=== PATIENT | female | born 1960 | race Two or more races ===

== ENCOUNTER 2020-09-01 13:11 | Outpatient (REF) | payer OTHER, SELFPAY ==
--- NOTE | 2020-09-01 | MM_ITS ---
EXAMINATION: BONE DENSITOMETRY CLINICAL INDICATION: Menopausal and female climacteric states. Other specified disorders of bone density and structure, unspecified site. COMPARISON: Previous BD dated 04/13/2018 and baseline BD dated 08/27/2009. TECHNIQUE: Using a Perk DXA System (software version: 13.1) manufactured by [employer], dual-energy x-ray absorptiometry was performed of the lumbar spine and left hip. The images are of good technical quality. Summary results are attached. FINDINGS: AP SPINE L1-L4: Current: BMD 1.128 g/cm2, Z-score 0.1, T-score -0.4, normal, 5.7% decrease from previous, 1.1% decrease from baseline (<5% change is not significant). Prior: BMD 1.196 g/cm2. Baseline: BMD 1.140 g/cm2. LEFT FEMUR, NECK: Current: BMD 0.824 g/cm2, Z-score -0.8, T-score -1.5, osteopenia. Prior: BMD 0.879 g/cm2. Baseline: BMD 0.901 g/cm2. LEFT FEMUR, TOTAL: Current: BMD 0.990 g/cm2, Z-score 0.3, T-score -0.1, normal, 6.4% decrease from previous, 5.4% decrease from baseline (<5% change is not significant). Prior: BMD 1.058 g/cm2. Baseline: BMD 1.047 g/cm2. IDENTIFIED RISK FACTORS: Current smoker. Bilateral oophorectomy. Hysterectomy. Secondary osteoporosis (early menopause). HISTORY OF FRACTURE: None listed. MEDICATIONS: Calcium supplement and/or multivitamin. Vitamin D. MM/XR DEXA axial skeleton IMPRESSION: 1. DIAGNOSIS: Osteopenia based on the lowest T-score value of -1.5 in the femoral neck applying World Health Organization criteria. 2. 10-YEAR FRACTURE RISK PREDICTION, FRAX: Major osteoporotic fracture (clinical spine, forearm, hip or shoulder) 4.3%. Hip fracture 0.6%. 3. Treatment Recommendations: NOF guidelines recommend consideration for treatment in postmenopausal women and men age 50 and older presenting with the following: -A hip or vertebral (clinical or morphometric) fracture. -T-score less than or equal to -2.5 at the femoral neck or spine after appropriate evaluation to exclude secondary causes. -Low bone mass at the hip or spine and a 10-year fracture probability by FRAX of greater than or equal to 3% for hip fracture or greater than or equal to 20% for major osteoporotic fracture based on the [place] adapted WHO algorithm. 4. Other Recommendations: All treatment decisions require clinical judgment and consideration of individual patient factors, including patient preferences, comorbidities, previous drug use, risk factors not captured in the FRAX model (e.g. frailty, falls, vitamin D deficiency, increased bone turnover, interval significant decline in bone density) and possible under or overestimation of fracture risk by FRAX. Additional medical evaluation for secondary cause of low bone mineral density may be appropriate. FUTURE SCAN RECOMMENDATION: People with diagnosed cases of osteoporosis or at high risk for fracture should have regular bone mineral density tests. For patients eligible for Medicare, routine testing is allowed once every 2 years. The testing frequency can be increased to one year for patients who have rapidly progressing disease, those who are receiving or discontinuing medical therapy to restore bone mass, or have additional risk factors.
--- NOTE | 2020-09-01 | MM_ITS ---
EXAMINATION: MM SCREENING DIGITAL BREAST TOMOSYNTHESIS, BILATERAL CLINICAL INFORMATION: Screening. Asymptomatic. The lifetime risk of breast cancer based on the Tyrer-Cuzick Model is 10.6%. COMPARISON: Mammography: April 13, 2018 and studies dating back to September 14, 2011 TECHNIQUE: Digital breast tomosynthesis is performed in both the craniocaudal and mediolateral oblique views along with computer-aided detection (CAD). Synthesized 2D images are generated from the tomosynthesis. FINDINGS: There are scattered areas of fibroglandular density (ACR BI-RADS breast composition Category b). There are no significant masses, abnormal calcifications, or other abnormalities. There is multiplicity and bilaterality of stable circumscribed densities. MM/MM tomosynthesis screening BI IMPRESSION: There are no significant changes from prior study. ASSESSMENT: BI-RADS 1: Negative RECOMMENDATION: Routine annual mammography screening. This patient's information was entered into a reminder system with a target due date for their next mammogram.
== END 2020-09-01 13:12 | disposition home or self-care (01) ==
LOC: HO.MAMMO 13:11
PROVIDERS: Visit Provider Internal Medicine
DX: Z13.820 Encounter for screening for osteoporosis (principal); M85.80 Other specified disorders of bone density and structure, unspecified site; N95.1 Menopausal and female climacteric states; F17.200 Nicotine dependence, unspecified, uncomplicated; Z79.899 Other long term (current) drug therapy; Z90.722 Acquired absence of ovaries, bilateral; Z90.710 Acquired absence of both cervix and uterus; Z12.31 Encounter for screening mammogram for malignant neoplasm of breast
CPT/HCPCS: 77063; 77067; 77080

== ENCOUNTER 2021-02-08 11:34 | Emergency (ER) | payer OTHER, SELFPAY ==
--- NOTE | ~2021-02-08 | XR_ITS ---
EXAMINATION: XR CHEST CLINICAL INFORMATION: Dyspnea. COMPARISON: None TECHNIQUE: Frontal view of the chest was obtained. FINDINGS: The lungs are well-expanded and clear of acute process. The heart size and pulmonary vascularity is normal. No gross bony abnormality seen. XR/XR chest 1V IMPRESSION: Unremarkable chest exam.
--- NOTE | ~2021-02-08 | CT_ITS ---
EXAMINATION: CTA CHEST PE STUDY CLINICAL INFORMATION: pt c cough c chest discomfort ? pe vs pna vs covid COMPARISON: No pertinent prior studies are available for comparison. TECHNIQUE: Prior to contrast administration, noncontrast localization images were obtained. After the administration of 70 mL of Omnipaque 350 IV contrast, contiguous thin slice helical images were obtained through the thorax. Reformatted MIP images in the coronal and sagittal planes were obtained at the acquisition workstation. This CT examination was performed using dose optimization techniques as appropriate, variously including the following: *Automated exposure control *Adjustment of mA and/or kV according to patient size (this includes techniques or standardized protocols for targeted exams where dose is matched to indication/reason for exam; i.e. extremities or head) *Use of iterative reconstruction technique DLP: 392 mGy-cm. FINDINGS: The bolus timing on this study was acceptable for visualization of the pulmonary arterial tree. There are no intraluminal pulmonary arterial filling defects present to suggest pulmonary embolism. Minimal atelectatic changes bilaterally. No dense consolidation or obvious infiltrate. Mild peribronchial cuffing and thickening is seen suggesting reactive or small airways disease. No abnormal pulmonary nodules or masses are appreciated. No significant hilar or mediastinal adenopathy. There is no evidence of pleural effusion or pneumothorax. The heart is normal in size. No evidence of ventricular septal bowing or right heart strain. Great vessels are normal. Otherwise the mediastinum is unremarkable. There is no pericardial effusion or pericardial thickening. Limited evaluation of the upper abdominal viscera demonstrates the gallbladder to be surgically absent.. CT/CT angio chest PE protocol IMPRESSION: No evidence for pulmonary emboli. Mild peribronchial thickening suggesting underlying reactive or small airways disease but no dense consolidation. VTE: Negative
[2021-02-08 12:16] VITALS: BP 190/81; PULSE 81; RESP 18; TEMP 36.6; O2SAT 96; BMI 41.1
--- NOTE | 2021-02-08 15:30 | ECG_ITS ---
Test Reason : SOB Blood Pressure : / mmHG Vent. Rate : 073 BPM Atrial Rate : 073 BPM P-R Int : 148 ms QRS Dur : 086 ms QT Int : 430 ms P-R-T Axes : 054 060 056 degrees QTc Int : 473 ms Normal sinus rhythm Normal ECG When compared with ECG of 25-DEC-2017 06:41, No significant change was found Referred By: Yanna Kevin Electronically Signed By:NORRIS MERRITT
--- NOTE | 2021-02-08 15:52 | ED.SOB ---
HPI - SOB/Dyspnea General Chief Complaint: Dyspnea Stated Complaint: SOB Time Seen by Provider: 02/08/21 15:29 Source: patient Mode of arrival: ambulatory Limitations: no limitations History of Present Illness HPI Narrative: 60-year-old female with a past medical history of type 2 diabetes, hypertension, hypercholesterolemia, asthma, obstructive sleep apnea, tobacco abuse, obesity, GERD, fatty liver, interstitial cystitis, nephrolithiasis, anxiety and depression full recently received the Shahriar and Shahriar 1 dose COVID vaccine on February 03 presenting to the ED with complaints of a productive cough with associated shortness of breath, dyspnea on exertion, orthopnea and chest discomfort over the past week worse since yesterday where she developed the shortness of breath/dyspnea on exertion/orthopnea/chest discomfort. Patient reports she has been using her albuterol inhaler and no symptomatic relief. Reports she also believes she might have oral thrush. Denies recent travel or sick contacts. Denies any fevers, dizziness, headaches, changes in vision, sore throat, nausea/vomiting, neck pain/stiffness, back pain, palpitations, lower extremity edema, abdominal pain, dysuria, hematuria, black or bloody stools or any other symptoms complaints or concerns at this time. MD elicited complaint: shortness of breath, cough, pain with inspiration and asthma attack Pertinent past history: asthma and diabetes Onset (ago): week(s) (One week worse since yesterday) Timing: constant and progressively worsening Severity: severe Exacerbating factors: lying flat, exertion, movement, coughing, inspiration, talking and deep breaths Relieving factors: rest and upright position Known history of: asthma and diabetes Associated symptoms: chest pain, pain with inspiration, cough, wheezing and orthopnea Treatment prior to arrival: bronchodilator Related Data Home oxygen amount: none Home Medications Medication Instructions Recorded Confirmed albuterol sulfate 2.5 mg INHALATION Q4-6H PRN 09/03/20 01/05/21 amitriptyline 25 mg tablet 25 mg PO BEDTIME 09/03/20 01/05/21 aspirin 81 mg tablet,delayed 81 mg PO DAILY 09/03/20 01/05/21 release budesonide-formoterol HFA 160 2 puff INHALATION Q12H 09/03/20 01/05/21 mcg-4.5 mcg/actuation aerosol inhaler fexofenadine 180 mg tablet 180 mg PO DAILY 09/03/20 01/05/21 fluoxetine 40 mg capsule 40 mg PO DAILY 09/03/20 01/05/21 fluticasone propionate 50 2 spray INTRANASAL DAILY 09/03/20 01/05/21 mcg/actuation nasal spray,suspension hydrocortisone acetate 1 % rectal applic TOPICAL PRN 09/03/20 01/05/21 cream lactulose 10 gram/15 mL (15 mL) 10 g PO DAILY PRN 09/03/20 01/05/21 oral solution losartan 100 mg tablet 100 mg PO DAILY 09/03/20 01/05/21 metoprolol succinate 25 mg 25 mg PO DAILY 09/03/20 01/05/21 tablet,extended release 24 hr sennosides 8.6 mg capsule 8.6 mg PO DAILY 09/03/20 01/05/21 Previous Rx's Medication Instructions Recorded simvastatin 5 mg tablet 5 mg PO BEDTIME #90 tab 08/20/20 lidocaine 5 % topical ointment 1 applic TOPICAL TID #60 g 09/03/20 nystatin 100,000 unit/mL oral 5 ml PO TID 7 Days #105 ml 09/14/20 suspension pantoprazole 40 mg tablet,delayed 40 mg PO DAILY #90 tab 11/03/20 release ropinirole 3 mg tablet 3 mg PO BEDTIME #90 tab 11/20/20 isosorbide mononitrate 30 mg 30 mg PO DAILY #90 tab 01/12/21 tablet,extended release 24 hr oxycodone-acetaminophen 5 mg-325 1 tab PO TID PRN #84 tab 01/29/21 mg tablet fenofibrate 160 mg tablet 160 mg PO DAILY #90 tab 02/05/21 albuterol sulfate 90 mcg/actuation 2 puff INHALATION Q6H PRN #8.5 g 02/07/21 aerosol inhaler Allergies Allergy/AdvReac Type Severity Reaction Status Date / Time lisinopril [From Zestril] AdvReac Mild COUGH Verified 09/02/20 11:00 Review of Systems Review of Systems: Constitutional : + malaise/fatigue, No Weight loss, No Fever, No Chills, No Night Sweats ENT/Mouth : No Hearing loss, No Ear Pain, No Nasal Congestion, No Sinus Pain, No Hoarseness, No sore throat, No Rhinorrhea, No Swallowing Difficulty Eyes: No Eye Pain, No Swelling, No Redness, No Foreign Body, No Discharge, No Vision Changes Cardiovascular : + Chest discomfort, + SOB, + Dyspnea on Exertion, + Orthopnea, No Edema, No extremity swelling, No Palpitations Respiratory : + Cough, + Sputum, + Wheezing, + Dyspnea Gastrointestinal : No Nausea, No Vomiting, No Diarrhea, No abdominal Pain, No Hematochezia, No Melena Genitourinary : No irregular bleeding, No Dysuria, No Urinary Frequency, No Hematuria, No Urinary Incontinence, No Urgency, No Flank Pain, No Urinary Flow Changes, No Hesitancy Musculoskeletal : No joint pain, No Myalgias, No Joint Swelling Skin : No Skin Lesions, No rash Neuro : No Weakness, No Numbness, No Paresthesias, No Loss of Consciousness, No Dizziness, No Headache Psych : No Anxiety/Panic, No Depression, No SI/HI/AH/VH Heme/Lymph: No Bruising, No Bleeding,No Lymphadenopathy Endocrine : No Polyuria, No Polydipsia, No Temperature Intolerance Yes all other systems are reviewed and are negative [facility] Past Medical History Attestation statement: The following information was validated with the patient. Medical History Anxiety and depression Asthma Carpal tunnel syndrome Fatty liver GERD (gastroesophageal reflux disease) Hypercholesterolemia Hypertension Insomnia Interstitial cystitis Irritable bowel syndrome Lumbar degenerative disc disease Obesity Obstructive sleep apnea Osteoarthritis of hip Restless leg syndrome Right renal stone Tobacco abuse Type 2 diabetes mellitus with hyperglycemia Surgical History History of bladder surgery History of carpal tunnel release History of section History of cholecystectomy History of lithotripsy History of removal of cyst History of tonsillectomy and adenoidectomy History of total abdominal hysterectomy and bilateral salpingo-oophorectomy Trigger finger of left hand Family History Family History Father CAD (coronary artery disease) CVD (cerebrovascular disease) Lung cancer Hypertension Mother Hypertension Diabetes Cancer Daughter Breast cancer Paternal Uncle Myocardial infarction Paternal Aunt Myocardial infarction Maternal Uncle Myocardial infarction Bone cancer Social History Social History Alcohol intake: current Alcohol intake frequency: holidays/special occasions only Smoking Status: Current every day smoker Tobacco Type: Cigarette Cigarettes Per Day: 10 Advance Directives: No Advance Directives Information Provided: Yes Physical Exam Vital Signs: Vital Signs: Last Vital Signs Temp 97.9 F 02/08/21 12:16 Pulse 81 02/08/21 12:16 Resp 18 02/08/21 12:16 BP 190/81 H 02/08/21 12:16 Pulse Ox 96 02/08/21 12:16 Body Mass Index 41.1 vital signs have been reviewed as normal and appeared to be correct. Blood pressure hypertensive at 190/81. Heart rate normal. Respiration rate normal. Temperature normal. Oxygen saturation normal. Appearance: Alert. Oriented X3. In acute respiratory distress. Head: Normal external exam. Normocephalic. Atraumatic. Eyes: PERRLA. EOMI. Conjunctiva and sclera normal. Eyelids normal. ENT: EAC normal. TM's Normal. Posterior pharynx with white plaques consistent with oral thrush. Pharynx normal. Uvula midline. Moist mucous membranes. No trismus noted. No drooling noted. No muffled voice noted. Neck: Normal inspection. Neck supple. FROM. No adenopathy. Thyroid Normal. No meningeal signs. No neck mass noted. CVS: Normal heart rate and rhythm. Heart sound normal. No murmurs noted. Pulses normal throughout. Respiratory: Patient in acute moderate respiratory distress with accessory muscle usage noted and decreased breath sounds with wheezing anterior and posterior throughout. Otherwise no rales/rhonchi noted. Patient also reports pain with inspiration. Abdomen: Soft and nontender. Bowel sounds normal in all 4 quadrants. No distention noted. No organomegaly noted. No visible injury noted. Back: No CVA tenderness. Full range of motion noted. Skin: Skin warm and dry. Normal skin color. Normal skin turgor. No rashes/lesions/lacerations noted. Extremities: No lower extremity edema. No calf tenderness noted bilaterally. Extremities exhibit normal range of motion. Extremities nontender. Neuro: Oriented X 3. No motor deficit. No sensory deficit. Reflexes normal. Course Course Course Narrative: 15;30pm - 60-year-old female presenting to the ED with complaints of productive cough with associated shortness of breath, dyspnea on exertion, orthopnea, chest discomfort for the past week worse since yesterday despite using her albuterol inhaler. Also reports thrush in her oropharynx. Denies being on any blood thinners recent travel or sick contacts - on exam patient is in acute respiratory distress with accessory muscle usage noted and inspiratory and expiratory wheezing with decreased breath sounds throughout. No rhonchi/rales noted. Patient oxygen saturation is 96% on room air respirations are 18 mildly hypertensive at 190/81 otherwise all other vitals are within normal limits. No focal neuro deficits are noted. Patient is neuro intact. CV RRR. Abdomen is soft and nontender. No lower extremity edema or calf tenderness noted bilaterally. - Concern for asthma exacerbation vs PNA vs COVID vs PE vs CHF. Less concern for ACS - Plan: Labs, blood culture, lactic acid, chest x-ray, EKG, CTA of chest for PE and obtain COVID/RSV/flu swab. Provide IV fluids, 125 mg of IV Solu-Medrol and 2 g of Rocephin, give an hour long breathing treatment then re-evaluate. MDM - SOB/Dyspnea Medical Records Attestation: I reviewed the patient's medical records. Lab Data Attestation: I reviewed the patient's lab results. Imaging Data Chest x-ray: Attestation: I personally reviewed and interpreted this imaging study as follows: ECG Data Attestation: I personally reviewed and interpreted this ECG as follows: ECG interpretation date: 02/08/21 ECG interpretation time: 15:47 Interpretation: Normal sinus rhythm and a ventricular rate of 73 with a normal [place] interval normal QRS duration normal QT/QTC interval. No acute ischemic changes noted. Similar when compared to prior EKG 12/25/2017. Critical Care Time Critical Care Time Critical Care Time: Yes Total Critical Care Time: 60 Attestation: I personally attest to this time spent taking care of the patient Discharge Plan Discharge Prescriptions: No Action simvastatin 5 mg tablet 5 mg PO BEDTIME Qty: 90 RF: 2 lidocaine 5 % ointment 1 applic topical TID Qty: 60 RF: 0 nystatin 100,000 unit/mL suspension 5 ml PO TID 7 Days Qty: 105 RF: 0 pantoprazole 40 mg tablet,delayed release (DR/EC) 40 mg PO DAILY Qty: 90 RF: 1 ropinirole 3 mg tablet 3 mg PO BEDTIME Qty: 90 RF: 1 isosorbide mononitrate 30 mg tablet extended release 24 hr 30 mg PO DAILY Qty: 90 RF: 3 oxycodone-acetaminophen 5-325 mg tablet 1 tab PO TID PRN (Reason: pain) Qty: 84 RF: 0 fenofibrate 160 mg tablet 160 mg PO DAILY Qty: 90 RF: 3 albuterol sulfate 90 mcg/actuation HFA aerosol inhaler 2 puff inhalation Q6H PRN (Reason: for wheezing) Qty: 8.5 RF: 0 losartan [Cozaar] 100 mg tablet 100 mg PO DAILY RF: 0 metoprolol succinate 25 mg tablet extended release 24 hr 25 mg PO DAILY RF: 0 albuterol sulfate 2.5 mg /3 mL (0.083 %) solution for nebulization 2.5 mg inhalation Q4-6H PRNRF: 0 budesonide-formoterol [Symbicort] 160-4.5 mcg/actuation HFA aerosol inhaler 2 puff inhalation Q12H RF: 0 fexofenadine [Amara Allergy] 180 mg tablet 180 mg PO DAILY RF: 0 senna 8.6 mg capsule 8.6 mg PO DAILY RF: 0 lactulose 10 gram/15 mL (15 mL) solution 10 g PO DAILY PRNRF: 0 hydrocortisone acetate 1 % cream topical PRNRF: 0 fluticasone propionate [Allergy Relief (fluticasone)] 50 mcg/actuation spray,suspension 2 spray intranasal DAILY RF: 0 amitriptyline 25 mg tablet 25 mg PO BEDTIME RF: 0 fluoxetine [Prozac] 40 mg capsule 40 mg PO DAILY RF: 0 aspirin [Adult Aspirin Regimen] 81 mg tablet,delayed release (DR/EC) 81 mg PO DAILY RF: 0
[2021-02-08 16:17] LABS: MANUAL DIFF FLAG NO
[2021-02-08] MEDS: methylPREDNISolone Sod Succ 125 MG/2 ML VIAL IVPUSH (16:19)
[2021-02-08] MEDS: 0.9 % Sodium Chloride 1,000 ML 999 ML IVCONT (16:19)
[2021-02-08 16:20] LABS: Basophils Percent Auto 0.4 % (0-2); Eosinophils Absolute Auto 0.3 X10*3/uL (0.0-0.4); Eosinophils Percent Auto 2.6 % (0-4); Hematocrit 41.9 % (37-47); Hemoglobin 13.4 g/dl (12.0-16.0); Imm Gran Abs Auto 0.04 X10*3/uL (0.00-0.03); Imm Gran Pct Auto 0.4 % (0.0-0.4); Lymphocytes Absolute Auto 3.3 X10*3/uL (1.2-4.9); Lymphocytes Percent Auto 34.4 % (20-40); Mean Corpuscular Volume 93.9 fL (80-98); Mean Platelet Volume 11.2 fL (9.4-12.3); Monocytes Absolute Auto 0.6 X10*3/uL (0.1-1.2); Monocytes Percent Auto 6.5 % (2-11); Neutrophils Absolute Auto 5.3 X10*3/uL (2.0-8.3); Neutrophils Percent Auto 55.7 % (45-73); Platelet Count 254 X10*3/uL (160-400); Red Blood Count 4.46 X10*6/uL (4.20-5.50); White Blood Count 9.5 X10*3/uL (4.8-10.8)
[2021-02-08 16:34] LABS: Partial Thromboplastin Time 29.8 SEC (24.1-38.0)
[2021-02-08 16:38] VITALS: BP 136/74; PULSE 66; RESP 18; TEMP 36.9; O2SAT 97
[2021-02-08 16:41] LABS: Alanine Aminotransferase 54 U/L (0-31); Albumin Level 4.2 g/dL (3.5-5.0); Alkaline Phosphatase 65 U/L (39-117); Aspartate Amino Transferase 63 U/L (5-31); Bilirubin Direct 0.3 mg/dL (0.0-0.5); Bilirubin Total 0.5 mg/dL (0.0-1.0); Total Protein 7.2 g/dL (6.5-8.0)
[2021-02-08] MEDS: cefTRIAXone sodium 2 GM in 0.9 % Sodium Chloride 50 ML IV (16:44)
[2021-02-08 16:45] LABS: B Type Natriuretic Peptide 97 pg/mL (<100); Troponin-I High Sensitivity < 3.5 ng/L (<3.5-17.0)
[2021-02-08 16:46] LABS: C Reactive Protein 0.61 mg/dL (< or = 0.50)
[2021-02-08 16:58] LABS: Lactate Dehydrogenase 244 U/L (122-220)
[2021-02-08 17:01] LABS: Ferritin 37 ng/mL (10-250)
[2021-02-08 17:05] LABS: Influenza A PCR NEGATIVE (Negative); Influenza B PCR NEGATIVE (Negative); Resp Syncy Virus RNA Qual PCR NEGATIVE (Negative); SARS COV2 PCR INHOUSE NEGATIVE (Negative)
[2021-02-08 17:08] LABS: Anion Gap 14 (12-20); Blood Urea Nitrogen 21 mg/dL (9-16); Calcium 9.4 mg/dL (8.4-10.2); Carbon Dioxide 25 mmol/L (22-29); Chloride 104 mmol/L (96-108); Creatinine Clr Calc Pharmacy 64.3; Estimated Glomerular Filt Rate > 60; Glucose Random 92 mg/dL (60-115); Potassium 4.4 mmol/L (3.3-5.1); Sodium 139 mmol/L (135-145)
[2021-02-08 17:21] LABS: D Dimer 223 NG/ML; Prothrombin Time 12.4 SEC (10.8-13.0)
[2021-02-08] MEDS: Albuterol Sulfate (0.083%) 2.5 MG/3 ML VIAL.NEB 10 MG INHALE (17:33)
[2021-02-08 17:36] VITALS: PULSE 74; O2SAT 97
[2021-02-08 18:29] LABS: Glucose Urine UA NEG (NEG); Leukocyte Esterase Urine NEG (NEG); Nitrite Urine NEG (NEG); Specific Gravity - Urine 1.015 (1.005-1.025); Urine Blood NEG (NEG); Urine Ketones NEG (NEG); Urine Protein NEG (NEG-TRACE)
[2021-02-08 18:30] LABS: Appearance Urine CLEAR; Color Urine YELLOW
[2021-02-08] MEDS: iohexoL 350 MG/ML 100 ML INFUS..BTL IV (18:36)
[2021-02-08 19:14] VITALS: BP 162/81; PULSE 72; RESP 16; TEMP 37.1; O2SAT 99
--- NOTE | 2021-02-08 19:16 | PC.NURSE ---
provider Ina ash handler at bedside. pt states she feels ready for discharge. pt talking in full sentences aox3. plan is for discharge.
== END 2021-02-08 19:51 | disposition home or self-care (01) ==
PROVIDERS: Physician Assistant Medical; Emergency Provider Emergency Medicine; PCP Internal Medicine
DX: J45.901 Unspecified asthma with (acute) exacerbation (principal); B37.0 Candidal stomatitis; I10 Essential (primary) hypertension; E11.9 Type 2 diabetes mellitus without complications; E78.00 Pure hypercholesterolemia, unspecified; K21.9 Gastro-esophageal reflux disease without esophagitis; K76.0 Fatty (change of) liver, not elsewhere classified; F17.210 Nicotine dependence, cigarettes, uncomplicated; Z79.899 Other long term (current) drug therapy; Z79.82 Long term (current) use of aspirin
CPT/HCPCS: 0241U; 36415; 71045; 71275; 80048; 80076; 81003; 82728; 83605; 83615; 83735; 83880; 84145; 84484; 85025; 85379; 85610; 85730; 86140; 87040; 93005; 94640; 94644; 96361; 96365; 96375; 99284; 99291; J0696; J2930; Q9967

== ENCOUNTER → 2021-02-17 10:38 | Outpatient (BNVA) | payer OTHER, SELFPAY | PROVIDERS: PCP Internal Medicine; Visit Provider Internal Medicine | DX: G47.33 Obstructive sleep apnea (adult) (pediatric) (principal); G25.81 Restless legs syndrome; J45.909 Unspecified asthma, uncomplicated; Z72.0 Tobacco use | CPT/HCPCS: 99202 ==

== ENCOUNTER → 2021-03-17 12:49 | Outpatient (REF) | payer OTHER, SELFPAY | LOC: HO.SL 12:49 | PROVIDERS: PCP Internal Medicine; Visit Provider Internal Medicine | DX: G47.33 Obstructive sleep apnea (adult) (pediatric) (principal); G47.00 Insomnia, unspecified; E66.01 Morbid (severe) obesity due to excess calories | CPT/HCPCS: 95806; 99212 ==

== ENCOUNTER 2021-03-30 09:26 | Outpatient (REF) | payer OTHER, SELFPAY ==
--- NOTE | ~2021-03-30 | XR_ITS ---
EXAMINATION: XR HIP, RIGHT CLINICAL INFORMATION: Osteoarthritis of hip. COMPARISON: None TECHNIQUE: Two views of the right hip. FINDINGS: There is no visible acute fracture, dislocation or bony erosive changes. The right hip joint alignment is normal. There are no loose bodies. The soft tissues are normal. XR/XR hip RT min 2V IMPRESSION: Unremarkable right hip exam.
== END 2021-03-30 09:27 | disposition home or self-care (01) ==
LOC: HO.XRAY 09:26
PROVIDERS: PCP Internal Medicine; Visit Provider Student in an Organized Health Care Education/Training Program
DX: M16.9 Osteoarthritis of hip, unspecified (principal)
CPT/HCPCS: 73502; 99202

== ENCOUNTER → 2021-05-10 10:52 | Outpatient (BNVA) | payer OTHER, SELFPAY | PROVIDERS: PCP Internal Medicine; Visit Provider Internal Medicine | DX: G47.33 Obstructive sleep apnea (adult) (pediatric) (principal); J45.909 Unspecified asthma, uncomplicated | CPT/HCPCS: 99212 ==

== ENCOUNTER → 2021-06-30 11:14 | Outpatient (BNVA) | payer OTHER, SELFPAY | PROVIDERS: PCP Internal Medicine; Visit Provider Internal Medicine | DX: G47.33 Obstructive sleep apnea (adult) (pediatric) (principal); J45.909 Unspecified asthma, uncomplicated; F17.200 Nicotine dependence, unspecified, uncomplicated; Z71.6 Tobacco abuse counseling | CPT/HCPCS: 99212 ==

== ENCOUNTER → 2021-09-01 10:12 | Outpatient (BNVA) | payer OTHER, SELFPAY | PROVIDERS: PCP Internal Medicine; Visit Provider Internal Medicine | DX: J30.9 Allergic rhinitis, unspecified (principal); J45.909 Unspecified asthma, uncomplicated; G47.33 Obstructive sleep apnea (adult) (pediatric) | CPT/HCPCS: 99212 ==

== ENCOUNTER → 2021-12-31 10:53 | Outpatient (BNVA) | payer OTHER, SELFPAY | PROVIDERS: PCP Internal Medicine; Referring Provider Internal Medicine; Visit Provider Surgery | DX: N61.1 Abscess of the breast and nipple (principal); Z79.2 Long term (current) use of antibiotics | CPT/HCPCS: 99202 ==

== ENCOUNTER 2021-12-31 15:09 | Outpatient (REF) | payer OTHER, SELFPAY | END 2021-12-31 15:10 | disposition home or self-care (01) | LOC: HO.LNP 15:09 | PROVIDERS: Visit Provider Surgery | DX: N61.1 Abscess of the breast and nipple (principal) | CPT/HCPCS: 87071; 87205 ==

== ENCOUNTER 2022-01-04 14:15 | Outpatient (REF) | payer OTHER, SELFPAY ==
--- NOTE | ~2022-01-04 | MM_ITS ---
EXAMINATION: MM DIAGNOSTIC DIGITAL BREAST TOMOSYNTHESIS, BILATERAL US DIAGNOSTIC ULTRASOUND BREAST, RIGHT CLINICAL INFORMATION: Due for yearly. 61-year-old with recent fullness anterior right breast with tenderness and mild erythema. Patient completed 10 day course of antibiotics with second course of different antibiotic, today day 8. Right nipple discharge during antibiotic course. Family history breast cancer, daughter. The lifetime risk of breast cancer based on the Tyrer-Cuzick Model is 8%. COMPARISON: Mammography: 09/01/2020, 04/13/2018, 12/05/2016 TECHNIQUE: Digital breast tomosynthesis is performed in both the craniocaudal and mediolateral oblique views along with computer-aided detection (CAD). Synthesized 2D images are generated from the tomosynthesis. Additional right cleavage view is provided. Ultrasound right breast is targeted to the periareolar and retroareolar region. Grayscale imaging and color Doppler are performed without and with harmonics. FINDINGS: There are scattered areas of fibroglandular density (ACR BI-RADS breast composition Category b). Parenchymal pattern is similar to prior studies. There is chronic mild bilateral subareolar duct ectasia similar to prior studies. There is no developing density or interval mass or architectural abnormality. Scattered isolated and grouped round calcifications are again seen. There are 2 biopsy clip markers again noted posterior outer left breast. The axilla and skin contours are unremarkable. No skin thickening or coarsening of the Waldo's ligaments. Ultrasound right breast demonstrates mild retroareolar duct ectasia similar to the mammography. There is no intralumenal mass or echogenicity. No intraductal color flow. There is no solid mass or architectural abnormality. No skin thickening or edema tracking in soft tissue planes. Results are discussed with the patient at time of visit. Patient advised to complete course of antibiotics and maintain her follow-up appointment with surgeon as planned. MM/MM tomosynthesis diagnostic BI IMPRESSION: -Mammography similar to prior studies. -Retroareolar ductal ectasia similar to prior exams. -Ultrasound shows no abscess or intraluminal color flow. ASSESSMENT: BI-RADS 2: Benign RECOMMENDATION: 1. Finish current course of antibiotics and maintain follow up appointment with surgeon as planned. 2. Annual bilateral mammography. This patient's information was entered into a reminder system with a target due date for their next mammogram.
== END 2022-01-04 14:16 | disposition home or self-care (01) ==
LOC: HO.MAMMO 14:15
PROVIDERS: PCP Internal Medicine; Visit Provider Internal Medicine
DX: R92.2 Inconclusive mammogram (principal)
CPT/HCPCS: 76642; 77062; 77066

== ENCOUNTER → 2022-01-11 10:32 | Outpatient (BNVA) | payer OTHER, SELFPAY | PROVIDERS: PCP Internal Medicine; Visit Provider Surgery | DX: N61.1 Abscess of the breast and nipple (principal) | CPT/HCPCS: 99212 ==

== ENCOUNTER → 2022-02-10 10:41 | Outpatient (BNVA) | payer OTHER, SELFPAY | PROVIDERS: PCP Internal Medicine; Referring Provider Internal Medicine; Visit Provider Surgery | DX: N61.1 Abscess of the breast and nipple (principal); N63.41 Unspecified lump in right breast, subareolar | CPT/HCPCS: 99212 ==

== ENCOUNTER 2022-02-23 10:23 | Emergency (ER) | payer OTHER, SELFPAY ==
--- NOTE | 2022-02-23 | ECG_ITS ---
Test Reason : chest tightness Blood Pressure : / mmHG Vent. Rate : 075 BPM Atrial Rate : 075 BPM P-R Int : 136 ms QRS Dur : 086 ms QT Int : 408 ms P-R-T Axes : 046 055 049 degrees QTc Int : 455 ms Normal sinus rhythm Normal ECG When compared with ECG of 08-FEB-2021 15:47, No significant change was found Referred By: Generic ED Physician Electronically Signed By:NORRIS MERRITT
--- NOTE | ~2022-02-23 | XR_ITS ---
EXAMINATION: XR CHEST CLINICAL INFORMATION: Cough COMPARISON: Chest radiographs 02/08/2021, 07/15/2020 TECHNIQUE: Portable upright AP view of the chest is performed. Wet read provided earlier during IT down time. FINDINGS: There is fine linear disc atelectasis right infrahilar region. Lungs otherwise clear. There is no lobar or segmental airspace consolidation, vascular congestion, or effusion. The cardiac and hilar and mediastinal contours are unremarkable. XR/XR chest 1V IMPRESSION: Disc atelectasis right infrahilar region. Lungs otherwise clear.
[2022-02-23 11:21] VITALS: BP 148/89; PULSE 82; RESP 18; TEMP 36.1; O2SAT 99; BMI 41.0
[2022-02-23 11:39] LABS: MANUAL DIFF FLAG NO
[2022-02-23 12:02] LABS: Basophils Percent Auto 0.3 % (0-2); Eosinophils Absolute Auto 0.1 X10*3/uL (0.0-0.4); Eosinophils Percent Auto 2.1 % (0-4); Hematocrit 42.2 % (37.0-47.0); Hemoglobin 13.9 g/dl (12.0-16.0); Imm Gran Abs Auto 0.02 X10*3/uL (0.00-0.03); Imm Gran Pct Auto 0.3 % (0.0-0.4); Lymphocytes Absolute Auto 2.2 X10*3/uL (1.2-4.9); Lymphocytes Percent Auto 32.7 % (20-40); Mean Corpuscular HGB Conc 32.9 g/dl (31.0-35.0); Mean Corpuscular Hemoglobin 30.3 pg (27.0-33.0); Mean Corpuscular Volume 92.1 fL (80.0-98.0); Mean Platelet Volume 10.7 fL (9.4-12.3); Monocytes Absolute Auto 0.3 X10*3/uL (0.1-1.2); Monocytes Percent Auto 4.7 % (2-11); Neutrophils Absolute Auto 4.1 x10*3/uL (2.0-8.3); Neutrophils Percent Auto 59.9 % (45-73); Platelet Count 237 X10*3/uL (160-400); Red Blood Count 4.58 X10*6/uL (4.20-5.50); White Blood Count 6.8 X10*3/uL (4.8-10.8)
[2022-02-23 12:10] LABS: Anion Gap 10 (12-20); Blood Urea Nitrogen 16 mg/dL (9-16); Carbon Dioxide 28 mmol/L (22-29); Chloride 102 mmol/L (96-108); Creatinine Clr Calc Pharmacy 62.6; Estimated Glomerular Filt Rate > 60; Glucose Random 206 mg/dL (60-115); Potassium 4.8 mmol/L (3.3-5.1); Sodium 135 mmol/L (135-145)
--- NOTE | 2022-02-23 13:37 | ED_ITS ---
HPI - Chest Pain General Chief Complaint: Dyspnea Stated Complaint: SOB/Dizzy/headache Time Seen by Provider: 02/23/22 13:37 Source: patient Mode of arrival: ambulatory Limitations: no limitations History of Present Illness HPI narrative: 61 yo female with hx of FREDDY, arthritis, asthma, IBS, fatty liver, HLD, GERD, DM, comes in with c/o cough, wheezing, dizziness, not feeling well, body aches, tried a neb treatment prior to arrival without relief. She has not been on prednisone. She took a COVID test at home yesterdy that was negative. MD complaint: chest pain (cough, wheezing, body aches, headaches, dizziness) Onset (ago): week(s) (10 days) Timing of current episode: episodic Prior episodes: Yes Onset: during rest Pain location: left chest Pain radiation: none Severity: moderate Quality: tightness Relieving factors: nothing Exacerbating factors: other (coughing) Context: recent illness (URI and viral like illness) Associated symptoms: cough and other (body aches, dizziness, not feeling well, dry cough) Treatment prior to arrival: other (tried neb without relief) Related Data Home Medications Medication Instructions Recorded Confirmed amitriptyline 25 mg tablet 25 mg PO BEDTIME 09/03/20 02/22/22 aspirin 81 mg tablet,delayed 81 mg PO DAILY 09/03/20 02/22/22 release (Adult Aspirin Regimen) hydrocortisone acetate 1 % rectal applic TOPICAL PRN 09/03/20 01/11/22 cream lactulose 10 gram/15 mL (15 mL) 10 g PO DAILY 09/03/20 02/22/22 oral solution bupropion HCl 150 mg 24 hr tablet, 150 mg PO BEDTIME 02/17/21 02/22/22 extended release fexofenadine 180 mg tablet 180 mg PO DAILY PRN 02/17/21 02/22/22 (Amara Allergy) sennosides 8.6 mg capsule (senna) 8.6 mg PO DAILY PRN 02/17/21 02/22/22 fluoxetine 20 mg capsule 40 mg PO QAM 06/30/21 02/22/22 hydroxyzine HCl 10 mg tablet 10 mg PO BID 02/10/22 02/22/22 Previous Rx's Medication Instructions Recorded lidocaine 5 % topical ointment 1 applic TOPICAL TID #60 g 09/03/20 albuterol sulfate 0.63 mg/3 mL 0.63 mg (3 mL) INHALATION QID PRN 02/08/21 solution for nebulization #75 ml nebulizers (AeroEclipse II #1 ea 02/08/21 Nebulizer) fluticasone propionate 50 2 spray INTRANASAL DAILY #3 ea 06/02/21 mcg/actuation nasal spray,suspension (Allergy Relief (fluticasone)) hydrocortisone 2.5 % topical cream 1 appl OK BID-QID PRN #30 g 06/11/21 with perineal applicator (Proctosol HC) albuterol sulfate 90 mcg/actuation 2 inh PO Q4-6H PRN #8.5 ea 08/03/21 aerosol inhaler nicotine 21 mg/24 hr daily 1 patch TRANSDERMAL DAILY 14 Days 10/28/21 transdermal patch #14 ea budesonide-formoterol HFA 160 2 puff INHALATION Q12H #3 ea 11/10/21 mcg-4.5 mcg/actuation aerosol inhaler (Symbicort) fenofibrate 160 mg tablet 160 mg PO DAILY #90 tab 11/12/21 isosorbide mononitrate 30 mg 30 mg PO DAILY #90 tab 11/12/21 tablet,extended release 24 hr metoprolol succinate 25 mg 25 mg PO DAILY #90 tab 11/18/21 tablet,extended release 24 hr simvastatin 5 mg tablet 5 mg PO BEDTIME #90 tab 11/29/21 ropinirole 3 mg tablet 3 mg PO BEDTIME #90 tab 12/16/21 omeprazole 40 mg capsule,delayed 40 mg PO DAILY #90 cap 01/16/22 release sulfamethoxazole 800 1 tab PO BID #20 tab 01/18/22 mg-trimethoprim 160 mg tablet (Bactrim DS) valacyclovir 1 gram tablet 1,000 mg PO TID 7 Days #21 tab 01/25/22 (Valtrex) oxycodone-acetaminophen 5 mg-325 1 tab PO TID PRN 28 Days #84 tab 01/27/22 mg tablet losartan 100 mg tablet (Cozaar) 100 mg PO DAILY 90 Days #90 tab 02/11/22 Allergies Allergy/AdvReac Type Severity Reaction Status Date / Time lisinopril [From Zestril] AdvReac Mild COUGH Verified 02/10/22 10:50 Review of Systems Review of Systems: Constitutional : No Weight loss, No Fever, No Chills ENT/Mouth : No sore throat, No Rhinorrhea Eyes: No Eye Pain, No Swelling Cardiovascular : pos Chest Pain, pos SOB, no Dyspnea on Exertion, No Orthopnea, No Edema, No Palpitations, pos wheezing Respiratory : pos Cough, No Sputum Gastrointestinal : no Nausea, No Vomiting, No Diarrhea, No abdominal Pain, No Hematochezia, No Melena Genitourinary : No Dysuria, No Urinary Frequency Musculoskeletal : No joint pain, pos Myalgias, No Joint Swelling Skin : No Skin Lesions, No rash Neuro : No Weakness, No Numbness, pos Dizziness, pos Headache Psych : No Anxiety/Panic, No Depression Heme/Lymph: No Bruising, No Lymphadenopathy Endocrine : No Polyuria, No Polydipsia All other systems reviewed and are negative [facility] Past Medical History Attestation statement: The following information was validated with the patient. Medical History Allergic rhinitis Anxiety and depression Asthma Carpal tunnel syndrome Fatty liver GERD (gastroesophageal reflux disease) Hypercholesterolemia Hypertension Insomnia Interstitial cystitis Irritable bowel syndrome Lumbar degenerative disc disease Obesity Obstructive sleep apnea Osteoarthritis of hip Restless leg syndrome Right renal stone Tobacco abuse Type 2 diabetes mellitus with hyperglycemia Surgical History H/O colonoscopy History of bladder surgery History of bladder surgery History of carpal tunnel release History of section History of cholecystectomy History of esophagogastroduodenoscopy (EGD) History of lithotripsy History of removal of cyst History of tonsillectomy and adenoidectomy History of total abdominal hysterectomy and bilateral salpingo-oophorectomy Hx of excision of mass Hx of foot surgery Hx of nasal septoplasty Trigger finger of left hand Family History Family History Father CAD (coronary artery disease) CVD (cerebrovascular disease) Lung cancer Hypertension Mother Hypertension Diabetes Cancer Daughter Breast cancer Paternal Uncle Myocardial infarction Paternal Aunt Myocardial infarction Maternal Uncle Myocardial infarction Bone cancer Social History Social History Housing: Apartment Alcohol intake: current Alcohol intake frequency: holidays/special occasions only Patient Tobacco Use Status: Current everyday Tobacco user Tobacco use type: Cigarette Cigarettes Per Day: 10 Years Smoked: 40 e-Cigarette/Vaping Use: Never Used Second Hand Smoke Exposure: No Advance Directives: No Advance Directives Information Provided: No service: No Current occupational status: disabled Cognitive needs: No Hearing needs: No Vision needs: Yes Physical Exam Vital Signs: Vital Signs: Last Vital Signs Temp 97 F 02/23/22 11:21 Pulse 75 02/23/22 15:57 Resp 20 02/23/22 15:57 BP 148/89 H 02/23/22 11:21 Pulse Ox 99 02/23/22 11:21 BMI result Body Mass Index 41.0 Appearance: Alert. Oriented X3. No acute distress. Eyes: Pupils equal, round and reactive to light. ENT: Pharynx normal. Neck: Normal inspection. Neck supple. CVS: Normal heart rate and rhythm. Pulses normal. Respiratory: No respiratory distress. Breath sounds decreased throughout with wheezes noted Abdomen: Soft and non-tender. Skin: Skin warm and dry. Normal skin color. Normal skin turgor. Extremities: No lower extremity edema. No calf ttp Neuro: Oriented X 3. No motor deficit. No sensory deficit. Course Course Course Narrative: repeat neb ordered at this time CXR and COVID swab pending signed out to [employer] pending xray results and serology no hypoxia, repeat neb done, anti tussive ordered suspect she will be stable to go home with steroids, anti tussive, prednisone and can follow up with PCP MDM - Chest Pain MDM Narrative Medical decision making narrative: 61 yo female with hx of FREDDY, arthritis, asthma, IBS, fatty liver, HLD, GERD, DM, comes in with c/o cough, wheezing, dizziness, not feeling well, body aches at this time possible viral vs bronchitis illness will obtain basic labs, EKG, troponin, CXR - doubt PE given duration of symptoms > 1 week not hypoxic or tachycardic no signs of DVT - she has multiple complaints as well like worried about BS > 200 for 1 month but has no seen PCP and takes no medications for it. Lab Data Result diagrams: 02/23/22 11:34 02/23/22 11:34 Labs: Lab Results 02/23/22 02/23/22 02/23/22 Range/Units 11:34 11:34 11:37 WBC 6.8 (4.8-10.8) X10*3/uL RBC 4.58 (4.20-5.50) X10*6/uL Hgb 13.9 (12.0-16.0) g/dl Hct 42.2 (37.0-47.0) % MCV 92.1 (80.0-98.0) fL MCH 30.3 (27.0-33.0) pg MCHC 32.9 (31.0-35.0) g/dl RDW 14.0 (11.0-16.0) % Plt Count 237 (160-400) X10*3/uL MPV 10.7 (9.4-12.3) fL Immature Gran % (Auto) 0.3 (0.0-0.4) % Neut % (Auto) 59.9 (45-73) % Lymph % (Auto) 32.7 (20-40) % [place] % (Auto) 4.7 (2-11) % Eos % (Auto) 2.1 (0-4) % Baso % (Auto) 0.3 (0-2) % Lymph # (Auto) 2.2 (1.2-4.9) X10*3/uL [place] # (Auto) 0.3 (0.1-1.2) X10*3/uL Eos # (Auto) 0.1 (0.0-0.4) X10*3/uL Baso # (Auto) 0.0 (0.0-0.2) X10*3/uL Abs Immat Gran (auto) 0.02 (0.00-0.03) X10*3/uL Absolute Neuts (auto) 4.1 (2.0-8.3) x10*3/uL Absolute Nucleated RBC 0.000 (0.0-0.012) X10*3/uL Nucleated RBC % (auto) 0.0 (0.0-0.2) /100WBC Sodium 135 (135-145) mmol/L Potassium 4.8 (3.3-5.1) mmol/L Chloride 102 (96-108) mmol/L Carbon Dioxide 28 (22-29) mmol/L Anion Gap 10 L (12-20) BUN 16 (9-16) mg/dL Creatinine 0.91 (0.5-1.4) mg/dL Estim Creat Clear Calc 62.6 Estimated GFR > 60 Random Glucose 206 H (60-115) mg/dL Calcium 10.0 D (8.4-10.2) mg/dL Troponin I High Sens < 3.5 (<3.5-17.0) ng/L ECG Data ECG #1: Attestation: I personally reviewed and interpreted this ECG as follows: ECG interpretation date: 02/23/22 ECG interpretation time: 13:38 Interpretation: Rate: 75 Rhythm: NSR [place]: normal Normal P waves. Normal EUGENIE. Normal QRS complex. ST T wave : normal no CONSTANCE qTC: normal prior studies: no acute ischemia The study has been interpreted contemporaneously by me. . Discharge Plan Discharge Clinical Impression: Bronchitis Patient Disposition: Still a Patient Prescriptions: No Action lidocaine 5 % ointment 1 applic topical TID Qty: 60 0RF fluticasone propionate [Allergy Relief (fluticasone)] 50 mcg/actuation spray,suspension 2 spray intranasal DAILY Qty: 3 3RF Rx Instructions: administer into each nostril albuterol sulfate 90 mcg/actuation HFA aerosol inhaler 2 inh PO Q4-6H PRN (Reason: shortness of breath or wheezing) Qty: 8.5 2RF nicotine 21 mg/24 hr patch 24 hour 1 patch transdermal DAILY 14 Days Qty: 14 0RF budesonide-formoterol [Symbicort] 160-4.5 mcg/actuation HFA aerosol inhaler 2 puff inhalation Q12H Qty: 3 3RF isosorbide mononitrate 30 mg tablet extended release 24 hr 30 mg PO DAILY Qty: 90 3RF fenofibrate 160 mg tablet 160 mg PO DAILY Qty: 90 3RF metoprolol succinate 25 mg tablet extended release 24 hr 25 mg PO DAILY Qty: 90 3RF simvastatin 5 mg tablet 5 mg PO BEDTIME Qty: 90 2RF ropinirole 3 mg tablet 3 mg PO BEDTIME Qty: 90 3RF omeprazole 40 mg capsule,delayed release(DR/EC) 40 mg PO DAILY Qty: 90 0RF sulfamethoxazole-trimethoprim [Bactrim DS] 800-160 mg tablet 1 tab PO BID Qty: 20 0RF oxycodone-acetaminophen 5-325 mg tablet 1 tab PO TID PRN (Reason: pain) 28 Days Qty: 84 0RF losartan [Cozaar] 100 mg tablet 100 mg PO DAILY 90 Days Qty: 90 2RF (DME) AeroEclipse II Nebulizer [facility] See Rx Instructions .ROUTE .MEDSUPPLY Qty: 1 0RF Rx Instructions: As directed albuterol sulfate 0.63 mg/3 mL solution for nebulization 0.63 mg inhalation QID PRN (Reason: shortness of breath or wheezing) Qty: 75 0RF lactulose 10 gram/15 mL (15 mL) solution 10 g PO DAILY 0RF hydrocortisone acetate 1 % cream topical PRN0RF amitriptyline 25 mg tablet 25 mg PO BEDTIME 0RF aspirin [Adult Aspirin Regimen] 81 mg tablet,delayed release (DR/EC) 81 mg PO DAILY 0RF fexofenadine [Amara Allergy] 180 mg tablet 180 mg PO DAILY PRN (Reason: Allergy Symptoms) 0RF senna 8.6 mg capsule 8.6 mg PO DAILY PRN (Reason: Constipation) 0RF hydrocortisone [Proctosol HC] 2.5 % cream with perineal applicator 1 appl OK BID-QID PRN (Reason: hemorrhoids) Qty: 30 2RF valacyclovir [Valtrex] 1 gram tablet 1,000 mg PO TID 7 Days Qty: 21 0RF fluoxetine 20 mg capsule 40 mg PO QAM 0RF bupropion HCl 150 mg tablet extended release 24 hr 150 mg PO BEDTIME 0RF hydroxyzine HCl 10 mg tablet 10 mg PO BID 0RF
[2022-02-23] MEDS: Albuterol Sulfate (0.083%) 2.5 MG/3 ML VIAL.NEB INHALE ×2 (13:47→15:56)
[2022-02-23] MEDS: Albuterol/Iprat 2.5/0.5MG 3 ML AMPUL.NEB INHALE (13:47)
[2022-02-23 13:48] VITALS: PULSE 70; RESP 22; O2SAT 98
[2022-02-23] MEDS: methylPREDNISolone Sod Succ 125 MG/2 ML VIAL IVPUSH (13:51)
[2022-02-23 14:31] LABS: Troponin-I High Sensitivity < 3.5 ng/L (<3.5-17.0)
[2022-02-23 15:57] VITALS: PULSE 75; RESP 20; O2SAT 99
[2022-02-23 16:31] LABS: COVID-19 Test Negative (Negative)
[2022-02-23 16:35] LABS: Influenza A Negative (Negative); Influenza B2 Negative (Negative)
[2022-02-23] MEDS: HYDROcodone/Homat 5/1.5/5 ML 5 ML SYRUP PO (16:42)
[2022-02-23 17:20] VITALS: BP 140/63; PULSE 78; RESP 18; TEMP 36.8; O2SAT 93
== END 2022-02-23 18:16 | disposition home or self-care (01) ==
PROVIDERS: Emergency Provider Emergency Medicine; PCP Internal Medicine
DX: J40 Bronchitis, not specified as acute or chronic (principal); J45.909 Unspecified asthma, uncomplicated; I10 Essential (primary) hypertension; E11.9 Type 2 diabetes mellitus without complications; F17.210 Nicotine dependence, cigarettes, uncomplicated; Z20.822 Contact with and (suspected) exposure to COVID-19
CPT/HCPCS: 36415; 71045; 80048; 84484; 85025; 87502; 87635; 93005; 94640; 96374; 99285; J2930

== ENCOUNTER 2022-02-28 08:49 | Day surgery (SDC) | payer OTHER, SELFPAY ==
[2022-02-22 14:00] VITALS: BMI 41.0
--- NOTE | 2022-02-25 08:24 | P.CONAN_ITS ---
Documented by User: Breana Andino NP 02/25/22 13:12 HPI - Anesthesia Eval Consult details Narrative: 61yo F for Right Excision of nipple Mass 02/23/22 [facility] [place] visit for bronchitis. Covid and flu swabs negative. Abx and prednisone rx'd by pcp 02/24/22 Pt reports marked improvement in breathing/cough as of 02/25/22 1315 telephone call [facility] Active Problems Active Problems: All Active Problems (Updated 02/24/22 @ 00:01 by Terry Chavarria) Asthma exacerbation (Acute) Hemorrhoids (Acute) Constipation (Acute) Generalized anxiety disorder (Acute) Breast mass, right (Acute) Breast abscess (Acute) Shingles rash (Acute) Allergic rhinitis (Acute) Right renal stone (Acute) Restless leg syndrome (Acute) Osteoarthritis of hip (Acute) Obstructive sleep apnea (Acute) Irritable bowel syndrome (Acute) Interstitial cystitis (Acute) Insomnia (Acute) Hypercholesterolemia (Acute) Fatty liver (Acute) Asthma (Acute) Obesity (Acute) Tobacco abuse (Acute) GERD (gastroesophageal reflux disease) (Acute) Anxiety and depression (Acute) Hypertension (Acute) Lumbar degenerative disc disease (Acute) Type 2 diabetes mellitus with hyperglycemia (Acute) Past Medical History Medical History Allergic rhinitis Anxiety and depression Asthma Carpal tunnel syndrome Fatty liver GERD (gastroesophageal reflux disease) Hypercholesterolemia Hypertension Insomnia Interstitial cystitis Irritable bowel syndrome Lumbar degenerative disc disease Obesity Obstructive sleep apnea Osteoarthritis of hip Restless leg syndrome Right renal stone Tobacco abuse Type 2 diabetes mellitus with hyperglycemia Family History Family History Father CAD (coronary artery disease) CVD (cerebrovascular disease) Lung cancer Hypertension Mother Hypertension Diabetes Cancer Daughter Breast cancer Paternal Uncle Myocardial infarction Paternal Aunt Myocardial infarction Maternal Uncle Myocardial infarction Bone cancer Surgical History Surgical History H/O colonoscopy History of bladder surgery History of bladder surgery History of carpal tunnel release History of section History of cholecystectomy History of esophagogastroduodenoscopy (EGD) History of lithotripsy History of removal of cyst History of tonsillectomy and adenoidectomy History of total abdominal hysterectomy and bilateral salpingo-oophorectomy Hx of excision of mass Hx of foot surgery Hx of nasal septoplasty Trigger finger of left hand Social History Social History Housing: Apartment Alcohol intake: current Alcohol intake frequency: holidays/special occasions only Patient Tobacco Use Status: Current everyday Tobacco user Tobacco use type: Cigarette Cigarettes Per Day: 5 Years Smoked: 40 e-Cigarette/Vaping Use: Never Used Second Hand Smoke Exposure: No Use of substances other than those prescribed or required for medical reasons: Yes Substance Use Frequency: Occasionally Are you DNR?: No Advance Directives: No Advance Directives Information Provided: Yes service: No Current occupational status: disabled Cognitive needs: No Hearing needs: No Vision needs: Yes Meds Allergies Allergy/AdvReac Type Severity Reaction Status Date / Time lisinopril [From Zestril] AdvReac Mild COUGH Verified 02/24/22 14:51 Home Medications Medication Instructions Recorded Confirmed Last Taken Type amitriptyline 25 mg tablet 25 mg PO BEDTIME 09/03/20 02/24/22 Unknown History aspirin 81 mg tablet,delayed 81 mg PO DAILY 09/03/20 02/24/22 Unknown History release (Adult Aspirin Regimen) hydrocortisone acetate 1 % rectal applic TOPICAL PRN 09/03/20 02/24/22 Unknown History cream lactulose 10 gram/15 mL (15 mL) 10 g PO DAILY 09/03/20 02/24/22 Unknown History oral solution bupropion HCl 150 mg 24 hr tablet, 150 mg PO BEDTIME 02/17/21 02/24/22 Unknown History extended release fexofenadine 180 mg tablet 180 mg PO DAILY PRN 02/17/21 02/24/22 Unknown History (Amara Allergy) sennosides 8.6 mg capsule (senna) 8.6 mg PO DAILY PRN 02/17/21 02/24/22 Unknown History fluoxetine 20 mg capsule 40 mg PO QAM 06/30/21 02/24/22 Unknown History hydroxyzine HCl 10 mg tablet 10 mg PO BID 02/10/22 02/24/22 Unknown History Exam Exam Date and Time: February 25, 2022 0824 Height,Weight and Vital Signs: Height 4 ft 11 in Weight 92.079 kg Pertinent Lab Results Pertinent Lab Results: Laboratory Tests 02/23/22 02/23/22 11:34 11:34 WBC 6.8 Hgb 13.9 Hct 42.2 Plt Count 237 Sodium 135 Potassium 4.8 Chloride 102 Carbon Dioxide 28 BUN 16 Creatinine 0.91 Narrative Narrative: EKG 01/2022 Vent. Rate : 075 BPM ? ? Atrial Rate : 075 BPM ?? P-R Int : 136 ms? QRS Dur : 086 ms ? ? QT Int : 408 ms ? ? ? P-R-T Axes : 046 055 049 degrees ?? QTc Int : 455 ms ? Normal sinus rhythm Normal ECG When compared with ECG of 08-FEB-2021 15:47, No significant change was found Assessment and Plan Assessment Anesthesia Assessment: Chart Reviewed Documented by User: Peña Candelario MD 02/28/22 14:36 HPI - Anesthesia Eval Consult details Narrative: 61yo F for Right Excision of nipple Mass 02/23/22 [facility] [place] [place] visit for bronchitis. Covid and flu swabs negative. Abx and prednisone rx'd by pcp 02/24/22 Pt reports marked improvement in breathing/cough as of 02/25/22 1315 telephone call optimized as per PCP . Patient feels at baseline [facility] Past Medical History Medical History Allergic rhinitis Anxiety and depression Asthma Carpal tunnel syndrome Fatty liver GERD (gastroesophageal reflux disease) Hypercholesterolemia Hypertension Insomnia Interstitial cystitis Irritable bowel syndrome Lumbar degenerative disc disease Obesity Obstructive sleep apnea Osteoarthritis of hip Restless leg syndrome Right renal stone Tobacco abuse Type 2 diabetes mellitus with hyperglycemia Family History Family History Father CAD (coronary artery disease) CVD (cerebrovascular disease) Lung cancer Hypertension Mother Hypertension Diabetes Cancer Daughter Breast cancer Paternal Uncle Myocardial infarction Paternal Aunt Myocardial infarction Maternal Uncle Myocardial infarction Bone cancer Family history of problems with anesthesia: No Surgical History Surgical History H/O colonoscopy History of bladder surgery History of bladder surgery History of carpal tunnel release History of section History of cholecystectomy History of esophagogastroduodenoscopy (EGD) History of lithotripsy History of removal of cyst History of tonsillectomy and adenoidectomy History of total abdominal hysterectomy and bilateral salpingo-oophorectomy Hx of excision of mass Hx of foot surgery Hx of nasal septoplasty Trigger finger of left hand History of Problems with Anesthesia: No Social History Social History Housing: Apartment Alcohol intake: current Alcohol intake frequency: holidays/special occasions only Patient Tobacco Use Status: Current everyday Tobacco user Tobacco use type: Cigarette Cigarettes Per Day: 5 Years Smoked: 40 e-Cigarette/Vaping Use: Never Used Second Hand Smoke Exposure: No Use of substances other than those prescribed or required for medical reasons: Yes Substance Use Frequency: Occasionally Are you DNR?: No Advance Directives: No Advance Directives Information Provided: Yes service: No Current occupational status: disabled Cognitive needs: No Hearing needs: No Vision needs: Yes Meds Allergies Allergy/AdvReac Type Severity Reaction Status Date / Time lisinopril [From Zestril] AdvReac Mild COUGH Verified 02/24/22 14:51 Home Medications Medication Instructions Recorded Confirmed Last Taken Type amitriptyline 25 mg tablet 25 mg PO BEDTIME 09/03/20 02/24/22 Unknown History aspirin 81 mg tablet,delayed 81 mg PO DAILY 09/03/20 02/24/22 Unknown History release (Adult Aspirin Regimen) hydrocortisone acetate 1 % rectal applic TOPICAL PRN 09/03/20 02/24/22 Unknown History cream lactulose 10 gram/15 mL (15 mL) 10 g PO DAILY 09/03/20 02/24/22 Unknown History oral solution bupropion HCl 150 mg 24 hr tablet, 150 mg PO BEDTIME 02/17/21 02/24/22 Unknown H istory extended release fexofenadine 180 mg tablet 180 mg PO DAILY PRN 02/17/21 02/24/22 Unknown History (Amara Allergy) sennosides 8.6 mg capsule (senna) 8.6 mg PO DAILY PRN 02/17/21 02/24/22 Unknown History fluoxetine 20 mg capsule 40 mg PO QAM 06/30/21 02/24/22 Unknown History hydroxyzine HCl 10 mg tablet 10 mg PO BID 02/10/22 02/24/22 Unknown History Exam Airway Mallampati Class: III TM Dist: >3cm Neck ROM: Full Loose/Missing/Broken Teeth: Yes (Poor dentition , chipped multiple. ) Heart: S1, S2 Lungs: b/l breath sounds Assessment and Plan Assessment Anesthesia Assessment: Anesthesia Plan Discussed Final Anesthetic Review Family History of Problems with Anesthesia: No History of Problems with Anesthesia: No NPO: Yes ASA Class: III Final Preanesthetic Review: Meds/Allgs Chart Reviewed, Consent Obtained/Reviewed and Anes Risks/Benef Reviewed Patient Risk: Intermediate Procedure Risk: Intermediate Anesthetic Plan Anesthetic Plan: GA Disposition: Standard PACU
[2022-02-28] VITALS (11 sets, daily range): BP systolic 126–169; BP diastolic 65–83; PULSE 71–92; RESP 14–20; TEMP 36.3–36.6; O2SAT 90–100
[2022-02-28 10:03] LABS: Glucose, Whole Blood 232 mg/dL (60-115)
[2022-02-28] MEDS: Lactated Ringers 1,000 ML 100 ML IVCONT (10:07)
--- NOTE | 2022-02-28 11:40 | W.PM.OPN ---
Operative Note Operative Note Date of Service: 02/28/22 Narrative: Preoperative diagnosis:Right nipple mass Postoperative diagnosis: Same Procedure: Excision of right nipple mass Surgeon: Leonard Moe MD Religious Education Coordinator: Lucretia Mauricio PA-C Anesthesia: General LMA Indications for procedure: 60-year-old female patient presenting with persistent discharge from the right nipple with a palpable mass located below the nipple presenting today for excision of the right nipple mass Operative findings: Palpable mass located just below the nipple measuring approximately 1 cm in diameter consistent with a dilated breast duct Specimen: Right nipple mass Estimated blood loss: 1 mL Complications: None Procedure details: Patient was brought to the OR and placed in a supine position. After administering general anesthesia the patient's right breast was prepped with ChloraPrep and draped in a sterile fashion. A surgical time-out was called the consent confirmed. Patient received preoperative antibiotics and Venodyne boots were in place. Local anesthesia consisting 0.25% Sensorcaine plain was infiltrated around the nipple-areolar complex in the 6 to the 9 o'clock position. A 2-0 probe was inserted into the leaking elective 1st duct and directed into the area of ductal ectasia. Curvilinear incision was then made between the 9 and 6 o'clock position. This was then carried out through subcutaneous tissue. Dissection was continued used electrocautery below the nipple-areolar complex up to the palpable lacrimal probe. Gentle dissection with a hemostat was then used to dissect the nipple duct just below the skin. This was then clamped and ligated using a 3-0 Polysorb suture. The remainder of the mass was then excised using electrocautery. This was sent to pathology marked right nipple mass. After assuring adequate hemostasis the nipple tissue was reapproximated using interrupted 3-0 Polysorb sutures. Dermis was reapproximated using interrupted 3-0 Polysorb suture grade skin was closed using a running subcuticular 4-0 Polysorb suture. Steri-Strips, 2 x 2 gauze and Tegaderm were then applied. Patient tolerated the procedure well. Sponge, instrument, and needle counts reported as correct. The patient was transferred to PACU in stable condition.
[2022-02-28] MEDS: ondansetron HCL 4 MG/2 ML VIAL IVPUSH (11:54)
[2022-02-28 12:25] LABS: Glucose, Whole Blood 230 mg/dL (60-115)
[2022-02-28] MEDS: Albuterol Sulfate (0.083%) 2.5 MG/3 ML VIAL.NEB INHALE (13:16)
== END 2022-02-28 14:39 | disposition home or self-care (01) ==
PROVIDERS: PCP Internal Medicine; Visit Provider Surgery
PROC: (CPT 19120; principal; 2022-02-28 10:40)
DX: D24.1 Benign neoplasm of right breast (principal); N60.41 Mammary duct ectasia of right breast; N64.52 Nipple discharge; E11.65 Type 2 diabetes mellitus with hyperglycemia; G47.33 Obstructive sleep apnea (adult) (pediatric); I10 Essential (primary) hypertension; N30.10 Interstitial cystitis (chronic) without hematuria; E66.9 Obesity, unspecified; Z68.41 Body mass index [BMI] 40.0-44.9, adult; Z87.442 Personal history of urinary calculi; Z79.82 Long term (current) use of aspirin; Z79.51 Long term (current) use of inhaled steroids; Z79.899 Other long term (current) drug therapy; Z88.8 Allergy status to other drugs, medicaments and biological substances; F17.210 Nicotine dependence, cigarettes, uncomplicated; Z90.49 Acquired absence of other specified parts of digestive tract; Z90.710 Acquired absence of both cervix and uterus; Z98.890 Other specified postprocedural states
CPT/HCPCS: 19120; 82947; 88305; 94640; J0690; J1100; J2250; J2405; J2550; J3010

== ENCOUNTER 2022-03-01 10:16 | Emergency (ER) | payer OTHER, SELFPAY | END 2022-03-01 11:07 | disposition left against medical advice (07) | PROVIDERS: Emergency Provider Emergency Medicine; PCP Internal Medicine | DX: R73.9 Hyperglycemia, unspecified (principal) ==

== ENCOUNTER → 2022-03-08 09:18 | Outpatient (BNVA) | payer OTHER, SELFPAY | PROVIDERS: PCP Internal Medicine; Referring Provider Internal Medicine; Visit Provider Surgery | DX: N63.10 Unspecified lump in the right breast, unspecified quadrant (principal) | CPT/HCPCS: 99212 ==

== ENCOUNTER → 2022-03-11 09:18 | Outpatient (BNVA) | payer OTHER, SELFPAY | PROVIDERS: PCP Internal Medicine; Referring Provider Internal Medicine; Visit Provider Surgery | DX: Z48.00 Encounter for change or removal of nonsurgical wound dressing (principal) | CPT/HCPCS: 99211 ==

== ENCOUNTER → 2022-03-31 14:20 | Outpatient (BNVA) | payer OTHER, SELFPAY | PROVIDERS: PCP Internal Medicine; Visit Provider Surgery | DX: Z48.817 Encounter for surgical aftercare following surgery on the skin and subcutaneous tissue (principal); Z87.2 Personal history of diseases of the skin and subcutaneous tissue | CPT/HCPCS: 99212 ==

== ENCOUNTER 2022-06-09 09:39 | Outpatient (REF) | payer OTHER, SELFPAY | END 2022-06-09 09:40 | disposition home or self-care (01) | LOC: HO.LAB 09:39 | PROVIDERS: Visit Provider Surgery | DX: N61.1 Abscess of the breast and nipple (principal) | CPT/HCPCS: 10060; 87071; 87205; 99212 ==

== ENCOUNTER → 2022-06-16 10:14 | Outpatient (BNVA) | payer OTHER, SELFPAY | PROVIDERS: PCP Internal Medicine; Visit Provider Surgery | DX: N61.1 Abscess of the breast and nipple (principal) | CPT/HCPCS: 99212 ==

== ENCOUNTER 2022-07-14 09:37 | Outpatient (REF) | payer OTHER, SELFPAY ==
[2022-07-14 09:55] LABS: MANUAL DIFF FLAG NO
[2022-07-14 10:20] LABS: Basophils Absolute Auto 0.1 X10*3/uL (0.0-0.2); Basophils Percent Auto 0.7 % (0-2); Eosinophils Absolute Auto 0.2 X10*3/uL (0.0-0.4); Eosinophils Percent Auto 3.1 % (0-4); Hemoglobin 14.7 g/dl (12.0-16.0); Imm Gran Abs Auto 0.02 X10*3/uL (0.00-0.03); Imm Gran Pct Auto 0.3 % (0.0-0.4); Lymphocytes Absolute Auto 2.4 X10*3/uL (1.2-4.9); Lymphocytes Percent Auto 35.4 % (20-40); Mean Corpuscular HGB Conc 32.7 g/dl (31.0-35.0); Mean Corpuscular Hemoglobin 29.8 pg (27.0-33.0); Mean Corpuscular Volume 91.1 fL (80.0-98.0); Monocytes Absolute Auto 0.4 X10*3/uL (0.1-1.2); Neutrophils Absolute Auto 3.6 x10*3/uL (2.0-8.3); Neutrophils Percent Auto 54.5 % (45-73); Platelet Count 236 X10*3/uL (160-400); Red Blood Count 4.94 X10*6/uL (4.20-5.50); Red Cell Distribution Width 13.3 % (11.0-16.0); White Blood Count 6.7 X10*3/uL (4.8-10.8)
[2022-07-14 10:45] LABS: Alanine Aminotransferase 48 U/L (0-31); Albumin Level 4.4 g/dL (3.5-5.0); Alkaline Phosphatase 85 U/L (39-117); Anion Gap 15 (12-20); Aspartate Amino Transferase 63 U/L (5-31); Bilirubin Total 0.5 mg/dL (0.0-1.0); Blood Urea Nitrogen 17 mg/dL (9-16); Calcium 10.1 mg/dL (8.4-10.2); Carbon Dioxide 27 mmol/L (22-29); Chloride 102 mmol/L (96-108); Cholesterol 188 mg/dL; Estimated Glomerular Filt Rate > 60; Glucose Random 158 mg/dL (60-115); HDL Cholesterol 56 mg/dL; LDL Cholesterol Calculated 106 mg/dl; Potassium 4.9 mmol/L (3.3-5.1); Sodium 139 mmol/L (135-145); Total Protein 7.7 g/dL (6.5-8.0); Triglycerides 131 mg/dL
[2022-07-14 11:10] LABS: Free T4 (Free Thyroxine) 1.15 ng/dL (0.71-1.85); Thyroid Stimulating Hormone 0.73 uIU/mL (0.32-4.0); Vitamin D 25-OH Total 22.3 ng/mL (>30)
[2022-07-14 11:19] LABS: Folate 15.7 ng/mL (> or = 4.0); Vitamin B12 429 pg/mL (200-900)
[2022-07-14 12:03] LABS: Creatinine Urine 205.46 mg/dL; Microalbum/Creatinine Ratio Ur 24.8 ug/mg cr
== END 2022-07-14 09:38 | disposition home or self-care (01) ==
LOC: HO.LAB 09:37
PROVIDERS: PCP Internal Medicine; Visit Provider Internal Medicine
DX: K21.9 Gastro-esophageal reflux disease without esophagitis (principal); E11.65 Type 2 diabetes mellitus with hyperglycemia; E78.00 Pure hypercholesterolemia, unspecified; I10 Essential (primary) hypertension
CPT/HCPCS: 36415; 80053; 80061; 82043; 82306; 82607; 82746; 84439; 84443; 85025

== ENCOUNTER 2022-08-23 10:38 | Outpatient (REF) | payer OTHER, SELFPAY ==
--- NOTE | ~2022-08-23 | XR_ITS ---
EXAMINATION: XR HAND, RIGHT CLINICAL INFORMATION: Pain in second finger COMPARISON: 07/18/2012 TECHNIQUE: PA, lateral, and oblique views of the right hand. FINDINGS: The area of pain in second finger on the right, revealed deformity of the distal interphalangeal joint without erosion, with marginal spurring, due to osteoarthritis. The rest of joints are unremarkable. Soft tissues are normal. 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
== END 2022-08-23 10:39 | disposition home or self-care (01) ==
LOC: HO.XRAY 10:38
PROVIDERS: PCP Internal Medicine; Visit Provider Internal Medicine
DX: M79.644 Pain in right finger(s) (principal)
CPT/HCPCS: 73120

== ENCOUNTER 2022-08-25 15:41 | Outpatient (REF) | payer OTHER, SELFPAY | END 2022-08-25 15:42 | disposition home or self-care (01) | LOC: HO.LNP 15:41 | PROVIDERS: Visit Provider Surgery | DX: L02.91 Cutaneous abscess, unspecified (principal) | CPT/HCPCS: 10060; 87070; 87147; 87205; 99212 ==

== ENCOUNTER → 2022-10-18 10:50 | Outpatient (BNVA) | payer OTHER, SELFPAY | PROVIDERS: PCP Internal Medicine; Visit Provider Orthopaedic Surgery | DX: M65.321 Trigger finger, right index finger (principal); M65.351 Trigger finger, right little finger | CPT/HCPCS: 99202 ==

== ENCOUNTER 2022-11-28 09:14 | Day surgery (SDC) | payer OTHER, SELFPAY ==
[2022-11-28 09:24] VITALS: BP 105/74; PULSE 87; RESP 18; TEMP 36.1; O2SAT 98; BMI 39.6
--- NOTE | 2022-11-28 10:10 | P.OP_ITS ---
Operative Note Operative Note Date of Service: 11/28/22 Narrative: Operative Note Preop diagnosis: 1. Right index finger Trigger finger 2. Right small finger trigger finger Postop diagnosis: Same Procedure: 1. Right index finger A1 clarke release 2. Right index finger flexor digitorum superficialis tenosynovectomy 3. Right small finger A1 clarke release Surgeon: Cookie Jimenez MD Anesthesia: local block using 1% lidocaine with epinephrine Findings: No locking or catching after A1 clarke releases EBL: Less than 5 mL Tourniquet time: None Specimens: None Complications: None Disposition: Brought to recovery room in stable condition Plan: Follow-up for 10-14 days for wound check and suture removal Indications: The patient is 62 years old, with right index and little finger trigger fingers that has been unresponsive to nonoperative management. The risks and benefits of operative treatment including but not limited to risk of damage to blood vessels, nerves, tendons, infection, persistent pain, persistent symptoms, recurrence or possible need for additional surgery were discussed with the patient and the patient wishes to proceed with surgery. Procedure: Once consent was obtained a local block was performed in the preop area using a combination of 1% lidocaine with epinephrine. The patient was then brought back to the operating suite and placed on the operative table in supine position. The right upper extremity was prepped and draped in a standard surgical fashion. Once assured that we had a good block, a 1.5 cm oblique incision was made centered over the A1 clarke of the right index finger . The incision was made t hrough the skin to the subcutaneous tissues using a #15 blade. Careful dissection was made down to the level of the A1 clarke using tenotomy scissors, with care being taken to protect the nearby neurovascular structures. A longitudinal incision was made in the A1 clarke 1st using a #15 blade, then using tenotomy scissors under direct visualization. The A1 clarke was noted to be thickened. She also had hypertrophic tenosynovium about the flexor digitorum superficialis. I performed a tenosynovectomy excising this hypertrophic tenosynovium using tenotomy scissors. Following our A1 clarke release and tenosynovectomy, we no longer saw any locking or catching of the digit with flexion and extension. Once assured that we had a good block, a 1.5 cm oblique incision was made centered over the A1 clarke of the right small finger . The incision was made through the skin to the subcutaneous tissues using a #15 blade. Careful dissection was made down to the level of the A1 clarke using tenotomy scissors, with care being taken to protect the nearby neurovascular structures. A longitudinal incision was made in the A1 clarke 1st using a #15 blade, then using tenotomy scissors under direct visualization. The A1 clarke was noted to be thickened. Following our A1 clarke release, we no longer saw any locking or catching of the digit with flexion and extension. Once satisfied with our A1 clarke release the wound was copiously irrigated with normal saline and hemostasis was obtained with a brief period of local pressure. The skin edges were reapproximated with some 5.0 nylon suture material and a sterile dressing was applied. The patient appears to have tolerated the procedure well and with no complications. All digits were well vascularized at the conclusion of the case.
--- NOTE | 2022-11-28 10:10 | MHC.SHP ---
Pre-Procedural Eval Section A Date of Service: 11/28/22 The patient is an INPATIENT: No Changes since office visit: No Cold of Flu in the past 2 weeks, No New Medical Problems, No Changes in Medication and No Patient answered all questions The History & Physical has been completed within 30 days and I have reviewed it.: Yes Section B Chief Complaint: Trigger finger, right index finger and little Allergies: Allergies Allergy/AdvReac Type Severity Reaction Status Date / Time metformin AdvReac Intermediate Vomiting Verified 10/25/22 11:16 lisinopril [From Zestril] AdvReac Mild COUGH Verified 10/25/22 11:16 Plan I have reviewed the history and physical and performed a pertinent physical examination on my patient. No changes have occurred unless specified. Time Spent With Patient Time: Total time managing care of this patient today ____ minutes.
[2022-11-28 11:20] VITALS: BP 136/64; PULSE 80; RESP 18; O2SAT 94
== END 2022-11-28 11:43 ==
LOC: HO.SSS 09:15
PROVIDERS: PCP Internal Medicine; Visit Provider Orthopaedic Surgery
PROC: (CPT 26055; principal; 2022-11-28 10:30)
DX: M65.321 Trigger finger, right index finger (principal); M65.351 Trigger finger, right little finger; E11.9 Type 2 diabetes mellitus without complications
CPT/HCPCS: 26055 ×2; 26145; J0171

== ENCOUNTER → 2022-12-13 10:35 | Outpatient (BNVA) | payer OTHER, SELFPAY | PROVIDERS: Visit Provider Orthopaedic Surgery | DX: Z13.89 Encounter for screening for other disorder (principal) ==

== ENCOUNTER 2023-03-12 12:29 | Emergency (ER) | payer OTHER, SELFPAY ==
--- NOTE | ~2023-03-12 | CT_ITS ---
EXAMINATION: CT ABDOMEN AND PELVIS WITH CONTRAST CLINICAL INFORMATION: Right lower quadrant pain COMPARISON: Previous CT of the abdomen and pelvis July 2018 and renal ultrasound September 2018 TECHNIQUE: Multidetector volumetric images were obtained from the superior aspect of the liver through the pubic symphysis following administration 85 mL of Omnipaque 350 intravenous contrast. Sagittal and coronal reformatted images were obtained on the technologist's workstation. Oral contrast: Yes This CT examination was performed using dose optimization techniques as appropriate, variously including the following: *Automated exposure control *Adjustment of mA and/or kV according to patient size (this includes techniques or standardized protocols for targeted exams where dose is matched to indication/reason for exam; i.e. extremities or head) *Use of iterative reconstruction technique DLP: 693 mGy-cm FINDINGS: LUNG BASES: The visualized lung bases are unremarkable. LIVER, GALLBLADDER, AND BILIARY TREE: Mild cirrhotic changes of the liver. No focal liver lesion. The gallbladder is been removed. No biliary duct dilatation.. PANCREAS: Unremarkable. SPLEEN: Unremarkable. ADRENAL GLANDS: Stable low-attenuation right adrenal nodule measuring 1 x 1.5 cm. The left adrenal gland is normal. KIDNEYS AND URETERS: The kidneys are normal in size, shape, and attenuation. No hydronephrosis, hydroureter, or calculi seen. No perinephric stranding. BLADDER: Unremarkable. GASTROINTESTINAL TRACT: The small and large bowel are unremarkable. The appendix is unremarkable. ABDOMINAL WALL: Postsurgical changes. No hernia. LYMPH NODES: Normal. VASCULAR: Atherosclerotic disease. No aneurysm. PELVIC VISCERA: The uterus appears to have been removed. No pelvic mass. OSSEOUS STRUCTURES: Mild degenerative changes of the spine and hip joints. CT/CT abdomen pelvis w IV con IMPRESSION: No acute findings. Normal appendix. Mild cirrhotic changes of the liver. Fleischner guidelines were followed.
--- NOTE | 2023-03-12 12:31 | ED.GENADULT ---
HPI - General Adult General Chief complaint: Abdominal Pain Stated complaint: abd pain Time Seen by Provider: 03/12/23 12:43 Source: patient Mode of arrival: ambulatory Limitations: no limitations History of Present Illness HPI narrative: 62-year-old female with a hx of FREDDY, arthritis, asthma, IBS, fatty liver, HLD, GERD, DM here with complaints of right-sided abdominal pain with radiation to the flank since last night with vomiting and urinary frequency and dysuria. Patient denies fevers, chills, diarrhea, constipation. Patient has history of total hysterectomy and cholecystectomy. Related Data Home Medications Medication Instructions Recorded Confirmed amitriptyline 25 mg tablet 25 mg PO BEDTIME 09/03/20 01/27/23 hydrocortisone acetate 1 % rectal applic topical PRN Pain 09/03/20 01/27/23 cream lactulose 10 gram/15 mL (15 mL) 10 g PO DAILY 09/03/20 01/27/23 oral solution bupropion HCl 150 mg 24 hr tablet, 150 mg PO BEDTIME 02/17/21 01/27/23 extended release fexofenadine 180 mg tablet 180 mg PO DAILY PRN Allergy 02/17/21 01/27/23 (Amara Allergy) Symptoms sennosides 8.6 mg capsule (senna) 8.6 mg PO DAILY PRN Constipation 02/17/21 01/27/23 fluoxetine 20 mg capsule 40 mg PO QAM 06/30/21 01/27/23 hydroxyzine HCl 50 mg tablet 50 mg PO BID 09/12/22 01/27/23 latanoprost 0.005 % eye drops 1 drp ophthalmic (eye) BEDTIME 10/25/22 01/27/23 Previous Rx's Medication Instructions Recorded lidocaine 5 % topical ointment 1 applic topical TID #60 grams 09/03/20 albuterol sulfate 0.63 mg/3 mL 0.63 mg (3 mL) inhalation QID PRN 02/08/21 solution for nebulization shortness of breath or wheezing #75 mL nebulizers (AeroEclipse II #1 ea 02/08/21 Nebulizer) hydrocortisone 2.5 % topical cream 1 appl DC BID-QID PRN hemorrhoids 06/11/21 with perineal applicator #30 grams (Proctosol HC) blood-glucose meter (FreeStyle #1 ea 03/09/22 Lite Meter kit) lancets 28 gauge (FreeStyle #300 boxes 03/09/22 Lancets) ondansetron HCl 4 mg tablet 4 mg PO Q8H PRN nausea and 03/31/22 vomiting 7 days #20 tabs umeclidinium 62.5 mcg/actuation 1 inh inhalation BEDTIME #30 ea 04/27/22 blister powder for inhalation (Incruse Ellipta) metoprolol succinate 25 mg 25 mg PO DAILY #90 tabs 08/19/22 tablet,extended release 24 hr insulin glargine 100 unit/mL (3 15 unit (0.15 mL) subcut QPM 30 09/12/22 mL) subcutaneous pen (Lan days #4.5 mL Solostar U-100 Insulin) pen needle, diabetic 32 gauge x #100 ea 12/07/22 (BD Purnima 2nd Gen Pen Needle) ropinirole 3 mg tablet 3 mg PO BID 30 days #180 tabs 12/09/22 simvastatin 10 mg tablet 10 mg PO BEDTIME 30 days #90 tabs 12/09/22 fenofibrate 160 mg tablet 160 mg PO DAILY #90 tabs 12/19/22 isosorbide mononitrate 30 mg 30 mg PO DAILY #90 tabs 12/19/22 tablet,extended release 24 hr losartan 100 mg tablet (Cozaar) 100 mg PO DAILY 90 days #90 tabs 12/19/22 empagliflozin 25 mg tablet 25 mg PO DAILY 30 days #30 tabs 01/27/23 blood sugar diagnostic (FreeStyle #300 ea 02/15/23 Lite Strips) fluticasone propionate 50 2 spray intranasal DAILY #3 ea 02/15/23 mcg/actuation nasal spray,suspension (Allergy Relief (fluticasone)) omeprazole 40 mg capsule,delayed 40 mg PO DAILY #90 caps 02/15/23 release oxycodone-acetaminophen 5 mg-325 1 tab PO TID PRN pain 28 days #84 02/16/23 mg tablet tabs albuterol sulfate 90 mcg/actuation 2 inh PO Q6H PRN shortness of 02/18/23 aerosol inhaler breath or wheezing #8.5 ea ondansetron 4 mg disintegrating 4 mg PO Q6H PRN nausea and 03/12/23 tablet vomiting #14 tabs Allergies Allergy/AdvReac Type Severity Reaction Status Date / Time metformin AdvReac Intermediate Vomiting Verified 01/27/23 11:28 lisinopril [From Zestril] AdvReac Mild COUGH Verified 01/27/23 11:28 Review of Systems Review of Systems: Yes all other systems are reviewed and are negative Constitutional: Constitutional: Reports no additional constitutional complaints, Denies body ache(s), Denies chills, Denies fever(s), Denies headache(s) and Denies weakness Eyes: Eyes: Reports no additional eye complaints and Denies change in vision ENT: Reports system reviewed and no additional complaints, except as documented, Denies dizziness, Denies headache(s), Denies nasal congestion, Denies nasal discharge and Denies neck pain Cardiovascular: Cardiovascular: Reports no additional cardiovascular complaints, Denies chest pain, Denies leg edema and Denies dyspnea Respiratory: Respiratory: Reports no additional respiratory complaints, Denies cough and Denies dyspnea Gastrointestinal: Gastrointestinal: Reports no additional gastrointestinal complaints, Reports abdominal pain, Denies diarrhea, Reports nausea and Reports vomiting Genitourinary: Genitourinary: Reports no additional female genitourinary complaints, Reports dysuria and Denies urinary incontinence Musculoskeletal: Musculoskeletal: Reports no additional musculoskeletal complaints, Denies back pain, Denies arthralgias, Denies joint swelling, Denies neck pain, Denies numbness and Denies tingling Integumentary/Breasts: Skin/Breast: Reports system reviewed and no additional complaints, except as docu and Denies rash Neurologic: Reports system reviewed and no additional complaints, except as documented, Denies dizziness, Denies headache(s), Denies numbness, Denies tingling and Denies weakness [facility] Past Medical History Attestation statement: The following information was validated with the patient. Source: old records reviewed and nursing notes reviewed Medical History Allergic rhinitis Anxiety and depression Asthma Carpal tunnel syndrome Fatty liver GERD (gastroesophageal reflux disease) Hypercholesterolemia Hypertension Insomnia Interstitial cystitis Irritable bowel syndrome Lumbar degenerative disc disease Obesity Obstructive sleep apnea Osteoarthritis of hip Restless leg syndrome Right renal stone Tobacco abuse Type 2 diabetes mellitus with hyperglycemia Surgical History H/O colonoscopy History of bladder surgery History of bladder surgery History of carpal tunnel release History of section History of cholecystectomy History of esophagogastroduodenoscopy (EGD) History of excision of mass (02/28/22) History of lithotripsy History of removal of cyst History of tonsillectomy and adenoidectomy History of total abdominal hysterectomy and bilateral salpingo-oophorectomy Hx of excision of mass Hx of foot surgery Hx of nasal septoplasty Trigger finger of left hand Family History Family History Father CAD (coronary artery disease) CVD (cerebrovascular disease) Lung cancer Hypertension Mother Hypertension Diabetes Cancer Daughter Breast cancer Paternal Uncle Myocardial infarction Paternal Aunt Myocardial infarction Maternal Uncle Myocardial infarction Bone cancer Other FH: mental illness Substance abuse Social History Social History Housing: Apartment Alcohol intake: current Alcohol intake frequency: does not drink Patient Tobacco Use Status: Current everyday Tobacco user Tobacco use type: Cigarette Cigarettes Per Day: 8 Years Smoked: 40 Smoked in Last 30 Days: Yes e-Cigarette/Vaping Use: Never Used Second Hand Smoke Exposure: No Use of substances other than those prescribed or required for medical reasons: No Advance Directives: No Advance Directives Information Provided: Yes Patient : No service: No Current occupational status: disabled Cognitive needs: No Hearing needs: No Vision needs: Yes Physical Exam ED Vital Signs: Vital Signs - 24 hr 03/12/23 12:33 03/12/23 14:14 03/12/23 14:53 Temperature 98.9 F 99.6 F Pulse Rate 115 H 103 H 101 H Respiratory Rate 16 18 16 Blood Pressure 134/77 120/59 L Pulse Oximetry 98 98 Oxygen Delivery Method Room Air Room Air 03/12/23 16:00 Temperature 99.6 F Pulse Rate 87 Respiratory Rate 16 Blood Pressure 95/45 L Pulse Oximetry 95 Oxygen Delivery Method Room Air BMI result Body Mass Index 40.4 Const General: cooperative, healthy appearing, comfortable and no acute distress Orientation/consciousness: patient oriented x3 Limitations: no limitations HENMT Head: Yes normal to inspection Ears: hearing grossly normal bilaterally Eyes General: appearance normal, both eyes and all related structures Pupils: Equal, round and reactive pupils present Neck Neck: Yes normal visual inspection Chest Chest palpation & inspection: normal inspection of the chest Resp Effort & Inspection: normal respiratory effort Cardio Peripheral pulses: Peripheral pulses 2+ throughout GI Inspection: Yes normal to inspection Palpation (GI): Soft to palpation, Tenderness to palpation present (GI) in the RLQ and in the RUQ; with no rebound tenderness and Guarding due to palpation present (GI) Auscultation: normal bowel sounds General: Yes no CVA tenderness Back/Spine/Pelvis Back: no CVA tenderness Skin General skin exam: no rashes or lesions noted Neuro General: patient oriented x3 and moves all extremities Cranial nerves: Yes Equal, round and reactive pupils present Cognition (Neuro): normal cognition Gait exam (Neuro): Normal gait present Course Course Course Narrative: RME performed by Mariel Bejarano PA-C. Patient is a 62 year old assigned female at presenting to the emergency department with abdominal pain. Patient states that she has right lower quadrant abdominal pain with nausea. Patient states that she has a history of diverticulosis. Labs and imaging ordered. Patient placed back in the waiting room pending room availability and results. Reevaluation(s) Reevaluation #1: 1615-Sign out to Cheryl VILLARREAL pending CT Reevaluation #2: CT of the abdomen and pelvis with no acute findings. Normal appendix. Mild cirrhotic changes of liver. Patient feeling slightly better. Will discharge home with Zofran. And GI referral if needed. Educated patient on diagnosis and treatment plan, answered all question, patient verbalizes understanding. At this time patient will be discharged home, advised to return with new or worsening symptoms. Educated on worrisome signs and symptoms and when to return. At this time I feel comfortable discharge home. Time: 17:28 Medications Administered Discontinued Medications Generic Name Dose Route Start Last Admin Trade Name Richard PRN Reason Stop Dose Admin Albuterol/Ipratropium 3 ml 03/12/23 13:58 03/12/23 14:13 Albuterol/Iprat 2.5/0.5mg 3 Ml Ampul.Neb INHALE 03/12/23 13:59 3 ml ONCE ONE Administration Iohexol 100 ml 03/12/23 15:27 03/12/23 15:27 Iohexol 350 Mg/Ml 100 Ml Infus..Btl IV 03/12/23 15:28 85 ml ONCE ONE Administration Ketorolac Tromethamine 30 mg 03/12/23 15:25 03/12/23 15:40 Ketorolac Tromethamine 30 Mg/Ml Vial IVPUSH 03/12/23 15:26 30 mg ONCE ONE Administration Morphine Sulfate 4 mg 03/12/23 13:00 03/12/23 13:53 Morphine Sulfate 4 Mg/Ml Cartridge IVPUSH 03/12/23 13:01 4 mg ONCE ONE Administration Protocol Ondansetron HCl 4 mg 03/12/23 13:00 03/12/23 13:53 Ondansetron Hcl 4 Mg/2 Ml Vial IVPUSH 03/12/23 13:01 4 mg ONCE ONE Administration Medical Decision Making Medical Decision Making [facility] Narrative: 62-year-old female here with right-sided abdominal pain with radiation to the right flank since last night with vomiting, urinary frequency and dysuria. Will obtain labs, UA, CT Will provide analgesia with morphine and Zofran Differential Diagnosis Differential Diagnoses: The differential diagnosis associated with the presentation includes Renal colic, pyelonephritis Low concern for acute appendicitis, cholecystitis Lab Data [facility] Lab Attestation statement: I reviewed the patient's lab results. 03/12/23 13:42 03/12/23 14:19 Labs: Lab Results 03/12/23 03/12/23 03/12/23 Range/Units 13:42 13:42 14:19 WBC 11.9 H (4.8-10.8) X10*3/uL RBC 5.40 (4.20-5.50) X10*6/uL Hgb 15.7 (12.0-16.0) g/dl Hct 47.1 H (37.0-47.0) % MCV 87.2 (80.0-98.0) fL MCH 29.1 (27.0-33.0) pg MCHC 33.3 (31.0-35.0) g/dl RDW 14.2 (11.0-16.0) % Plt Count 248 (160-400) X10*3/uL MPV 11.5 (9.4-12.3) fL Immature Gran % (Auto) 0.3 (0.0-0.4) % Neut % (Auto) 76.0 H (45-73) % Lymph % (Auto) 16.3 L (20-40) % [place] % (Auto) 6.2 (2-11) % Eos % (Auto) 0.8 (0-4) % Baso % (Auto) 0.4 (0-2) % Lymph # (Auto) 1.9 (1.2-4.9) X10*3/uL [place] # (Auto) 0.7 (0.1-1.2) X10*3/uL Eos # (Auto) 0.1 (0.0-0.4) X10*3/uL Baso # (Auto) 0.1 (0.0-0.2) X10*3/uL Abs Immat Gran (auto) 0.04 H (0.00-0.03) X10*3/uL Absolute Neuts (auto) 9.0 H (2.0-8.3) x10*3/uL Absolute Nucleated RBC 0.000 (0.0-0.012) X10*3/uL Nucleated RBC % (auto) 0.0 (0.0-0.2) /100WBC Sodium 138 (135-145) mmol/L Potassium 4.5 (3.3-5.1) mmol/L Chloride 103 (96-108) mmol/L Carbon Dioxide 23 (22-29) mmol/L Anion Gap 17 (12-20) BUN 16 (9-16) mg/dL Creatinine 0.94 (0.5-1.4) mg/dL Estim Creat Clear Calc 59.3 Estimated GFR 60 Random Glucose 155 H (60-115) mg/dL Calcium 9.8 (8.4-10.2) mg/dL Magnesium 1.9 (1.6-2.6) mg/dL Total Bilirubin 0.9 (0.0-1.0) mg/dL AST 59 H (5-31) U/L ALT 49 H (0-31) U/L Alkaline Phosphatase 90 (39-117) U/L Total Protein 7.2 (6.5-8.0) g/dL Albumin 4.0 (3.5-5.0) g/dL Lipase 14 (8-78) U/L Urine Color Yellow Urine Appearance Clear Urine pH 6.0 (5.0-9.0) Ur Specific [place] >= 1.030 H (1.005-1.025) Urine Protein Negative (Neg-Trace) mg/dL Urine Glucose (UA) >=1000 H (Negative) mg/dL Urine Ketones Negative (Negative) mg/dL Urine Blood Negative (Negative) Urine Nitrite Negative (Negative) Ur Leukocyte Esterase Negative (Negative) Urine RBC 0-2 (0-2) /HPF Urine WBC 0-5 (0-5) /HPF Ur Squamous Epith Cells 0-2 (0-2) /HPF Urine Bacteria None Seen (None Seen) Hyaline Casts 0-2 (0-2) /LPF Independent Interpretation I performed an independent interpretation of an: CT Scan Radiology Impression Discussion of test interpretation with radiology: I have reviewed the radiologist's reading. Discharge Plan Discharge Clinical Impression: Abdominal pain, Cirrhosis of liver, Nausea & vomiting Patient Disposition: Home, Self-Care Instructions: Abdominal Pain (ED) Additional Instructions: Take your medications as prescribed. If you were prescribed antibiotics today, it is important that you take your medication to their entirety, do not skip any doses, do not finish them early. Follow-up with your primary care provider this week. Return to the emergency department with new or worsening symptoms. Such as fevers, chills, chest pain, shortness of breath, nausea, vomiting, dizziness, headache, vision changes, lethargy In case of emergency call 911 CT/CT abdomen pelvis w IV con IMPRESSION: No acute findings. Normal appendix. Mild cirrhotic changes of the liver. Fleischner guidelines were followed. Prescriptions: New ondansetron 4 mg tablet,disintegrating 4 mg PO Q6H PRN (Reason: nausea and vomiting) Qty: 14 0RF No Action lidocaine 5 % ointment 1 applic topical TID Qty: 60 0RF (DME) blood-glucose meter [FreeStyle Lite Meter] Kit See Rx Instructions .Route Qty: 1 0RF Rx Instructions: As directed (DME) lancets [FreeStyle Lancets] 28 gauge misc See Rx Instructions .ROUTE .MEDSUPPLY Qty: 300 3RF Rx Instructions: As directed check BS TID Incruse Ellipta 62.5 mcg/actuation blister with device 1 inh inhalation BEDTIME Qty: 30 11RF metoprolol succinate 25 mg tablet extended release 24 hr 25 mg PO DAILY Qty: 90 3RF (DME) pen needle, diabetic [BD Purnima 2nd Gen Pen Needle] 32 gauge x 5/32 needle See Rx Instructions .Route Qty: 100 2RF Rx Instructions: As directed simvastatin 10 mg tablet 10 mg PO BEDTIME 30 Days Qty: 90 3RF ropinirole 3 mg tablet 3 mg PO BID 30 Days Qty: 180 3RF losartan [Cozaar] 100 mg tablet 100 mg PO DAILY 90 Days Qty: 90 2RF fenofibrate 160 mg tablet 160 mg PO DAILY Qty: 90 3RF isosorbide mononitrate 30 mg tablet extended release 24 hr 30 mg PO DAILY Qty: 90 3RF omeprazole 40 mg capsule,delayed release(DR/EC) 40 mg PO DAILY Qty: 90 3RF fluticasone propionate [Allergy Relief (fluticasone)] 50 mcg/actuation spray,suspension 2 spray intranasal DAILY Qty: 3 3RF Rx Instructions: administer into each nostril (DME) FreeStyle Lite Strips Strip See Rx Instructions .ROUTE .MEDSUPPLY Qty: 300 3RF Rx Instructions: As directed check the BS TID oxycodone-acetaminophen 5-325 mg tablet 1 tab PO TID PRN (Reason: pain) 28 Days Qty: 84 0RF albuterol sulfate 90 mcg/actuation HFA aerosol inhaler 2 inh PO Q6H PRN (Reason: shortness of breath or wheezing) Qty: 8.5 0RF (DME) nebulizers [AeroEclipse II Nebulizer] [facility] See Rx Instructions .ROUTE .MEDSUPPLY Qty: 1 0RF Rx Instructions: As directed albuterol sulfate 0.63 mg/3 mL solution for nebulization 0.63 mg inhalation QID PRN (Reason: shortness of breath or wheezing) Qty: 75 0RF lactulose 10 gram/15 mL (15 mL) solution 10 g PO DAILY hydrocortisone acetate 1 % cream topical PRN (Reason: Pain) amitriptyline 25 mg tablet 25 mg PO BEDTIME fexofenadine [Amara Allergy] 180 mg tablet 180 mg PO DAILY PRN (Reason: Allergy Symptoms) senna 8.6 mg capsule 8.6 mg PO DAILY PRN (Reason: Constipation) hydrocortisone [Proctosol HC] 2.5 % cream with perineal applicator 1 appl DC BID-QID PRN (Reason: hemorrhoids) Qty: 30 2RF hydroxyzine HCl 50 mg tablet 50 mg PO BID insulin glargine [Lantus Solostar U-100 Insulin] 100 unit/mL (3 mL) insulin pen 15 unit subcut QPM 30 Days Qty: 4.5 11RF Rx Instructions: or as directed. discussed about escalating doses for the according to BS Jardiance 25 mg tablet 25 mg PO DAILY 30 Days Qty: 30 3RF latanoprost 0.005 % drops 1 drp ophthalmic (eye) BEDTIME fluoxetine 20 mg capsule 40 mg PO QAM bupropion HCl 150 mg tablet extended release 24 hr 150 mg PO BEDTIME ondansetron HCl 4 mg tablet 4 mg PO Q8H PRN (Reason: nausea and vomiting) 7 Days Qty: 20 0RF Referrals: [facility] [place]Provider Group] - 2 days Po,Hitesh Weber MD [Primary Care Provider] - 2 days Stand Alone Forms: Work/School Release
[2023-03-12 12:33] VITALS: BP 134/77; PULSE 115; RESP 16; TEMP 37.2; O2SAT 98; BMI 40.4
[2023-03-12] MEDS: ondansetron HCL 4 MG/2 ML VIAL IVPUSH (13:53)
[2023-03-12] MEDS: Morphine Sulfate 4 MG/ML CARTRIDGE IVPUSH (13:53)
[2023-03-12 13:57] LABS: MANUAL DIFF FLAG NO
--- NOTE | 2023-03-12 13:59 | PC.NURSE ---
pt's r side of lungs - exp wheezing, bebe left side of lungs - slight exp wheezing noted.
[2023-03-12] MEDS: Albuterol/Iprat 2.5/0.5MG 3 ML AMPUL.NEB INHALE (14:13)
[2023-03-12 14:14] VITALS: PULSE 103; RESP 18; O2SAT 95
[2023-03-12 14:19] LABS: Basophils Absolute Auto 0.1 X10*3/uL (0.0-0.2); Basophils Percent Auto 0.4 % (0-2); Eosinophils Absolute Auto 0.1 X10*3/uL (0.0-0.4); Eosinophils Percent Auto 0.8 % (0-4); Hematocrit 47.1 % (37.0-47.0); Hemoglobin 15.7 g/dl (12.0-16.0); Imm Gran Abs Auto 0.04 X10*3/uL (0.00-0.03); Imm Gran Pct Auto 0.3 % (0.0-0.4); Lymphocytes Absolute Auto 1.9 X10*3/uL (1.2-4.9); Lymphocytes Percent Auto 16.3 % (20-40); Mean Corpuscular HGB Conc 33.3 g/dl (31.0-35.0); Mean Corpuscular Hemoglobin 29.1 pg (27.0-33.0); Mean Corpuscular Volume 87.2 fL (80.0-98.0); Mean Platelet Volume 11.5 fL (9.4-12.3); Monocytes Absolute Auto 0.7 X10*3/uL (0.1-1.2); Monocytes Percent Auto 6.2 % (2-11); Platelet Count 248 X10*3/uL (160-400); Red Cell Distribution Width 14.2 % (11.0-16.0); White Blood Count 11.9 X10*3/uL (4.8-10.8)
[2023-03-12 14:32] LABS: Appearance Urine Clear; Color Urine Yellow; Glucose Urine UA >=1000 mg/dL (Negative); Leukocyte Esterase Urine Negative (Negative); Nitrite Urine Negative (Negative); Specific Gravity - Urine >= 1.030 (1.005-1.025); UMIC TRIGGER UACC YES; Urine Blood Negative (Negative); Urine Ketones Negative (Negative); Urine Protein Negative (Neg-Trace)
[2023-03-12 14:37] LABS: Bacteria Urine None Seen (None Seen); Hyaline Casts Urine 0-2 /LPF (0-2); RBC Urine 0-2 /HPF (0-2); Squamous Epithelial Cell Urine 0-2 /HPF (0-2); WBC Urine 0-5 /HPF (0-5)
[2023-03-12 14:43] LABS: Alanine Aminotransferase 49 U/L (0-31); Alkaline Phosphatase 90 U/L (39-117); Anion Gap 17 (12-20); Aspartate Amino Transferase 59 U/L (5-31); Bilirubin Total 0.9 mg/dL (0.0-1.0); Blood Urea Nitrogen 16 mg/dL (9-16); Calcium 9.8 mg/dL (8.4-10.2); Carbon Dioxide 23 mmol/L (22-29); Chloride 103 mmol/L (96-108); Creatinine Clr Calc Pharmacy 59.3; Estimated Glomerular Filt Rate 60; Glucose Random 155 mg/dL (60-115); Lipase 14 U/L (8-78); Magnesium 1.9 mg/dL (1.6-2.6); Potassium 4.5 mmol/L (3.3-5.1); Sodium 138 mmol/L (135-145); Total Protein 7.2 g/dL (6.5-8.0)
[2023-03-12 14:53] VITALS: BP 120/59; PULSE 101; RESP 16; TEMP 37.6; O2SAT 98
[2023-03-12] MEDS: iohexoL 350 MG/ML 100 ML INFUS..BTL IV (15:27)
[2023-03-12] MEDS: Ketorolac Tromethamine 30 MG/ML VIAL IVPUSH (15:40)
[2023-03-12 16:00] VITALS: BP 95/45; PULSE 87; RESP 16; TEMP 37.6; O2SAT 95
== END 2023-03-12 18:45 | disposition home or self-care (01) ==
PROVIDERS: Physician Assistant Medical; Emergency Provider Emergency Medicine; PCP Internal Medicine
DX: R10.30 Lower abdominal pain, unspecified (principal); K74.60 Unspecified cirrhosis of liver; R35.0 Frequency of micturition; R30.0 Dysuria; F17.210 Nicotine dependence, cigarettes, uncomplicated; Z79.899 Other long term (current) drug therapy; Z71.6 Tobacco abuse counseling
CPT/HCPCS: 36415; 74177; 80053; 81001; 81003; 83690; 83735; 85025; 94640; 96374; 96375; 99284; 99285; J1885; J2270; J2405; Q9967

== ENCOUNTER 2023-03-24 14:41 | Outpatient (REF) | payer OTHER, SELFPAY ==
--- NOTE | ~2023-03-24 | CT_ITS ---
EXAMINATION: LUNG CANCER SCREENING CT CHEST WITHOUT CONTRAST CLINICAL INFORMATION: Current smoker with 50 pack year history COMPARISON: CT chest dated 02/08/2021 TECHNIQUE: Multidetector volumetric CT imaging of the chest was obtained noncontrast using low dose screening CT technique. Axial thin section 0.625 mm reformations in soft tissue and lung windows were obtained. Sagittal and coronal reformations were obtained. Axial MIP images were also created and reviewed. This CT examination was performed using dose optimization techniques as appropriate, variously including the following: *Automated exposure control *Adjustment of mA and/or kV according to patient size (this includes techniques or standardized protocols for targeted exams where dose is matched to indication/reason for exam; i.e. extremities or head) *Use of iterative reconstruction technique TOTAL EXAM DLP: 63.44 mGy-cm FINDINGS: PULMONARY NODULES (see jaramillo images): No suspicious pulmonary nodules. LUNGS / PLEURA: Minimal emphysema. Diffuse mild bronchial wall thickening without bronchiectasis. There are a few scattered secretions within the mainstem bronchi. No pleural effusion or pneumothorax. MEDIASTINUM / LENO: Heart normal in size without pericardial effusion. Great vessels normal caliber. No lymphadenopathy. Coronary calcifications present. Imaged thyroid gland unremarkable. CHEST WALL / AXILLA: Unremarkable. UPPER ABDOMEN: Included portions grossly unremarkable allowing for limitations in technique. OSSEOUS STRUCTURES: No acute or suspicious osseous abnormalities. CT/CT lung screening IMPRESSION: * No evidence of pulmonary malignancy. * Minimal emphysema and chronic airways disease. ASSESSMENT: Lung RADS category: 1. Negative. No nodules or definitely benign nodules. Continue annual screening with low-dose CT in 12 months. Probability of malignancy less than 1%. RECOMMENDATION: Follow up low dose CT chest in 1 year.
== END 2023-03-24 14:42 | disposition home or self-care (01) ==
LOC: HO.CT 14:41
PROVIDERS: PCP Internal Medicine; Visit Provider Physician Assistant Medical
DX: Z12.2 Encounter for screening for malignant neoplasm of respiratory organs (principal); F17.210 Nicotine dependence, cigarettes, uncomplicated
CPT/HCPCS: 71271; G0296

== ENCOUNTER 2023-06-19 11:15 | Outpatient (REF) | payer OTHER, SELFPAY ==
--- NOTE | ~2023-06-19 | MM_ITS ---
EXAMINATION: MM SCREENING DIGITAL BREAST TOMOSYNTHESIS, BILATERAL CLINICAL INFORMATION: Screening. Asymptomatic. COMPARISON: Mammography: This study is compared with prior exams dating back to 2018. TECHNIQUE: Digital breast tomosynthesis is performed in both the craniocaudal and mediolateral oblique views along with computer-aided detection (CAD). Synthesized 2D images are generated from the tomosynthesis. FINDINGS: There are scattered areas of fibroglandular density (ACR BI-RADS breast composition Category b). There are no significant masses, abnormal calcifications, or other abnormalities. There are 2 tissue markers in the left breast from prior benign percutaneous biopsies. There are bilateral benign calcifications. MM/MM tomosynthesis screening BI IMPRESSION: No mammographic evidence of malignancy. ASSESSMENT: BI-RADS BI-RADS 2 - Benign Findings RECOMMENDATION: Routine annual mammography screening. 1 year F/U This examination should not preclude the clinical evaluation of a suspicious palpable abnormality. This patient's information was entered into a reminder system with a target due date for their next mammogram.
== END 2023-06-19 11:16 | disposition home or self-care (01) ==
LOC: HO.MAMMO 11:15
PROVIDERS: PCP Internal Medicine; Visit Provider Internal Medicine
DX: Z12.31 Encounter for screening mammogram for malignant neoplasm of breast (principal)
CPT/HCPCS: 77063; 77067

== ENCOUNTER → 2023-06-19 11:15 | Outpatient (BNV) | payer OTHER, SELFPAY | PROVIDERS: PCP Internal Medicine; Visit Provider Radiology Diagnostic Radiology | DX: Z12.31 Encounter for screening mammogram for malignant neoplasm of breast (principal) | CPT/HCPCS: 77063; 77067 ==

== ENCOUNTER 2023-08-15 10:29 | Outpatient (AMB) | payer OTHER, SELFPAY ==
[2023-08-15 10:36] VITALS: BP 144/86; PULSE 85; O2SAT 98; BMI 35.7
--- NOTE | 2023-08-15 10:36 | A.OFFPC_ITS ---
Vital Signs 08/15/23 10:36 Height 4 ft 11 in Weight 177 lb BMI 35.7 BP 144/86 H Blood Pressure Location Lt brachial Position Sitting Pulse 85 Pulse Source Pulse Oximeter Pulse Oximetry (%) 98 Oxygen Delivery Method Room Air Intake Visit Reasons: DM Allergies metformin Adverse Reaction (Intermediate, Verified 08/15/23 10:36) Vomiting lisinopril [From Zestril] Adverse Reaction (Mild, Verified 08/15/23 10:36) COUGH Tobacco use date assessed: 05/01/23 Fall risk assessment: No Falls in past year Last assessed Fall Risk: 08/15/23 Dental Screening Dental Screen Date: 08/15/23 Did you have a dental visit in the last 12 months?: Yes Did you have a dental problem in the last 6 months where you did not have access to dental care?: No Was dental information given to patient?: Patient has dentist HPI DM HPI Details 63-year-old obese female smoker with ellis betes mellitus hypertension hypercholesterol E asthma obstructive sleep apnea GERD Denita anxiety disorder last seen April 2023. Patient is up-to-date with colonoscopy mammogram.- patient will be gettting laser eye procedure 08/2023 [facility] Medical History (Updated 08/15/23 @ 11:18 by Hitesh Fairchild MD) Tobacco abuse Osteopenia (~2018) Nicotine dependence, cigarettes, uncomplicated Allergic rhinitis Irritable bowel syndrome Obstructive sleep apnea Obesity Restless leg syndrome Asthma Insomnia Interstitial cystitis Osteoarthritis of hip Right renal stone GERD (gastroesophageal reflux disease) Anxiety and depression Hypercholesterolemia Fatty liver Hypertension Lumbar degenerative disc disease Type 2 diabetes mellitus with hyperglycemia Surgical History History of breast lump/mass excision History of hand surgery History of foot surgery History of surgical removal of ganglion cyst History of colonoscopy History of nasal surgery History of esophagogastroduodenoscopy (EGD) History of removal of cyst History of lithotripsy History of bladder surgery History of carpal tunnel release History of tonsillectomy and adenoidectomy History of cholecystectomy History of total abdominal hysterectomy and bilateral salpingo-oophorectomy History of section Family History Father CAD (coronary artery disease) CVD (cerebrovascular disease) Lung cancer Hypertension Mother Hypertension Diabetes Cancer Daughter Breast cancer Paternal Uncle Myocardial infarction Paternal Aunt Myocardial infarction Maternal Uncle Myocardial infarction Bone cancer Other FH: mental illness Substance abuse Social History Housing: Apartment Alcohol intake: current Alcohol intake frequency: does not drink Patient Tobacco Use Status: Current everyday Tobacco user Tobacco use type: Cigarette Cigarettes Per Day: 10 Years Smoked: (current smoker, onset 13yo, 1ppd x 49yrs, now 1/2ppd - 40pyh) e-Cigarette/Vaping Use: Never Used Second Hand Smoke Exposure: No service: No Current occupational status: disabled Cognitive needs: No Hearing needs: No Vision needs: Yes Questionnaire PHQ-9 Over the last 2 weeks, how often have you been bothered by any of the following problems? 1. Little interest or pleasure in doing things: more than half the days 2. Feeling down, depressed, or hopeless: more than half the days 3. Trouble falling or staying asleep, or sleeping too much: more than half the days 4. Feeling tired or having little energy: more than half the days 5. Poor appetite or overeating: several days 6. Feeling bad about yourself - or that you are a failure or have let yourself or your family down: not at all 7. Trouble concentrating on things, such as reading the newspaper or watching television: not at all 8. Moving or speaking so slowly that other people could have noticed. Or the opposite - being so fidgety or restless that you have been moving around a lot more than usual: not at all 9. Thoughts that you would be better off or of hurting yourself in some way: not at all Total score: 9 Depression Screening Interpretation: Positive Depression Screening Done: Yes Source: Developed by Drs. Mauro George, Mariana Medrano, James Truong and colleagues, with an educational romeo from [employer]. Thrive Questionnaire Date Thrive assessed: 01/27/23 AUDIT C Alcohol Use Questionnaire (AUDIT-C) 1. How often do you have a drink containing alcohol?: Monthly or less 2. How many drinks containing alcohol do you have on a typical day when you are drinking?: 1 or 2 3. How often do you have six or more drinks on one occasion?: Never Total Score: 1 NICOLA-7 AMB Questionnaire NICOLA-7 Date NICOLA - 7 assessed: 01/27/23 Source: Developed by DrsJosue George, Mariana Medrano, James Truong and colleagues, with an educational romeo from [employer]. Physical exam (Primary Care) Vital Signs: Last Vital Signs Pulse 85 08/15/23 10:36 BP 144/86 H 08/15/23 10:36 Pulse Ox 98 08/15/23 10:36 Oxygen Delivery Method Room Air 08/15/23 10:36 BMI result Body Mass Index 35.7 Tobacco/Smoking Status: Tobacco use Status Tobacco use date assessed 05/01/23 08/15/23 10:37 Patient Tobacco Use Status Current everyday Tobacco 08/15/23 10:37 Tobacco use type Cigarette 08/15/23 10:37 e-Cigarette/Vaping Use Never Used 08/15/23 10:37 PHQ-9: PHQ-9 Score PHQ-9: Total score 9 08/15/23 11:00 Depression Screening Interpretation: Positive Thrive Assessment: Date of Thrive Assessment Date Thrive assessed 01/27/23 08/15/23 10:37 Const General: alert; No acute distress Eyes Conjunctivae: conjunctivae normal Resp Auscultation: clear to auscultation bilaterally Cardio Rate: regular rate Rhythm: regular rhythm GI Inspection: Yes normal to inspection Extrem General: Yes normal to inspection and No edema Office Procedures Flu Questionnaire Does the patient have a severe egg allergy?: No Does the patient have severe life threatening allergies?: No Does the patient have a fever or illness today?: No Has the patient ever had Guillain-[place] Syndrome?: No Has the patient ever had any past reaction to a flu shot?: No Results AMB Hemoglobin A1c AMB Hemoglobin A1c 6.9 % Last Edit by SANDRO Chacon on 08/15/23 11:00 Immunizations flu vacc [id number] 6mos up(PF) 60 mcg(15 mcgx4)/0.5 mL IM syringe Performing Provider: Hitesh Fairchild MD [facility] Administered by: SANDRO Chacon on 08/15/23 11:00 Dose Route Admin Location Dispensed Lot Number Expiration Date [employer] Pass[employer] Agent 0.5 mL IM Left Deltoid 0.5 mL [id number] 04/28/24 77620-023-09 1calendar VIS Given Date VIS Provided VIS Publication Date 08/15/23 Single Vaccine 21 Eligibility Eligibility Date Funding Source Not VF Eligible 08/15/23 Private Results Reviewed Results Reviewed: Laboratory Last Values Hgb A1c (Clinic) 6.9 % (4.0-6.0) H 08/15/23 10:38 Assessment and Plan Assessment & Plan (1) Type 2 diabetes mellitus with hyperglycemia: Comment: Dr. Rayray joyce [facility] Code(s): E11.65 - Type 2 diabetes mellitus with hyperglycemia Qualifiers: Diabetes mellitus skilled nursing insulin use: without terminal operations manager use Qualified Code(s): E11.65 - Type 2 diabetes mellitus with hyperglycemia Plan: Decrease the amount of carbohydrate intake, pasta, bread, rice and potatoes are all sugar and that is aside from all the sweet stuff, remember that fruits are good but they are Sweet also. Hemoglobin A1c goal of less than 6.5 patient has been prescribed insulin and semaglutide and Jardiance (2) Hypertension: Code(s): I10 - Essential (primary) hypertension Qualifiers: Hypertension type: essential hypertension Qualified Code(s): I10 - Essential (primary) hypertension Plan: Continue with blood pressure medication. Decrease salt intake and exercise patient is taking metoprolol 25 mg once a day losartan 100 mg once a day. BP high today - will continue to monitor (3) Hypercholesterolemia: Code(s): E78.00 - Pure hypercholesterolemia, unspecified Plan: Avoid fried foods, chicken skin, eggs, butter margarine, pastries and meat. Be it pork or beef they have a lot of cholesterol LDL goal of less than 100 and triglyceride of less than 150 patient is on simvastatin 10 mg once a day (4) Asthma: Comment: (PFTs consistent with Bronchial Asthma) CONTINUE SYMBICORT 160-4.52 PUFFS B.I.D. AND USE PROAIR 2 PUFFS Q 4-6 HOURS ONLY P.R.N.. DOES NOT HAVE TO USE THE NEBULIZER AT THIS TIME Code(s): J45.909 - Unspecified asthma, uncomplicated Plan: Continue with the inhaler but advised to stop smoking (5) Obstructive sleep apnea: Comment: FREDDY - CPAP - auto PAP mode pressure 6-16) Code(s): G47.33 - Obstructive sleep apnea (adult) (pediatric) Plan: Continue with CPAP more than 4 hours a night benefit from this (6) Obesity: Code(s): E66.9 - Obesity, unspecified Qualifiers: Obesity type: due to excess calories Obesity classification: adult class 3 (BMI >= 40) Serious obesity comorbidity presence: with serious comorbidity Body mass index: BMI 40.0-44.9 Qualified Code(s): E66.01 - Morbid (severe) obesity due to excess calories; Z68.41 - Body mass index [BMI]40.0- 44.9, adult Plan: Noted weight loss. Placed on semaglutide (7) Osteopenia: Onset Date: ~2017 Comment: (Bone Dexa Femoral T-Score: -1.1 on 04/13/18) Code(s): M85.80 - Other specified disorders of bone density and structure, unspecified site Plan: Bone density requested (8) GERD (gastroesophageal reflux disease): Comment: EGD Dr. Baez November 2018 Code(s): K21.9 - Gastro-esophageal reflux disease without esophagitis Qualifiers: Esophagitis presence: without esophagitis Qualified Code(s): K21.9 - Gastro-esophageal reflux disease without esophagitis Plan: Avoid the foods that causes that usually spicy foods, tomato products, juices, coffee, soda and foods that your sensitive to. After eating do not lie down, allow 3-4 hours before in lie down. And keep the head of bed above 30 degrees to avoid the acid from going up. (9) Tobacco abuse: Comment: THIS SEEMS TO BE HER MAIN PROBLEM. DISCUSSED AT LENGTH AND SHE DOES SHOW SOMEWHAT OF A VELAZQUEZ. SHE TOLD ME THAT SHE WANTS TO DISCUSS WITH HER PRIMARY CARE PHYSICIAN ABOUT USING NICOTINE PRODUCTS ARE CHANTIX AT [facility]. Code(s): Z72.0 - Tobacco use Plan: Patient advised to stop smoking Orders: Orders AMB Hemoglobin A1c Today E11.65 - Type 2 diabetes mellitus with hyperglycemia Influenza [id number] Immunization Today Z23 - Encounter for immunization XR DEXA axial skeleton Today M81.0 - Age-related osteoporosis without current pathological fracture, M85.80 - Other specified disorders of bone density and structure, unspecified site Medications: Changed From semaglutide (Ozempic) for 4 weeks then 0.5 mg Q week 0.25 mg (0.368 mL) subcut QWEEK 6 mL 0RF E11.65 - Type 2 diabetes mellitus with hyperglycemia To semaglutide (Ozempic) for 4 weeks then 0.5 mg Q week 0.5 mg (0.736 mL) subcut QWEEK 30 days 3 mL 1RF E11.65 - Type 2 diabetes mellitus with hyperglycemia From lactulose 10 grams (15 mL) PO DAILY 1,440 mL 5RF To lactulose 20 grams (30 mL) PO DAILY 30 days 900 mL 5RF Refilled oxycodone-acetaminophen 5-325 mg 1 tab PO TID 28 days PRN 84 tabs 0RF pain M51.36 - Other intervertebral disc degeneration, lumbar region Coding Level of Care Code Est Pt Level 4 (51791) Diagnoses Type 2 diabetes mellitus with hyperglycemia, without long-term current use of insulin E11.65 Diabetes mellitus skilled nursing insulin use: without skilled nursing use Essential hypertension I10 Hypertension type: essential hypertension Hypercholesterolemia E78.00 Asthma J45.909 Obstructive sleep apnea G47.33 Class 3 severe obesity due to excess calories with serious comorbidity and body mass index (BMI) of 40.0 to 44.9 in adult E66.01; Z68.41 Obesity type: due to excess calories Obesity classification: adult class 3 (BMI >= 40) Serious obesity comorbidity presence: with serious comorbidity Body mass index: BMI 40.0-44.9 Osteopenia M85.80 Gastroesophageal reflux disease without esophagitis K21.9 Esophagitis presence: without esophagitis Tobacco abuse Z72.0
== END 2023-08-15 11:36 | disposition home or self-care (01) ==
PROVIDERS: PCP Internal Medicine; Visit Provider Internal Medicine
DX: E11.65 Type 2 diabetes mellitus with hyperglycemia (principal); I10 Essential (primary) hypertension; E66.01 Morbid (severe) obesity due to excess calories; Z68.41 Body mass index [BMI] 40.0-44.9, adult; Z23 Encounter for immunization; E78.00 Pure hypercholesterolemia, unspecified; J45.909 Unspecified asthma, uncomplicated; G47.33 Obstructive sleep apnea (adult) (pediatric); M85.80 Other specified disorders of bone density and structure, unspecified site; K21.9 Gastro-esophageal reflux disease without esophagitis; Z72.0 Tobacco use
CPT/HCPCS: 83036; 90471; 90686; 99214

== ENCOUNTER 2023-09-05 13:22 | Outpatient (REF) | payer OTHER, SELFPAY ==
--- NOTE | ~2023-09-05 | MM_ITS ---
EXAMINATION: BONE DENSITOMETRY CLINICAL INDICATION: Age-related osteoporosis without current pathological fracture. COMPARISON: Previous BD dated 09/01/2020 and baseline BD dated 08/27/2009. TECHNIQUE: Using a [employer] DXA System (software version: 13.1) manufactured by [employer], dual-energy x-ray absorptiometry was performed of the lumbar spine and left hip. The images are of good technical quality. Summary results are attached. FINDINGS: LEFT FEMUR, NECK: Current: BMD 0.863 g/cm2, Z-score -0.3, T-score -1.3, osteopenia. Prior: BMD 0.824 g/cm2. Baseline: BMD 0.901 g/cm2. LEFT FEMUR, TOTAL: Current: BMD 1.011 g/cm2, Z-score 0.6, T-score 0.0, normal, 2.1% increase from previous, 3.4% decrease from baseline (<5% change is not significant). Prior: BMD 0.990 g/cm2. Baseline: BMD 1.047 g/cm2. AP SPINE L1-L4: Current: BMD 1.240 g/cm2, Z-score 1.2, T-score 0.5, normal, 9.9% increase from previous, 8.8% increase from baseline (<5% change is not significant). Prior: BMD 1.128 g/cm2. Baseline: BMD 1.140 g/cm2. IDENTIFIED RISK FACTORS: Early menopause, secondary osteoporosis, hysterectomy, bilateral oophorectomy, glucocorticoids, current smoker. HISTORY OF FRACTURE: None listed. MEDICATIONS: Vitamin D. MM/XR DEXA axial skeleton IMPRESSION: 1. DIAGNOSIS: Osteopenia based on the lowest T-score value of -1.3 in the femoral neck applying World Health Organization criteria. 2. 10-YEAR FRACTURE RISK PREDICTION, FRAX: Major osteoporotic fracture (clinical spine, forearm, hip or shoulder) 6.7%. Hip fracture 1.1%. 3. Treatment Recommendations: NOF guidelines recommend consideration for treatment in postmenopausal women and men age 50 and older presenting with the following: -A hip or vertebral (clinical or morphometric) fracture. -T-score less than or equal to -2.5 at the femoral neck or spine after appropriate evaluation to exclude secondary causes. -Low bone mass at the hip or spine and a 10-year fracture probability by FRAX of greater than or equal to 3% for hip fracture or greater than or equal to 20% for major osteoporotic fracture based on the [place] adapted WHO algorithm. 4. Other Recommendations: All treatment decisions require clinical judgment and consideration of individual patient factors, including patient preferences, comorbidities, previous drug use, risk factors not captured in the FRAX model (e.g. frailty, falls, vitamin D deficiency, increased bone turnover, interval significant decline in bone density) and possible under or overestimation of fracture risk by FRAX. Additional medical evaluation for secondary cause of low bone mineral density may be appropriate. FUTURE SCAN RECOMMENDATION: People with diagnosed cases of osteoporosis or at high risk for fracture should have regular bone mineral density tests. For patients eligible for Medicare, routine testing is allowed once every 2 years. The testing frequency can be increased to one year for patients who have rapidly progressing disease, those who are receiving or discontinuing medical therapy to restore bone mass, or have additional risk factors.
== END 2023-09-05 13:23 | disposition home or self-care (01) ==
LOC: HO.MAMMO 13:22
PROVIDERS: PCP Internal Medicine; Visit Provider Internal Medicine
DX: Z13.820 Encounter for screening for osteoporosis (principal); M81.0 Age-related osteoporosis without current pathological fracture; M85.80 Other specified disorders of bone density and structure, unspecified site; Z78.0 Asymptomatic menopausal state
CPT/HCPCS: 77080

== ENCOUNTER 2023-10-30 10:07 | Emergency (ER) | payer OTHER, SELFPAY ==
--- NOTE | ~2023-10-30 | XR_ITS ---
EXAMINATION: XR CHEST CLINICAL INFORMATION: Cough. COMPARISON: Most recent CT lung screening dated 03/24/2023. TECHNIQUE: 2 views of the chest were obtained. FINDINGS: The lungs are clear. The cardiomediastinal silhouette is normal in size. There is no pleural effusion or pneumothorax. No acute osseous abnormality. Right upper quadrant surgical clips. XR/XR chest 2V IMPRESSION: No acute cardiopulmonary findings.
[2023-10-30 10:35] VITALS: BP 156/76; PULSE 77; RESP 20; TEMP 36.6; O2SAT 98; BMI 34.1
[2023-10-30 11:32] LABS: IDNOW Serial# 08D9AD1C; Influenza A Negative (Negative); Influenza B2 Negative (Negative)
[2023-10-30 11:37] LABS: COVID-19 Test Negative (Negative); IDNOW Serial# 58CA691E
--- NOTE | 2023-10-30 12:30 | ED.URI ---
HPI - URI/Sore Throat General Chief Complaint: Upper Respiratory Symptoms Stated Complaint: Diff breathing/Vomiting/Back pain Time Seen by Provider: 10/30/23 12:38 Source: patient Mode of arrival: ambulatory Limitations: no limitations History of Present Illness HPI Narrative: 62-year-old female with a hx of FREDDY, arthritis, asthma, IBS, fatty liver, HLD, GERD, DM, COPD here with complaints of 3 days of chest tightness, cough, back and chest discomfort with coughing only, vomiting, diarrhea. No recent travel, sick contact, recent surgeries, or hormone use therapy. No leg swelling or leg pain. Smokes cigarettes daily Using albuterol inhaler, nebulizer at home with continued symptoms. Last vomiting episode last evening. No abdominal pain, urinary symptoms, fevers, chills, shortness of breath, skin rash, neck pain or neck stiffness. Related Data Home Medications Medication Instructions Recorded Confirmed amitriptyline 25 mg tablet 25 mg PO BEDTIME 09/03/20 05/01/23 hydrocortisone acetate 1 % rectal applic topical PRN Pain 09/03/20 05/01/23 cream bupropion HCl 150 mg 24 hr tablet, 150 mg PO BEDTIME 02/17/21 05/01/23 extended release fexofenadine 180 mg tablet 180 mg PO DAILY PRN Allergy 02/17/21 05/01/23 (Amara Allergy) Symptoms fluoxetine 20 mg capsule 40 mg PO QAM 06/30/21 05/01/23 hydroxyzine HCl 50 mg tablet 50 mg PO BID 09/12/22 05/01/23 latanoprost 0.005 % eye drops 1 drp ophthalmic (eye) BEDTIME 10/25/22 05/01/23 Previous Rx's Medication Instructions Recorded lidocaine 5 % topical ointment 1 applic topical TID #60 grams 09/03/20 albuterol sulfate 0.63 mg/3 mL 0.63 mg (3 mL) inhalation QID PRN 02/08/21 solution for nebulization shortness of breath or wheezing #75 mL nebulizers (AeroEclipse II #1 ea 02/08/21 Nebulizer) hydrocortisone 2.5 % topical cream 1 appl TN BID-QID PRN hemorrhoids 06/11/21 with perineal applicator #30 grams (Proctosol HC) blood-glucose meter (FreeStyle #1 ea 03/09/22 Lite Meter kit) lancets 28 gauge (FreeStyle #300 boxes 03/09/22 Lancets) pen needle, diabetic 32 gauge x #100 ea 12/07/22 (BD Purnima 2nd Gen Pen Needle) ropinirole 3 mg tablet 3 mg PO BID 30 days #180 tabs 12/09/22 simvastatin 10 mg tablet 10 mg PO BEDTIME 30 days #90 tabs 12/09/22 fenofibrate 160 mg tablet 160 mg PO DAILY #90 tabs 12/19/22 isosorbide mononitrate 30 mg 30 mg PO DAILY #90 tabs 12/19/22 tablet,extended release 24 hr blood sugar diagnostic (FreeStyle #300 ea 02/15/23 Lite Strips) fluticasone propionate 50 2 spray intranasal DAILY #3 ea 02/15/23 mcg/actuation nasal spray,suspension (Allergy Relief (fluticasone)) omeprazole 40 mg capsule,delayed 40 mg PO DAILY #90 caps 02/15/23 release fluconazole 150 mg tablet 150 mg PO Q3D 1 day #1 tab 03/17/23 (Diflucan) losartan 100 mg tablet (Cozaar) 100 mg PO DAILY 90 days #90 tabs 07/31/23 lactulose 10 gram/15 mL (15 mL) 20 g (30 mL) PO DAILY 30 days #900 08/15/23 oral solution mL empagliflozin 25 mg tablet 25 mg PO DAILY 30 days #30 tabs 09/11/23 albuterol sulfate 90 mcg/actuation 2 puff PO Q6H PRN shortness of 09/15/23 aerosol inhaler breath or wheezing #8.5 ea fluticasone fur. 200 mcg-umeclid 1 inh inhalation DAILY #60 ea 09/29/23 62.5 mcg-vilant 25 mcg inhalat.powder (Trelegy Ellipta) insulin glargine 100 unit/mL (3 15 unit (0.15 mL) subcut QPM 30 09/29/23 mL) subcutaneous pen (Lantus days #4.5 mL Solostar U-100 Insulin) semaglutide 0.25 mg or 0.5 mg (2 0.5 mg (0.736 mL) subcut QWEEK 30 09/29/23 mg/3 mL) subcutaneous pen injector days #3 mL (Ozempic) metoprolol succinate 25 mg 25 mg PO DAILY #90 tabs 10/02/23 tablet,extended release 24 hr oxycodone-acetaminophen 5 mg-325 1 tab PO TID PRN pain 28 days #84 10/13/23 mg tablet tabs albuterol sulfate 2.5 mg/3 mL 2.5 mg (3 mL) inhalation Q4H PRN 10/30/23 (0.083 %) solution for nebulization shortness of breath or wheezing #90 mL benzonatate 200 mg capsule 200 mg PO TID PRN cough #20 caps 10/30/23 ondansetron 4 mg disintegrating 4 mg PO Q6H PRN nausea and 10/30/23 tablet vomiting #15 tabs prednisone 20 mg tablet 60 mg (3 x 20 mg) PO DAILY #15 tabs 10/30/23 Allergies Allergy/AdvReac Type Severity Reaction Status Date / Time metformin AdvReac Intermediate Vomiting Verified 10/30/23 10:38 lisinopril [From Zestril] AdvReac Mild COUGH Verified 10/30/23 10:38 Review of Systems Review of Systems: Yes all other systems are reviewed and are negative Constitutional: Constitutional: Reports no additional constitutional complaints, Denies body ache(s), Denies chills, Denies fever(s), Denies headache(s) and Denies weakness Eyes: Eyes: Reports no additional eye complaints and Denies change in vision ENT: Reports system reviewed and no additional complaints, except as documented, Denies dizziness, Denies headache(s), Reports nasal congestion, Denies nasal discharge and Denies neck pain Cardiovascular: Cardiovascular: Reports no additional cardiovascular complaints, Reports chest pain, Denies leg edema and Denies dyspnea Respiratory: Respiratory: Reports no additional respiratory complaints, Reports cough and Denies dyspnea Gastrointestinal: Gastrointestinal: Reports no additional gastrointestinal complaints, Denies abdominal pain, Reports diarrhea, Reports nausea and Reports vomiting Genitourinary: Genitourinary: Reports no additional female genitourinary complaints and Denies urinary incontinence Musculoskeletal: Musculoskeletal: Reports no additional musculoskeletal complaints, Denies back pain, Denies arthralgias, Denies joint swelling, Denies neck pain, Denies numbness and Denies tingling Integumentary/Breasts: Skin/Breast: Reports system reviewed and no additional complaints, except as docu and Denies rash Neurologic: Reports system reviewed and no additional complaints, except as documented, Denies Abnormal speech present, Denies dizziness, Denies headache(s), Denies numbness, Denies tingling and Denies weakness PMFSH Past Medical History Attestation statement: The following information was validated with the patient. Source: old records reviewed and nursing notes reviewed Medical History Tobacco abuse Osteopenia (~2018) Nicotine dependence, cigarettes, uncomplicated Allergic rhinitis Irritable bowel syndrome Obstructive sleep apnea Obesity Restless leg syndrome Asthma Insomnia Interstitial cystitis Osteoarthritis of hip Right renal stone GERD (gastroesophageal reflux disease) Anxiety and depression Hypercholesterolemia Fatty liver Hypertension Lumbar degenerative disc disease Type 2 diabetes mellitus with hyperglycemia Surgical History History of breast lump/mass excision History of hand surgery History of foot surgery History of surgical removal of ganglion cyst History of colonoscopy History of nasal surgery History of esophagogastroduodenoscopy (EGD) History of removal of cyst History of lithotripsy History of bladder surgery History of carpal tunnel release History of tonsillectomy and adenoidectomy History of cholecystectomy History of total abdominal hysterectomy and bilateral salpingo-oophorectomy History of section Family History Family History Father CAD (coronary artery disease) CVD (cerebrovascular disease) Lung cancer Hypertension Mother Hypertension Diabetes Cancer Daughter Breast cancer Paternal Uncle Myocardial infarction Paternal Aunt Myocardial infarction Maternal Uncle Myocardial infarction Bone cancer Other FH: mental illness Substance abuse Social History Social History Housing: Apartment Alcohol intake: current Alcohol intake frequency: does not drink Patient Tobacco Use Status: Current everyday Tobacco user Tobacco use type: Cigarette Cigarettes Per Day: 10 Years Smoked: (current smoker, onset 13yo, 1ppd x 49yrs, now 1/2ppd - 40pyh) e-Cigarette/Vaping Use: Never Used Second Hand Smoke Exposure: No Advance Directives: No Advance Directives Information Provided: No service: No Current occupational status: disabled Cognitive needs: No Hearing needs: No Vision needs: Yes Physical Exam Vital Signs: Vital Signs: Last Vital Signs Temp 97.9 F 10/30/23 10:35 Pulse 77 10/30/23 10:35 Resp 20 10/30/23 10:35 BP 156/76 H 10/30/23 10:35 Pulse Ox 98 10/30/23 10:35 O2 Del Method Room Air 10/30/23 10:35 BMI result Body Mass Index 34.1 Const: General: cooperative, healthy appearing, comfortable and no acute distress Orientation/consciousness: patient oriented x3 Limitations: no limitations HEENT: Head: Yes normal to inspection Ears: hearing grossly normal bilaterally and TM's normal bilaterally General nose exam: Normal external nose present Face and sinus: Yes normal facial exam Mouth: Normal oral and palatal mucosa present Throat: Yes posterior oropharynx normal, Yes tonsils normal and Yes uvula midline Eyes: General: appearance normal, both eyes and all related structures Pupils: Equal, round and reactive pupils present Neck: Neck: Yes normal visual inspection, Yes full ROM, Yes no lymphadenopathy and Yes no meningeal signs Chest: Chest palpation & inspection: normal inspection of the chest Resp: Other: mild expiratory wheezing Effort & Inspection: normal respiratory effort Cardio: Rate: regular rate Rhythm: regular rhythm Peripheral pulses: Peripheral pulses 2+ throughout GI: Inspection: Yes normal to inspection Palpation (GI): Soft to palpation and nontender Auscultation: normal bowel sounds Back/Spine/Pelvis: Thoracic/Lumbar Spine: thoracic and lumbar spine normal to inspection Skin: General skin exam: no rashes or lesions noted Neuro: General: patient oriented x3, no meningeal signs, no focal motor deficits and normal sensation to monofilament Cranial nerves: Yes Equal, round and reactive pupils present Cognition (Neuro): normal cognition Speech: No Abnormal speech present Gait exam (Neuro): Normal gait present Motor exam (neuro): 5/5 motor strength present throughout Extrem: General: Yes normal to inspection, Yes no pedal edema and Yes no calf tenderness Medical Decision Making Medical Decision Making MDM Narrative: 62-year-old female with a hx of FREDDY, arthritis, asthma, IBS, fatty liver, HLD, GERD, DM, COPD here with complaints of 3 days of chest tightness, cough, back and chest discomfort with coughing only, vomiting, diarrhea. No recent travel, sick contact, recent surgeries, or hormone use therapy. No leg swelling or leg pain. Smokes cigarettes daily Using albuterol inhaler, nebulizer at home with continued symptoms. Last vomiting episode last evening. No abdominal pain, urinary symptoms, fevers, chills, shortness of breath, skin rash, neck pain or neck stiffness. vitals are stable. Abdomen soft nontender. Mild expiratory wheezing on exam here legs with no calf swelling or pain. Reviewed chest x-ray and viral testing ordered from triage which are negative. Likely viral syndrome which is triggering her underlying COPD. Will initiate oral prednisone, cough suppressant p.r.n., anti emetic will recommend continuing home albuterol MDI and nebulizer as needed. Differential Diagnosis Differential Diagnoses: The differential diagnosis associated with the presentation includes Viral syndrome, bronchitis low concern for pneumonia PE less likely with no hypoxia, no tachypnea, no tachycardia, no clinical findings concerning for DVT, no risk factors such as travel, oral hormone therapy, recent surgeries or additional risk factors. Low concern for ACS Admission/Observation Consideration of admission/observation: Escalation of care including admission/observation considered viral syndrome with no hypoxia or tachypnea requiring supplemental oxygen and or advanced imaging and/or admission. Lab Data MDM Lab Attestation statement: I reviewed the patient's lab results. Labs: Lab Results 10/30/23 Range/Units 11:05 COVID-19 ([facility]) Negative (Negative) COVID-19 Clin Com See Note Influenza Type A ([facility]) Negative (Negative) Influenza Type B ([facility]) Negative (Negative) Influenza A & B Note See Note Independent Interpretation I performed an independent interpretation of an: Plain X-Ray Interpretation: I independently reviewed the x-ray and agree with Radiology report Radiology Impression Discussion of test interpretation with radiology: I have reviewed the radiologist's reading. Radiologist Impression: [place] [id number] XRay Report Signed Patient: Rafia Treviño MR#: [id number] : 1960 Acct:[id number] Age/Sex: 63 / F ADM Date: 10/30/23 Loc: HO.ED Attending Dr: Ordering Physician: Generic ED Physician Date of Service: 10/30/23 Procedure(s): XR chest 2V Accession Number(s): [id number] cc: Generic ED Physician; Hitesh Fairchild MD~ EXAMINATION: XR CHEST CLINICAL INFORMATION: Cough. COMPARISON: Most recent CT lung screening dated 03/24/2023. TECHNIQUE: 2 views of the chest were obtained. FINDINGS: The lungs are clear. The cardiomediastinal silhouette is normal in size. There is no pleural effusion or pneumothorax. No acute osseous abnormality. Right upper quadrant surgical clips. XR/XR chest 2V IMPRESSION: No acute cardiopulmonary findings. Tests considered The following testing was considered but not selected: no hypoxia, concern for PE requiring labs and/or advanced imaging Prescription Management I considered prescription management with: Antiviral and Antibiotic Chronic Conditions Patient?s care impacted by: Diabetes Discharge Plan Discharge Clinical Impression: Bronchitis, Acute viral syndrome Patient Disposition: Home, Self-Care Instructions: Acute Bronchitis (ED), Viral Syndrome (ED) Additional Instructions: testing for flu and COVID are negative Chest x-ray shows no signs of pneumonia Continue your home asthma treatments Follow-up with your primary care doctor for any continued symptoms Prescriptions: New albuterol sulfate 2.5 mg /3 mL (0.083 %) solution for nebulization 2.5 mg inhalation Q4H PRN (Reason: shortness of breath or wheezing) Qty: 90 0RF benzonatate 200 mg capsule 200 mg PO TID PRN (Reason: cough) Qty: 20 0RF prednisone 20 mg tablet 60 mg PO DAILY Qty: 15 0RF ondansetron 4 mg tablet,disintegrating 4 mg PO Q6H PRN (Reason: nausea and vomiting) Qty: 15 0RF No Action lidocaine 5 % ointment 1 applic topical TID Qty: 60 0RF (DME) blood-glucose meter [FreeStyle Lite Meter] Kit See Rx Instructions .Route Qty: 1 0RF Rx Instructions: As directed (DME) lancets [FreeStyle Lancets] 28 gauge misc See Rx Instructions .ROUTE .MEDSUPPLY Qty: 300 3RF Rx Instructions: As directed check BS TID (DME) pen needle, diabetic [BD Uprnima 2nd Gen Pen Needle] 32 gauge x 5/32 needle See Rx Instructions .Route Qty: 100 2RF Rx Instructions: As directed simvastatin 10 mg tablet 10 mg PO BEDTIME 30 Days Qty: 90 3RF ropinirole 3 mg tablet 3 mg PO BID 30 Days Qty: 180 3RF fenofibrate 160 mg tablet 160 mg PO DAILY Qty: 90 3RF isosorbide mononitrate 30 mg tablet extended release 24 hr 30 mg PO DAILY Qty: 90 3RF omeprazole 40 mg capsule,delayed release(DR/EC) 40 mg PO DAILY Qty: 90 3RF fluticasone propionate [Allergy Relief (fluticasone)] 50 mcg/actuation spray,suspension 2 spray intranasal DAILY Qty: 3 3RF Rx Instructions: administer into each nostril (DME) FreeStyle Lite Strips Strip See Rx Instructions .ROUTE .MEDSUPPLY Qty: 300 3RF Rx Instructions: As directed check the BS TID losartan [Cozaar] 100 mg tablet 100 mg PO DAILY 90 Days Qty: 90 2RF empagliflozin 25 mg tablet 25 mg PO DAILY 30 Days Qty: 30 3RF albuterol sulfate 90 mcg/actuation HFA aerosol inhaler 2 puff PO Q6H PRN (Reason: shortness of breath or wheezing) Qty: 8.5 3RF Ozempic 0.25 mg or 0.5 mg (2 mg/3 mL) pen injector 0.5 mg subcut QWEEK 30 Days Qty: 3 1RF Rx Instructions: for 4 weeks then 0.5 mg Q week insulin glargine [Lantus Solostar U-100 Insulin] 100 unit/mL (3 mL) insulin pen 15 unit subcut QPM 30 Days Qty: 4.5 11RF Rx Instructions: or as directed. discussed about escalating doses for the according to BS Trelegy Ellipta 200-62.5-25 mcg blister with device 1 inh inhalation DAILY Qty: 60 2RF metoprolol succinate 25 mg tablet extended release 24 hr 25 mg PO DAILY Qty: 90 3RF oxycodone-acetaminophen 5-325 mg tablet 1 tab PO TID PRN (Reason: pain) 28 Days Qty: 84 0RF (DME) nebulizers [AeroEclipse II Nebulizer] [facility] [place] See Rx Instructions .ROUTE .MEDSUPPLY Qty: 1 0RF Rx Instructions: As directed albuterol sulfate 0.63 mg/3 mL solution for nebulization 0.63 mg inhalation QID PRN (Reason: shortness of breath or wheezing) Qty: 75 0RF hydrocortisone acetate 1 % cream topical PRN (Reason: Pain) amitriptyline 25 mg tablet 25 mg PO BEDTIME fexofenadine [Amara Allergy] 180 mg tablet 180 mg PO DAILY PRN (Reason: Allergy Symptoms) hydrocortisone [Proctosol HC] 2.5 % cream with perineal applicator 1 appl TN BID-QID PRN (Reason: hemorrhoids) Qty: 30 2RF hydroxyzine HCl 50 mg tablet 50 mg PO BID latanoprost 0.005 % drops 1 drp ophthalmic (eye) BEDTIME fluconazole [Diflucan] 150 mg tablet 150 mg PO Q3D 1 Days Qty: 1 0RF lactulose 10 gram/15 mL (15 mL) solution 20 g PO DAILY 30 Days Qty: 900 5RF fluoxetine 20 mg capsule 40 mg PO QAM bupropion HCl 150 mg tablet extended release 24 hr 150 mg PO BEDTIME
== END 2023-10-30 12:42 | disposition home or self-care (01) ==
PROVIDERS: Emergency Provider Emergency Medicine; PCP Internal Medicine
DX: B34.9 Viral infection, unspecified (principal); J20.8 Acute bronchitis due to other specified organisms; E11.9 Type 2 diabetes mellitus without complications; I10 Essential (primary) hypertension; E78.00 Pure hypercholesterolemia, unspecified; J44.9 Chronic obstructive pulmonary disease, unspecified; F17.210 Nicotine dependence, cigarettes, uncomplicated; Z11.52 Encounter for screening for COVID-19; Z79.02 Long term (current) use of antithrombotics/antiplatelets; Z79.4 Long term (current) use of insulin; Z79.899 Other long term (current) drug therapy
CPT/HCPCS: 71046; 87502; 87635; 99282; 99283

== ENCOUNTER 2023-11-17 09:08 | Outpatient (REF) | payer OTHER, SELFPAY ==
[2023-11-17 09:21] LABS: MANUAL DIFF FLAG NO
[2023-11-17 09:33] LABS: Basophils Absolute Auto 0.1 X10*3/uL (0.0-0.2); Basophils Percent Auto 0.6 % (0-2); Eosinophils Absolute Auto 0.1 X10*3/uL (0.0-0.4); Eosinophils Percent Auto 1.4 % (0-4); Hematocrit 48.2 % (37.0-47.0); Hemoglobin 16.1 g/dl (12.0-16.0); Imm Gran Abs Auto 0.02 X10*3/uL (0.00-0.03); Imm Gran Pct Auto 0.2 % (0.0-0.4); Lymphocytes Absolute Auto 2.6 X10*3/uL (1.2-4.9); Lymphocytes Percent Auto 29.7 % (20-40); Mean Corpuscular HGB Conc 33.4 g/dl (31.0-35.0); Mean Corpuscular Hemoglobin 30.9 pg (27.0-33.0); Mean Corpuscular Volume 92.5 fL (80.0-98.0); Mean Platelet Volume 10.5 fL (9.4-12.3); Monocytes Absolute Auto 0.5 X10*3/uL (0.1-1.2); Monocytes Percent Auto 5.2 % (2-11); Neutrophils Absolute Auto 5.6 x10*3/uL (2.0-8.3); Neutrophils Percent Auto 62.9 % (45-73); Platelet Count 250 X10*3/uL (160-400); Red Blood Count 5.21 X10*6/uL (4.20-5.50); Red Cell Distribution Width 14.6 % (11.0-16.0); White Blood Count 8.9 X10*3/uL (4.8-10.8)
[2023-11-17 09:40] LABS: Estimated Average Glucose 114 mg/dL; Hemoglobin A1c % 5.6 % (<6.0)
[2023-11-17 10:03] LABS: Alanine Aminotransferase 36 U/L (0-31); Albumin Level 4.2 g/dL (3.5-5.0); Alkaline Phosphatase 63 U/L (39-117); Anion Gap 14 (12-20); Aspartate Amino Transferase 42 U/L (5-31); Bilirubin Total 0.7 mg/dL (0.0-1.0); Blood Urea Nitrogen 12 mg/dL (9-16); Calcium 10.6 mg/dL (8.4-10.2); Carbon Dioxide 27 mmol/L (22-29); Chloride 103 mmol/L (96-108); Cholesterol 162 mg/dL (<200); Estimated Glomerular Filt Rate 54; Glucose Random 105 mg/dL (60-115); HDL Cholesterol 62 mg/dL (>40); LDL Cholesterol Calculated 77 mg/dL (<100); Potassium 4.6 mmol/L (3.3-5.1); Sodium 139 mmol/L (135-145); Total Protein 7.7 g/dL (6.5-8.0); Triglycerides 117 mg/dL (<150)
[2023-11-17 10:23] LABS: Free T4 (Free Thyroxine) 0.96 ng/dL (0.71-1.85); Thyroid Stimulating Hormone 0.43 uIU/mL (0.32-4.0); Vitamin D 25-OH Total 33.3 ng/mL (>30)
[2023-11-17 10:28] LABS: Folate 9.3 ng/mL (> or = 4.0); Vitamin B12 580 pg/mL (200-900)
[2023-11-17 11:15] LABS: Creatinine Urine 162.54 mg/dL; Microalbum/Creatinine Ratio Ur 9.2 ug/mg cr (<30)
== END 2023-11-17 09:09 | disposition home or self-care (01) ==
LOC: HO.LAB 09:08
PROVIDERS: PCP Internal Medicine; Visit Provider Internal Medicine
DX: E11.65 Type 2 diabetes mellitus with hyperglycemia (principal); E78.00 Pure hypercholesterolemia, unspecified
CPT/HCPCS: 36415; 80053; 80061; 82043; 82306; 82570; 82607; 82746; 83036; 84439; 84443; 85025

== ENCOUNTER 2023-11-24 12:20 | Outpatient (AMB) | payer OTHER, SELFPAY ==
--- NOTE | 2023-11-24 12:30 | A.OFFPC_ITS ---
Vital Signs 11/24/23 12:31 Height 4 ft 11 in Weight 163 lb 0.2 oz BMI 32.9 BP 120/72 Blood Pressure Location Lt brachial Position Sitting Pulse 70 Pulse Source Pulse Oximeter Pulse Oximetry (%) 98 Oxygen Delivery Method Room Air Intake Visit Reasons: DM Radiology Services Manager Required: No Allergies metformin Adverse Reaction (Intermediate, Verified 11/24/23 12:34) Vomiting lisinopril [From Zestril] Adverse Reaction (Mild, Verified 11/24/23 12:34) COUGH Tobacco use date assessed: 11/24/23 Fall risk assessment: No Falls in past year Last assessed Fall Risk: 11/24/23 Dental Screening Dental Screen Date: 11/24/23 Did you have a dental visit in the last 12 months?: No Did you have a dental problem in the last 6 months where you did not have access to dental care?: No HPI DM HPI Details 63-year-old obese female smoker with ellis betes mellitus hypertension hypercholesterolemia obstructive sleep apnea GERD coming in for follow-up. Last seen in July 2023. Patient's colonoscopy is up-to-date mammogram is up-to-date bone density is up-to-date. Noted ER note 10/30/2023 having upper respiratory symptoms diagnosis of bronchitis prescribed prednisone with cough medication inhaler. Complains of nausea and vomiting recently after the increase of Ozempic did note with her that her numbers are better weight is down but on the other hand with nausea and vomiting need to decrease the Ozempic. Patient is on 0.5 right now will go back 2.2 5. [facility] Medical History (Updated 11/24/23 @ 12:41 by Hitesh Fairchild MD) Tobacco abuse Osteopenia (~2018) Nicotine dependence, cigarettes, uncomplicated Allergic rhinitis Irritable bowel syndrome Obstructive sleep apnea Obesity Restless leg syndrome Asthma Insomnia Interstitial cystitis Osteoarthritis of hip Right renal stone GERD (gastroesophageal reflux disease) Anxiety and depression Hypercholesterolemia Fatty liver Hypertension Lumbar degenerative disc disease Type 2 diabetes mellitus with hyperglycemia Surgical History History of breast lump/mass excision History of hand surgery History of foot surgery History of surgical removal of ganglion cyst History of colonoscopy History of nasal surgery History of esophagogastroduodenoscopy (EGD) History of removal of cyst History of lithotripsy History of bladder surgery History of carpal tunnel release History of tonsillectomy and adenoidectomy History of cholecystectomy History of total abdominal hysterectomy and bilateral salpingo-oophorectomy History of section Family History Father CAD (coronary artery disease) CVD (cerebrovascular disease) Lung cancer Hypertension Mother Hypertension Diabetes Cancer Daughter Breast cancer Paternal Uncle Myocardial infarction Paternal Aunt Myocardial infarction Maternal Uncle Myocardial infarction Bone cancer Other FH: mental illness Substance abuse Social History Housing: Apartment Alcohol intake: current Alcohol intake frequency: does not drink Patient Tobacco Use Status: Current everyday Tobacco user Tobacco use type: Cigarette Cigarettes Per Day: 10 Years Smoked: (current smoker, onset 13yo, 1ppd x 49yrs, now 1/2ppd - 40pyh) e-Cigarette/Vaping Use: Never Used Second Hand Smoke Exposure: No service: No Current occupational status: disabled Cognitive needs: No Hearing needs: No Vision needs: Yes Questionnaire Thrive Questionnaire Date Thrive assessed: 01/27/23 AUDIT C Alcohol Use Questionnaire (AUDIT-C) 1. How often do you have a drink containing alcohol?: Monthly or less 2. How many drinks containing alcohol do you have on a typical day when you are drinking?: 1 or 2 3. How often do you have six or more drinks on one occasion?: Never Total Score: 1 NICOLA-7 AMB Questionnaire NICOLA-7 Date NICOLA - 7 assessed: 01/27/23 Source: Developed by Drs. Mauro George, Mariana Medrano, James Truong and colleagues, with an educational romeo from [employer]. Physical exam (Primary Care) Vital Signs: Last Vital Signs Pulse 70 11/24/23 12:31 BP 120/72 11/24/23 12:31 Pulse Ox 98 11/24/23 12:31 Oxygen Delivery Method Room Air 11/24/23 12:31 BMI result Body Mass Index 32.9 Tobacco/Smoking Status: Tobacco use Status Tobacco use date assessed 11/24/23 11/24/23 12:35 Patient Tobacco Use Status Current everyday Tobacco 11/24/23 12:30 Tobacco use type Cigarette 11/24/23 12:30 e-Cigarette/Vaping Use Never Used 11/24/23 12:30 Thrive Assessment: Date of Thrive Assessment Date Thrive assessed 01/27/23 11/24/23 12:30 Const General: alert; No acute distress Eyes Conjunctivae: conjunctivae normal Resp Auscultation: clear to auscultation bilaterally Cardio Rate: regular rate Rhythm: regular rhythm GI Inspection: Yes normal to inspection Extrem General: Yes normal to inspection and No edema Assessment and Plan Assessment & Plan (1) Type 2 diabetes mellitus with hyperglycemia: Comment: Dr. Rayray joyce [facility] Code(s): E11.65 - Type 2 diabetes mellitus with hyperglycemia Qualifiers: Diabetes mellitus senior living insulin use: without senior living use Qualified Code(s): E11.65 - Type 2 diabetes mellitus with hyperglycemia Plan: Decrease the amount of carbohydrate intake, pasta, bread, rice and potatoes are all sugar and that is aside from all the sweet stuff, remember that fruits are good but they are Sweet also. Hemoglobin A1c goal of less than 6.5. Patient on Jardiance 25 mg once a day Lantus Ozempic. With the nausea and vomiting with recent increase in Ozempic will have to decrease the dose. Did discuss about improvement in sugar improvement in weight. And improvement in cholesterol (2) Hypertension: Code(s): I10 - Essential (primary) hypertension Qualifiers: Hypertension type: essential hypertension Qualified Code(s): I10 - Essential (primary) hypertension Plan: Continue with blood pressure medication. Decrease salt intake and exercise takes metoprolol 25 mg once a day losartan 100 mg once a day (3) Hypercholesterolemia: Code(s): E78.00 - Pure hypercholesterolemia, unspecified Plan: Avoid fried foods, chicken skin, eggs, butter margarine, pastries and meat. Be it pork or beef they have a lot of cholesterol LDL goal of less than 100 and triglyceride of less than 150. Patient on fenofibrate and simvastatin 10 mg at bedtime October 2022 up to go (4) Asthma: Comment: (PFTs consistent with Bronchial Asthma) CONTINUE SYMBICORT 160-4.52 PUFFS B.I.D. AND USE PROAIR 2 PUFFS Q 4-6 HOURS ONLY P.R.N.. DOES NOT HAVE TO USE THE NEBULIZER AT THIS TIME Code(s): J45.909 - Unspecified asthma, uncomplicated Plan: Stop smoking! Continue with inhaler (5) Obstructive sleep apnea: Comment: FREDDY - CPAP - auto PAP mode pressure 6-16) Code(s): G47.33 - Obstructive sleep apnea (adult) (pediatric) Plan: Continue with the CPAP more than 4 hours a night and benefits from the (6) Obesity: Code(s): E66.9 - Obesity, unspecified Qualifiers: Body mass index: BMI 40.0-44.9 Obesity classification: adult class 3 (BMI >= 40) Obesity type: due to excess calories Serious obesity comorbidity presence: with serious comorbidity Qualified Code(s): E66.01 - Morbid (severe) obesity due to excess calories; Z68.41 - Body mass index [BMI]40.0-44.9, adult Plan: Diet and exercise (7) Osteopenia: Onset Date: ~2017 Comment: (Bone Dexa Femoral T-Score: -1.1 on 04/13/18), August 2023 Code(s): M85.80 - Other specified disorders of bone density and structure, unspecified site Plan: Bone density done August 2023 improvement! (8) Lumbar degenerative disc disease: Code(s): M51.36 - Other intervertebral disc degeneration, lumbar region Plan: Narcotic pain meds: Is being prescribed with the understanding that these medications are potentially addictive and should be used only when absolutely necessary and must always be secured. Any remaining pills should be safely disposed off appropriately. Patient is advised that narcotics can impaired judgment and one should not drive or operate heavy machinery while taking these medications. Never share these medications with anybody and do not leave them unattended. They will not be replaced under any circumstances. Orders: Orders Pneumococcal 20 Immunization Today Z23 - Encounter for immunization Medications: New pneumoc 20-collin conj-dip cr(PF) 0.5 mL IM ONCE 0.5 mL 0RF Z23 - Encounter for immunization Changed From semaglutide (Ozempic) for 4 weeks then 0.5 mg Q week 0.5 mg (0.736 mL) subcut QWEEK 30 days 3 mL 1RF E11.65 - Type 2 diabetes mellitus with hyperglycemia To semaglutide (Ozempic) for 4 weeks then 0.5 mg Q week 0.25 mg (0.368 mL) subcut QWEEK 1.84 mL 1RF 30 days E11.65 - Type 2 diabetes mellitus with hyperglycemia Coding Level of Care Code Est Pt Level 4 (02976) Diagnoses Type 2 diabetes mellitus with hyperglycemia, without long-term current use of insulin E11.65 Diabetes mellitus senior living insulin use: without senior living use Essential hypertension I10 Hypertension type: essential hypertension Hypercholesterolemia E78.00 Asthma J45.909 Obstructive sleep apnea G47.33 Class 3 severe obesity due to excess calories with serious comorbidity and body mass index (BMI) of 40.0 to 44.9 in adult E66.01; Z68.41 Body mass index: BMI 40.0-44.9 Obesity classification: adult class 3 (BMI >= 40) Obesity type: due to excess calories Serious obesity comorbidity presence: with serious comorbidity Osteopenia M85.80 Lumbar degenerative disc disease M51.36
[2023-11-24 12:31] VITALS: BP 120/72; PULSE 70; O2SAT 98; BMI 32.9
== END 2023-11-24 12:59 | disposition home or self-care (01) ==
PROVIDERS: PCP Internal Medicine; Visit Provider Internal Medicine
DX: E11.65 Type 2 diabetes mellitus with hyperglycemia (principal); E66.01 Morbid (severe) obesity due to excess calories; Z68.41 Body mass index [BMI] 40.0-44.9, adult; Z23 Encounter for immunization; M85.80 Other specified disorders of bone density and structure, unspecified site; I10 Essential (primary) hypertension; E78.00 Pure hypercholesterolemia, unspecified; J45.909 Unspecified asthma, uncomplicated; G47.33 Obstructive sleep apnea (adult) (pediatric); M51.36 Other intervertebral disc degeneration, lumbar region
CPT/HCPCS: 90471; 90677; 99214

== ENCOUNTER 2024-02-26 12:50 | Outpatient (AMB) | payer OTHER, SELFPAY ==
--- NOTE | 2024-02-26 12:53 | MHC.PC.OV ---
Vital Signs 02/26/24 12:54 Height 4 ft 11 in Weight 157 lb BMI 31.7 BP 118/72 Blood Pressure Location Lt brachial Position Sitting Pulse 70 Pulse Source Pulse Oximeter Pulse Oximetry (%) 97 Oxygen Delivery Method Room Air Intake Visit Reasons: 3 Month F/U Vp & General Counsel Required: No Allergies metformin Adverse Reaction (Intermediate, Verified 02/26/24 12:54) Vomiting lisinopril [From Zestril] Adverse Reaction (Mild, Verified 02/26/24 12:54) COUGH Tobacco use date assessed: 02/26/24 Fall risk assessment: No Falls in past year Last assessed Fall Risk: 02/26/24 Dental Screening Dental Screen Date: 11/24/23 HPI 3 Month F/U HPI Details 63-year-old obese female with controlled diabetes mellitus hypertension hypercholesterolemia asthma obstructive sleep apnea and lumbar degenerative disc disease on narcotic pain medication last seen in October 2023. Patient's colonoscopy is up-to-date 2016 mammogram is up-to-date and bone density is up-to-date. Hemoglobin A1c done January 2024 5.3. complains of having hair loss. patient also complains of sacral pain denies any fall or trauma also on the thoracolumbar spine patient continues to smoke and advised to stop. Also patient has a history of interstitial cystitis and was asking for the referral that was done before. [facility] Medical History (Updated 02/26/24 @ 13:21 by Hitesh Fairchild MD) Tobacco abuse Osteopenia (~2018) Nicotine dependence, cigarettes, uncomplicated Allergic rhinitis Irritable bowel syndrome Obstructive sleep apnea Obesity Restless leg syndrome Asthma Insomnia Interstitial cystitis Osteoarthritis of hip Right renal stone GERD (gastroesophageal reflux disease) Anxiety and depression Hypercholesterolemia Fatty liver Hypertension Lumbar degenerative disc disease Type 2 diabetes mellitus with hyperglycemia Surgical History History of breast lump/mass excision History of hand surgery History of foot surgery History of surgical removal of ganglion cyst History of colonoscopy History of nasal surgery History of esophagogastroduodenoscopy (EGD) History of removal of cyst History of lithotripsy History of bladder surgery History of carpal tunnel release History of tonsillectomy and adenoidectomy History of cholecystectomy History of total abdominal hysterectomy and bilateral salpingo-oophorectomy History of section Family History Father CAD (coronary artery disease) CVD (cerebrovascular disease) Lung cancer Hypertension Mother Hypertension Diabetes Cancer Daughter Breast cancer Paternal Uncle Myocardial infarction Paternal Aunt Myocardial infarction Maternal Uncle Myocardial infarction Bone cancer Other FH: mental illness Substance abuse Social History Housing: Apartment Alcohol intake: current Alcohol intake frequency: does not drink Patient Tobacco Use Status: Current everyday Tobacco user Tobacco use type: Cigarette Cigarettes Per Day: 10 Years Smoked: (current smoker, onset 13yo, 1ppd x 49yrs, now 1/2ppd - 40pyh) e-Cigarette/Vaping Use: Never Used Second Hand Smoke Exposure: No service: No Current occupational status: disabled Cognitive needs: No Hearing needs: No Vision needs: Yes Questionnaire Thrive Questionnaire Date Thrive assessed: 01/27/23 AUDIT C Alcohol Use Questionnaire (AUDIT-C) 1. How often do you have a drink containing alcohol?: Monthly or less 2. How many drinks containing alcohol do you have on a typical day when you are drinking?: 1 or 2 3. How often do you have six or more drinks on one occasion?: Never Total Score: 1 NICOLA-7 AMB Questionnaire NICOLA-7 Date NICOLA - 7 assessed: 01/27/23 Source: Developed by Drs. Mauro George, Mariana Medrano, James Truong and colleagues, with an educational romeo from [employer]. Physical exam (Primary Care) Vital Signs: Last Vital Signs Pulse 70 02/26/24 12:54 BP 118/72 02/26/24 12:54 Pulse Ox 97 02/26/24 12:54 Oxygen Delivery Method Room Air 02/26/24 12:54 BMI result Body Mass Index 31.7 Tobacco/Smoking Status: Tobacco use Status Tobacco use date assessed 02/26/24 02/26/24 12:55 Patient Tobacco Use Status Current everyday Tobacco 02/26/24 12:55 Tobacco use type Cigarette 02/26/24 12:55 e-Cigarette/Vaping Use Never Used 02/26/24 12:55 Thrive Assessment: Date of Thrive Assessment Date Thrive assessed 01/27/23 02/26/24 12:55 Const General: alert; No acute distress Eyes Conjunctivae: conjunctivae normal Resp Auscultation: clear to auscultation bilaterally Cardio Rate: regular rate Rhythm: regular rhythm GI Inspection: Yes normal to inspection Extrem General: Yes normal to inspection and No edema Results AMB Hemoglobin A1c AMB Hemoglobin A1c 5.1 % Last Edit by SANDRO Duggan on 02/26/24 13:06 Results Reviewed Results Reviewed: Laboratory Last Values Hgb A1c (Clinic) 5.1 % (4.0-6.0) 02/26/24 12:46 Assessment and Plan Assessment & Plan (1) Type 2 diabetes mellitus with hyperglycemia: Comment: Dr. 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 Hemoglobin A1c goal of less than 6.5. Patient on Jardiance 25 mg once a day Lantus at 15 units once a day and placed on semaglutide 0.5 mg once a week. aic low - advsied to decrease insulin from 20 u to 15 u (2) Hypertension: Code(s): I10 - Essential (primary) hypertension Qualifiers: Hypertension type: essential hypertension Qualified Code(s): I10 - Essential (primary) hypertension Plan: Continue with blood pressure medication. Decrease salt intake and exercise takes metoprolol 25 mg once a day losartan 100 mg once a day. Blood pressure check 120/70 (3) Hypercholesterolemia: Code(s): E78.00 - Pure hypercholesterolemia, unspecified Plan: Avoid fried foods, chicken skin, eggs, butter margarine, pastries and meat. Be it pork or beef they have a lot of cholesterol LDL goal of less than 100 and triglyceride of less than 150. Last blood work was October 2023 on simvastatin 10 mg once a day (4) Asthma: Comment: (PFTs consistent with Bronchial Asthma) CONTINUE SYMBICORT 160-4.52 PUFFS B.I.D. AND USE PROAIR 2 PUFFS Q 4-6 HOURS ONLY P.R.N.. DOES NOT HAVE TO USE THE NEBULIZER AT THIS TIME Code(s): J45.909 - Unspecified asthma, uncomplicated Plan: Continue with the inhalers. Patient was advised to stop smoking! (5) Obstructive sleep apnea: Comment: FREDDY - CPAP - auto PAP mode pressure 6-16) Code(s): G47.33 - Obstructive sleep apnea (adult) (pediatric) Plan: Continue to use the CPAP more than 4 hours a night and benefits from this (6) Nicotine dependence, cigarettes, uncomplicated: Comment: (current smoker, onset 13yo, 1ppd x 49yrs, now 1/2ppd - 40pyh) Code(s): F17.210 - Nicotine dependence, cigarettes, uncomplicated Plan: Patient is advised strongly to stop smoking! (7) GERD (gastroesophageal reflux disease): Comment: EGD Dr. Baez November 2018 Code(s): K21.9 - Gastro-esophageal reflux disease without esophagitis Qualifiers: Esophagitis presence: without esophagitis Qualified Code(s): K21.9 - Gastro-esophageal reflux disease without esophagitis Plan: Avoid the foods that causes that usually spicy foods, tomato products, juices, coffee, soda and foods that your sensitive to. After eating do not lie down, allow 3-4 hours before in lie down. And keep the head of bed above 30 degrees to avoid the acid from going up. (8) Obesity: Code(s): E66.9 - Obesity, unspecified Qualifiers: Obesity type: due to excess calories Obesity classification: adult class 3 (BMI >= 40) Serious obesity comorbidity presence: with serious comorbidity Body mass index: BMI 40.0-44.9 Qualified Code(s): E66.01 - Morbid (severe) obesity due to excess calories; Z68.41 - Body mass index [BMI]40.0-44.9, adult Plan: Diet and exercise noted weight loss. (9) Alopecia: Code(s): L65.9 - Nonscarring hair loss, unspecified Plan: Advised patient that we will work this up and if negative will get dermatology. (10) Sacral pain: Code(s): M53.3 - Sacrococcygeal disorders, not elsewhere classified Plan: X-ray requested (11) Interstitial cystitis: Code(s): N30.10 - Interstitial cystitis (chronic) without hematuria Plan: Referral to Urology Orders: Orders AMB Hemoglobin A1c Today E11.65 - Type 2 diabetes mellitus with hyperglycemia Free T4 (Free Thyroxine) Today L65.9 - Nonscarring hair loss, unspecified Complete Blood Count Auto Diff Today L65.9 - Nonscarring hair loss, unspecified XR lumbar spine 2-3V Today M51.36 - Other intervertebral disc degeneration, lumbar region Thyroid Stimulating Hormone Today L65.9 - Nonscarring hair loss, unspecified Comprehensive Met. Panel Today L65.9 - Nonscarring hair loss, unspecified Vitamin B12 and Folate Today L65.9 - Nonscarring hair loss, unspecified UA CC w/rflx Micro + Cult Today L65.9 - Nonscarring hair loss, unspecified, R30.0 - Dysuria XR sacrum coccyx min 2V Today M53.3 - Sacrococcygeal disorders, not elsewhere classified XR thoracic spine 2V Today M51.36 - Other intervertebral disc degeneration, lumbar region Referrals Urology Referral N30.10 - Interstitial cystitis (chronic) without hematuria Medications: New biotin 1 mg PO DAILY 30 caps 3RF L65.9 - Nonscarring hair loss, unspecified Coding Level of Care Code Est Pt Level 4 (00062) Diagnoses Type 2 diabetes mellitus with hyperglycemia, without long-term current use of insulin E11.65 Diabetes mellitus 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 insulin 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: without 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 use Essential hypertension I10 Hypertension type: essential hypertension Hypercholesterolemia E78.00 Asthma J45.909 Obstructive sleep apnea G47.33 Nicotine dependence, cigarettes, uncomplicated F17.210 Gastroesophageal reflux disease without esophagitis K21.9 Esophagitis presence: without esophagitis Class 3 severe obesity due to excess calories with serious comorbidity and body mass index (BMI) of 40.0 to 44.9 in adult E66.01; Z68.41 Obesity type: due to excess calories Obesity classification: adult class 3 (BMI >= 40) Serious obesity comorbidity presence: with serious comorbidity Body mass index: BMI 40.0-44.9 Alopecia L65.9 Sacral pain M53.3 Interstitial cystitis N30.10
[2024-02-26 12:54] VITALS: BP 118/72; PULSE 70; O2SAT 97; BMI 31.7
== END 2024-02-26 13:32 | disposition home or self-care (01) ==
PROVIDERS: PCP Internal Medicine; Visit Provider Internal Medicine
DX: E11.65 Type 2 diabetes mellitus with hyperglycemia (principal); I10 Essential (primary) hypertension; E78.00 Pure hypercholesterolemia, unspecified; J45.909 Unspecified asthma, uncomplicated; G47.33 Obstructive sleep apnea (adult) (pediatric); F17.210 Nicotine dependence, cigarettes, uncomplicated; K21.9 Gastro-esophageal reflux disease without esophagitis; E66.01 Morbid (severe) obesity due to excess calories; Z68.41 Body mass index [BMI] 40.0-44.9, adult; L65.9 Nonscarring hair loss, unspecified; M53.3 Sacrococcygeal disorders, not elsewhere classified; N30.10 Interstitial cystitis (chronic) without hematuria
CPT/HCPCS: 83036; 99214

== ENCOUNTER 2024-03-04 11:22 | Outpatient (REF) | payer OTHER, SELFPAY ==
--- NOTE | ~2024-03-04 | XR_ITS ---
EXAMINATION: XR THORACIC SPINE XR LUMBAR SPINE XR SACRUM/COCCYX INDICATION: Back pain with extreme pain in sacrum/coccyx. TECHNIQUE: 8 views of the lumbar spine. 3 views of the sacrum/coccyx. 2 views of the thoracic spine. COMPARISON: Chest radiograph October 30, 2023. Lumbar and thoracic spine 07/30/2014. FINDINGS: THORACIC SPINE: Dextroscoliosis of the thoracolumbar spine. Surgical clips right upper quadrant. Multilevel degenerative changes in the thoracic spine most notable at the lower lumbar spine, particularly T10-T11 and T11-T12. LUMBAR SPINE: Mild dextroscoliosis of the lumbar spine. Surgical clips right lower quadrant. Atherosclerotic aortic calcifications. As previously noted, there appears to be transitional anatomy. Mild multilevel lumbar spondylosis with multilevel loss of disc space height. Facet arthritis in the [id number] lumbar spine. XR/XR thoracic spine 2V IMPRESSION: 1. Multilevel degenerative changes in the thoracic spine most notable at the lower lumbar spine, particularly T10-T11 and T11-T12. 2. Mild multilevel lumbar spondylosis with multilevel loss of disc space height. 3. Facet arthritis in the [id number]-bj-xvqpy lumbar spine. 4. MRI could be considered for further characterization.
--- NOTE | ~2024-03-04 | XR_ITS ---
EXAMINATION: XR THORACIC SPINE XR LUMBAR SPINE XR SACRUM/COCCYX INDICATION: Back pain with extreme pain in sacrum/coccyx. TECHNIQUE: 8 views of the lumbar spine. 3 views of the sacrum/coccyx. 2 views of the thoracic spine. COMPARISON: Chest radiograph October 30, 2023. Lumbar and thoracic spine 07/30/2014. FINDINGS: THORACIC SPINE: Dextroscoliosis of the thoracolumbar spine. Surgical clips right upper quadrant. Multilevel degenerative changes in the thoracic spine most notable at the lower lumbar spine, particularly T10-T11 and T11-T12. LUMBAR SPINE: Mild dextroscoliosis of the lumbar spine. Surgical clips right lower quadrant. Atherosclerotic aortic calcifications. As previously noted, there appears to be transitional anatomy. Mild multilevel lumbar spondylosis with multilevel loss of disc space height. Facet arthritis in the nii-tv-wlwyv lumbar spine. XR/XR sacrum coccyx min 2V IMPRESSION: 1. Multilevel degenerative changes in the thoracic spine most notable at the lower lumbar spine, particularly T10-T11 and T11-T12. 2. Mild multilevel lumbar spondylosis with multilevel loss of disc space height. 3. Facet arthritis in the ojz-ue-pyncw lumbar spine. 4. MRI could be considered for further characterization.
--- NOTE | ~2024-03-04 | XR_ITS ---
EXAMINATION: XR THORACIC SPINE XR LUMBAR SPINE XR SACRUM/COCCYX INDICATION: Back pain with extreme pain in sacrum/coccyx. TECHNIQUE: 8 views of the lumbar spine. 3 views of the sacrum/coccyx. 2 views of the thoracic spine. COMPARISON: Chest radiograph October 30, 2023. Lumbar and thoracic spine 07/30/2014. FINDINGS: THORACIC SPINE: Dextroscoliosis of the thoracolumbar spine. Surgical clips right upper quadrant. Multilevel degenerative changes in the thoracic spine most notable at the lower lumbar spine, particularly T10-T11 and T11-T12. LUMBAR SPINE: Mild dextroscoliosis of the lumbar spine. Surgical clips right lower quadrant. Atherosclerotic aortic calcifications. As previously noted, there appears to be transitional anatomy. Mild multilevel lumbar spondylosis with multilevel loss of disc space height. Facet arthritis in the zpu-ik-wmedj lumbar spine. XR/XR lumbar spine 2-3V IMPRESSION: 1. Multilevel degenerative changes in the thoracic spine most notable at the lower lumbar spine, particularly T10-T11 and T11-T12. 2. Mild multilevel lumbar spondylosis with multilevel loss of disc space height. 3. Facet arthritis in the bhq-mo-vfcaa lumbar spine. 4. MRI could be considered for further characterization.
[2024-03-04 11:55] LABS: MANUAL DIFF FLAG NO
[2024-03-04 12:31] LABS: Basophils Percent Auto 0.5 % (0-2); Eosinophils Absolute Auto 0.2 X10*3/uL (0.0-0.4); Eosinophils Percent Auto 1.7 % (0-4); Hematocrit 46.7 % (37.0-47.0); Hemoglobin 15.5 g/dl (12.0-16.0); Imm Gran Abs Auto 0.03 X10*3/uL (0.00-0.03); Imm Gran Pct Auto 0.3 % (0.0-0.4); Lymphocytes Absolute Auto 3.4 X10*3/uL (1.2-4.9); Lymphocytes Percent Auto 39.3 % (20-40); Mean Corpuscular HGB Conc 33.2 g/dl (31.0-35.0); Mean Corpuscular Hemoglobin 30.7 pg (27.0-33.0); Mean Corpuscular Volume 92.5 fL (80.0-98.0); Mean Platelet Volume 10.7 fL (9.4-12.3); Monocytes Absolute Auto 0.5 X10*3/uL (0.1-1.2); Monocytes Percent Auto 5.5 % (2-11); Neutrophils Absolute Auto 4.6 x10*3/uL (2.0-8.3); Neutrophils Percent Auto 52.7 % (45-73); Platelet Count 247 X10*3/uL (160-400); Red Blood Count 5.05 X10*6/uL (4.20-5.50); Red Cell Distribution Width 14.1 % (11.0-16.0); White Blood Count 8.7 X10*3/uL (4.8-10.8)
[2024-03-04 13:06] LABS: Alanine Aminotransferase 29 U/L (0-31); Albumin Level 4.1 g/dL (3.5-5.0); Alkaline Phosphatase 67 U/L (39-117); Anion Gap 13 (12-20); Aspartate Amino Transferase 38 U/L (5-31); Bilirubin Total 0.5 mg/dL (0.0-1.0); Blood Urea Nitrogen 24 mg/dL (9-16); Calcium 10.6 mg/dL (8.4-10.2); Carbon Dioxide 27 mmol/L (22-29); Chloride 106 mmol/L (96-108); Estimated Glomerular Filt Rate 54; Glucose Random 104 mg/dL (60-115); Potassium 4.3 mmol/L (3.3-5.1); Sodium 142 mmol/L (135-145); Total Protein 7.4 g/dL (6.5-8.0)
[2024-03-04 13:25] LABS: Free T4 (Free Thyroxine) 0.92 ng/dL (0.71-1.85); Thyroid Stimulating Hormone 0.95 uIU/mL (0.32-4.0)
[2024-03-04 13:28] LABS: Folate 10.2 ng/mL (> or = 4.0); Vitamin B12 391 pg/mL (200-900)
[2024-03-04 14:24] LABS: Appearance Urine Clear; Color Urine Yellow; Glucose Urine UA >=1000 mg/dL (Negative); Leukocyte Esterase Urine Negative (Negative); Nitrite Urine Negative (Negative); PH 6.5 (5.0-9.0); Specific Gravity - Urine >= 1.030 (1.005-1.025); UMIC TRIGGER UACC YES; Urine Blood Negative (Negative); Urine Ketones Negative (Negative); Urine Protein Negative (Neg-Trace)
[2024-03-04 14:27] LABS: Bacteria Urine None Seen (None Seen); Hyaline Casts Urine 0-2 /LPF (0-2); RBC Urine 0-2 /HPF (0-2); Squamous Epithelial Cell Urine 0-2 /HPF (0-2); WBC Urine 0-5 /HPF (0-5)
[2024-03-04 14:51] LABS: Creatinine Urine 96.99 mg/dL
== END 2024-03-04 11:23 | disposition home or self-care (01) ==
LOC: HO.XRAY 11:22
PROVIDERS: PCP Internal Medicine; Visit Provider Internal Medicine
DX: L65.9 Nonscarring hair loss, unspecified (principal); E11.65 Type 2 diabetes mellitus with hyperglycemia; M51.36 Other intervertebral disc degeneration, lumbar region; M53.3 Sacrococcygeal disorders, not elsewhere classified
CPT/HCPCS: 36415; 72070; 72100; 72220; 80053; 81001; 82570; 82607; 82746; 84439; 84443; 85025

== ENCOUNTER 2024-03-26 10:40 | Outpatient (REF) | payer OTHER, SELFPAY ==
--- NOTE | ~2024-03-26 | CT_ITS ---
EXAMINATION: CT LOW-DOSE SCREENING CHEST WITHOUT CONTRAST CLINICAL INFORMATION: Nicotine dependence, cigarettes, uncomplicated. The patient is a current smoker with a 50 pack-year history of smoking. COMPARISON: X-ray chest 10/30/2023. CT chest 03/24/2023. TECHNIQUE: Multidetector volumetric CT imaging of the chest is performed on a Siemens SOMATOM Perspective scanner without contrast using low dose technique. Additional 2D coronal and sagittal reformatted images and axial 3D maximum intensity projection (MIP) images are generated on the CT workstation. This CT examination was performed using dose optimization techniques as appropriate, variously including the following: *Automated exposure control *Adjustment of mA and/or kV according to patient size (this includes techniques or standardized protocols for targeted exams where dose is matched to indication/reason for exam; i.e. extremities or head) *Use of iterative reconstruction technique TOTAL EXAM DLP: 89 mGy-cm. CTDIvol: 2.38 mGy. FINDINGS: PULMONARY NODULES: No suspicious pulmonary nodules. LUNGS: Lungs bilaterally symmetrically expanded. There is minimal emphysema and bronchial thickening. No effusion or pneumothorax. Central airways patent. MEDIASTINUM: No mediastinal, hilar or axillary adenopathy or free fluid collection. CORONARY ARTERY CALCIFICATION: None visualized on this study. THYROID GLAND: Unremarkable to the extent seen. CARDIOVASCULAR STRUCTURES: Aortic and heart size normal. No pericardial effusion. CHEST WALL/AXILLA: Unremarkable. UPPER ABDOMEN: Included portions of the solid organs in the upper abdomen unremarkable on noncontrast imaging. Status post cholecystectomy. OSSEOUS STRUCTURES: No suspicious focal findings. CT/CT lung screening IMPRESSION: 1. No evidence of pulmonary malignancy. 2. Minimal emphysema and bronchial thickening. Lung-RADS Category lung Rads Category: 1. No nodules or definitely benign nodules. Probability of malignancy less than 1%. 2. Incidental findings (S category): No incidental findings. RECOMMENDATION: Continued routine annual low-dose CT lung screening in 1 year is recommended. An order for CT CHEST LOW DOSE CANCER SCREENING ([id number]) can be placed.
== END 2024-03-26 10:41 | disposition home or self-care (01) ==
LOC: HO.CT 10:40
PROVIDERS: PCP Internal Medicine; Visit Provider Physician Assistant Medical
DX: Z12.2 Encounter for screening for malignant neoplasm of respiratory organs (principal); F17.210 Nicotine dependence, cigarettes, uncomplicated
CPT/HCPCS: 71271

== ENCOUNTER 2024-04-15 10:23 | Outpatient (AMB) | payer OTHER, SELFPAY ==
--- NOTE | 2024-04-15 10:53 | A.OFFVIS_ITS ---
Intake Visit Reasons: interstitial cystitis Intake Note: NEW Patient presents today to established treatment for Interstitial Cystitis: Meds- None Allergies to Antibiotic- No Known Allergies Blood Thinner- None Post Void Residual: 0 mL Supervisor Treating And Pumping Required: No Accompanied by: Self / Same As Patient Allergies metformin Adverse Reaction (Intermediate, Verified 04/15/24 10:58) Vomiting lisinopril [From Zestril] Adverse Reaction (Mild, Verified 04/15/24 10:58) COUGH Medication List - Last Reconciled 04/15/24 by Michael Dejesus MD albuterol sulfate 0.63 mg (3 mL) inhalation QID PRN albuterol sulfate 2.5 mg (3 mL) inhalation Q4H PRN albuterol sulfate 90 mcg/actuation 2 puffs PO Q6H PRN amitriptyline 25 mg PO BEDTIME biotin 1 mg PO DAILY blood sugar diagnostic (FreeStyle Lite Strips) As directed check the BS TID blood-glucose meter (FreeStyle Lite Meter kit) As directed bupropion HCl XL 150 mg PO BEDTIME empagliflozin 25 mg PO DAILY 30 days fenofibrate 160 mg PO DAILY fexofenadine (Amara Allergy) 180 mg PO DAILY PRN fluconazole (Diflucan) 150 mg PO Q3D 1 day fluoxetine 40 mg PO QAM fluticasone propionate 50 mcg/actuation (Allergy Relief (fluticasone)) 2 sprays intranasal DAILY aadwtisfbdi-owlnddwpr-vmwowtoa 200-62.5-25 mcg (Trelegy Ellipta) 1 inh inhalation DAILY hydrocortisone 2.5% (Proctosol HC) 1 appl TN BID-QID PRN hydrocortisone acetate 1% appl topical PRN hydroxyzine HCl 50 mg PO BID insulin glargine (Lantus Solostar U-100 Insulin) 15 units (0.15 mL) subcut QPM 30 days isosorbide mononitrate ER 30 mg PO DAILY lactulose 20 grams (30 mL) PO DAILY 30 days lancets (FreeStyle Lancets) As directed check BS TID latanoprost 0.005% 1 drp ophthalmic (eye) BEDTIME lidocaine 5% 1 appl topical TID losartan (Cozaar) 100 mg PO DAILY 90 days metoprolol succinate ER 25 mg PO DAILY nebulizers (AeroEclipse II Nebulizer) As directed omeprazole 40 mg PO DAILY oxycodone-acetaminophen 5-325 mg 1 tab PO TID PRN 28 days pen needle, diabetic (BD Purnima 2nd Gen Pen Needle) As directed ropinirole 3 mg PO BID 30 days semaglutide (Ozempic) 0.5 mg (0.736 mL) subcut QWEEK 30 days simvastatin 10 mg PO BEDTIME 30 days HPI Comments Details: 04/15/24--Rafia is a 63-year-old female who has here as a new the patient has a history of interstitial cystitis kidney stone, stress urinary incontinence. States that she was [place] [facility] in the past for interstitial cystitis, she was initially treated the [place] which she did not tolerate and then self bladder installations which initially helped but then she developed bladder spasms and was not able to continue the treatment regimen. She has had prior lithotripsy for kidney stones. She had a sling placed in 2006. She was seen by another urologist and had the sling removed approximately due to difficulty voiding in worsening pain with voiding. She has some urinary leakage but states since losing weight this has improved. She complains of bladder pain and nocturia 2-3 times at night. She uses rhql-gdq-cegtzno azo prn which helps. She has a long history of nicotine use 1 and half pack per day and is now down to 7-8 cigarettes daily. Comorbidity diabetes, she states since being on Ozempic she is lost about 60 lb in the last 6 months. I have discussed evaluation with cystoscopy hydrodistention. I have discussed that nicotine is a risk factor for urinary tract cancers. Will send urine for surveillance culture and urine cytology, and check a renal ultrasound. [facility] Medical History Tobacco abuse Osteopenia (~2018) Nicotine dependence, cigarettes, uncomplicated Allergic rhinitis Irritable bowel syndrome Obstructive sleep apnea Obesity Restless leg syndrome Asthma Insomnia Interstitial cystitis Osteoarthritis of hip Right renal stone GERD (gastroesophageal reflux disease) Anxiety and depression Hypercholesterolemia Fatty liver Hypertension Lumbar degenerative disc disease Type 2 diabetes mellitus with hyperglycemia Surgical History History of breast lump/mass excision History of hand surgery History of foot surgery History of surgical removal of ganglion cyst History of colonoscopy History of nasal surgery History of esophagogastroduodenoscopy (EGD) History of removal of cyst History of lithotripsy History of bladder surgery History of carpal tunnel release History of tonsillectomy and adenoidectomy History of cholecystectomy History of total abdominal hysterectomy and bilateral salpingo-oophorectomy History of section Family History Father CAD (coronary artery disease) CVD (cerebrovascular disease) Lung cancer Hypertension Mother Hypertension Diabetes Cancer Daughter Breast cancer Paternal Uncle Myocardial infarction Paternal Aunt Myocardial infarction Maternal Uncle Myocardial infarction Bone cancer Other FH: mental illness Substance abuse Social History Housing: Apartment Alcohol intake: current Alcohol intake frequency: does not drink Patient Tobacco Use Status: Current everyday Tobacco user Tobacco use type: Cigarette Cigarettes Per Day: 10 Years Smoked: (current smoker, onset 13yo, 1ppd x 49yrs, now 1/2ppd - 40pyh) e-Cigarette/Vaping Use: Never Used Second Hand Smoke Exposure: No service: No Current occupational status: disabled Cognitive needs: No Hearing needs: No Vision needs: Yes Review of Systems Const All systems reviewed & are unremarkable except as noted in HPI and below Reports no additional complaints Eyes Reports no additional complaints ENT Reports no additional complaints Card Reports no additional complaints Resp Reports no additional complaints GI Reports no additional complaints Reports as per HPI Musc Reports no additional complaints Skin/Breast Reports system reviewed and no additional complaints, except as documented Neuro Reports no additional complaints Psych Reports no additional complaints Endo Reports no additional complaints Juve/Lymph Reports no additional complaints Aller/Immun Reports no additional complaints Physical Exam Const General: cooperative, healthy appearing and no acute distress Orientation/consciousness: patient oriented x3 HEENT Head: Yes normal to inspection, Yes normocephalic and Yes atraumatic Eyes Conjunctivae: conjunctivae normal Neck Neck: Yes normal visual inspection and Yes trachea midline Chest Chest palpation & inspection: normal inspection of the chest Resp Effort & Inspection: normal respiratory effort Cardio Jugular venous distension: no JVD GI Inspection: Yes normal to inspection Palpation (GI): Soft to palpation Skin General skin exam: no rashes or lesions noted Neuro General: patient oriented x3 Psych Appearance: grossly normal Office Procedures Post Void Residual Post Residual Void Post Void Residual (PVR): 0 [id number] Void Residual by ultrasound Results AMB Urinalysis, Automated UA Leukoctes 0 Juanita/uL Last Edit by SANDRO Caraballo on 04/15/24 11:18 UA Nitrite Negative Last Edit by SANDRO Caraballo on 04/15/24 11:18 UA Urobilinogen 0.2 mg/dL Last Edit by SANDRO Caraballo on 04/15/24 11:1 8 UA Protein 0 mg/dL Last Edit by Yaakov Cuello Nickie on 04/15/24 11:18 UA pH 6.0 Last Edit by Yaakov Cuello Nickie on 04/15/24 11:18 UA Blood 0 Walter/uL Last Edit by Yaakov Cuello [facility] on 04/15/24 11:18 UA Specific [place] 1.015 Last Edit by SANDRO Caraballo on 04/15/24 11: 18 UA Ketone Negative Last Edit by SANDRO Caraballo on 04/15/24 11:18 UA Bilirubin 0 mg/dL Last Edit by Yaakov Cuello Nickie on 04/15/24 11:18 UA Glucose 1000 mg/dL Last Edit by Yaakov Cuello Nickie on 04/15/24 11:18 3+ Yaakov Cuello 04/15/24 11:18 Results Reviewed Results Reviewed: Laboratory Last Values Urine pH (Auto) 6.0 04/15/24 11:00 Specific [place] (Auto) 1.015 04/15/24 11:00 Urine Protein (Auto) 0 mg/dL 04/15/24 11:00 Glucose (UA)(Auto) 1000 mg/dL 04/15/24 11:00 Urine Ketones (Auto) Negative 04/15/24 11:00 Urine Blood (Auto) 0 Walter/uL 04/15/24 11:00 Urine Nitrite (Auto) Negative 04/15/24 11:00 Urine Bilirubin (Auto) 0 mg/dL 04/15/24 11:00 Urine Urobilinogen (Auto) 0.2 mg/dL 04/15/24 11:00 Leukocyte Esterase (Auto) 0 Juanita/uL 04/15/24 11:00 Assessment & Plan Assessment & Plan (1) Chronic interstitial cystitis: Code(s): N30.10 - Interstitial cystitis (chronic) without hematuria Category: Medical (2) Kidney stone: Code(s): N20.0 - Calculus of kidney Category: Medical (3) Urinary incontinence: Code(s): R32 - Unspecified urinary incontinence Category: Medical (4) Nicotine dependence: Code(s): F17.200 - Nicotine dependence, unspecified, uncomplicated Category: Medical Plan Will send urine for surveillance culture and urine cytology, and check a renal ultrasound. Orders: Orders AMB Post Void Residual by ultrasound Today N39.8 - Other specified disorders of urinary system AMB Urinalysis Automated Today Z13.9 - Encounter for screening, unspecified US renal BI Today N20.0 - Calculus of kidney Patient Instructions: The patient had an opportunity to ask questions regarding treatment plan. The patient expressed understanding and agreement with the above treatment plan. The patient is aware they should contact our office by phone for worsening of their current condition or the appearance of new symptoms. Compliance is encouraged with any medications and followup testing that is ordered. It is a privilege to be allowed the opportunity to participate in the urologic care of your patient. If you have any questions or concerns regarding treatment for the above conditions please do not hesitate to contact me. The office telephone contact is [phone]. This note is constructed in part using voice recognition software. While every effort has been made to ensure accuracy catering administrative assistant errors may have been included. Yours sincerely, Michael Dejesus MD Coding Level of Care Code New Pt Level 4 (30905) Diagnoses Chronic interstitial cystitis N30.10 Kidney stone N20.0 Urinary incontinence R32 Nicotine dependence F17.200 CPT Codes Post Residual Void - PVR CPT Code: 08686-[id number] Void Residual by ultrasound ([id number])
== END 2024-04-15 11:52 | disposition home or self-care (01) ==
PROVIDERS: PCP Internal Medicine; Visit Provider Urology
DX: N30.10 Interstitial cystitis (chronic) without hematuria (principal); N20.0 Calculus of kidney; R32 Unspecified urinary incontinence; F17.200 Nicotine dependence, unspecified, uncomplicated; Z13.9 Encounter for screening, unspecified
CPT/HCPCS: 99204

== ENCOUNTER 2024-04-15 10:23 | Outpatient (REF) | payer OTHER, SELFPAY ==
[2024-04-15 16:17] LABS: Urine Cytology See Pathology rpt
== END 2024-04-15 10:24 | disposition home or self-care (01) ==
LOC: HO.LAB 10:23
PROVIDERS: PCP Internal Medicine; Visit Provider Urology
DX: N30.10 Interstitial cystitis (chronic) without hematuria (principal); F17.210 Nicotine dependence, cigarettes, uncomplicated; N39.0 Urinary tract infection, site not specified
CPT/HCPCS: 51798; 81003; 87086; 88112; 99202

== ENCOUNTER 2024-04-18 10:43 | Outpatient (REF) | payer OTHER, SELFPAY ==
--- NOTE | ~2024-04-18 | US_ITS ---
EXAMINATION: US RETROPERITONEAL LIMITED (RENAL ONLY) CLINICAL INFORMATION: Calculus of kidney. COMPARISON: CT abdomen and pelvis 03/12/2023. Renal ultrasound 10/22/2018. X-ray abdomen KUB 01/28/2015. TECHNIQUE: Real-time imaging of the kidneys. Limited visualization due to bowel gas. FINDINGS: RIGHT KIDNEY: 11.6 x 4.2 x 4.0 cm (SAG x AP x TRV). No hydronephrosis. No renal calculi. Renal cortical thickness is normal. Limited visualization. LEFT KIDNEY: 10.7 x 4.8 x 4.4 cm (SAG x AP x TRV). No hydronephrosis. No renal calculi. Renal cortical thickness is normal. Limited visualization. US/US renal BI IMPRESSION: No hydronephrosis. No renal calculi.
== END 2024-04-18 10:44 | disposition home or self-care (01) ==
LOC: HO.US 10:43
PROVIDERS: PCP Internal Medicine; Visit Provider Urology
DX: N20.0 Calculus of kidney (principal)
CPT/HCPCS: 76775

== ENCOUNTER 2024-05-07 06:05 | Day surgery (SDC) | payer OTHER, SELFPAY ==
[2024-05-03 10:04] VITALS: BMI 31.7
--- NOTE | 2024-05-06 11:02 | HO.ANESPROP2 ---
Documented by User: Breana Andino NP 05/06/24 11:04 HPI - Anesthesia Eval Consult details Narrative: 64yo F for Cystoscopy Hydrodistention of Bladder Anesthesia Pre-Procedure Meds Is the patient on any of the following meds?: GLP1/DPP4 and SGLT2 Inhib PMFSH Active Problems Active Problems: All Active Problems Nicotine dependence (Acute) Urinary incontinence (Acute) Kidney stone (Acute) Chronic interstitial cystitis (Acute) Hypercalcemia (Acute) Sacral pain (Acute) Alopecia (Acute) Breast cancer screening by mammogram (Acute) Type 2 diabetes mellitus with hyperglycemia (Acute) Hypertension (Acute) Hypercholesterolemia (Acute) Asthma (Acute) Obstructive sleep apnea (Acute) Nicotine dependence, cigarettes, uncomplicated (Acute) Allergic rhinitis (Acute) GERD (gastroesophageal reflux disease) (Acute) Irritable bowel syndrome (Acute) Fatty liver (Acute) Restless leg syndrome (Acute) Anxiety and depression (Acute) Insomnia (Acute) Obesity (Acute) Osteopenia (Acute ~2018) Lumbar degenerative disc disease (Acute) Osteoarthritis of hip (Acute) RUQ abdominal pain (Acute) Right renal stone (Acute) Interstitial cystitis (Acute) Shingles rash (Acute) Past Medical History Medical History Tobacco abuse Osteopenia (~2018) Nicotine dependence, cigarettes, uncomplicated Allergic rhinitis Irritable bowel syndrome Obstructive sleep apnea Obesity Restless leg syndrome Asthma Insomnia Interstitial cystitis Osteoarthritis of hip Right renal stone GERD (gastroesophageal reflux disease) Anxiety and depression Hypercholesterolemia Fatty liver Hypertension Lumbar degenerative disc disease Type 2 diabetes mellitus with hyperglycemia Family History Family History Father CAD (coronary artery disease) CVD (cerebrovascular disease) Lung cancer Hypertension Mother Hypertension Diabetes Cancer Daughter Breast cancer Paternal Uncle Myocardial infarction Paternal Aunt Myocardial infarction Maternal Uncle Myocardial infarction Bone cancer Other FH: mental illness Substance abuse Family history of problems with anesthesia: No Surgical History Surgical History History of breast lump/mass excision History of hand surgery History of foot surgery History of surgical removal of ganglion cyst History of colonoscopy History of nasal surgery History of esophagogastroduodenoscopy (EGD) History of removal of cyst History of lithotripsy History of bladder surgery History of carpal tunnel release History of tonsillectomy and adenoidectomy History of cholecystectomy History of total abdominal hysterectomy and bilateral salpingo-oophorectomy History of section History of Problems with Anesthesia: No Social History Social History Housing: Apartment Alcohol intake: current Alcohol intake frequency: does not drink Patient Tobacco Use Status: Current everyday Tobacco user Tobacco use type: Cigarette Cigarettes Per Day: 8 Years Smoked: (current smoker, onset 13yo, 1ppd x 49yrs, now 1/2ppd - 40pyh) Smoked in Last 30 Days: Yes e-Cigarette/Vaping Use: Never Used Second Hand Smoke Exposure: No Use of substances other than those prescribed or required for medical reasons: Yes Substance Use Frequency: Daily Are you DNR?: No Advance Directives: No Advance Directives Information Provided: Yes service: No Current occupational status: disabled Cognitive needs: No Hearing needs: No Vision needs: Yes Meds Allergies Allergy/AdvReac Type Severity Reaction Status Date / Time metformin AdvReac Intermediate Vomiting Verified 04/15/24 10:58 lisinopril [From Zestril] AdvReac Mild COUGH Verified 04/15/24 10:58 Home Medications ?Medication ?Instructions ?Recorded ?Confirmed ?Last Taken ?Type amitriptyline 25 mg tablet 25 mg PO BEDTIME 09/03/20 04/15/24 11/28/22 History hydrocortisone acetate 1 % rectal applic topical PRN Pain 09/03/20 04/15/24 11/28/22 History cream bupropion HCl 150 mg 24 hr tablet, 150 mg PO BEDTIME 02/17/21 05/07/24 05/07/24 04:30 History extended release fexofenadine 180 mg tablet 180 mg PO DAILY PRN Allergy 02/17/21 04/15/24 11/28/22 History (Amara Allergy) Symptoms fluoxetine 20 mg capsule 40 mg PO QAM 06/30/21 04/15/24 11/28/22 History hydroxyzine HCl 50 mg tablet 50 mg PO BID 09/12/22 04/15/24 11/28/22 History latanoprost 0.005 % eye drops 1 drp ophthalmic (eye) BEDTIME 10/25/22 04/15/24 11/28/22 History Exam Height,Weight and Vital Signs: Height 4 ft 11 in Weight 71.214 kg Pertinent Lab Results Pertinent Lab Results: Laboratory Tests 03/04/24 11:54 WBC 8.7 Hgb 15.5 Hct 46.7 Plt Count 247 Sodium 142 Potassium 4.3 Chloride 106 Carbon Dioxide 27 BUN 24 H Creatinine 1.02 Assessment and Plan Assessment Anesthesia Assessment: Chart Reviewed Final Anesthetic Review Family History of Problems with Anesthesia: No History of Problems with Anesthesia: No Documented by User: Theo Medina MD 05/07/24 07:07 ON LICENSE OF [facility] Past Medical History Medical History Tobacco abuse Osteopenia (~2018) Nicotine dependence, cigarettes, uncomplicated Allergic rhinitis Irritable bowel syndrome Obstructive sleep apnea Obesity Restless leg syndrome Asthma Insomnia Interstitial cystitis Osteoarthritis of hip Right renal stone GERD (gastroesophageal reflux disease) Anxiety and depression Hypercholesterolemia Fatty liver Hypertension Lumbar degenerative disc disease Type 2 diabetes mellitus with hyperglycemia Family History Family History Father CAD (coronary artery disease) CVD (cerebrovascular disease) Lung cancer Hypertension Mother Hypertension Diabetes Cancer Daughter Breast cancer Paternal Uncle Myocardial infarction Paternal Aunt Myocardial infarction Maternal Uncle Myocardial infarction Bone cancer Other FH: mental illness Substance abuse Surgical History Surgical History History of breast lump/mass excision History of hand surgery History of foot surgery History of surgical removal of ganglion cyst History of colonoscopy History of nasal surgery History of esophagogastroduodenoscopy (EGD) History of removal of cyst History of lithotripsy History of bladder surgery History of carpal tunnel release History of tonsillectomy and adenoidectomy History of cholecystectomy History of total abdominal hysterectomy and bilateral salpingo-oophorectomy History of section Social History Social History Housing: Apartment Alcohol intake: current Alcohol intake frequency: does not drink Patient Tobacco Use Status: Current everyday Tobacco user Tobacco use type: Cigarette Cigarettes Per Day: 8 Years Smoked: (current smoker, onset 13yo, 1ppd x 49yrs, now 1/2ppd - 40pyh) Smoked in Last 30 Days: Yes e-Cigarette/Vaping Use: Never Used Second Hand Smoke Exposure: No Use of substances other than those prescribed or required for medical reasons: Yes Substance Use Frequency: Daily Are you DNR?: No Advance Directives: No Advance Directives Information Provided: Yes service: No Current occupational status: disabled Cognitive needs: No Hearing needs: No Vision needs: Yes Meds Allergies Allergy/AdvReac Type Severity Reaction Status Date / Time metformin AdvReac Intermediate Vomiting Verified 04/15/24 10:58 lisinopril [From Zestril] AdvReac Mild COUGH Verified 04/15/24 10:58 Home Medications ?Medication ?Instructions ?Recorded ?Confirmed ?Last Taken ?Type amitriptyline 25 mg tablet 25 mg PO BEDTIME 09/03/20 04/15/24 11/28/22 History hydrocortisone acetate 1 % rectal applic topical PRN Pain 09/03/20 04/15/24 11/28/22 History cream bupropion HCl 150 mg 24 hr tablet, 150 mg PO BEDTIME 02/17/21 05/07/24 05/07/24 04:30 History extended release fexofenadine 180 mg tablet 180 mg PO DAILY PRN Allergy 02/17/21 04/15/24 11/28/22 History (Amara Allergy) Symptoms fluoxetine 20 mg capsule 40 mg PO QAM 06/30/21 04/15/24 11/28/22 History hydroxyzine HCl 50 mg tablet 50 mg PO BID 09/12/22 04/15/24 11/28/22 History latanoprost 0.005 % eye drops 1 drp ophthalmic (eye) BEDTIME 10/25/22 04/15/24 11/28/22 History Exam Airway Mallampati Class: III TM Dist: >3cm Neck ROM: Full Denture: Upper Partial: Lower Assessment and Plan Assessment Anesthesia Assessment: Anesthesia Plan Discussed Final Anesthetic Review NPO: Yes ASA Class: III Final Preanesthetic Review: No Changes in Pt Med Stat, Meds/Allgs Chart Reviewed, Consent Obtained/Reviewed and Anes Risks/Benef Reviewed Patient Risk: Intermediate Procedure Risk: Low Anesthetic Plan Anesthetic Plan: GA Disposition: Standard PACU
[2024-05-07 06:35] VITALS: BP 145/69; PULSE 66; RESP 16; TEMP 36.6; O2SAT 98; BMI 31.3
[2024-05-07] MEDS: Lactated Ringers 1,000 ML 100 ML IVCONT (06:44)
[2024-05-07 06:46] LABS: Glucose, Whole Blood 123 mg/dL (60-115)
--- NOTE | 2024-05-07 07:13 | MHC.SHP ---
Pre-Procedural Eval Section A - 24 Hr Update-Section A only Date of Service: 05/07/24 The patient is an INPATIENT: No The patient has been examined within 24 hours of the surgical procedure. The History & Physical has been completed within 30 days and I have reviewed it.: Yes Section B - Complete if H&P > 30 days Chief Complaint: Interstitial cystitis (chronic) without hematuria Allergies: Allergies Allergy/AdvReac Type Severity Reaction Status Date / Time metformin AdvReac Intermediate Vomiting Verified 04/15/24 10:58 lisinopril [From Zestril] AdvReac Mild COUGH Verified 04/15/24 10:58 Plan Diagnosis/Plan: Unchanged I have reviewed the history and physical and performed a pertinent physical examination on my patient. No changes have occurred unless specified. Cystoscopy. Hydrodistension. Discussed risks to include but not limited to, blood in the urine, burning with urination, urgency. Time Spent With Patient Time: Total time managing care of this patient today ____ minutes.
[2024-05-07 08:03] VITALS: BP 118/58; PULSE 62; RESP 14; TEMP 36.4; O2SAT 96
--- NOTE | 2024-05-07 08:03 | W.PM.OPN ---
Operative Note Operative Note Date of Service: 05/07/24 Narrative: PREOP DIAGNOSIS: Interstitial cystitis, pelvic pain, POSTOP DIAGNOSIS: Interstitial cystitis, pelvic pain, urethral stenosis PROCEDURE: CYSTOSCOPY HYDRODISTENTION, URETHRAL DILATION Anethesia: General Surgeon: Dr. Michael Dejesus Indications: Persistent bladder pain, flare in IC symptoms not responsive to other therapeutic therapy. Details of procedure: The patient was brought into the operating room placed on the OR table in supine position. 2 g of Ancef IV. General anesthesia was administered. The patient was repositioned into lithotomy position, prepped and draped in the usual sterile fashion. Time-out was done per protocol. On attempts to place the 22 fr cystoscope transurethrally there was resistance at the uretheral meatus. The Gregorio urethral sounds were used to dilate the urethral meatus starting with the 16 fr and sequentially dilated up to a 26 fr. The 22 fr cystoscope was than passed transurethrally into the bladder. Urine was drained from the bladder measuring 65 mL and sent for urine culture. The right and left ureteral orifices were visualized. The entire bladder was visualized. There were no suspicious bladder lesions seen. There were mild trabeculations noted. The bladder was filled with sterile water at 80 cm of water pressure under gravity. The bladder was distended for 3 minutes. Bladder capacity measured 800 L. Revisualization of the bladder, no glomerulations or hunner ulcerations noted. The bladder was refilled with sterile water again at 80 cm of water pressure under gravity. The bladder was distended for 4 minutes. The fluid was drained from the bladder and measured 850 mL. The cystoscope was removed. 2% lidocaine urojet was passed transurethrally, Solution of (1% lidocaine plain, 15 mL, 0.5 % Marcaine 15 mL mixed with 30, 000 units of heparin concentration 5000 units per mL total of 6 mL hepaine) instilled transurethrally into the bladder. The patient was brought out of anesthesia and taken to recovery in stable condition. Complications: None
[2024-05-07 08:08] VITALS: BP 108/62; PULSE 61; RESP 16; O2SAT 95
[2024-05-07 08:13] VITALS: BP 104/56; PULSE 61; RESP 16; O2SAT 95
[2024-05-07 08:18] VITALS: BP 103/53; PULSE 62; RESP 16; O2SAT 96
[2024-05-07] MEDS: Phenazopyridine HCL 100 MG TABLET 200 MG PO (08:29)
[2024-05-07 08:33] VITALS: BP 130/71; PULSE 67; RESP 18; TEMP 36.3; O2SAT 96
== END 2024-05-07 09:13 | disposition home or self-care (01) ==
PROVIDERS: PCP Internal Medicine; Visit Provider Urology
PROC: 0T7B7ZZ Dilation of Bladder, Via Natural or Artificial Opening (ICD-10-PCS; CPT 52260; principal; 2024-05-07 07:30)
DX: N30.10 Interstitial cystitis (chronic) without hematuria (principal); R10.2 Pelvic and perineal pain; N35.92 Unspecified urethral stricture, female; R32 Unspecified urinary incontinence; Z87.442 Personal history of urinary calculi; G47.33 Obstructive sleep apnea (adult) (pediatric); I10 Essential (primary) hypertension; E78.00 Pure hypercholesterolemia, unspecified; J45.909 Unspecified asthma, uncomplicated; E11.65 Type 2 diabetes mellitus with hyperglycemia; K76.0 Fatty (change of) liver, not elsewhere classified; K58.9 Irritable bowel syndrome, unspecified; K21.9 Gastro-esophageal reflux disease without esophagitis; F41.8 Other specified anxiety disorders; Z79.51 Long term (current) use of inhaled steroids; Z79.4 Long term (current) use of insulin; Z79.85 Long-term (current) use of injectable non-insulin antidiabetic drugs; Z79.899 Other long term (current) drug therapy; Z88.8 Allergy status to other drugs, medicaments and biological substances; Z98.890 Other specified postprocedural states; F17.210 Nicotine dependence, cigarettes, uncomplicated
CPT/HCPCS: 52260; 82947; 87086; J0131; J0690; J1100; J1644; J2250; J2405; J2704; J2795; J3010

== ENCOUNTER → 2024-05-07 06:05 | Outpatient (BNV) | payer OTHER, SELFPAY | PROVIDERS: PCP Internal Medicine; Visit Provider Urology | DX: N30.10 Interstitial cystitis (chronic) without hematuria (principal) | CPT/HCPCS: 52260 ==

== ENCOUNTER 2024-05-21 10:01 | Outpatient (AMB) | payer OTHER, SELFPAY ==
--- NOTE | 2024-05-21 10:06 | AM.OFFVISNUR ---
Intake Visit Reasons: PVR (hydrodistention) Allergies metformin Adverse Reaction (Intermediate, Verified 04/15/24 10:58) Vomiting lisinopril [From Zestril] Adverse Reaction (Mild, Verified 04/15/24 10:58) COUGH Office Procedures Post Void Residual Post Residual Void Details: Patient presents to office for PVR s/p hydrodistention. Patient reports improvement in symptoms. Patient did report burning with urination monday- UA done no indication of infection. PVR for 49mls. Patient to keep follow up with Dr. Shaikh as scheduled, will call office with any questions or concerns until seen for follow up. Post Void Residual (PVR): 49 [id number] Void Residual by ultrasound Results AMB Urinalysis, Automated UA Leukoctes 0 Juanita/uL Last Edit by Wolfgang Perez LPN on 05/21/24 10:51 UA Nitrite Negative Last Edit by Wolfgang Perez LPN on 05/21/24 10:51 UA Urobilinogen 0.2 mg/dL Last Edit by Wolfgang Perez LPN on 05/21/24 10:51 UA Protein 15 mg/dL Last Edit by Wolfgang Perez LPN on 05/21/24 10:51 UA pH 7.0 Last Edit by Wolfgang Perez LPN on 05/21/24 10:51 UA Blood 0 Walter/uL Last Edit by Wolfgang Perez LPN on 05/21/24 10:51 UA Specific [place] 1.010 Last Edit by Wolfgang Perez LPN on 05/21/24 10:51 UA Ketone Negative Last Edit by Wolfgang Perez LPN on 05/21/24 10:51 UA Bilirubin 0 mg/dL Last Edit by Wolfgang Perez LPN on 05/21/24 10:51 UA Glucose 1000 mg/dL Last Edit by Wolfgang Perez LPN on 05/21/24 10:51 Assessment & Plan Assessment & Plan Orders: Orders AMB Post Void Residual by ultrasound Today N30.10 - Interstitial cystitis (chronic) without hematuria, R32 - Unspecified urinary incontinence AMB Urinalysis Automated Today N30.10 - Interstitial cystitis (chronic) without hematuria, R32 - Unspecified urinary incontinence
== END 2024-05-21 11:05 | disposition home or self-care (01) ==
PROVIDERS: PCP Internal Medicine; Visit Provider Urology
DX: R32 Unspecified urinary incontinence (principal); N30.10 Interstitial cystitis (chronic) without hematuria

== ENCOUNTER → 2024-05-21 10:01 | Outpatient (BNVA) | payer OTHER, SELFPAY | PROVIDERS: PCP Internal Medicine; Visit Provider Urology | DX: N30.10 Interstitial cystitis (chronic) without hematuria (principal) | CPT/HCPCS: 51798; 81003 ==

== ENCOUNTER 2024-06-07 10:02 | Outpatient (AMB) | payer OTHER, SELFPAY ==
--- NOTE | 2024-06-07 10:13 | A.OFFVIS_ITS ---
Intake Visit Reasons: Hydrodistention- follow up/PVR(US 04/18) Intake Note: Pt presents to the office today for hydrodistention follow up/PVR/US. Meds- None Allergies to Antibiotic- No Known Allergies Blood Thinner- None Post Void Residual: 58 mL Oven Operator Required: No Accompanied by: Self / Same As Patient Allergies metformin Adverse Reaction (Intermediate, Verified 06/07/24 10:13) Vomiting lisinopril [From Zestril] Adverse Reaction (Mild, Verified 06/07/24 10:13) COUGH Medication List - Last Reconciled 06/07/24 by Michael Dejesus MD albuterol sulfate 0.63 mg (3 mL) inhalation QID PRN albuterol sulfate 2.5 mg (3 mL) inhalation Q4H PRN albuterol sulfate 90 mcg/actuation 2 puffs PO Q6H PRN amitriptyline 25 mg PO BEDTIME biotin 1 mg PO DAILY blood sugar diagnostic (FreeStyle Lite Strips) As directed check the TID blood-glucose meter (FreeStyle Lite Meter kit) As directed bupropion HCl XL 150 mg PO BEDTIME empagliflozin 25 mg PO DAILY 30 days fenofibrate 160 mg PO DAILY fexofenadine (Amara Allergy) 180 mg PO DAILY PRN fluoxetine 40 mg PO QAM fluticasone propionate 50 mcg/actuation (Allergy Relief (fluticasone)) 2 sprays intranasal DAILY lwaozoecvmx-qcoyezlbe-bddqnzyr 200-62.5-25 mcg (Trelegy Ellipta) 1 inh inhalation DAILY hydrocortisone 2.5% (Proctosol HC) 1 appl WA BID-QID PRN hydrocortisone acetate 1% appl topical PRN hydroxyzine HCl 50 mg PO BID insulin glargine (Lantus Solostar U-100 Insulin) 15 units (0.15 mL) subcut QPM 30 days isosorbide mononitrate ER 30 mg PO DAILY lactulose 20 grams (30 mL) PO DAILY 30 days lancets (FreeStyle Lancets) As directed check BS TID latanoprost 0.005% 1 drp ophthalmic (eye) BEDTIME lidocaine 5% 1 appl topical TID losartan (Cozaar) 100 mg PO DAILY 90 days metoprolol succinate ER 25 mg PO DAILY nebulizers (AeroEclipse II Nebulizer) As directed omeprazole 40 mg PO DAILY oxycodone-acetaminophen 5-325 mg 1 tab PO TID PRN 28 days pen needle, diabetic (BD Purnima 2nd Gen Pen Needle) As directed phenazopyridine (Pyridium) 200 mg PO Q8H PRN ropinirole 3 mg PO BID 30 days semaglutide (Ozempic) 0.5 mg (0.736 mL) subcut QWEEK 30 days simvastatin 10 mg PO BEDTIME 30 days tamsulosin (Flomax) 0.4 mg PO BEDTIME HPI Comments Details: 06/07/24--followed for IC. s/p cystoscopy hydrodistension and urethral dilation on 05/07/24- findings, bladder capacity 850 mL, glomerulations were not visualized. Rafia states for the first 3 weeks she was doing well, now the urine seems to come out slower and she the bladder pressure/pain is returning. Whem she urinates it feels that she is not emptying completely. Bladder scan PVR 58 mL. Will start flomax. Also pyridium prn. fU in 3 months. Review of chart: 04/15/24--Rafia is a 63-year-old female who has here as a new the patient has a history of interstitial cystitis kidney stone, stress urinary incontinence. States that she was [place] [facility] in the past for interstitial cystitis, she was initially treated the [place] which she did not tolerate and then self bladder installations which initially helped but then she developed bladder spa sms and was not able to continue the treatment regimen. She has had prior lithotripsy for kidney stones. She had a sling placed in 2006. She was seen by another urologist and had the sling removed approximately due to difficulty voiding in worsening pain with voiding. She has some urinary leakage but states since losing weight this has improved. She complains of bladder pain and nocturia 2-3 times at night. She uses pnqf-otx-xyywrjq azo prn which helps. She has a long history of nicotine use 1 and half pack per day and is now down to 7-8 cigarettes daily. Comorbidity diabetes, she states since being on Ozempic she is lost about 60 lb in the last 6 months. I have discussed evaluation with cystoscopy hydrodistention. I have discussed that nicotine is a risk factor for urinary tract cancers. Will send urine for surveillance culture and urine cytology, and check a renal ultrasound. [facility] Medical History Tobacco abuse Osteopenia (~2018) Nicotine dependence, cigarettes, uncomplicated Allergic rhinitis Irritable bowel syndrome Obstructive sleep apnea Obesity Restless leg syndrome Asthma Insomnia Interstitial cystitis Osteoarthritis of hip Right renal stone GERD (gastroesophageal reflux disease) Anxiety and depression Hypercholesterolemia Fatty liver Hypertension Lumbar degenerative disc disease Type 2 diabetes mellitus with hyperglycemia Surgical History History of breast lump/mass excision History of hand surgery History of foot surgery History of surgical removal of ganglion cyst History of colonoscopy History of nasal surgery History of esophagogastroduodenoscopy (EGD) History of removal of cyst History of lithotripsy History of bladder surgery History of carpal tunnel release History of tonsillectomy and adenoidectomy History of cholecystectomy History of total abdominal hysterectomy and bilateral salpingo-oophorectomy History of section Family History Father CAD (coronary artery disease) CVD (cerebrovascular disease) Lung cancer Hypertension Mother Hypertension Diabetes Cancer Daughter Breast cancer Paternal Uncle Myocardial infarction Paternal Aunt Myocardial infarction Maternal Uncle Myocardial infarction Bone cancer Other FH: mental illness Substance abuse Social History Housing: Apartment Alcohol intake: current Alcohol intake frequency: does not drink Patient Tobacco Use Status: Current everyday Tobacco user Tobacco use type: Cigarette Cigarettes Per Day: 8 Years Smoked: (current smoker, onset 13yo, 1ppd x 49yrs, now 1/2ppd - 40pyh) e-Cigarette/Vaping Use: Never Used Second Hand Smoke Exposure: No service: No Current occupational status: disabled Cognitive needs: No Hearing needs: No Vision needs: Yes Review of Systems Const All systems reviewed & are unremarkable except as noted in HPI and below Reports no additional complaints Eyes Reports no additional complaints ENT Reports no additional complaints Card Reports no additional complaints Resp Reports no additional complaints GI Reports no additional complaints Reports as per HPI Musc Reports no additional complaints Skin/Breast Reports system reviewed and no additional complaints, except as documented Neuro Reports no additional complaints Psych Reports no additional complaints Endo Reports no additional complaints Juve/Lymph Reports no additional complaints Aller/Immun Reports no additional complaints Office Procedures Post Void Residual Post Residual Void Post Void Residual (PVR): 58 [id number] Void Residual by ultrasound Results AMB Urinalysis, Automated UA Leukoctes 0 Juanita/uL Last Edit by Carmen Palacios CMA on 06/07/24 10:23 UA Nitrite Negative Last Edit by Carmen Palacios CMA on 06/07/24 10:23 UA Urobilinogen 0.2 mg/dL Last Edit by Carmen Palacios CMA on 06/07/24 10:23 UA Protein 15 mg/dL Last Edit by Carmen Palacios CMA on 06/07/24 10:23 UA pH 6.0 Last Edit by Carmen Palacios CMA on 06/07/24 10:23 UA Blood 0 Walter/uL Last Edit by Carmen Palacios CMA on 06/07/24 10:23 UA Specific [place] 1.015 Last Edit by Carmen Palacios CMA on 06/07/24 10:23 UA Ketone Negative Last Edit by Carmen Palacios CMA on 06/07/24 10:23 UA Bilirubin 0 mg/dL Last Edit by Carmen Palacios CMA on 06/07/24 10:23 UA Glucose 1000 mg/dL Last Edit by Carmen Palacios CMA on 06/07/24 10:23 Results Reviewed Results Reviewed: Laboratory Last Values Urine pH (Auto) 6.0 06/07/24 10:16 Specific [place] (Auto) 1.015 06/07/24 10:16 Urine Protein (Auto) 15 mg/dL 06/07/24 10:16 Glucose (UA)(Auto) 1000 mg/dL 06/07/24 10:16 Urine Ketones (Auto) Negative 06/07/24 10:16 Urine Blood (Auto) 0 Walter/uL 06/07/24 10:16 Urine Nitrite (Auto) Negative 06/07/24 10:16 Urine Bilirubin (Auto) 0 mg/dL 06/07/24 10:16 Urine Urobilinogen (Auto) 0.2 mg/dL 06/07/24 10:16 Leukocyte Esterase (Auto) 0 Juanita/uL 06/07/24 10:16 Assessment & Plan Assessment & Plan (1) Chronic interstitial cystitis: Code(s): N30.10 - Interstitial cystitis (chronic) without hematuria Category: Medical (2) Kidney stone: Code(s): N20.0 - Calculus of kidney Category: Medical (3) Nicotine dependence: Code(s): F17.200 - Nicotine dependence, unspecified, uncomplicated Category: Medical (4) 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 Will start flomax. Also pyridium prn. fU in 3 months. Orders: Orders AMB Urinalysis Automated Today R32 - Unspecified urinary incontinence AMB Post Void Residual by ultrasound Today R32 - Unspecified urinary incontinence Medications: New tamsulosin (Flomax) 0.4 mg PO BEDTIME 90 caps 2RF phenazopyridine (Pyridium) take with a meal 200 mg PO Q8H PRN 30 tabs 1RF burning with urination Patient Instructions: The patient had an opportunity to ask questions regarding treatment plan. The patient expressed understanding and agreement with the above treatment plan. The patient is aware they should contact our office by phone for worsening of their current condition or the appearance of new symptoms. Compliance is encouraged with any medications and followup testing that is ordered. It is a privilege to be allowed the opportunity to participate in the urologic care of your patient. If you have any questions or concerns regarding treatment for the above conditions please do not hesitate to contact me. The office telephone contact is [phone]. This note is constructed in part using voice recognition software. While every effort has been made to ensure accuracy counter intelligence errors may have been included. 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
== END 2024-06-07 11:08 | disposition home or self-care (01) ==
PROVIDERS: PCP Internal Medicine; Visit Provider Urology
DX: N30.10 Interstitial cystitis (chronic) without hematuria (principal); N20.0 Calculus of kidney; F17.200 Nicotine dependence, unspecified, uncomplicated; Q64.31 Congenital bladder neck obstruction; R39.12 Poor urinary stream; R32 Unspecified urinary incontinence
CPT/HCPCS: 99214

== ENCOUNTER → 2024-06-07 10:02 | Outpatient (BNVA) | payer OTHER, SELFPAY | PROVIDERS: PCP Internal Medicine; Visit Provider Urology | DX: N30.10 Interstitial cystitis (chronic) without hematuria (principal); N39.3 Stress incontinence (female) (male); R35.1 Nocturia; R39.89 Other symptoms and signs involving the genitourinary system; Q64.31 Congenital bladder neck obstruction; R39.12 Poor urinary stream; F17.210 Nicotine dependence, cigarettes, uncomplicated | CPT/HCPCS: 51798; 81003; 99212 ==

== ENCOUNTER 2024-06-24 11:21 | Outpatient (REF) | payer OTHER, SELFPAY ==
--- NOTE | ~2024-06-24 | MM_ITS ---
EXAMINATION: MM SCREENING DIGITAL BREAST TOMOSYNTHESIS, BILATERAL CLINICAL INFORMATION: Screening. Asymptomatic. COMPARISON: Mammography: Available priors back to 2017. TECHNIQUE: Digital breast tomosynthesis is performed in both the craniocaudal and mediolateral oblique views along with computer-aided detection (CAD). Synthesized 2D images are generated from the tomosynthesis. FINDINGS: There are scattered areas of fibroglandular density (ACR BI-RADS breast composition Category b). Left: Developing grouped calcifications in the lower outer breast anterior to middle depth. Developing grouped Calcifications in the upper outer breast posterior depth. Two left breast marker clips from previous needle core biopsies. No suspicious masses or other abnormal findings. Right: There are no significant masses, abnormal calcifications, or other abnormalities. MM/MM tomosynthesis screening BI IMPRESSION: Right: No mammographic evidence of malignancy. Left: Grouped calcifications. Additional imaging is recommended at this time. ASSESSMENT: BI-RADS BI-RADS 0 - Incomplete: Needs additional Imaging. RECOMMENDATION: 1. Additional views of the left breast 2. Targeted ultrasound if warranted after review of the additional views. 3. Radiology department staff will contact the patient for additional imaging. Additional Imaging required This examination should not preclude the clinical evaluation of a suspicious palpable abnormality. This patient's information was entered into a reminder system with a target due date for their next mammogram. Electronically signed by: Chika العلي DO 07/19/2024 10:19 AM YAMINI
== END 2024-06-24 11:22 | disposition home or self-care (01) ==
LOC: HO.MAMMO 11:21
PROVIDERS: PCP Internal Medicine; Visit Provider Internal Medicine
DX: Z12.31 Encounter for screening mammogram for malignant neoplasm of breast (principal)
CPT/HCPCS: 77063; 77067

== ENCOUNTER → 2024-06-24 11:30 | Outpatient (BNV) | payer OTHER, SELFPAY | PROVIDERS: PCP Internal Medicine; Visit Provider Internal Medicine | DX: Z12.31 Encounter for screening mammogram for malignant neoplasm of breast (principal) | CPT/HCPCS: 77063; 77067 ==

== ENCOUNTER 2024-07-15 11:00 | Outpatient (AMB) | payer OTHER, SELFPAY ==
--- NOTE | 2024-07-15 11:30 | MHC.PC.OV ---
Vital Signs 07/15/24 11:31 Height 4 ft 11 in Weight 156 lb 4 oz BMI 31.6 BP 122/58 L Blood Pressure Location Lt brachial Position Sitting Pulse 70 Pulse Source Pulse Oximeter Pulse Oximetry (%) 98 Oxygen Delivery Method Room Air Intake Visit Reasons: dysuria, low back pain, hair loss Instructional Aide Required: No Accompanied by: Self / Same As Patient Allergies metformin Adverse Reaction (Intermediate, Verified 07/15/24 11:31) Vomiting lisinopril [From Zestril] Adverse Reaction (Mild, Verified 07/15/24 11:31) COUGH Tobacco use date assessed: 02/26/24 Fall risk assessment: No Falls in past year Last assessed Fall Risk: 07/15/24 Dental Screening Dental Screen Date: 11/24/23 HPI dysuria, low back pain, hair loss HPI Details 64-year-old obese female smoker with controlled diabetes mellitus hypertension hypercholesterolemia asthma obstructive sleep apnea with GERD coming in for follow-up. Last seen in 02/17/2024. Patient is up-to-date with colonoscopy. Mammogram is due. Bone density is up-to-date. Patient also has interstitial cystitis and is being followed up by urology having had hydrodistention done. Patient had a CT scan of the chest in 04/18/2024 no nodules noted. Patient had the x-ray of the lower back showing multiple level degenerative changes thoracic spine mild lumbar spondylosis with multilevel loss of disc space height, facet arthritis in the mid to lower lumbar spine. [facility] Medical History Tobacco abuse Osteopenia (~2018) Nicotine dependence, cigarettes, uncomplicated Allergic rhinitis Irritable bowel syndrome Obstructive sleep apnea Obesity Restless leg syndrome Asthma Insomnia Interstitial cystitis Osteoarthritis of hip Right renal stone GERD (gastroesophageal reflux disease) Anxiety and depression Hypercholesterolemia Fatty liver Hypertension Lumbar degenerative disc disease Type 2 diabetes mellitus with hyperglycemia Surgical History History of breast lump/mass excision History of hand surgery History of foot surgery History of surgical removal of ganglion cyst History of colonoscopy History of nasal surgery History of esophagogastroduodenoscopy (EGD) History of removal of cyst History of lithotripsy History of bladder surgery History of carpal tunnel release History of tonsillectomy and adenoidectomy History of cholecystectomy History of total abdominal hysterectomy and bilateral salpingo-oophorectomy History of section Family History Father CAD (coronary artery disease) CVD (cerebrovascular disease) Lung cancer Hypertension Mother Hypertension Diabetes Cancer Daughter Breast cancer Paternal Uncle Myocardial infarction Paternal Aunt Myocardial infarction Maternal Uncle Myocardial infarction Bone cancer Other FH: mental illness Substance abuse Social History Housing: Apartment Alcohol intake: current Alcohol intake frequency: does not drink Patient Tobacco Use Status: Current everyday Tobacco user Tobacco use type: Cigarette Cigarettes Per Day: 8 Years Smoked: (current smoker, onset 13yo, 1ppd x 49yrs, now 1/2ppd - 40pyh) e-Cigarette/Vaping Use: Never Used Second Hand Smoke Exposure: No service: No Current occupational status: disabled Cognitive needs: No Hearing needs: No Vision needs: Yes Questionnaire Thrive Questionnaire Date Thrive assessed: 01/27/23 Are you currently unemployed and looking for a job?: No NICOLA-7 AMB Questionnaire NICOLA-7 Date NICOLA - 7 assessed: 01/27/23 Source: Developed by Drs. Mauro George, Mariana Medrano, James Truong and colleagues, with an educational romeo from [employer]. Physical exam (Primary Care) Vital Signs: Last Vital Signs Pulse 70 07/15/24 11:31 BP 122/58 L 07/15/24 11:31 Pulse Ox 98 07/15/24 11:31 Oxygen Delivery Method Room Air 07/15/24 11:31 BMI result Body Mass Index 31.6 Tobacco/Smoking Status: Tobacco use Status Tobacco use date assessed 02/26/24 07/15/24 11:33 Patient Tobacco Use Status Current everyday Tobacco 07/15/24 11:33 Tobacco use type Cigarette 07/15/24 11:33 e-Cigarette/Vaping Use Never Used 07/15/24 11:33 Thrive Assessment: Date of Thrive Assessment Date Thrive assessed 01/27/23 07/15/24 11:33 Const General: alert; No acute distress Eyes Conjunctivae: conjunctivae normal Resp Auscultation: clear to auscultation bilaterally Cardio Rate: regular rate Rhythm: regular rhythm GI Inspection: Yes normal to inspection Extrem General: Yes normal to inspection and No edema Assessment and Plan Assessment & Plan (1) Type 2 diabetes mellitus with hyperglycemia: Comment: Dr. Rayray joyce [facility] Code(s): E11.65 - Type 2 diabetes mellitus with hyperglycemia Qualifiers: Diabetes mellitus [facility] insulin use: without [facility] use Qualified Code(s): E11.65 - Type 2 diabetes mellitus with hyperglycemia Plan: Decrease the amount of carbohydrate intake, pasta, bread, rice and potatoes are all sugar and that is aside from all the sweet stuff, remember that fruits are good but they are Sweet also. Hemoglobin A1c goal of less than 7.0 on Jardiance 25 mg once a day Lantus at 15 units once a day and prescription for Ozempic sent in. (2) Hypertension: Code(s): I10 - Essential (primary) hypertension Qualifiers: Hypertension type: essential hypertension Qualified Code(s): I10 - Essential (primary) hypertension Plan: Continue with blood pressure medication. Decrease salt intake and exercise taking metoprolol 25 mg once a day losartan 100 mg once a day. (3) Hypercholesterolemia: Code(s): E78.00 - Pure hypercholesterolemia, unspecified Plan: Avoid fried foods, chicken skin, eggs, butter margarine, pastries and meat. Be it pork or beef they have a lot of cholesterol LDL goal of less than 100 and triglyceride of less than 150 (4) Obstructive sleep apnea: Comment: [facility]ED[facility] - CPAP - auto PAP mode pressure 6-16) Code(s): G47.33 - Obstructive sleep apnea (adult) (pediatric) Plan: Continue to use the CPAP more than 4 hours a night and benefits from this. (5) Nicotine dependence, cigarettes, uncomplicated: Comment: (current smoker, onset 13yo, 1ppd x 49yrs, now 1/2ppd - 40pyh) Code(s): F17.210 - Nicotine dependence, cigarettes, uncomplicated Plan: Patient is strongly advised to stop smoking (6) Obesity: Code(s): E66.9 - Obesity, unspecified Qualifiers: Obesity type: due to excess calories Obesity classification: adult class 3 (BMI >= 40) Serious obesity comorbidity presence: with serious comorbidity Body mass index: BMI 40.0-44.9 Qualified Code(s): E66.01 - Morbid (severe) obesity due to excess calories; Z68.41 - Body mass index [BMI]40.0-44.9, adult Plan: Diet and exercise (7) Lumbar degenerative disc disease: Code(s): M51.36 - Other intervertebral disc degeneration, lumbar region Plan: Narcotic pain meds: Is being prescribed with the understanding that these medications are potentially addictive and should be used only when absolutely necessary and must always be secured. Any remaining pills should be safely disposed off appropriately. Patient is advised that narcotics can impaired judgment and one should not drive or operate heavy machinery while taking these medications. Never share these medications with anybody and do not leave them unattended. They will not be replaced under any circumstances. (8) Interstitial cystitis: Code(s): N30.10 - Interstitial cystitis (chronic) without hematuria (9) Facial dermatitis: Code(s): L30.9 - Dermatitis, unspecified (10) Alopecia: Code(s): L65.9 - Nonscarring hair loss, unspecified (11) Peripheral vascular disease: Code(s): I73.9 - Peripheral vascular disease, unspecified Plan: elevated legs, exercises and support stocking Orders: Orders Comprehensive Met. Panel 3 Months E11.65 - Type 2 diabetes mellitus with hyperglycemia Vitamin B12 and Folate 3 Months E11.65 - Type 2 diabetes mellitus with hyperglycemia Free T4 (Free Thyroxine) 3 Months E11.65 - Type 2 diabetes mellitus with hyperglycemia Hemoglobin A1c 3 Months E11.65 - Type 2 diabetes mellitus with hyperglycemia Complete Blood Count Auto Diff 3 Months E11.65 - Type 2 diabetes mellitus with hyperglycemia Creatinine Urine 3 Months E11.65 - Type 2 diabetes mellitus with hyperglycemia Microalbumin, Random (w Creat) 3 Months E11.65 - Type 2 diabetes mellitus with hyperglycemia Thyroid Stimulating Hormone 3 Months E11.65 - Type 2 diabetes mellitus with hyperglycemia Referrals Dermatology Referral L30.9 - Dermatitis, unspecified, L65.9 - Nonscarring hair loss, unspecified Medications: New joey.stocking,knee,reg,smal As directed 20-30 mm HG 12 ea 0RF I73.9 - Peripheral vascular disease, unspecified Refilled albuterol sulfate 90 mcg/actuation 2 puffs PO Q6H PRN 8.5 ea 3RF shortness of breath or wheezing J45.909 - Unspecified asthma, uncomplicated oxycodone-acetaminophen 5-325 mg 1 tab PO TID 28 days PRN 84 tabs 0RF pain M51.36 - Other intervertebral disc degeneration, lumbar region Coding Level of Care Code Est Pt Level 4 (54210) Diagnoses Type 2 diabetes mellitus with hyperglycemia, without long-term current use of insulin E11.65 Diabetes mellitus [facility] insulin use: without [facility] use Essential hypertension I10 Hypertension type: essential hypertension Hypercholesterolemia E78.00 Obstructive sleep apnea G47.33 Nicotine dependence, cigarettes, uncomplicated F17.210 Class 3 severe obesity due to excess calories with serious comorbidity and body mass index (BMI) of 40.0 to 44.9 in adult E66.01; Z68.41 Obesity type: due to excess calories Obesity classification: adult class 3 (BMI >= 40) Serious obesity comorbidity presence: with serious comorbidity Body mass index: BMI 40.0-44.9 Lumbar degenerative disc disease M51.36 Interstitial cystitis N30.10 Facial dermatitis L30.9 Alopecia L65.9 Peripheral vascular disease I73.9
[2024-07-15 11:31] VITALS: BP 122/58; PULSE 70; O2SAT 98; BMI 31.6
== END 2024-07-15 12:04 | disposition home or self-care (01) ==
PROVIDERS: PCP Internal Medicine; Visit Provider Internal Medicine
DX: E11.65 Type 2 diabetes mellitus with hyperglycemia (principal); I10 Essential (primary) hypertension; E78.00 Pure hypercholesterolemia, unspecified; G47.33 Obstructive sleep apnea (adult) (pediatric); F17.210 Nicotine dependence, cigarettes, uncomplicated; E66.01 Morbid (severe) obesity due to excess calories; Z68.41 Body mass index [BMI] 40.0-44.9, adult; M51.36 Other intervertebral disc degeneration, lumbar region; N30.10 Interstitial cystitis (chronic) without hematuria; L30.9 Dermatitis, unspecified; L65.9 Nonscarring hair loss, unspecified; I73.9 Peripheral vascular disease, unspecified

== ENCOUNTER → 2024-07-15 11:00 | Outpatient (BNVA) | payer OTHER, SELFPAY | PROVIDERS: PCP Internal Medicine; Visit Provider Internal Medicine | DX: E11.65 Type 2 diabetes mellitus with hyperglycemia (principal); I10 Essential (primary) hypertension; E78.00 Pure hypercholesterolemia, unspecified; F17.210 Nicotine dependence, cigarettes, uncomplicated; E66.01 Morbid (severe) obesity due to excess calories; Z68.41 Body mass index [BMI] 40.0-44.9, adult; Z71.6 Tobacco abuse counseling | CPT/HCPCS: 99212 ==

== ENCOUNTER 2024-07-30 10:42 | Outpatient (REF) | payer OTHER, SELFPAY ==
--- NOTE | ~2024-07-30 | MM_ITS ---
EXAMINATION: MM DIAGNOSTIC DIGITAL BREAST TOMOSYNTHESIS, LEFT CLINICAL INFORMATION: Diagnostic exam for evaluation of 3 groups of calcifications, to upper outer left breast, and one lower inner left breast, seen on screening exam. Patient has had 2 benign stereotactic biopsies on the left, for calcifications. COMPARISON: Mammography: 06/24/2024, 06/19/2023, 01/04/2022, 09/01/2020, and priors dating 12/19/2016. TECHNIQUE: Digital breast tomosynthesis is performed in the following views: Spot magnification 2-D left CC x2 and ML x2 views. FINDINGS: There are scattered areas of fibroglandular density (ACR BI-RADS breast composition Category b). In the lower inner quadrant of the left breast, there are coarse rodlike calcifications which have been present over several years and are benign. No further follow-up recommended. In the upper outer quadrant of the left breast, there are 2 distinct groups of calcifications, of which both have somewhat coarse, probably benign appearance, most likely developing dystrophic calcifications. There are several regions of similar quite clearly benign dystrophic calcifications in the lateral and medial left breast. There have been 2 benign biopsies, and a biopsy clip is in close proximity to the upper outer groups. These are probably benign and six-month interval follow-up recommended. MM/MM added views LT IMPRESSION: -2 groups of adjacent in the upper outer quadrant of the left breast are probably benign; six-month interval follow-up magnification views recommended to ensure stability. -Calcifications in the lower inner left breast are benign and stable from prior exams. No further follow-up warranted. ASSESSMENT: BI-RADS BI-RADS 3 - Probably benign finding(s) - 6 month follow-up suggested RECOMMENDATION: 6 Month F/U This patient's information was entered into a reminder system with a target due date for their next mammogram. Electronically signed by: Brennen Coffman MD 07/30/2024 12:17 PM EDT
== END 2024-07-30 10:43 | disposition home or self-care (01) ==
LOC: HO.MAMMO 10:42
PROVIDERS: PCP Internal Medicine; Visit Provider Internal Medicine
DX: R92.1 Mammographic calcification found on diagnostic imaging of breast (principal)
CPT/HCPCS: 77065

== ENCOUNTER → 2024-07-30 11:00 | Outpatient (BNV) | payer OTHER, SELFPAY | PROVIDERS: PCP Internal Medicine; Visit Provider Radiology Diagnostic Radiology | DX: R92.1 Mammographic calcification found on diagnostic imaging of breast (principal) | CPT/HCPCS: 77065; G0279 ==

== ENCOUNTER 2024-09-12 10:20 | Outpatient (AMB) | payer OTHER, SELFPAY ==
--- NOTE | 2024-09-12 10:21 | MHC.OFFVIS ---
Intake Visit Reasons: 3m follow up Intake Note: 3m Follow up Blood Thinner: none Allergies metformin Adverse Reaction (Intermediate, Verified 07/15/24 11:31) Vomiting lisinopril [From Zestril] Adverse Reaction (Mild, Verified 07/15/24 11:31) COUGH Medication List - Last Reconciled 09/12/24 by Michael Dejesus MD albuterol sulfate 0.63 mg (3 mL) inhalation QID PRN albuterol sulfate 2.5 mg (3 mL) inhalation Q4H PRN albuterol sulfate 90 mcg/actuation 2 puffs PO Q6H PRN amitriptyline 25 mg PO BEDTIME biotin 1 mg PO DAILY blood sugar diagnostic (FreeStyle Lite Strips) As directed check the BS TID blood-glucose meter (FreeStyle Lite Meter kit) As directed bupropion HCl XL 150 mg PO BEDTIME joey.stocking,knee,reg,smal As directed 20-30 mm HG empagliflozin 25 mg PO DAILY 30 days fenofibrate 160 mg PO DAILY fexofenadine (Amara Allergy) 180 mg PO DAILY PRN fluoxetine 40 mg PO QAM fluticasone propionate 50 mcg/actuation (Allergy Relief (fluticasone)) 2 sprays intranasal DAILY ttktqmlgfha-juwidkhcf-fntqndid 200-62.5-25 mcg (Trelegy Ellipta) 1 inh inhalation DAILY hydrocortisone 2.5% (Proctosol HC) 1 appl [place] BID-QID PRN hydrocortisone acetate 1% appl topical PRN hydroxyzine HCl 50 mg PO BID insulin glargine (Lantus Solostar U-100 Insulin) 15 units (0.15 mL) subcut QPM 30 days isosorbide mononitrate ER 30 mg PO DAILY lactulose 20 grams (30 mL) PO DAILY 30 days lancets (FreeStyle Lancets) As directed check BS TID latanoprost 0.005% 1 drp ophthalmic (eye) BEDTIME lidocaine 5% 1 appl topical TID losartan (Cozaar) 100 mg PO DAILY 90 days metoprolol succinate ER 25 mg PO DAILY naproxen 500 mg PO BID PRN nebulizers (AeroEclipse II Nebulizer) As directed omeprazole 40 mg PO DAILY oxycodone-acetaminophen 5-325 mg 1 tab PO TID PRN 28 days pen needle, diabetic (BD Purnima 2nd Gen Pen Needle) As directed phenazopyridine (Pyridium) 200 mg PO Q8H PRN ropinirole 3 mg PO BID 30 days semaglutide (Ozempic) 0.5 mg (0.736 mL) subcut QWEEK 30 days simvastatin 10 mg PO BEDTIME 30 days tamsulosin (Flomax) 0.4 mg PO BEDTIME HPI Comments Details: 09/12/24--Rafia is being followed for interstitial cystitis. 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 She states she has been voiding better and has less pain. On a scale of 1-10 she states her pain is about a 4. She states ibuprofen does help. I will send a prescription for naproxen 500 mg twice a day p.r.n. Review of chart: 06/07/24--followed for IC. s/p cystoscopy hydrodistension and urethral dilation on 05/07/24- findings, bladder capacity 850 mL, glomerulations were not visualized. Rafia states for the first 3 weeks she was doing well, now the urine seems to come out slower and she the bladder pressure/pain is returning. Whem she urinates it feels that she is not emptying completely. Bladder scan PVR 58 mL. Will start flomax. Also pyridium prn. fU in 3 months. 04/15/24--Rafia is a 63-year-old female who has here as a new the patient has a history of interstitial cystitis kidney stone, stress urinary incontinence. States that she [place] [facility] [place] for interstitial cystitis, she was initially treated the [place] which she did not tolerate and then self bladder installations which initially helped but then she developed bladder spasms and was not able to continue the treatment regimen. She has had prior lithotripsy for kidney stones. She had a sling placed in 2006. She was seen by another urologist and had the sling removed approximately due to difficulty voiding in worsening pain with voiding. She has some urinary leakage but states since losing weight this has improved. She complains of bladder pain and nocturia 2-3 times at night. She uses [id number] azo prn which helps. She has a long history of nicotine use 1 and half pack per day and is now down to 7-8 cigarettes daily. Comorbidity diabetes, she states since being on Ozempic she is lost about 60 lb in the last 6 months. I have discussed evaluation with cystoscopy hydrodistention. I have discussed that nicotine is a risk factor for urinary tract cancers. Will send urine for surveillance culture and urine cytology, and check a renal ultrasound. [facility] Medical History Tobacco abuse Osteopenia (~2018) Nicotine dependence, cigarettes, uncomplicated Allergic rhinitis Irritable bowel syndrome Obstructive sleep apnea Obesity Restless leg syndrome Asthma Insomnia Interstitial cystitis Osteoarthritis of hip Right renal stone GERD (gastroesophageal reflux disease) Anxiety and depression Hypercholesterolemia Fatty liver Hypertension Lumbar degenerative disc disease Type 2 diabetes mellitus with hyperglycemia Surgical History History of breast lump/mass excision History of hand surgery History of foot surgery History of surgical removal of ganglion cyst History of colonoscopy History of nasal surgery History of esophagogastroduodenoscopy (EGD) History of removal of cyst History of lithotripsy History of bladder surgery History of carpal tunnel release History of tonsillectomy and adenoidectomy History of cholecystectomy History of total abdominal hysterectomy and bilateral salpingo-oophorectomy History of section Family History Father CAD (coronary artery disease) CVD (cerebrovascular disease) Lung cancer Hypertension Mother Hypertension Diabetes Cancer Daughter Breast cancer Paternal Uncle Myocardial infarction Paternal Aunt Myocardial infarction Maternal Uncle Myocardial infarction Bone cancer Other FH: mental illness Substance abuse Social History Housing: Apartment Alcohol intake: current Alcohol intake frequency: does not drink Patient Tobacco Use Status: Current everyday Tobacco user Tobacco use type: Cigarette Cigarettes Per Day: 8 Years Smoked: (current smoker, onset 13yo, 1ppd x 49yrs, now 1/2ppd - 40pyh) e-Cigarette/Vaping Use: Never Used Second Hand Smoke Exposure: No service: No Current occupational status: disabled Cognitive needs: No Hearing needs: No Vision needs: Yes Review of Systems Const All systems reviewed & are unremarkable except as noted in HPI and below Reports no additional complaints Eyes Reports no additional complaints ENT Reports no additional complaints Card Reports no additional complaints Resp Reports no additional complaints GI Reports no additional complaints Reports as per HPI Musc Reports no additional complaints Skin/Breast Reports system reviewed and no additional complaints, except as documented Neuro Reports no additional complaints Psych Reports no additional complaints Endo Reports no additional complaints Juve/Lymph Reports no additional complaints Aller/Immun Reports no additional complaints Results AMB Urinalysis, Automated UA Leukoctes 0 Juanita/uL Last Edit by Kera Alberto on 09/12/24 10:37 UA Nitrite Negative Last Edit by Kera Alberto on 09/12/24 10:37 UA Urobilinogen 0.2 mg/dL Last Edit by Kera Alberto on 09/12/24 10:37 UA Protein 0 mg/dL Last Edit by Kera Alberto on 09/12/24 10:37 UA pH 6.0 Last Edit by Kera Alberto on 09/12/24 10:37 UA Blood 0 Walter/uL Last Edit by Kera Alberto on 09/12/24 10:37 UA Specific [place] 1.020 Last Edit by Kera Alberto on 09/12/24 10:37 UA Ketone Negative Last Edit by Kera Alberto on 09/12/24 10:37 UA Bilirubin 0 mg/dL Last Edit by Kera Alberto on 09/12/24 10:37 UA Glucose 1000 mg/dL Last Edit by Kera Alberto on 09/12/24 10:37 Results Reviewed Results Reviewed: Laboratory Last Values Urine pH (Auto) 6.0 09/12/24 10:28 Specific [place] (Auto) 1.020 09/12/24 10:28 Urine Protein (Auto) 0 mg/dL 09/12/24 10:28 Glucose (UA)(Auto) 1000 mg/dL 09/12/24 10:28 Urine Ketones (Auto) Negative 09/12/24 10:28 Urine Blood (Auto) 0 Walter/uL 09/12/24 10:28 Urine Nitrite (Auto) Negative 09/12/24 10:28 Urine Bilirubin (Auto) 0 mg/dL 09/12/24 10:28 Urine Urobilinogen (Auto) 0.2 mg/dL 09/12/24 10:28 Leukocyte Esterase (Auto) 0 Juanita/uL 09/12/24 10:28 Assessment & Plan Assessment & Plan (1) Chronic interstitial cystitis: Code(s): N30.10 - Interstitial cystitis (chronic) without hematuria Category: Medical (2) Kidney stone: Code(s): N20.0 - Calculus of kidney Category: Medical (3) Nicotine dependence: Code(s): F17.200 - Nicotine dependence, unspecified, uncomplicated Category: Medical (4) 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 Cont flomax. Also pyridium prn. She states she has been voiding better and has less pain. On a scale of 1-10 she states her pain is about a 4. She states ibuprofen does help. I will send a prescription for naproxen 500 mg twice a day p.r.n. Orders: Orders AMB Urinalysis Automated Today Z13.9 - Encounter for screening, unspecified Medications: New naproxen 500 mg PO BID PRN 60 tabs 1RF pain Refilled tamsulosin (Flomax) 0.4 mg PO BEDTIME 90 caps 3RF Patient Instructions: The patient had an opportunity to ask questions regarding treatment plan. The patient expressed understanding and agreement with the above treatment plan. The patient is aware they should contact our office by phone for worsening of their current condition or the appearance of new symptoms. Compliance is encouraged with any medications and followup testing that is ordered. It is a privilege to be allowed the opportunity to participate in the urologic care of your patient. If you have any questions or concerns regarding treatment for the above conditions please do not hesitate to contact me. The office telephone contact is [phone]. This note is constructed in part using voice recognition software. While every effort has been made to ensure accuracy program engineer errors may have been included. 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
== END 2024-09-12 10:48 | disposition home or self-care (01) ==
PROVIDERS: PCP Internal Medicine; Visit Provider Urology
DX: N30.10 Interstitial cystitis (chronic) without hematuria (principal); N20.0 Calculus of kidney; F17.200 Nicotine dependence, unspecified, uncomplicated; Q64.31 Congenital bladder neck obstruction; R39.12 Poor urinary stream; Z13.9 Encounter for screening, unspecified
CPT/HCPCS: 99214

== ENCOUNTER → 2024-09-12 10:20 | Outpatient (BNVA) | payer OTHER, SELFPAY | PROVIDERS: PCP Internal Medicine; Visit Provider Urology | DX: N30.10 Interstitial cystitis (chronic) without hematuria (principal); N20.0 Calculus of kidney; R39.12 Poor urinary stream; Q64.31 Congenital bladder neck obstruction; F17.210 Nicotine dependence, cigarettes, uncomplicated | CPT/HCPCS: 81003; 99212 ==

== ENCOUNTER 2024-11-05 13:21 | Outpatient (AMB) | payer OTHER, SELFPAY ==
[2024-11-05 13:24] VITALS: BP 130/72; PULSE 68; O2SAT 96; BMI 30.9
--- NOTE | 2024-11-05 13:24 | A.OFFPC_ITS ---
Vital Signs 11/05/24 13:24 Height 4 ft 11 in Weight 153 lb BMI 30.9 BP 130/72 Blood Pressure Location Lt brachial Position Sitting Pulse 68 Pulse Source Pulse Oximeter Pulse Oximetry (%) 96 Oxygen Delivery Method Room Air Intake Visit Reasons: DM Allergies metformin Adverse Reaction (Intermediate, Verified 11/05/24 13:25) Vomiting lisinopril [From Zestril] Adverse Reaction (Mild, Verified 11/05/24 13:25) COUGH Tobacco use date assessed: 11/05/24 Fall risk assessment: No Falls in past year Last assessed Fall Risk: 11/05/24 Dental Screening Dental Screen Date: 11/05/24 Did you have a dental visit in the last 12 months?: Yes Did you have a dental problem in the last 6 months where you did not have access to dental care?: No Was dental information given to patient?: Patient has dentist HPI DM HPI Details The patient is a 64-year-old female presenting with hypoglycemia. Two weeks ago, she discontinued her insulin regimen, specifically Lantus, due to episodes of low blood glucose levels, recorded twice at values not exceeding 120 mg/dL and as low as 83 and 89 mg/dL. The patient is currently managing her blood glucose with Ozempic and Jardiance, reporting some initial nausea and weight loss with Ozempic. Her last recorded HbA1c is 5.1% after stopping insulin, taken two weeks ago. The patient also reports a recurrence of urological symptoms previously managed with Flomax and Pyridium for relief of burning sensations. No recent exacerbatio n of symptoms was noted since the last urologist visit. Additionally, the patient has a dermatological issue noted as redness and drainage attributed to smoking, as examined by a final assembly and packing supervisor last month. She mentions concern about possible infection, though none is confirmed, and describes the condition as spreading. The patient also reports a longstanding issue with a right breast mass under the nipple, present for several weeks with discomfort. Past interventions included incision by a surgeon without resolving intangibles. She last saw her final assembly and packing supervisor about a month ago. [facility] Medical History Tobacco abuse Osteopenia (~2018) Nicotine dependence, cigarettes, uncomplicated Allergic rhinitis Irritable bowel syndrome Obstructive sleep apnea Obesity Restless leg syndrome Asthma Insomnia Interstitial cystitis Osteoarthritis of hip Right renal stone GERD (gastroesophageal reflux disease) Anxiety and depression Hypercholesterolemia Fatty liver Hypertension Lumbar degenerative disc disease Type 2 diabetes mellitus with hyperglycemia Surgical History History of breast lump/mass excision History of hand surgery History of foot surgery History of surgical removal of ganglion cyst History of colonoscopy History of nasal surgery History of esophagogastroduodenoscopy (EGD) History of removal of cyst History of lithotripsy History of bladder surgery History of carpal tunnel release History of tonsillectomy and adenoidectomy History of cholecystectomy History of total abdominal hysterectomy and bilateral salpingo-oophorectomy History of section Family History Father CAD (coronary artery disease) CVD (cerebrovascular disease) Lung cancer Hypertension Mother Hypertension Diabetes Cancer Daughter Breast cancer Paternal Uncle Myocardial infarction Paternal Aunt Myocardial infarction Maternal Uncle Myocardial infarction Bone cancer Other FH: mental illness Substance abuse Social History Housing: Apartment Alcohol intake: current Alcohol intake frequency: does not drink Patient Tobacco Use Status: Current everyday Tobacco user Tobacco use type: Cigarette Cigarettes Per Day: 8 Years Smoked: (current smoker, onset 13yo, 1ppd x 49yrs, now 1/2ppd - 40pyh) e-Cigarette/Vaping Use: Never Used Second Hand Smoke Exposure: No service: No Current occupational status: disabled Cognitive needs: No Hearing needs: No Vision needs: Yes Questionnaire PHQ-9 Over the last 2 weeks, how often have you been bothered by any of the following problems? 1. Little interest or pleasure in doing things: more than half the days 2. Feeling down, depressed, or hopeless: more than half the days 3. Trouble falling or staying asleep, or sleeping too much: more than half the days 4. Feeling tired or having little energy: more than half the days 5. Poor appetite or overeating: several days 6. Feeling bad about yourself - or that you are a failure or have let yourself or your family down: not at all 7. Trouble concentrating on things, such as reading the newspaper or watching television: not at all 8. Moving or speaking so slowly that other people could have noticed. Or the opposite - being so fidgety or restless that you have been moving around a lot more than usual: not at all 9. Thoughts that you would be better off or of hurting yourself in some way: not at all Total score: 9 Depression Screening Interpretation: Positive Depression Screening Done: Yes Source: Developed by Drs. Mauro George, Mariana Medrano, James Truong and colleagues, with an educational romeo from [employer]. Thrive Questionnaire Date Thrive assessed: 11/05/24 I am a: Patient What is your living situation today?: I have a steady place to live Within the past 12 months, did the food you bought not last and you didn't have the money to get more?: Never true Within the past 12 months, did you worry whether your food would run out before you got money to buy more?: Never true Do you have trouble paying for medicines?: No Do you have trouble getting transportation to medical appointments?: No Do you have trouble paying your heating and electricity bill?: No Do you have trouble taking care of your child, family member or friend?: No Do you have trouble with day-to-day activities such as bathing, preparing meals, shopping, managing finances, etc.?: No Are you currently unemployed and looking for a job?: No Are you interested in more education?: No Currently or been in a relationship where the following occur: No concerns reported THRIVE Score: 0 AUDIT C Alcohol Use Questionnaire (AUDIT-C) 1. How often do you have a drink containing alcohol?: Monthly or less 2. How many drinks containing alcohol do you have on a typical day when you are drinking?: 1 or 2 3. How often do you have six or more drinks on one occasion?: Never Total Score: 1 NICOLA-7 AMB Questionnaire NICOLA-7 Date NICOLA - 7 assessed: 11/05/24 Feeling nervous, anxious, or on edge: 1 = Several days Not being able to stop or control worryin = Not at all Worrying too much about different things: 0 = Not at all Trouble relaxin = Not at all Being so restless that it is hard to sit still: 0 = Not at all Becoming easily annoyed or irritable: 0 = Not at all Feeling afraid as if something awful might happen: 0 = Not at all Total NICOLA-7 score (0-4 normal; 5-9 mild; 10-14 moderate; 15-21 severe): 1 Source: Developed by Drs. Mauro George, Mariana Medrano, James Truong and colleagues, with an educational romeo from [employer]. Physical exam (Primary Care) Vital Signs: Last Vital Signs Pulse 68 11/05/24 13:24 BP 130/72 11/05/24 13:24 Pulse Ox 96 11/05/24 13:24 Oxygen Delivery Method Room Air 11/05/24 13:24 BMI result Body Mass Index 30.9 Tobacco/Smoking Status: Tobacco use Status Tobacco use date assessed 11/05/24 11/05/24 13:27 Patient Tobacco Use Status Current everyday Tobacco 11/05/24 13:27 Tobacco use type Cigarette 11/05/24 13:27 e-Cigarette/Vaping Use Never Used 11/05/24 13:27 PHQ-9: PHQ-9 Score PHQ-9: Total score 9 11/05/24 13:42 Depression Screening Interpretation: Positive Thrive Assessment: Date of Thrive Assessment Date Thrive assessed 11/05/24 11/05/24 13:27 Currently or been in a relationship where the following occur: No concerns reported Const General: alert; No acute distress Eyes Conjunctivae: conjunctivae normal Chest Other: no masses can be felt but on pressing nipple has whitish discharge noted Right breast Resp Auscultation: clear to auscultation bilaterally Cardio Rate: regular rate Rhythm: regular rhythm GI Inspection: Yes normal to inspection Extrem General: Yes normal to inspection and No edema Office Procedures Flu Questionnaire Does the patient have a severe egg allergy?: No Does the patient have severe life threatening allergies?: No Does the patient have a fever or illness today?: No Has the patient ever had Guillain-[place] Syndrome?: No Has the patient ever had any past reaction to a flu shot?: No Results AMB Hemoglobin A1c AMB Hemoglobin A1c 5.1 % Last Edit by Chana Parrish CMA on 11/05/24 13 :46 Immunizations Fluarix Triv 8031-2406 (PF) 45 mcg (15 mcg x 3)/0.5 mL IM syringe Performing Provider: Hitesh Fairchild MD Performing Location: [facility] Administered by: Chana Parrish CMA on 11/05/24 13:42 Dose Route Admin Location Dispensed Lot Number Expiration Date [facility] Ventilating Expert 0.5 mL IM Left Deltoid 0.5 mL [id number] 04/28/25 [id number] 121[employer] VIS Given Date VIS Provided VIS Publication Date 11/05/24 Single Vaccine 21 Eligibility Eligibility Date Funding Source Not [facility] Eligible 11/05/24 Private Coding Level of Care Code Est Pt Level 4 (09398) Complex EM visit Add On G2211 Diagnoses Type 2 diabetes mellitus with hyperglycemia, without long-term current use of insulin E11.65 Diabetes mellitus residential insulin use: without extermination inspector use Essential hypertension I10 Hypertension type: essential hypertension Hypercholesterolemia E78.00 Asthma J45.909 Obstructive sleep apnea G47.33 Class 3 severe obesity due to excess calories with serious comorbidity and body mass index (BMI) of 40.0 to 44.9 in adult E66.01; Z68.41 Body mass index: BMI 40.0-44.9 Obesity classification: adult class 3 (BMI >= 40) Obesity type: due to excess calories Serious obesity comorbidity presence: with serious comorbidity Interstitial cystitis N30.10 Nicotine dependence, cigarettes, uncomplicated F17.210 Nipple discharge N64.52 Assessment & Plan Assessment & Plan (1) Type 2 diabetes mellitus with hyperglycemia: Comment: Dr. Rayray joyce [facility] Code(s): E11.65 - Type 2 diabetes mellitus with hyperglycemia Category: Medical Qualifiers: Diabetes mellitus extermination inspector insulin use: without extermination inspector use Qualified Code(s): E11.65 - Type 2 diabetes mellitus with hyperglycemia Plan: Decrease the amount of carbohydrate intake, pasta, bread, rice and potatoes are all sugar and that is aside from all the sweet stuff, remember that fruits are good but they are Sweet also. Hemoglobin A1c goal of less than 7.0. Patient has been having having hypoglycemic episodes on Jardiance 25 mg once a day on insulin Lantus on Ozempic 0.5 mg once a week. (2) Hypertension: Code(s): I10 - Essential (primary) hypertension Category: Medical Qualifiers: Hypertension type: essential hypertension Qualified Code(s): I10 - Essential (primary) hypertension Plan: Continue with blood pressure medication. Decrease salt intake and exercise patient takes metoprolol 25 mg once a day losartan 100 mg once a day isosorbide mononitrate 30 mg once a day (3) Hypercholesterolemia: Code(s): E78.00 - Pure hypercholesterolemia, unspecified Category: Medical Plan: Avoid fried foods, chicken skin, eggs, butter margarine, pastries and meat. Be it pork or beef they have a lot of cholesterol LDL goal of less than 100 and triglyceride of less than 150 patient is taking simvastatin 10 mg at bedtime. (4) Asthma: Comment: (PFTs consistent with Bronchial Asthma) CONTINUE SYMBICORT 160-4.52 PUFFS B.I.D. AND USE PROAIR 2 PUFFS Q 4-6 HOURS ONLY P.R.N.. DOES NOT HAVE TO USE THE NEBULIZER AT THIS TIME Code(s): J45.909 - Unspecified asthma, uncomplicated Category: Medical Plan: Continue with albuterol inhaler as needed. On Symbicort also (5) Obstructive sleep apnea: Comment: FREDDY - CPAP - auto PAP mode pressure 6-16) Code(s): G47.33 - Obstructive sleep apnea (adult) (pediatric) Category: Medical Plan: has not been using the CPAP but states doing good (6) Obesity: Code(s): E66.9 - Obesity, unspecified Category: Medical Qualifiers: Body mass index: BMI 40.0-44.9 Obesity classification: adult class 3 (BMI >= 40) Obesity type: due to excess calories Serious obesity comorbidity presence: with serious comorbidity Qualified Code(s): E66.01 - Morbid (severe) obesity due to excess calories; Z68.41 - Body mass index [BMI]40.0-44.9, adult Plan: Continue with diet and exercise, weight loss as noted on Ozempic and Jardiance. (7) Interstitial cystitis: Code(s): N30.10 - Interstitial cystitis (chronic) without hematuria Category: Medical Plan: Patient continues to follow-up with urology. (8) Nicotine dependence, cigarettes, uncomplicated: Comment: (current smoker, onset 13yo, 1ppd x 49yrs, now 1/2ppd - 40pyh) Code(s): F17.210 - Nicotine dependence, cigarettes, uncomplicated Category: Medical Plan: Patient is strongly advised to stop smoking (9) Nipple discharge: Comment: right breast Code(s): N64.52 - Nipple discharge Category: Medical Plan: culture done, referral to surgeon and antibiotic sent Plan - Continue monitoring blood glucose levels with current regimen of Jardiance and Ozempic, reassess as necessary. - Follow-up dermatological evaluation advised for potential steroids; patient to contact final assembly and packing supervisor due to spreading symptoms. - Initiate Augmentin for breast mass with possible infection, noted for seven days. Monitor for signs of infection or changes. - Reinforce routine blood work and annual tests to ensure comprehensive ongoing assessment of overall health. - Advise contacting specialists as needed for adjusted ongoing care urology, dermatology), ensuring seamless coordination between specialties. Orders: Orders AMB Hemoglobin A1c Today Z13.9 - Encounter for screening, unspecified Influenza [id number] Immunization Today Z23 - Encounter for immunization Routine Culture w Gram Stain Today N64.52 - Nipple discharge Referrals General Surgery Referral N64.52 - Nipple discharge Medications: New amoxicillin-pot clavulanate 875-125 mg 1 tab PO BID 14 tabs 0RF N64.52 - Nipple discharge Discontinued insulin glargine (Lantus Solostar U-100 Insulin) or as directed. discussed about escalating doses for the according to BS Discontinued Reason: Patient Refused 15 units (0.15 mL) subcut QPM 30 days 4.5 mL 11RF E11.65 - Type 2 diabetes mellitus with hyperglycemia
--- OUTSIDE RECORDS SUMMARY | 2024-11-05 15:51 | XMS_ITS | Continuity of Care Document ---
Author Organization [employer] Address [address] [place] [address] Care Team Providers Care Garbage Collector Driver Name Role Phone HIM CCA OTHER Assessment Encounter Date Assessment Date Assessment LastModified by Organization Details LastModified Time 08/08/2024 08/08/2024 I provided real -time medical direction via phone for this encounter and was available for additional phone-based assistance as needed. I have reviewed and agree with the Assessment and Plan as documented by the Patternmaker Grader. Patient given the opportunity to ask questions. Our service contacted for an assessment of: Rash As per above, patient developed rash as seen in the pictures below approximately a month ago. It was unclear what was the inciting event but she has subsequently been putting bacitracin and hydrocortisone cream on this. She states that eventually it got better and now has become dark in nature. She denies any pruritus. She has a CPAP mask that she does not wear. She otherwise does not have any pressure to the areas noted in the pictures. There has been no trauma as well. She states that this started on both sides of her face around the same time which was approximately a month ago. She denies any new personal hygiene products or creams. No new soaps as well. Per home theater experience expert on the scene, vital signs are stable the patient is afebrile. Please see uploaded pictures. Impression: Possible post inflammatory hyperpigmentation Plan: Advised to stop using any creams or lotions including topical preparations of hydrocortisone cream and bacitracin that she has been applying. Monitor for progression. If unresolving over the next several weeks then would advise to contact PCP for dermatology referral. Allergies: Reviewed and updated to include lisinopril and metformin PCP f/u: We discussed the diagnostic uncertainty of home visits and the risk associated with this. In this case, the patient and I felt this to be an acceptable and reasonable amount of risk given the benefit of avoiding an ED visit. We discussed the need to seek care urgently/emergently in the setting of any new or worsening serious symptoms, particularly fever chills lightheadedness altered mental status [email or web address] Not available 08/08/2024 16:34:23 Plan of Treatment Reminders Order Date Submit Date Provider Last Modified By Organization Details Last Modified Time Details Appointments None record ed. Lab None record ed. Referral None record ed. Procedures None record ed. Surgeries None record ed. Imaging None record ed. Medication Orders None record ed. Patient TargetsNo targets recorded. Patient InstructionsNo instructions recorded. Reason for Referral None Reported. Medical Equipment None Reported. Allergies Allergen ID Allergen Name Allergen Category Reaction Reaction Severity Criticality Documentation Date Start Date Code Code System Note Provider Name and Address Organization Details Recorded Time 6496 lisinopri l medicatio n Not available Not available Not available 08/08/2024 13394 RxNorm Madison Stanley MD [address] [place] [address],[address], [place], [address], [employer] 16:32:00 6497 metformin medicatio n Not available Not available Not available 08/08/2024 6809 RxNorm Madison Stanley MD [address] [place] [address],[address], [place], [phone], [employer] 16:32:07 Medications Name Sig Start Date Stop Date Status Note LastModified by Organization Details LastModified Time amoxicillin 500 mg capsule TOME TREVOR C PSULA VILMA VECES AL D A HASTA QUE SE TERMINE active Not Available Not Available N ot Available latanoprost 0.005 % eye drops PONGA TREVOR GOTA EN LOS DOS OJOS TODOS LOS D AT NIGHT active Not Available Not Available Not Available prednisone 10 mg tablet TAKE 4 TABS DAILY X2 DAYS,3 TABS X2 DAYS, 2 TABS X2 DAYS THEN 1 TAB X 2 DAYS active Not Available Not Available No t Available albuterol sulfate 2.5 mg/3 mL (0.083 %) solution for nebulization active Not Available Not Available Not Available azithromycin 250 mg tablet TOME 2 TABLETAS POR V A ORAL HOY, LUEGO TOME 1 TABLETA POR D A KJ 4 D active Not Available Not Available No t Available fluconazole 150 mg tablet TOME TREVOR TABLETA POR V A ORAL EVERY 3 DAYS FOR 1 DAY active Not Available Not Available No t Available FreeStyle Lancets 28 gauge USE TO TEST 3 TIMES DAILY active Not Available Not Available No t Available prednisone 20 mg tablet active Not Available Not Available Not Available isosorbide mononitrate ER 30 mg tablet,exten ded release 24 hr TOME TREVOR TABLETA TODOS LOS D active Not Available Not Available No t Available ropinirole 3 mg tablet TOME TREVOR TABLETA DOS VECES AL D A active Not Available Not Available No t Available simvastatin 10 mg tablet TOME TREVOR TABLETA TODOS LOS D AL ACOSTARSE active Not Available Not Available No t Available hydroxyzine HCl 50 mg tablet TOME TREVOR O DOS TABLETAS POR V A ORAL AL ACOSTARSE CUANDO SEA NECESARIO PARA LA ANSIEDAD /INSOMNIA active Not Available Not Available No t Available omeprazole 40 mg capsule,zachariah yed release TOME TREVOR C PSULA TODOS LOS D active Not Available Not Available No t Available ketorolac 0.5 % eye drops INSTILL 1 DROP INTO RIGHT EYE FOUR TIMES A DAY FOR 2 DAYS AFTER LASER THEN STOP active Not Available Not Available No t Available oxycodone-ac etaminophen 5 mg-325 mg tablet TAKE ONE TABLET BY MOUTH 3 TIMES A DAY NEEDED FOR PAIN FOR 28 DAYS active Not Available Not Available Not Available amitriptylin e 25 mg tablet TAKE 1 TO 2 TABLETS BY MOUTH AT BEDTIME FOR SLEEP,DEPRE SSION OR PAIN NEEDED active Not Available Not Available No t Available ibuprofen 400 mg tablet TAKE 1 TO 2 TABLETS BY MOUTH EVERY 6 TO 8 HOURS NEEDED FOR PAIN active Not Available Not Available No t Available metoprolol succinate ER 25 mg tablet,exten ded release 24 hr TOME TREVOR TABLETA TODOS LOS D active Not Available Not Available No t Available albuterol sulfate HFA 90 mcg/actuatio n aerosol inhaler INHALE 2 PUFF ORALLY EVERY 6 HOURS NEEDED FOR SHORTNESS OF BREATH OR WHEEZING active Not Available Not Available Not Available ondansetron 4 mg disintegrati ng tablet active Not Available Not Available No t Available losartan 100 mg tablet TOME TREVOR TABLETA TODOS LOS D active Not Available Not Available No t Available fluoxetine 20 mg capsule TOME 2 C PSULAS POR V A ORAL TODOS LOS D EN LA [place] LANE active Not Available Not Available No t Available fluticasone propionate 50 mcg/actuatio n nasal spray,suspen ramirez SPRAY 2 SPRAYS EN CADA VENTANILLA DE LA NARIZ A DIARIO active Not Available Not Available No t Available bupropion HCl XL 150 mg 24 hr tablet, extended release TOME TREVOR TABLETA TODOS LOS D EN LA [place] LANE active Not Available Not Available No t Available lactulose 10 gram/15 mL oral solution TAKE 30MLS BY MOUTH EVERY DAY active Not Available Not Available No t Available fenofibrate 160 mg tablet TOME TREVOR TABLETA TODOS LOS D active Not Available Not Available No t Available FreeStyle Lite Strips DIRECTED CHECK BLOOD SUGAR 3 TIMES A DAY active Not Available Not Available Not Available Lantus Solostar U-100 Insulin 100 unit/mL (3 mL) subcutaneous pen INJECT 12 UNIT (0.12 ML) SUBCUTANEOU SLY EVERY EVENING FOR 30 DAYS OR DIRECTED. active Not Available Not Available No t Available Jardiance 10 mg tablet TOME TREVOR TABLETA TODOS LOS D active Not Available Not Available No t Available Jardiance 25 mg tablet TOME TREVOR TABLETA POR V A ORAL TODOS LOS [place] active Not Available Not Available No t Available Incruse Ellipta 62.5 mcg/actuatio n powder for inhalation TOME TREVOR INHALACI N POR V A ORAL AL ACOSTARSE active Not Available Not Available No t Available Trelegy Ellipta 200 mcg-62.5 mcg-25 mcg powder for inhalation INHALE UN SOPLIDO A DIARIO active Not Available Not Available No t Available Ozempic 0.25 mg or 0.5 mg (2 mg/3 mL) subcutaneous pen injector INJECT 0.5 MG (0.736 ML) SUBCUTANEOU SLY EVERY WEEK FOR 30 DAYS FOR 4 WEEKS THEN 0.5 MG EVERY WEEK active Not Available Not Available N ot Available Vitals Date Recorded Body temperature Body height Oxygen saturation Oxygen saturation in Arterial blood by Pulse oximetry Respiratory rate Heart rate Body weight Systolic blood pressure Diastolic blood pressure Provider Name and Address Organization Details Last Updated DateTime 4 98.4 [degF] 149.86 cm 98 % 98 % 18 /min 65 /min 71149.3 52 g 179 mm[Hg] 91 mm[Hg] Not Available [facility] 4 13:41:18 Social History None recorded. Functional Status None recorded. Mental Status None recorded. Family History Nothing Reported. Medical History No medical history recorded. Gynecological HistoryNo gynecological history recorded. Obstetrics History GPAL:G 0 P 0 0 0 0 Past Encounters Encounter ID Performer Location Encounter Start Date Encounter Closed Date Diagnosis/Indication Diagnosis SNOMED-CT Code Diagnosis ICD10 Code Diagnosis Note [id number] Madison Stanley MD Main [address] [address] 08/08/2024 13:41:09 08/08/2024 19:32:46 Localized eruption of skin 422945934 R21 Health Concerns Section Related Observation LastModified by Organization Detai ls LastModified Time None Recorded Concern Status LastModified by Organization Details LastModified Time None Recorded Payers Encounter Date Sequence Insurance Name Policy Number Policy Herrera Covered Member ID Herrera Member ID Guarantor Name 08/08/2024 1 [facility] - DOS ON OR AFTER 2023 - DUAL ELIGIBLE - LONG-TERM OPTIONS AND ONE CARE (MEDICARE REPLACEMENT/ADV ANTAGE - HMO) Rafia Treviño [id number] Rafia Treviño Notes Date Note Type Note Provider Name and Address Organization Details Recorded Time 08/08/2024 text/html [facility] Nurse Triage Notes (Renuka Jacinto): Chief Complaints: Rash PMH: Hypertension, COPD/Asthma Other Allergies: lisinipril, Metformin Comments: Allergies: Lisinopril, MetforminPatient reports rash to face x4 weeks. When it started it looked like mosquito bites. Developed into blisters on both cheeks that are open and draining. Areas are red and swollen. Left side worse than right side. Derm appt not until mid August. Recently referred to Derm by PCP for these areas . ...................... ...................... ...................... ...................... ...................... ...................... ......... Patternmaker Grader Note From Michele Stone: Dispatched to the above address for the reported rash for over 4 weeks. Upon our arrival the pt stated she has had the rash for the last 4 weeks and now they are draining a little fluid at times. The pt states she has not changed her soaps that she has been using for cleansing and there has been no trauma noted with this. The pt states she has used an antibiotic and pain relief cream on her face and she has also used Hydrocortisone cream as well with no relief. The pt stated she does have a dermatology appointment in August but she was wondering if there was anything that could be done sooner. Dr. Stanley was contacted and she advised that the pt stop using the creams and see if the skin dries out and then wait for her appointment. The pt was educated. ...................... ...................... ...................... ...................... ...................... ...................... ......... Disposition: Fulfilled Madison Stanley MD [address] [facility],[address], [place], [address], [employer] 08/08/2024 16:34:36 OBGyn Episode No OBEpisode recorded.
--- OUTSIDE RECORDS SUMMARY | 2024-11-05 15:51 | XMS_ITS | Data Portability ---
Author Organization [employer] Address [address] [place] [address] Care Team Providers Care Automation Technician Name Role Phone HIM CCA OTHER Assessment Encounter Date Assessment Date Assessment LastModified by Organization Details LastModified Time 10/31/2023 10/31/2023 I provided real -time medical direction via phone for this encounter, and was available for additional phone based assistance as needed. I have reviewed and agree with the Assessment and Plan as documented by the Senior Science Consultant. Patient given the opportunity to ask questions. As per above, patient with recent ED visit for signs and symptoms of an URI. Diagnosed with a COPD exacerbation with a dry cough, exp wheezing. Using meds appropriately and improving. COVID, flu negative. UA checked because she has an overactive bladder. Also negative. A - Already of treatment for a COPD exacerbation P - continue with current plan We discussed the diagnostic uncertainty of home visits and the risk associated with this. In this case, the patient and I felt this to be an acceptable and reasonable amount of risk given the benefit of avoiding an ED visit. We discussed the need to seek care urgently/emergently in the setting of any new or worsening serious symptoms, particularly fever chills [email or web address] Not available 10/31/2023 16:23:05 08/08/2024 08/08/2024 I provided real -time medical direction via phone for this encounter and was available for additional phone-based assistance as needed. I have reviewed and agree with the Assessment and Plan as documented by the Senior Science Consultant. Patient given the opportunity to ask questions. [...] creams. No new soaps as well. Per assistant statistician on the scene, vital signs are stable [...] particularly fever chills lightheadedness altered [facility] Not [facility] 08/08/2024 16:34:23 Plan of Treatment Reminders Order Date Submit Date Provider Last Modified By Organization Details Last Modified Time Details Appointments None recorded. Lab culture, urine 2023 024 [facility], [address] [place] [address], [id number], 4 12:06:16 urinalysis , dipstick 2023 024 [facility], [address] [place] [address], [phone], 4 17:18:27 Referral None recorded. Procedures None recorded. Surgeries None recorded. Imaging None recorded. Medication Orders None recorded. Patient TargetsNo targets recorded. Patient InstructionsNo instructions recorded. Reason for Referral None Reported. Results Created Date Observation Date Name Description Value Unit Range Abnormal Flag Note LastModifiedBy Organization Detail LastModifiedTime 02/25/20 24 02/29/2024 URINE CULTU RE,CO MPREH ENSIV E urine culture,comp rehensive Final report Not Available [facility] ([facility]) [address], [place], [address], 02/29/2024 10:06:17 02/25/2002/29/2024 URINE CULTU RE,CO MPREH ENSIV E result 1 COMMEN T No growt h in 36 - 48 hours . Not Available [facility] ([facility]) [address], [place], [address], 02/29/2024 10:06:17 Result Notes None recorded. Medical Equipment None Reported. Allergies Allergen ID Allergen Name Allergen Category Reaction Reaction Severity Criticality Documentation Date Start Date Code Code System Note Provider Name and Address Organization Details Recorded Time 6496 lisinopri l medicatio n Not available Not available Not available 08/08/2024 91899 RxNorm Madison Stanley MD [address] [place] [address],[address], [place], [address], [employer] 16:32:00 6497 metformin medicatio n Not available Not available Not available 08/08/2024 6809 RxNorm Madison Stanley MD [address] [place] [address],[address], [place], [phone], [employer] 16:32:07 Medications Name Sig Start Date Stop [...] N ot Available Vitals Date Recorded Body weight Respiratory rate Heart rate Body height Oxygen saturation Oxygen saturation in Arterial blood by Pulse oximetry Body temperature Systolic blood pressure Diastolic blood pressure Provider Name and Address Organization Details Last Updated DateTime 4 33640.7 2 g 16 /min 90 /min 154.94 cm 97 % 97 % 98.5 [degF] 154 mm[Hg] 83 mm[Hg] Not Available [facility] [employer] 4 16:20:03 Date Recorded Body height Oxygen saturation Oxygen saturation in Arterial blood by Pulse oximetry Heart rate Body temperature Respiratory rate Body weight Systolic blood pressure Diastolic blood pressure Provider Name and Address Organization Details Last Updated DateTime 4 149.86 cm 98 % 98 % 76 /min 97.2 [degF] 16 /min 38213.5 36 g 146 mm[Hg] 77 mm[Hg] Not Available [employer] [facility] [employer] 4 11:54:56 Date Recorded Body temperature Body height Oxygen saturation Oxygen saturation in Arterial blood by Pulse oximetry Respiratory rate Heart rate Body weight Systolic blood pressure Diastolic blood pressure Provider Name and Address Organization Details Last Updated DateTime 4 98.4 [degF] 149.86 cm 98 % 98 % 18 /min 65 /min 29826.3 52 g 179 mm[Hg] 91 mm[Hg] Not Available [employer] [facility] 4 13:41:18 Social History None recorded. Functional Status None recorded. Mental Status None recorded. Family History Nothing Reported. Medical History No medical history recorded. Gynecological HistoryNo gynecological history recorded. 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 She has some suprapubli c pain and dysuria. Her U/A was normal. I ordered a U/C and recommende d that she follow-up with her PCP regarding the results. The patient agreed with this plan. [id number] Madison Stanley MD Main - [facility] [address] [place] [phone] 08/08/2024 13:41:09 08/08/2024 19:32:46 Localized eruption of skin 243739320 R21 Health Concerns Section Related Observation LastModified by Organization Detai ls LastModified Time None Recorded Concern Status LastModified by Organization Details LastModified Time None Recorded Advance Directives Directive None Recorded Payers Encounter Date Sequence Insurance Name Policy Number Policy Herrera Covered Member ID Herrera Member ID Guarantor Name 10/31/[address] [facility] - DOS ON OR AFTER 2023 - DUAL ELIGIBLE - LONG TERM OPTIONS AND ONE CARE (MEDICARE REPLACEMENT/ADV ANTAGE - HMO) Rafia Treviño [id number] Rafia L Treviño 02/25/[address] [facility] - DOS ON OR AFTER 2023 - DUAL ELIGIBLE - LONG TERM OPTIONS AND ONE CARE (MEDICARE REPLACEMENT/ADV ANTAGE - HMO) Rafia Treviño [id number] Rafia L Treviño 08/08/2024 1 [facility] - DOS ON OR AFTER 2023 - DUAL ELIGIBLE - LONG TERM OPTIONS AND ONE CARE (MEDICARE REPLACEMENT/ADV ANTAGE - HMO) Rafia Treviño [id number] Rafia L Treviño Notes Date Note Type Note Provider Name and Address Organization Details Recorded Time 10/31/2023 text/html [facility] Nurse Triage Notes (Gini Chapin): Reason For Request: Pt reporting chest pain + severe headache + back pain + a little burning with urination>symptoms going on 4 days Mbr states going to ED yesterday and left after nurse eval, was given prednisone and discharged. Chief Complaints: Chest Pain, Pain, UTI/Pyelonephritis, Headache PMH: Hypertension, COPD/Asthma, Other Allergies: Unknown Comments: Verified identity / address Member c/o chest pain when breathing in but is intermittent. Member went to the ER , they did not do any labs, did an exray said that it was normal, but has a h/o PNA . Member also c/o back pain, has a stone in left kidney. Member was giving prednisone as they felt she has bronchitis. Member did not see the dr and was discharged. COVID test negative RED FLAGS REVIEWED OF WHEN TO CALL 911 PMH FREDDY , restless leg, liver disease ...................... ...................... ...................... ...................... ...................... ...................... ......... Senior Science Consultant Note From Kevin Vieira: Pt reports 3 days of dry cough, mild GODDARD and increased urinary frequency. Pt denies dysuria, hematuria, SOB at rest, f/n/v/d. Pt does have hx of COPD, uses albuterol nebs q6h and overactive bladder. Pt reports going to the ED yesterday, had negative chest X-ray and was sent home with prednisone 60 mg for five days, Benzonatate and mucinex. Pt is alert, NAD. VSS. Afebrile. Non focal neuro exam. Normal gait. Slight expiratory wheezing and bilateral rhochi. Benign ABD exam. No CVA tenderness. No LE edema. Rapid covid and flu negative. UA not suggestive of infection. Pt? s sx seem c/w COPD exacerbation for which she is being treated appropriately for. Pt treated today with a duoneb. Pt instructed to continue her new medications, increase nebs to q4h, call back if sx don't improve after the prednisone and to seek emergent medical care for new or worsening sx, which are reviewed with her. ...................... ...................... ...................... ...................... ...................... ...................... ......... Disposition: Fulfilled Madison Lizeth, MD [address] [facility],[address], [place], [address], [employer] 10/31/2023 16:23:20 02/25/2024 text/html CRC Nurse Triage Notes (Jean Santos): Chief Complaints: Abdominal Pain, Fever/Chills, UTI/Pyelonephritis PMH: Hypertension, COPD/Asthma Allergies: Unknown Comments: College Coach verified the member's name//address and phone number. Mbr calling requesting visit; reports periumbilical abdominal pain and bilateral flank pain since Monday. Mbr also reports difficulty taking deep breath on L side due to pain with deep inspiration, reports hurts in flank area. Mbr also reports low body temps & chills- reports temps 95-97F. Education provided on the response time and the member was advised to monitor reported s/s and seek emergency treatment if needed -ALISHA Mcgregor MD [address] [place] [address],[address], [place], [address], [facility] 02/25/2024 12:00:15 08/08/2024 text/html CRC Nurse Triage Notes (Renuka [...] ...................... ...................... ...................... ...................... ...................... ...................... ......... Senior Science Consultant Note From Michele Stone: Dispatched to the [...] ......... Disposition: Fulfilled Madison Stanley MD [address] [facility],[address], [place], [address], [employer] 08/08/2024 16:34:36 OBGyn Episode No OBEpisode recorded.
== END 2024-11-05 14:03 | disposition home or self-care (01) ==
PROVIDERS: PCP Internal Medicine; Visit Provider Internal Medicine
DX: E11.65 Type 2 diabetes mellitus with hyperglycemia (principal); E66.01 Morbid (severe) obesity due to excess calories; Z68.41 Body mass index [BMI] 40.0-44.9, adult; I10 Essential (primary) hypertension; E78.00 Pure hypercholesterolemia, unspecified; J45.909 Unspecified asthma, uncomplicated; G47.33 Obstructive sleep apnea (adult) (pediatric); N30.10 Interstitial cystitis (chronic) without hematuria; F17.210 Nicotine dependence, cigarettes, uncomplicated; N64.52 Nipple discharge; Z23 Encounter for immunization

== ENCOUNTER → 2024-11-05 13:21 | Outpatient (BNVA) | payer OTHER, SELFPAY | PROVIDERS: PCP Internal Medicine; Visit Provider Internal Medicine | DX: E11.649 Type 2 diabetes mellitus with hypoglycemia without coma (principal); E11.65 Type 2 diabetes mellitus with hyperglycemia; I10 Essential (primary) hypertension; E78.00 Pure hypercholesterolemia, unspecified; J45.909 Unspecified asthma, uncomplicated; G47.33 Obstructive sleep apnea (adult) (pediatric); E66.01 Morbid (severe) obesity due to excess calories; N30.10 Interstitial cystitis (chronic) without hematuria; F17.210 Nicotine dependence, cigarettes, uncomplicated; N64.52 Nipple discharge; Z23 Encounter for immunization; Z68.41 Body mass index [BMI] 40.0-44.9, adult | CPT/HCPCS: 83036; 87070; 87147; 87205; 90471; 90656; 96127; 99212 ==

== ENCOUNTER 2024-11-05 15:13 | Outpatient (REF) | payer OTHER, SELFPAY | END 2024-11-05 15:14 | disposition home or self-care (01) | LOC: HO.LNP 15:13 | PROVIDERS: Visit Provider Internal Medicine | DX: Z13.89 Encounter for screening for other disorder (principal) | CPT/HCPCS: 87070; 87147; 87205 ==

== ENCOUNTER 2024-11-28 14:16 | Outpatient (AMB) | payer OTHER, SELFPAY ==
--- NOTE | 2024-11-28 14:21 | A.OFFVIS_ITS ---
Vital Signs 11/28/24 14:28 Height 4 ft 11 in Weight 155 lb BMI 31.3 BP 133/66 Blood Pressure Location Lt brachial Position Sitting Pulse 71 Intake Visit Reasons: nipple discharge Intake Note: Patient is seen in office for nipple discharge. Pt c/o: right breast discharge, yellowish/green for the past 8 weeks, discharge when applying presurse on the breast, denies pain, redness or infection, was given antbx 11/05/24 and help with the inflammation L.OV: 08/25/22 Principal Automation Engineer Required: No Van Driver Helper: Van Driver Helper Present Accompanied by: Self / Same As Patient Allergies metformin Adverse Reaction (Intermediate, Verified 11/28/24 14:28) Vomiting lisinopril [From Zestril] Adverse Reaction (Mild, Verified 11/28/24 14:28) COUGH Medication List - Last Reconciled 11/28/24 by Leonard Moe MD albuterol sulfate 0.63 mg (3 mL) inhalation QID PRN albuterol sulfate 2.5 mg (3 mL) inhalation Q4H PRN albuterol sulfate 90 mcg/actuation 2 puffs PO Q6H PRN amitriptyline 25 mg PO BEDTIME amoxicillin-pot clavulanate 875-125 mg 1 tab PO BID biotin 1 mg PO DAILY blood sugar diagnostic (FreeStyle Lite Strips) As directed check the BS TID blood-glucose meter (FreeStyle Lite Meter kit) As directed bupropion HCl XL 150 mg PO BEDTIME joey.stocking,knee,reg,smal As directed 20-30 mm HG doxycycline hyclate 100 mg PO BID empagliflozin 25 mg PO DAILY 30 days fenofibrate 160 mg PO DAILY fexofenadine (Amara Allergy) 180 mg PO DAILY PRN fluoxetine 40 mg PO QAM fluticasone propionate 50 mcg/actuation (Allergy Relief (fluticasone)) 2 sprays intranasal DAILY ddamncicpas-nyepeefvu-iolyorfz 200-62.5-25 mcg (Trelegy Ellipta) 1 inh inhalation DAILY hydrocortisone 2.5% (Proctosol HC) 1 appl MS BID-QID PRN hydrocortisone acetate 1% appl topical PRN hydroxyzine HCl 50 mg PO BID isosorbide mononitrate ER 30 mg PO DAILY lactulose 20 grams (30 mL) PO DAILY 30 days lancets (FreeStyle Lancets) As directed check BS TID latanoprost 0.005% 1 drp ophthalmic (eye) BEDTIME lidocaine 5% 1 appl topical TID losartan (Cozaar) 100 mg PO DAILY 90 days metoprolol succinate ER 25 mg PO DAILY naproxen 500 mg PO BID PRN nebulizers (AeroEclipse II Nebulizer) As directed omeprazole 40 mg PO DAILY oxycodone-acetaminophen 5-325 mg 1 tab PO TID PRN 28 days pen needle, diabetic (BD Purnima 2nd Gen Pen Needle) As directed ropinirole 3 mg PO BID 30 days semaglutide (Ozempic) 0.5 mg (0.736 mL) subcut QWEEK 30 days simvastatin 10 mg PO BEDTIME 30 days tamsulosin (Flomax) 0.4 mg PO BEDTIME HPI Comments Details: 64-year-old female patient with a prior history of nipple discharge now returning with approximately 6-8 weeks of discharge from the right nipple. This is occasionally yellow or whitish in color. To discharge seems to build up onto the nipple causing discomfort at which time she needs to evacuate with gentle pressure. The discharge occurs almost daily. She denies any bloody discharge. 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 She denies any fever or chills. She was previously placed on amoxicillin for continues to have the discharge. [facility] Medical History Tobacco abuse Osteopenia (~2018) Nicotine dependence, cigarettes, uncomplicated Allergic rhinitis Irritable bowel syndrome Obstructive sleep apnea Obesity Restless leg syndrome Asthma Insomnia Interstitial cystitis Osteoarthritis of hip Right renal stone GERD (gastroesophageal reflux disease) Anxiety and depression Hypercholesterolemia Fatty liver Hypertension Lumbar degenerative disc disease Type 2 diabetes mellitus with hyperglycemia Surgical History History of breast lump/mass excision History of hand surgery History of foot surgery History of surgical removal of ganglion cyst History of colonoscopy History of nasal surgery History of esophagogastroduodenoscopy (EGD) History of removal of cyst History of lithotripsy History of bladder surgery History of carpal tunnel release History of tonsillectomy and adenoidectomy History of cholecystectomy History of total abdominal hysterectomy and bilateral salpingo-oophorectomy History of section Family History Father CAD (coronary artery disease) CVD (cerebrovascular disease) Lung cancer Hypertension Mother Hypertension Diabetes Cancer Daughter Breast cancer Paternal Uncle Myocardial infarction Paternal Aunt Myocardial infarction Maternal Uncle Myocardial infarction Bone cancer Other FH: mental illness Substance abuse Social History Housing: Apartment Alcohol intake: current Alcohol intake frequency: does not drink Patient Tobacco Use Status: Current everyday Tobacco user Tobacco use type: Cigarette Cigarettes Per Day: 8 Years Smoked: (current smoker, onset 13yo, 1ppd x 49yrs, now 1/2ppd - 40pyh) e-Cigarette/Vaping Use: Never Used Second Hand Smoke Exposure: No service: No Current occupational status: disabled Cognitive needs: No Hearing needs: No Vision needs: Yes Review of Systems Const All systems reviewed & are unremarkable except as noted in HPI and below Physical Exam Vital Signs: Last Vital Signs Pulse 71 11/28/24 14:28 BP 133/66 11/28/24 14:28 BMI result Body Mass Index 31.3 Const General: comfortable and no acute distress Nutritional Appearance: well nourished Orientation/consciousness: patient oriented x3 Limitations: no limitations Chest Other: Right breast: Well-healed incision in the upper outer quadrant Kaela areolar skin. Until pressure on the nipple produces of whitish discharge with no blood. No definite palpable masses appreciated. GI Inspection: Yes normal to inspection Skin General skin exam: no rashes or lesions noted Neuro General: patient oriented x3 Extrem General: Yes no clubbing, cyanosis or edema Assessment & Plan Assessment & Plan (1) Nipple discharge: Comment: right breast Code(s): N64.52 - Nipple discharge Category: Medical Plan The options of continued observation, restarting antibiotics, or excision of the offending duct once again was offered. The relative risks and benefits of each were reviewed. The patient wishes to hold off on surgery in his willing to try antibiotics once again. I recommended a follow-up examination in 2 weeks for re-evaluation. She expressed understanding and agrees with the plan. Medications: New doxycycline hyclate 100 mg PO BID 20 tabs 1RF N64.52 - Nipple discharge Coding Level of Care Code Est Pt Level 3 (40917) Diagnoses Nipple discharge N64.52
[2024-11-28 14:28] VITALS: BP 133/66; PULSE 71; BMI 31.3
--- OUTSIDE RECORDS SUMMARY | 2024-11-28 18:04 | XMS_ITS | Data Portability ---
Author Organization [facility] [place] Address [address] [place] [address] Care Team Providers Care Mushroom Laborer Name Role Phone HIM CCA OTHER Assessment Encounter Date Assessment Date Assessment LastModified by Organization Details LastModified Time 10/31/2023 10/31/2023 I provided real -time medical direction via phone for this encounter, and was available for additional phone based assistance as needed. I have reviewed and agree with the Assessment and Plan as documented by the Air Conditioning Equipment Mechanic. Patient given the opportunity to ask questions. [...] Assessment and Plan as documented by the Air Conditioning Equipment Mechanic. Patient given the opportunity to ask questions. [...] creams. No new soaps as well. Per control inspector on the scene, vital signs are stable [...] particularly fever chills lightheadedness altered mental status [facility] Not available 08/08/2024 16:34:23 Plan of Treatment Reminders Order Date Submit Date Provider Last Modified By Organization Details Last Modified Time Details Appointments None recorded. Lab culture, urine 2023 024 [facility], [address] [place] [address], [id number], 4 12:06:16 urinalysis , dipstick [address] [facility], [address] [place] [address], [phone], 4 17:18:27 Referral None recorded. Procedures None [...] culture,comp rehensive Final report Not Available [facility] ([facility]) [address] [facility], [place], [address], 02/29/2024 10:06:17 02/25/2002/29/2024 URINE CULTU RE,CO MPREH ENSIV E result 1 COMMEN T No growt h in 36 - 48 hours . Not Available [facility] ([facility]) [address] [facility], [place], [address], 02/29/2024 10:06:17 Result Notes None recorded. Medical Equipment None Reported. Allergies Allergen ID Allergen Name Allergen Category Reaction Reaction Severity Criticality Documentation Date Start Date Code Code System Note Provider Name and Address Organization Details Recorded Time 6496 lisinopri l medicatio n Not available Not available Not available 08/08/2024 59851 RxNorm Madison Stanley MD [address] [place] [address],[address], [place], [phone], [place] 16:32:00 6497 metformin medicatio n Not available Not available Not available 08/08/2024 6809 RxNorm Madison Stanley MD [address] [place] [address],[address], [place], [phone], [place] 16:32:07 Medications Name Sig Start Date Stop [...] Address Organization Details Last Updated DateTime 4 64436.7 2 g 16 /min 90 /min 154.94 [...] % 76 /min 97.2 [degF] 16 /min 99524.5 36 g 146 mm[Hg] 77 mm[Hg] Not Available [facility] 4 11:54:56 Date Recorded Body temperature Body height Oxygen saturation Oxygen saturation in Arterial blood by Pulse oximetry Respiratory rate Heart rate Body weight Systolic blood pressure Diastolic blood pressure Provider Name and Address Organization Details Last Updated DateTime 4 98.4 [degF] 149.86 cm 98 % 98 % 18 /min 65 /min 56512.3 52 g 179 mm[Hg] 91 mm[Hg] Not Available [facility] 4 13:41:18 Social History None recorded. Functional Status None recorded. Mental Status None recorded. Family History Nothing Reported. Medical History No medical history recorded. Gynecological HistoryNo gynecological history recorded. 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 She has some suprapubli c pain and dysuria. Her U/A was normal. I ordered a U/C and recommende d that she follow-up with her PCP regarding the results. The patient agreed with this plan. [id number] Madison Stanley MD [facility] [address] [place] [phone] 08/08/2024 13:41:09 08/08/2024 19:32:46 Localized eruption of skin [id number] R21 Health Concerns Section Related Observation LastModified by Organization Detai ls LastModified Time None Recorded Concern Status LastModified by Organization Details LastModified Time None Recorded Advance Directives Directive None Recorded Payers Encounter Date Sequence Insurance Name Policy Number Policy Herrera Covered Member ID Herrera Member ID Guarantor Name 10/31/2023 1 [facility] - DOS ON OR AFTER 2023 - DUAL ELIGIBLE - SHELTER OPTIONS AND ONE CARE (MEDICARE REPLACEMENT/ADV ANTAGE - HMO) Rafia Treviño [id number] Rafia L Treviño 02/25/2024 1 [facility] - DOS ON OR AFTER 2023 - DUAL ELIGIBLE - SHELTER OPTIONS AND ONE CARE (MEDICARE REPLACEMENT/ADV ANTAGE - HMO) Rafia Treviño [id number] Rafia L Treviño 08/08/2024 1 [facility] - DOS ON OR AFTER 2023 - DUAL ELIGIBLE - SHELTER OPTIONS AND ONE CARE (MEDICARE REPLACEMENT/ADV ANTAGE - HMO) Rafia Treviño [id number] Rafia L Treviño Notes Date Note Type [...] ...................... ...................... ...................... ...................... ...................... ...................... ......... Air Conditioning Equipment Mechanic Note From Kevin Vieira: Pt reports 3 [...] ......... Disposition: Fulfilled Madison Lizeth, MD [address] [facility],[address], [place], [phone], [facility] 10/31/2023 16:23:20 02/25/2024 text/html CRC Nurse Triage Notes (Jean Santos): Chief Complaints: Abdominal Pain, Fever/Chills, UTI/Pyelonephritis PMH: Hypertension, COPD/Asthma Allergies: Unknown Comments: Guardian Family Member verified the member's name//address and phone number. [...] emergency treatment if needed -ALISHA Mcgregor MD [address] [place] [address],[address], [place], [address], [facility] 02/25/2024 12:00:15 08/08/2024 text/html CRC Nurse Triage [...] ...................... ...................... ...................... ...................... ...................... ...................... ......... Air Conditioning Equipment Mechanic Note From Michele Stone: Dispatched to the [...] ......... Disposition: Fulfilled Madison Stanley MD [address] [facility],[address], [place], [phone], [employer] 08/08/2024 16:34:36 OBGyn Episode No OBEpisode recorded.
== END 2024-11-28 14:38 | disposition home or self-care (01) ==
PROVIDERS: PCP Internal Medicine; Visit Provider Surgery
DX: N64.52 Nipple discharge (principal)
CPT/HCPCS: 99213

== ENCOUNTER → 2024-11-28 14:16 | Outpatient (BNVA) | payer OTHER, SELFPAY | PROVIDERS: PCP Internal Medicine; Visit Provider Surgery | DX: N64.52 Nipple discharge (principal) | CPT/HCPCS: 99212 ==

== ENCOUNTER 2024-12-12 10:57 | Outpatient (AMB) | payer OTHER, SELFPAY ==
--- NOTE | 2024-12-12 11:00 | A.OFFVIS_ITS ---
Vital Signs 12/12/24 11:08 Height 4 ft 11 in Weight 155 lb 6 oz BMI 31.4 BP 135/63 Blood Pressure Location Lt brachial Position Sitting Pulse 73 Intake Visit Reasons: 2 week follow up nipple discharge Intake Note: Patient is seen in office for 2 wks follow up visit, following nipple discharge. Pt c/o: admits to lump getting bigger, swollen and painful, all done with antbx, discharge only when squeezing it, denies redness or infection *observation, on antbx * Banking Teacher Required: No Accompanied by: Self / Same As Patient Allergies metformin Adverse Reaction (Intermediate, Verified 12/12/24 11:01) Vomiting lisinopril [From Zestril] Adverse Reaction (Mild, Verified 12/12/24 11:01) COUGH Medication List - Last Reconciled 12/12/24 by Leonard Moe MD albuterol sulfate 0.63 mg (3 mL) inhalation QID PRN albuterol sulfate 2.5 mg (3 mL) inhalation Q4H PRN albuterol sulfate 90 mcg/actuation 2 puffs PO Q6H PRN amitriptyline 25 mg PO BEDTIME amoxicillin-pot clavulanate 875-125 mg 1 tab PO BID biotin 1 mg PO DAILY blood sugar diagnostic (FreeStyle Lite Strips) As directed check the BS TID blood-glucose meter (FreeStyle Lite Meter kit) As directed bupropion HCl XL 150 mg PO BEDTIME joey.stocking,knee,reg,smal As directed 20-30 mm HG doxycycline hyclate 100 mg PO BID empagliflozin 25 mg PO DAILY 30 days fenofibrate 160 mg PO DAILY fexofenadine (Amara Allergy) 180 mg PO DAILY PRN fluoxetine 40 mg PO QAM fluticasone propionate 50 mcg/actuation (Allergy Relief (fluticasone)) 2 sprays intranasal DAILY znopaanhwbk-litapkadw-cqtbwogf 200-62.5-25 mcg (Trelegy Ellipta) 1 inh inhalation DAILY hydrocortisone 2.5% (Proctosol HC) 1 appl [place] BID-QID PRN hydrocortisone acetate 1% appl topical PRN hydroxyzine HCl 50 mg PO BID isosorbide mononitrate ER 30 mg PO DAILY lactulose 20 grams (30 mL) PO DAILY 30 days lancets (FreeStyle Lancets) As directed check BS TID latanoprost 0.005% 1 drp ophthalmic (eye) BEDTIME lidocaine 5% 1 appl topical TID losartan (Cozaar) 100 mg PO DAILY 90 days metoprolol succinate ER 25 mg PO DAILY naproxen 500 mg PO BID PRN nebulizers (AeroEclipse II Nebulizer) As directed omeprazole 40 mg PO DAILY oxycodone-acetaminophen 5-325 mg 1 tab PO TID PRN 28 days pen needle, diabetic (BD Purnima 2nd Gen Pen Needle) As directed ropinirole 3 mg PO BID 30 days semaglutide (Ozempic) 0.5 mg (0.736 mL) subcut QWEEK 30 days simvastatin 10 mg PO BEDTIME 30 days tamsulosin (Flomax) 0.4 mg PO BEDTIME HPI Comments Details: 64-year-old female patient with a prior history of nipple discharge now returning with approximately 8 weeks of discharge from the right nipple. This is occasionally yellow or whitish in color. The discharge seems to build up onto the nipple causing discomfort at which time she needs to evacuate with gentle pressure. The discharge occurs almost daily. She denies any bloody discharge. 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 She denies any fever or chills. She was treated with a 2nd course of antibiotics without any significant change she returns today for follow-up examination. [facility] Medical History Tobacco abuse Osteopenia (~2018) Nicotine dependence, cigarettes, uncomplicated Allergic rhinitis Irritable bowel syndrome Obstructive sleep apnea Obesity Restless leg syndrome Asthma Insomnia Interstitial cystitis Osteoarthritis of hip Right renal stone GERD (gastroesophageal reflux disease) Anxiety and depression Hypercholesterolemia Fatty liver Hypertension Lumbar degenerative disc disease Type 2 diabetes mellitus with hyperglycemia Surgical History History of breast lump/mass excision History of hand surgery History of foot surgery History of surgical removal of ganglion cyst History of colonoscopy History of nasal surgery History of esophagogastroduodenoscopy (EGD) History of removal of cyst History of lithotripsy History of bladder surgery History of carpal tunnel release History of tonsillectomy and adenoidectomy History of cholecystectomy History of total abdominal hysterectomy and bilateral salpingo-oophorectomy History of section Family History Father CAD (coronary artery disease) CVD (cerebrovascular disease) Lung cancer Hypertension Mother Hypertension Diabetes Cancer Daughter Breast cancer Paternal Uncle Myocardial infarction Paternal Aunt Myocardial infarction Maternal Uncle Myocardial infarction Bone cancer Other FH: mental illness Substance abuse Social History Housing: Apartment Alcohol intake: current Alcohol intake frequency: does not drink Patient Tobacco Use Status: Current everyday Tobacco user Tobacco use type: Cigarette Cigarettes Per Day: 8 Years Smoked: (current smoker, onset 13yo, 1ppd x 49yrs, now 1/2ppd - 40pyh) e-Cigarette/Vaping Use: Never Used Second Hand Smoke Exposure: No service: No Current occupational status: disabled Cognitive needs: No Hearing needs: No Vision needs: Yes Review of Systems Const All systems reviewed & are unremarkable except as noted in HPI and below Physical Exam Vital Signs: Last Vital Signs Pulse 73 12/12/24 11:08 BP 135/63 12/12/24 11:08 BMI result Body Mass Index 31.4 Const General: comfortable and no acute distress Nutritional Appearance: well nourished Orientation/consciousness: patient oriented x3 Limitations: no limitations Chest Other: Right breast: Well-healed incision in the upper outer quadrant Kaela areolar skin. Until pressure on the nipple produces of whitish discharge with no blood. No definite palpable masses appreciated. GI Inspection: Yes normal to inspection Skin General skin exam: no rashes or lesions noted Neuro General: patient oriented x3 Extrem General: Yes no clubbing, cyanosis or edema Assessment & Plan Assessment & Plan (1) Nipple discharge: Comment: right breast Code(s): N64.52 - Nipple discharge Category: Medical Plan 64-year-old female patient presenting with a recurrent galactorrhea of the right nipple with a probable dilated lactiferous duct causing the persistent whitish discharge. Patient has persistent discomfort when the lesion fills. We discussed the options of continued observation verses re-excision of the offending duct. After discussion of the procedure, risks, and alternatives, she consents to a right nipple lactiferous duct excision. She will be scheduled as a short-stay surgery. Coding Level of Care Code Est Pt Level 3 (07873) Diagnoses Nipple discharge N64.52
[2024-12-12 11:08] VITALS: BP 135/63; PULSE 73; BMI 31.4
--- OUTSIDE RECORDS SUMMARY | 2024-12-12 11:42 | XMS_ITS | Data Portability ---
Author Organization [employer] [place] [facility] [employer] Address [address] [place] [address] Care Team Providers Care Coding Specialist Home Health Name Role Phone HIM CCA OTHER Assessment Encounter Date Assessment Date Assessment LastModified by Organization Details LastModified Time 10/31/2023 10/31/2023 I provided real -time medical direction via phone for this encounter, and was available for additional phone based assistance as needed. I have reviewed and agree with the Assessment and Plan as documented by the Tax Manager. Patient given the opportunity to ask questions. [...] Assessment and Plan as documented by the Tax Manager. Patient given the opportunity to ask questions. [...] creams. No new soaps as well. Per pharmacist technician on the scene, vital signs are stable [...] fever chills lightheadedness altered mental [facility] Not available 08/08/2024 16:34:23 Plan of Treatment Reminders Order Date Submit Date Provider Last Modified By Organization Details Last Modified Time Details Appointments None recorded. Lab culture, urine 2023 024 [place] [facility], [address] [place] [address], [address], 4 12:06:16 urinalysis , dipstick 2023 024 [facility], [address] [place] [address], [phone], 4 17:18:27 Referral None recorded. Procedures None [...] culture,comp rehensive Final report Not Available [facility] ([facility]) [address] [facility], [place], [address], 02/29/2024 10:06:17 02/25/2002/29/2024 URINE CULTU RE,CO MPREH ENSIV E result 1 COMMEN T No growt h in 36 - 48 hours . Not Available [facility] ([facility]) [address] [facility], [place], [address], 02/29/2024 10:06:17 Result Notes None recorded. Medical Equipment None Reported. Allergies Allergen ID Allergen Name Allergen Category Reaction Reaction Severity Criticality Documentation Date Start Date Code Code System Note Provider Name and Address Organization Details Recorded Time 6496 lisinopri l medicatio n Not available Not available Not available 08/08/2024 19214 RxNorm Madison Stanley MD [address] [place] [address],[address], [place], [address], [employer] 16:32:00 6497 metformin medicatio n Not available Not available Not available 08/08/2024 6809 RxNorm Madison Stanley MD [address] [place] [address],[address], [place], [address], [employer] 16:32:07 Medications Name Sig Start Date Stop [...] Address Organization Details Last Updated DateTime 4 70062.7 2 g 16 /min 90 /min 154.94 [...] % 76 /min 97.2 [degF] 16 /min 46151.5 36 g 146 mm[Hg] 77 mm[Hg] Not Available [facility] - production 4 11:54:56 Date Recorded Body temperature Body height Oxygen saturation Oxygen saturation in Arterial blood by Pulse oximetry Respiratory rate Heart rate Body weight Systolic blood pressure Diastolic blood pressure Provider Name and Address Organization Details Last Updated DateTime 4 98.4 [degF] 149.86 cm 98 % 98 % 18 /min 65 /min 15793.3 52 g 179 mm[Hg] 91 mm[Hg] Not Available [facility] - [facility] 4 13:41:18 Social History None recorded. Functional Status None recorded. Mental Status None recorded. Family History Nothing Reported. Medical History No medical history recorded. Gynecological HistoryNo gynecological history recorded. 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 She has some suprapubli c pain and dysuria. Her U/A was normal. I ordered a U/C and recommende d that she follow-up with her PCP regarding the results. The patient agreed with this plan. [id number] Madison Stanley MD [facility] - [facility] [address] [place] [id number] 08/08/2024 13:41:09 08/08/2024 19:32:46 Localized eruption of skin [id number] R21 Health Concerns Section Related Observation LastModified by Organization Detai ls LastModified Time None Recorded Concern Status LastModified by Organization Details LastModified Time None Recorded Advance Directives Directive None Recorded Payers Encounter Date Sequence Insurance Name Policy Number Policy Herrera Covered Member ID Herrera Member ID Guarantor Name 10/31/2023 1 [facility] - DOS ON OR AFTER 2023 - DUAL ELIGIBLE - USP OPTIONS AND ONE CARE (MEDICARE REPLACEMENT/ADV ANTAGE - HMO) Rafia Treviño [id number] Rafia L Treviño 02/25/2024 1 [facility] - DOS ON OR AFTER 2023 - DUAL ELIGIBLE - USP OPTIONS AND ONE CARE (MEDICARE REPLACEMENT/ADV ANTAGE - HMO) Rafia Treviño [id number] Rafia L Treviño 08/08/2024 1 [facility] - DOS ON OR AFTER 2023 - DUAL ELIGIBLE - USP OPTIONS AND ONE CARE (MEDICARE REPLACEMENT/ADV ANTAGE - HMO) Rafia Treviño [id number] Rafia L Treviño Notes Date Note Type [...] ...................... ...................... ...................... ...................... ...................... ...................... ......... Tax Manager Note From Kevin Vieira: Pt reports 3 [...] ......... Disposition: Fulfilled Madison Lizeth, MD [address] [facility],[address], [place], [address], [facility] 10/31/2023 16:23:20 02/25/2024 text/html CRC Nurse Triage Notes (Jean Santos): Chief Complaints: Abdominal Pain, Fever/Chills, UTI/Pyelonephritis PMH: Hypertension, COPD/Asthma Allergies: Unknown Comments: Floater Operator verified the member's name//address and phone number. [...] emergency treatment if needed -ALISHA Mcgregor MD [address] [place] [address],[address], [place], [address], [facility] 02/25/2024 12:00:15 08/08/2024 text/html CRC Nurse Triage [...] ...................... ...................... ...................... ...................... ...................... ...................... ......... Tax Manager Note From Michele Stone: Dispatched to the [...] ......... Disposition: Fulfilled Madison Stanley MD [address] [facility],[address], [place], [address], [employer] [facility] [employer] 08/08/2024 16:34:36 OBGyn Episode No OBEpisode recorded.
== END 2024-12-12 11:24 | disposition home or self-care (01) ==
PROVIDERS: PCP Internal Medicine; Visit Provider Surgery
DX: N64.52 Nipple discharge (principal)
CPT/HCPCS: 99213

== ENCOUNTER → 2024-12-12 10:57 | Outpatient (BNVA) | payer OTHER, SELFPAY | PROVIDERS: PCP Internal Medicine; Visit Provider Surgery | DX: N64.52 Nipple discharge (principal) | CPT/HCPCS: 99212 ==

== ENCOUNTER 2025-01-23 08:17 | Outpatient (REF) | payer OTHER, SELFPAY ==
[2025-01-23 08:35] LABS: MANUAL DIFF FLAG NO
[2025-01-23 09:47] LABS: Basophils Absolute Auto 0.1 X10*3/uL (0.0-0.2); Basophils Percent Auto 0.7 % (0-2); Eosinophils Absolute Auto 0.1 X10*3/uL (0.0-0.4); Eosinophils Percent Auto 1.7 % (0-4); Hematocrit 43.3 % (37.0-47.0); Hemoglobin 14.6 g/dl (12.0-16.0); Imm Gran Abs Auto 0.02 X10*3/uL (0.00-0.03); Imm Gran Pct Auto 0.3 % (0.0-0.4); Lymphocytes Absolute Auto 2.8 X10*3/uL (1.2-4.9); Lymphocytes Percent Auto 40.9 % (20-40); Mean Corpuscular HGB Conc 33.7 g/dl (31.0-35.0); Mean Corpuscular Volume 91.9 fL (80.0-98.0); Mean Platelet Volume 10.8 fL (9.4-12.3); Monocytes Absolute Auto 0.4 X10*3/uL (0.1-1.2); Monocytes Percent Auto 6.3 % (2-11); Neutrophils Absolute Auto 3.5 x10*3/uL (2.0-8.3); Neutrophils Percent Auto 50.1 % (45-73); Platelet Count 228 X10*3/uL (160-400); Red Blood Count 4.71 X10*6/uL (4.20-5.50); Red Cell Distribution Width 14.4 % (11.0-16.0); White Blood Count 6.9 X10*3/uL (4.8-10.8)
[2025-01-23 09:50] LABS: Estimated Average Glucose 105 mg/dL; Hemoglobin A1c % 5.3 % (<6.0)
[2025-01-23 10:20] LABS: Parathyroid Hormone Intact 63.3 pg/mL (8.7-77.1)
[2025-01-23 10:27] LABS: Appearance Urine Clear; Color Urine Yellow; Glucose Urine UA >=1000 mg/dL (Negative); Leukocyte Esterase Urine Negative (Negative); Nitrite Urine Negative (Negative); PH 6.5 (5.0-9.0); UMIC TRIGGER UACC YES; Urine Blood Negative (Negative); Urine Ketones Negative (Negative); Urine Protein Negative (Neg-Trace)
[2025-01-23 10:31] LABS: Alanine Aminotransferase 30 U/L (0-31); Albumin Level 4.1 g/dL (3.5-5.0); Alkaline Phosphatase 67 U/L (39-117); Anion Gap 10 (12-20); Aspartate Amino Transferase 44 U/L (5-31); Bilirubin Total 0.5 mg/dL (0.0-1.0); Blood Urea Nitrogen 21 mg/dL (9-16); Calcium 9.7 mg/dL (8.4-10.2); Carbon Dioxide 27 mmol/L (22-29); Chloride 106 mmol/L (96-108); Estimated Glomerular Filt Rate > 60; Glucose Random 79 mg/dL (60-115); Potassium 4.2 mmol/L (3.3-5.1); Sodium 139 mmol/L (135-145); Total Protein 7.1 g/dL (6.5-8.0)
[2025-01-23 10:38] LABS: Bacteria Urine Trace (None Seen); Hyaline Casts Urine 0-2 /LPF (0-2); RBC Urine 0-2 /HPF (0-2); WBC Urine 0-5 /HPF (0-5)
[2025-01-23 10:47] LABS: Folate 13.5 ng/mL (> or = 4.0); Vitamin B12 333 pg/mL (200-900)
[2025-01-23 10:50] LABS: Free T4 (Free Thyroxine) 1.03 ng/dL (0.71-1.85); Thyroid Stimulating Hormone 1.19 uIU/mL (0.32-4.0)
[2025-01-23 11:19] LABS: Creatinine Urine 60.04 mg/dL; Microalbum/Creatinine Ratio Ur 9.9 ug/mg cr (<30)
[2025-01-24 14:33] LABS: Calcium, Ionized 5.3 mg/dL (4.7-5.5)
== END 2025-01-23 08:18 | disposition home or self-care (01) ==
LOC: HO.LAB 08:17
PROVIDERS: PCP Internal Medicine; Visit Provider Internal Medicine
DX: E83.52 Hypercalcemia (principal); E11.65 Type 2 diabetes mellitus with hyperglycemia
CPT/HCPCS: 36415; 80053; 81001; 81003; 82043; 82330; 82570; 82607; 82746; 83036; 83970; 84439; 84443; 85025

== ENCOUNTER 2025-01-27 07:44 | Day surgery (SDC) | payer OTHER, SELFPAY ==
--- OUTSIDE RECORDS SUMMARY | 2025-01-09 08:14 | XMS_ITS | Data Portability ---
Author Organization [employer] [place] [facility] [employer] Address [address] [place] [address] Care Team Providers Care Associate Biological Sales Name Role Phone HIM CCA OTHER Assessment Encounter Date Assessment Date Assessment LastModified by Organization Details LastModified Time 10/31/2023 10/31/2023 I provided real -time medical direction via phone for this encounter, and was available for additional phone based assistance as needed. I have reviewed and agree with the Assessment and Plan as documented by the Thermo Processor. Patient given the opportunity to ask questions. [...] Assessment and Plan as documented by the Thermo Processor. Patient given the opportunity to ask questions. [...] creams. No new soaps as well. Per supervisor framing mill on the scene, vital signs are stable [...] particularly fever chills lightheadedness altered mental status [place] [id number] Not available 08/08/2024 16:34:23 Plan of Treatment Reminders Order Date Submit Date Provider Last Modified By Organization Details Last Modified Time Details Appointments None recorded. Lab culture, urine 2023 024 [place] [facility] ([facility] Electronic Ordering - All Locations), Patient Can Go To The Location Of Their Choice, [id number] 4 12:06:16 urinalysis , dipstick 2023 024 [facility], [address] [place] [address], [phone], 4 17:18:27 Referral None recorded. Procedures None [...] report Not Available [facility] ([facility]) [address] [facility], [place], [address], 02/29/2024 10:06:17 02/25/2002/29/2024 URINE CULTU RE,CO MPREH ENSIV E result 1 COMMEN T No growt h in 36 - 48 hours . Not Available [facility] ([facility]) [address] [facility], [place], [address], 02/29/2024 10:06:17 Result Notes None recorded. Medical Equipment None Reported. Allergies Allergen ID Allergen Name Allergen Category Reaction Reaction Severity Criticality Documentation Date Start Date Code Code System Note Provider Name and Address Organization Details Recorded Time 6496 lisinopri l medicatio n Not available Not available Not available 08/08/2024 38680 RxNorm Madison Stanley MD [address] [place] [address],[address], [place], [address], [employer] 16:32:00 6497 metformin medicatio n Not available Not available Not available 08/08/2024 6809 RxNorm Madison Stanley MD [address] [place] [address],[address], [place], [address], [facility] 16:32:07 Medications Name Sig Start Date Stop [...] Address Organization Details Last Updated DateTime 4 49375.7 2 g 16 /min 90 /min 154.94 [...] % 76 /min 97.2 [degF] 16 /min 27504.5 36 g 146 mm[Hg] 77 mm[Hg] Not Available [facility] - production 11:54:56 Date Recorded Body temperature Body height Oxygen saturation Oxygen saturation in Arterial blood by Pulse oximetry Respiratory rate Heart rate Body weight Systolic blood pressure Diastolic blood pressure Provider Name and Address Organization Details Last Updated DateTime 4 98.4 [degF] 149.86 cm 98 % 98 % 18 /min 65 /min 80033.3 52 g 179 mm[Hg] 91 mm[Hg] Not Available [employer] [facility] - production 13:41:18 Social History None recorded. Functional Status None recorded. Mental Status None recorded. Family History Nothing Reported. Medical History No medical history recorded. Gynecological HistoryNo gynecological history recorded. Obstetrics History GPAL:G 0 P 0 0 0 0 Past Encounters Encounter ID Performer Location Encounter Start Date Encounter Closed Date Diagnosis/Indication Diagnosis SNOMED-CT Code Diagnosis ICD10 Code Diagnosis Note [id number] Madison Stanley MD [facility] [address] [place] [phone] 10/31/2023 16:20:01 11/01/2023 14:26:42 Viral upper respiratory tract infection [id number] J06.9 [id number] Michele Reyna MD [facility] - [facility] [address] [place] [id number] 02/25/2024 11:54:53 02/25/2024 17:21:50 Psychogenic dysuria [id number] F45.8 This 63-year-ol d female with interstiti al cystitis thinks she has a UTI. She has some suprapubli c pain and dysuria. Her U/A was normal. I ordered a U/C and recommende d that she follow-up with her PCP regarding the results. The patient agreed with this plan. [id number] Madison Stanley MD [facility] [address] [place] [id number] 08/08/2024 13:41:09 08/08/2024 19:32:46 Localized eruption of skin [id number] R21 Health Concerns Section Related Observation LastModified by Organization Detai ls LastModified Time None Recorded Concern Status LastModified by Organization Details LastModified Time None Recorded Advance Directives Directive None Recorded Payers Encounter Date Sequence Insurance Name Policy Number Policy Herrera Covered Member ID Herrera Member ID Guarantor Name 10/31/2023 1 [facility] - DOS ON OR AFTER 2023 - DUAL ELIGIBLE - PENITENTIARY OPTIONS AND ONE CARE (MEDICARE REPLACEMENT/ADV ANTAGE - HMO) Rafia Treviño [id number] Rafia Hugo Treviño 02/25/2024 1 [facility] - DOS ON OR AFTER 2023 - DUAL ELIGIBLE - PENITENTIARY OPTIONS AND ONE CARE (MEDICARE REPLACEMENT/ADV ANTAGE - HMO) Rafia Treviño [id number] Rafia L Treviño 08/08/2024 1 [facility] DOS ON OR AFTER 2023 - DUAL ELIGIBLE - PENITENTIARY OPTIONS AND ONE CARE (MEDICARE REPLACEMENT/ADV ANTAGE - HMO) Rafia Treviño [id number] Rafia L Treviño Notes Date Note Type [...] ...................... ...................... ...................... ...................... ...................... ...................... ......... Thermo Processor Note From Kevin Vieira: Pt reports 3 [...] ......... Disposition: Fulfilled Madison Stanley MD [address] [facility],[address], [place], [address], [employer] 10/31/2023 16:23:20 02/25/2024 text/html CRC Nurse Triage Notes (Jean Santos): Chief Complaints: Abdominal Pain, Fever/Chills, UTI/Pyelonephritis PMH: Hypertension, COPD/Asthma Allergies: Unknown Comments: [employer] Bi Administrator verified the member's name//address and phone number. [...] emergency treatment if needed -ALISHA Mcgregor MD [address] [place] [address],[address], [place], [address], [employer] 02/25/2024 12:00:15 08/08/2024 text/html CRC Nurse Triage [...] ...................... ...................... ...................... ...................... ...................... ...................... ......... Thermo Processor Note From Michele Stone: Dispatched to the [...] ......... Disposition: Fulfilled Madison Stanley MD [address] [facility],[address], [place], [address], [employer] [facility] [employer] 08/08/2024 16:34:36 OBGyn Episode No OBEpisode recorded.
[2025-01-23 09:34] VITALS: BMI 30.9
--- NOTE | 2025-01-24 10:01 | P.CONAN_ITS ---
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) Nicotine dependence (Acute) Urinary incontinence (Acute) Kidney stone (Acute) Chronic interstitial cystitis (Acute) Hypercalcemia (Acute) Sacral pain (Acute) Alopecia (Acute) Breast cancer screening by mammogram (Acute) Type 2 diabetes mellitus with hyperglycemia (Acute) Hypertension (Acute) Hypercholesterolemia (Acute) Asthma (Acute) Obstructive sleep apnea (Acute) Nicotine dependence, cigarettes, uncomplicated (Acute) Allergic rhinitis (Acute) GERD (gastroesophageal reflux disease) (Acute) Irritable bowel syndrome (Acute) Fatty liver (Acute) Restless leg syndrome (Acute) Anxiety and depression (Acute) Insomnia (Acute) Obesity (Acute) Osteopenia (Acute ~2018) Lumbar degenerative disc disease (Acute) Osteoarthritis of hip (Acute) RUQ abdominal pain (Acute) Right renal stone (Acute) Interstitial cystitis (Acute) Shingles rash (Acute) Past Medical History Medical History Tobacco abuse Osteopenia (~2018) Nicotine dependence, cigarettes, uncomplicated Allergic rhinitis Irritable bowel syndrome Obstructive sleep apnea Obesity Restless leg syndrome Asthma Insomnia Interstitial cystitis Osteoarthritis of hip Right renal stone GERD (gastroesophageal reflux disease) Anxiety and depression Hypercholesterolemia Fatty liver Hypertension Lumbar degenerative disc disease Type 2 diabetes mellitus with hyperglycemia Family History Family History Father CAD (coronary artery disease) CVD (cerebrovascular disease) Lung cancer Hypertension Mother Hypertension Diabetes Cancer Daughter Breast cancer Paternal Uncle Myocardial infarction Paternal Aunt Myocardial infarction Maternal Uncle Myocardial infarction Bone cancer Other FH: mental illness Substance abuse Family history of problems with anesthesia: No Surgical History Surgical History History of breast lump/mass excision History of hand surgery History of foot surgery History of surgical removal of ganglion cyst History of colonoscopy History of nasal surgery History of esophagogastroduodenoscopy (EGD) History of removal of cyst History of lithotripsy History of bladder surgery History of carpal tunnel release History of tonsillectomy and adenoidectomy History of cholecystectomy History of total abdominal hysterectomy and bilateral salpingo-oophorectomy History of section History of Problems with Anesthesia: No Social History Social History Housing: Apartment Are you a primary director day care center to a significant other at home: No Do you presently have visiting nurse or other home services: No Alcohol intake: current Alcohol intake frequency: does not drink Patient Tobacco Use Status: Current everyday Tobacco user Tobacco use type: Cigarette Cigarettes Per Day: 7 Years Smoked: 40 Smoked in Last 30 Days: Yes e-Cigarette/Vaping Use: Never Used Second Hand Smoke Exposure: No Use of substances other than those prescribed or required for medical reasons: Yes Substance Use Frequency: Daily Have you been hit, kicked, punched, or otherwise hurt by someone within the past year? If so, by whom?: No Are you DNR?: No Advance Directives: No Advance Directives Information Provided: No Advance Directives on File: No Recently lost weight without trying: No How much weight loss: Not applicable Eating poorly because of decreased appetite: No Nutrition screen score: 0 Nutrition Risks: No Nutritional Risk Patient : No : No Poor oral hygiene: Yes (missing teeth throughout) service: No Current occupational status: disabled Cognitive needs: No Hearing needs: No Vision needs: Yes Meds Allergies Allergy/AdvReac Type Severity Reaction Status Date / Time metformin AdvReac Intermediate Vomiting Verified 01/27/25 08:27 lisinopril [From Zestril] AdvReac Mild COUGH Verified 01/27/25 08:27 Home Medications ?Medication ?Instructions ?Recorded ?Confirmed ?Last Taken ?Type amitriptyline 25 mg tablet 25 mg PO BEDTIME 09/03/20 01/27/25 11/28/22 History hydrocortisone acetate 1 % rectal 1 applic topical DAILY PRN Pain 09/03/20 01/27/25 11/28/22 History cream bupropion HCl 150 mg 24 hr tablet, 150 mg PO BEDTIME 02/17/21 01/27/25 05/07/24 04:30 History extended release fexofenadine 180 mg tablet 180 mg PO DAILY PRN Allergy 02/17/21 01/27/25 11/28/22 History ([facility] Allergy) Symptoms fluoxetine 20 mg capsule 40 mg PO QAM 06/30/21 01/27/25 11/28/22 History hydroxyzine HCl 50 mg tablet 50 mg PO BID 09/12/22 01/27/25 11/28/22 History lidocaine 5 % topical ointment 1 applic topical TID PRN Pain 01/27/25 01/27/25 Unknown History Exam Height,Weight and Vital Signs: Height 4 ft 11 in Weight 69.4 kg Pertinent Lab Results Pertinent Lab Results: Laboratory Tests 01/23/25 08:34 WBC 6.9 Hgb 14.6 Hct 43.3 Plt Count 228 Sodium 139 Potassium 4.2 Chloride 106 Carbon Dioxide 27 BUN 21 H Creatinine 0.72 Assessment and Plan Assessment Anesthesia Assessment: Chart Reviewed Final Anesthetic Review Family History of Problems with Anesthesia: No History of Problems with Anesthesia: No Documented by User: Melanie De Los Santos MD 01/27/25 09:24 [facility] Past Medical History Medical History Tobacco abuse Osteopenia (~2018) Nicotine dependence, cigarettes, uncomplicated Allergic rhinitis Irritable bowel syndrome Obstructive sleep apnea Obesity Restless leg syndrome Asthma Insomnia Interstitial cystitis Osteoarthritis of hip Right renal stone GERD (gastroesophageal reflux disease) Anxiety and depression Hypercholesterolemia Fatty liver Hypertension Lumbar degenerative disc disease Type 2 diabetes mellitus with hyperglycemia Family History Family History Father CAD (coronary artery disease) CVD (cerebrovascular disease) Lung cancer Hypertension Mother Hypertension Diabetes Cancer Daughter Breast cancer Paternal Uncle Myocardial infarction Paternal Aunt Myocardial infarction Maternal Uncle Myocardial infarction Bone cancer Other FH: mental illness Substance abuse Surgical History Surgical History History of breast lump/mass excision History of hand surgery History of foot surgery History of surgical removal of ganglion cyst History of colonoscopy History of nasal surgery History of esophagogastroduodenoscopy (EGD) History of removal of cyst History of lithotripsy History of bladder surgery History of carpal tunnel release History of tonsillectomy and adenoidectomy History of cholecystectomy History of total abdominal hysterectomy and bilateral salpingo-oophorectomy History of section Social History Social History Housing: Apartment Are you a primary director day care center to a significant other at home: No Do you presently have visiting nurse or other home services: No Alcohol intake: current Alcohol intake frequency: does not drink Patient Tobacco Use Status: Current everyday Tobacco user Tobacco use type: Cigarette Cigarettes Per Day: 7 Years Smoked: 40 Smoked in Last 30 Days: Yes e-Cigarette/Vaping Use: Never Used Second Hand Smoke Exposure: No Use of substances other than those prescribed or required for medical reasons: Yes Substance Use Frequency: Daily Have you been hit, kicked, punched, or otherwise hurt by someone within the past year? If so, by whom?: No Are you DNR?: No Advance Directives: No Advance Directives Information Provided: No Advance Directives on File: No Recently lost weight without trying: No How much weight loss: Not applicable Eating poorly because of decreased appetite: No Nutrition screen score: 0 Nutrition Risks: No Nutritional Risk Patient : No : No Poor oral hygiene: Yes (missing teeth throughout) service: No Current occupational status: disabled Cognitive needs: No Hearing needs: No Vision needs: Yes Meds Allergies Allergy/AdvReac Type Severity Reaction Status Date / Time metformin AdvReac Intermediate Vomiting Verified 01/27/25 08:27 lisinopril [From Zestril] AdvReac Mild COUGH Verified 01/27/25 08:27 Home Medications ?Medication ?Instructions ?Recorded ?Confirmed ?Last Taken ?Type amitriptyline 25 mg tablet 25 mg PO BEDTIME 09/03/20 01/27/25 11/28/22 History hydrocortisone acetate 1 % rectal 1 applic topical DAILY PRN Pain 09/03/20 01/27/25 11/28/22 History cream bupropion HCl 150 mg 24 hr tablet, 150 mg PO BEDTIME 02/17/21 01/27/25 05/07/24 04:30 History extended release fexofenadine 180 mg tablet 180 mg PO DAILY PRN Allergy 02/17/21 01/27/25 11/28/22 History ([facility] Allergy) Symptoms fluoxetine 20 mg capsule 40 mg PO QAM 06/30/21 01/27/25 11/28/22 History hydroxyzine HCl 50 mg tablet 50 mg PO BID 09/12/22 01/27/25 11/28/22 History lidocaine 5 % topical ointment 1 applic topical TID PRN Pain 01/27/25 01/27/25 Unknown History Exam Airway Mallampati Class: II TM Dist: >3cm Neck ROM: Full Heart: rrr Lungs: cta Assessment and Plan Assessment Anesthesia Assessment: Anesthesia Plan Discussed Final Anesthetic Review NPO: Yes ASA Class: III Final Preanesthetic Review: No Changes in Pt Med Stat, Meds/Allgs Chart Reviewed, Consent Obtained/Reviewed and Anes Risks/Benef Reviewed Patient Risk: Intermediate Procedure Risk: Low Anesthetic Plan Anesthetic Plan: MAC: Disposition: Standard PACU
[2025-01-27 08:33] VITALS: BMI 32.5
[2025-01-27 08:44] VITALS: BP 126/56; PULSE 63; RESP 16; TEMP 36.1; O2SAT 97
[2025-01-27] MEDS: Lactated Ringers 1,000 ML 100 ML IVCONT (08:45)
[2025-01-27 08:52] LABS: Glucose, Whole Blood 96 mg/dL (60-115)
--- NOTE | 2025-01-27 09:13 | MHC.SHP ---
Pre-Procedural Eval Section A - 24 Hr Update-Section A only Date of Service: 01/27/25 The patient is an INPATIENT: No Changes since office visit: Yes Patient answered all questions; No Cold of Flu in the past 2 weeks, No New Medical Problems and No Changes in Medication The patient has been examined within 24 hours of the surgical procedure. The History & Physical has been completed within 30 days and I have reviewed it.: Yes Section B - Complete if H&P > 30 days Chief Complaint: Nipple discharge Allergies: Allergies Allergy/AdvReac Type Severity Reaction Status Date / Time metformin AdvReac Intermediate Vomiting Verified 01/27/25 08:27 lisinopril [From Zestril] AdvReac Mild COUGH Verified 01/27/25 08:27 Plan Diagnosis/Plan: Unchanged I have reviewed the history and physical and performed a pertinent physical examination on my patient. No changes have occurred unless specified. Time Spent With Patient Time: Total time managing care of this patient today ____ minutes.
[2025-01-27] MEDS: ceFAZolin Sodium/Dextrose,Iso 2 GM/50 ML PIGGYBACK IV (09:30)
--- NOTE | 2025-01-27 10:03 | W.PM.OPN ---
Operative Note Operative Note Date of Service: 01/27/25 Narrative: Preoperative diagnosis: Galactorrhea right nipple Postoperative diagnosis: Same Procedure: Excision right breast lactiferous duct Surgeon: Leonard Moe MD Train Gate Attendant: Lucretia Mauricio PA-C Anesthesia:MAC plus local Indications for procedure: 64-year-old female patient presenting with complaints of right nipple discharge with associated discomfort. She presents today for excision of the offending right breast in the lactiferous duct Operative findings: Dilated milk ducts in a subareolar location at the 9 o'clock position Specimen: Right breast lactiferous duct Estimated blood loss: 2 mL Complications: None Procedure details: Patient was brought to the OR and placed in a supine position. After administering general anesthesia the patient's right breast was prepped with ChloraPrep and draped in a sterile fashion. A surgical time-out was called the consent confirmed. Patient received preoperative antibiotics and Venodyne boots were in place. Local anesthesia consisting of 0.5% Sensorcaine mixed with 1% lidocaine with epinephrine was then infiltrated in a circumareolar location in the lateral areola. A small lacrimal probe was placed into the symptomatic nipple duct and directed into the offending duct. A curvilinear incision was then made with a scalpel in the lateral breast from approximately 10-8 o'clock. This was then carried out through subcutaneous tissue. Sharp dissection was then used to dissect the symptomatic duct from the surrounding subareolar tissue. Specimen was excised and the the duct ligated both proximally and distally using a 3-0 Polysorb tie. Specimen was removed with the patient sent to pathology for further evaluation. Hemostasis was then assured using electrocautery. Wounds were irrigated with saline solution and suctioned dry. Deep breast tissue was reapproximated using interrupted 3-0 Polysorb sutures. Dermis was then reapproximated using interrupted 3-0 Polysorb sutures. Skin was then reapproximated using Steri-Strips followed by 2 x 2 gauze and Tegaderm. The patient tolerated the procedure well. Sponge, instrument, and needle counts reported as correct. The patient was transferred to PACU in stable condition.
[2025-01-27 10:12] VITALS: BP 93/33; PULSE 68; RESP 16; TEMP 36.1; O2SAT 94
[2025-01-27 10:15] VITALS: BP 111/51; PULSE 65; RESP 16; O2SAT 96
[2025-01-27 10:20] VITALS: BP 102/47; PULSE 68; RESP 16; O2SAT 96
[2025-01-27 10:25] VITALS: BP 105/54; PULSE 68; RESP 16; O2SAT 95
[2025-01-27 10:30] VITALS: BP 128/47; PULSE 64; RESP 16; TEMP 36.3; O2SAT 96
== END 2025-01-27 10:51 | disposition home or self-care (01) ==
PROVIDERS: PCP Internal Medicine; Visit Provider Surgery
PROC: (CPT 19112; principal; 2025-01-27 09:30)
DX: N64.52 Nipple discharge (principal); N64.3 Galactorrhea not associated with childbirth; I10 Essential (primary) hypertension; E78.00 Pure hypercholesterolemia, unspecified; E11.65 Type 2 diabetes mellitus with hyperglycemia; J45.909 Unspecified asthma, uncomplicated; M85.80 Other specified disorders of bone density and structure, unspecified site; K58.9 Irritable bowel syndrome, unspecified; K76.0 Fatty (change of) liver, not elsewhere classified; G25.81 Restless legs syndrome; F41.9 Anxiety disorder, unspecified; E66.9 Obesity, unspecified; Z68.31 Body mass index [BMI] 31.0-31.9, adult; G47.33 Obstructive sleep apnea (adult) (pediatric); Z87.442 Personal history of urinary calculi; Z79.85 Long-term (current) use of injectable non-insulin antidiabetic drugs; Z79.1 Long term (current) use of non-steroidal anti-inflammatories (NSAID); Z79.51 Long term (current) use of inhaled steroids; Z79.899 Other long term (current) drug therapy; Z88.8 Allergy status to other drugs, medicaments and biological substances; F17.210 Nicotine dependence, cigarettes, uncomplicated
CPT/HCPCS: 19112; 82947; 88305; 88307; J0690; J2003; J2405; J2704; J2795; J3010

== ENCOUNTER → 2025-01-27 07:44 | Outpatient (BNV) | payer OTHER, SELFPAY | PROVIDERS: PCP Internal Medicine; Visit Provider Surgery | DX: N64.52 Nipple discharge (principal) | CPT/HCPCS: 19110 ==

== ENCOUNTER 2025-02-05 10:59 | Outpatient (AMB) | payer OTHER, SELFPAY ==
--- NOTE | 2025-02-05 11:26 | A.OFFPC_ITS ---
Vital Signs 02/05/25 11:29 Height 4 ft 11 in Weight 159 lb 2 oz BMI 32.1 BP 100/68 Blood Pressure Location Lt brachial Position Sitting Pulse 61 Pulse Source Pulse Oximeter Temp 97.3 F Temp Source Temporal Artery Scan Pulse Oximetry (%) 96 Oxygen Delivery Method Room Air Intake Visit Reasons: DM, nipple discharge Right Intake Note: Patient is here to follow up on DM, Right Nipple discharge. It Operations Analyst Required: No Alteration Workroom Supervisor: Not Required per policy Accompanied by: Self / Same As Patient Allergies metformin Adverse Reaction (Intermediate, Verified 02/05/25 11:27) Vomiting lisinopril [From Zestril] Adverse Reaction (Mild, Verified 02/05/25 11:27) COUGH Medication List - Last Reconciled 02/05/25 by Hitesh Fairchild MD albuterol sulfate 0.63 mg (3 mL) inhalation QID PRN albuterol sulfate 2.5 mg (3 mL) inhalation Q4H PRN albuterol sulfate 90 mcg/actuation 2 puffs PO Q6H PRN amitriptyline 25 mg PO BEDTIME blood sugar diagnostic (FreeStyle Lite Strips) As directed check the BS TID blood-glucose meter (FreeStyle Lite Meter kit) As directed bupropion HCl XL 150 mg PO BEDTIME [email or web address],reg,smal As directed 20-30 mm HG empagliflozin 25 mg PO DAILY 30 days fenofibrate 160 mg PO DAILY fexofenadine (Amara Allergy) 180 mg PO DAILY PRN fluoxetine 40 mg PO QAM fluticasone propionate 50 mcg/actuation (Allergy Relief (fluticasone)) 2 sprays intranasal DAILY tnxkodnfvom-ldwbiealy-dstsbwww 200-62.5-25 mcg (Trelegy Ellipta) 1 inh inhalation DAILY hydrocortisone 2.5% (Proctosol HC) 1 appl NM BID-QID PRN hydrocortisone acetate 1% 1 appl topical DAILY PRN hydroxyzine HCl 50 mg PO BID isosorbide mononitrate ER 30 mg PO DAILY lactulose 20 grams (30 mL) PO DAILY 30 days lancets (FreeStyle Lancets) As directed check BS TID lidocaine 5% 1 appl topical TID PRN losartan (Cozaar) 100 mg PO DAILY 90 days metoprolol succinate ER 25 mg PO DAILY naproxen 500 mg PO BID PRN nebulizers (AeroEclipse II Nebulizer) As directed omeprazole 40 mg PO DAILY oxycodone 5 mg PO Q6H PRN oxycodone-acetaminophen 5-325 mg 1 tab PO TID PRN 28 days pen needle, diabetic (BD Purnima 2nd Gen Pen Needle) As directed ropinirole 3 mg PO BID 30 days semaglutide (Ozempic) 0.5 mg (0.736 mL) subcut QWEEK 30 days simvastatin 10 mg PO BEDTIME 30 days tamsulosin (Flomax) 0.4 mg PO BEDTIME Tobacco use date assessed: 02/05/25 Fall risk assessment: No Falls in past year Last assessed Fall Risk: 02/05/25 Dental Screening Dental Screen Date: 11/05/24 [facility] [place] Medical History (Updated 02/05/25 @ 12:14 by Hitesh Fairchild MD) Tobacco abuse Osteopenia (~2018) Nicotine dependence, cigarettes, uncomplicated Allergic rhinitis Irritable bowel syndrome Obstructive sleep apnea Obesity Restless leg syndrome Asthma Insomnia Interstitial cystitis Osteoarthritis of hip Right renal stone GERD (gastroesophageal reflux disease) Anxiety and depression Hypercholesterolemia Fatty liver Hypertension Lumbar degenerative disc disease Type 2 diabetes mellitus with hyperglycemia Surgical History History of surgery (01/27/25) History of breast lump/mass excision History of hand surgery History of foot surgery History of surgical removal of ganglion cyst History of colonoscopy History of nasal surgery History of esophagogastroduodenoscopy (EGD) History of removal of cyst History of lithotripsy History of bladder surgery History of carpal tunnel release History of tonsillectomy and adenoidectomy History of cholecystectomy History of total abdominal hysterectomy and bilateral salpingo-oophorectomy History of section Family History Father CAD (coronary artery disease) CVD (cerebrovascular disease) Lung cancer Hypertension Mother Hypertension Diabetes Cancer Daughter Breast cancer Paternal Uncle Myocardial infarction Paternal Aunt Myocardial infarction Maternal Uncle Myocardial infarction Bone cancer Other FH: mental illness Substance abuse Social History Housing: Apartment Are you a primary home care coordinator to a significant other at home: No Do you presently have visiting nurse or other home services: No Alcohol intake: current Alcohol intake frequency: does not drink Patient Tobacco Use Status: Current everyday Tobacco user Tobacco use type: Cigarette Cigarette Packs Per Day: 0.5 Cigarettes Per Day: 7 Years Smoked: 40 e-Cigarette/Vaping Use: Never Used Second Hand Smoke Exposure: Yes service: No Current occupational status: disabled Cognitive needs: No Hearing needs: No Vision needs: Yes Questionnaire Thrive Questionnaire Date Thrive assessed: 11/05/24 NICOLA-7 AMB Questionnaire NICOLA-7 Date NICOLA - 7 assessed: 11/05/24 Source: Developed by Drs. Mauro George, Mariana Medrano, James Truong and colleagues, with an educational romeo from [employer]. Physical exam (Primary Care) Vital Signs: Last Vital Signs Temp 97.3 F 02/05/25 11:29 Pulse 61 02/05/25 11:29 BP 100/68 02/05/25 11:29 Pulse Ox 96 02/05/25 11:29 Oxygen Delivery Method Room Air 02/05/25 11:29 BMI result Body Mass Index 32.1 Tobacco/Smoking Status: Tobacco use Status Tobacco use date assessed 02/05/25 02/05/25 11:35 Patient Tobacco Use Status Current everyday Tobacco 02/05/25 11:35 Tobacco use type Cigarette 02/05/25 11:35 e-Cigarette/Vaping Use Never Used 02/05/25 11:35 Thrive Assessment: Date of Thrive Assessment Date Thrive assessed 11/05/24 02/05/25 11:35 Const General: alert; No acute distress Eyes Conjunctivae: conjunctivae normal Resp Auscultation: clear to auscultation bilaterally Cardio Rate: regular rate Rhythm: regular rhythm GI Inspection: Yes normal to inspection Extrem General: Yes normal to inspection and No edema Coding Level of Care Code Est Pt Level 4 (49932) Complex EM visit Add On G2211 Diagnoses Nipple discharge N64.52 Type 2 diabetes mellitus with hyperglycemia, without long-term current use of insulin E11.65 Diabetes mellitus custodial insulin use: without rat exterminator use Essential hypertension I10 Hypertension type: essential hypertension Hypercholesterolemia E78.00 Obstructive sleep apnea G47.33 Nicotine dependence, cigarettes, uncomplicated F17.210 Gastroesophageal reflux disease without esophagitis K21.9 Esophagitis presence: without esophagitis Fatty liver K76.0 Class 3 severe obesity due to excess calories with serious comorbidity and body mass index (BMI) of 40.0 to 44.9 in adult E66.01; Z68.41 Body mass index: BMI 40.0-44.9 Obesity classification: adult class 3 (BMI >= 40) Obesity type: due to excess calories Serious obesity comorbidity presence: with serious comorbidity Edentulism K08.109 Assessment & Plan Assessment & Plan (1) Nipple discharge: Comment: right breast December 2024Excision right breast lactiferous duct Code(s): N64.52 - Nipple discharge Category: Medical Plan: Excision done in December. (2) Type 2 diabetes mellitus with hyperglycemia: Comment: Dr. Rayray joyce [facility] Code(s): E11.65 - Type 2 diabetes mellitus with hyperglycemia Category: Medical Qualifiers: Diabetes mellitus rat exterminator insulin use: without custodial use Qualified Code(s): E11.65 - Type 2 diabetes mellitus with hyperglycemia Plan: Decrease the amount of carbohydrate intake, pasta, bread, rice and potatoes are all sugar and that is aside from all the sweet stuff, remember that fruits are good but they are Sweet also. Hemoglobin A1c goal of less than 6.5 on Jardiance 25 mg once a day. Patient also on Ozempic once a week (3) Hypertension: Code(s): I10 - Essential (primary) hypertension Category: Medical Qualifiers: Hypertension type: essential hypertension Qualified Code(s): I10 - Essential (primary) hypertension Plan: Continue with blood pressure medication. Decrease salt intake and exercise on losartan 100 mg once a day (4) Hypercholesterolemia: Code(s): E78.00 - Pure hypercholesterolemia, unspecified Category: Medical Plan: Avoid fried foods, chicken skin, eggs, butter margarine, pastries and meat. Be it pork or beef they have a lot of cholesterol LDL goal of less than 100 and triglyceride of less than 150 on simvastatin (5) Obstructive sleep apnea: Comment: [facility]EDDY - CPAP - auto PAP mode pressure 6-16), cannot tolerate 01/2025 Code(s): G47.33 - Obstructive sleep apnea (adult) (pediatric) Category: Medical Plan: cannot tolerate CPAP (6) Nicotine dependence, cigarettes, uncomplicated: Comment: (current smoker, onset 13yo, 1ppd x 49yrs, now 1/2ppd - 40pyh) Code(s): F17.210 - Nicotine dependence, cigarettes, uncomplicated Category: Medical Plan: Patient is strongly advised to stop smoking! (7) GERD (gastroesophageal reflux disease): Comment: EGD Dr. Baez November 2018 Code(s): K21.9 - Gastro-esophageal reflux disease without esophagitis Category: Medical Qualifiers: Esophagitis presence: without esophagitis Qualified Code(s): K21.9 - Gastro-esophageal reflux disease without esophagitis Plan: Avoid the foods that causes that usually spicy foods, tomato products, juices, coffee, soda and foods that your sensitive to. After eating do not lie down, allow 3-4 hours before in lie down. And keep the head of bed above 30 degrees to avoid the acid from going up. (8) Fatty liver: Code(s): K76.0 - Fatty (change of) liver, not elsewhere classified Category: Medical Plan: Low-fat diet and exercise (9) Obesity: Code(s): E66.9 - Obesity, unspecified Category: Medical Qualifiers: Body mass index: BMI 40.0-44.9 Obesity classification: adult class 3 (BMI >= 40) Obesity type: due to excess calories Serious obesity comorbidity presence: with serious comorbidity Qualified Code(s): E66.01 - Morbid (severe) obesity due to excess calories; Z68.41 - Body mass index [BMI]40.0-44.9, adult Plan: Diet and exercise (10) Edentulism: Code(s): K08.109 - Complete loss of teeth, unspecified cause, unspecified class Category: Medical Plan History of Present Illness The patient is a 64-year-old female presenting for follow-up of her chronic medical conditions and review of recent test results. She has a history of obesity complicating her diabetes mellitus and hypertension, both managed with medication. The management of her diabetes includes Jardiance and Ozempic, successfully maintaining her hemoglobin A1c levels. Blood pressure is controlled with losartan, and statin therapy keeps her cholesterol within desired targets. Her underlying lumbar degenerative disc disease contributes to her chronic pain. Osteopenia was identified on a bone density scan, necessitating ongoing monitoring. A history of anxiety disorder was noted without specific current interventions discussed. Smoking cessation efforts are ongoing, with impacts on her chronic conditions regularly emphasized. In December, she underwent breast duct excision for nipple discharge, revealing benign pathology. Previous imaging in February 2023 suggested mild cirrhosis associated with fatty liver, highlighted by persistently elevated liver enzymes. She experiences asthma symptoms using albuterol and will transition from Trelegy to Symbicort for better control. Her sleeping difficulties are due in part to CPAP intolerance for sleep apnea. She remains vigilant in managing her ocular conditions, including cataracts and ocular hypertension, without signs of diabetic retinopathy. A specialist referral for exposed jawbone complicates her nutritional intake due to oral discomfort. Health Maintenance - Blood pressure monitoring and control through losartan 100 mg daily. - Hypercholesterolemia management with simvastatin, achieving an LDL goal of less than 100 mg/dL. - Diabetes management with Jardiance and Ozempic, aiming for hemoglobin A1c below 6.5%. - Bone density evaluation conducted in August 2023, showing osteopenia. - Eye care includes routine exams; no diabetic retinopathy noted, but cataracts and ocular hypertension present. - Regular monitoring of liver function tests due to mildly elevated levels and mild cirrhosis noted on recent imaging. - Tobacco cessation strongly advised due to health risks. - Encouraged dietary and exercise modifications for weight management and fatty liver disease management. Social History - Tobacco use: Patient is a smoker, currently reducing intake. - Diet: Limited due to oral health issues, prefers cooked vegetables and has difficulty chewing hard foods. - Activity level: Mentioned difficulties due to chronic pain and sleep apnea intolerance. Review of Systems - General: Denies unintentional weight loss. - Eyes: Reports good vision; denies night driving due to brightness. - Respiratory: Reports wheezing and tightness; denies CPAP use due to intolerance. - Cardiovascular: Denies chest pain, palpitations. - Gastrointestinal: Denies significant changes in bowel habits. - Musculoskeletal: Reports chronic lumbar pain. - Psychiatric: Reports anxiety. - Gastrointestinal: Denies recent kidney stones. Physical Exam - Respiratory- Wheezing present, but not severe. Results - Labs: Normal hemoglobin A1c, normal renal function, elevated liver function tests. - Tests: Bone density scan (osteopenia), CAT scan (mild cirrhosis), eye exams (no diabetic retinopathy, cataracts present). Plan The patient will maintain her current diabetes regimen with Jardiance and Ozempic, emphasizing blood glucose control. We will continue losartan for hypertension to ensure adequate pressure control, alongside simvastatin for lipid management. I reviewed her breast duct excision results confirming benign findings. Regular monitoring of hepatic function is essential given known mild cirrhosis; liver-friendly dietary modifications were reinforced. Symbicort was prescribed to replace Trelegy, addressing inadequate asthma control. Continued efforts toward smoking cessation are recommended. A specialist referral was made to assess oral health issues impacting dietary intake. Follow-up cholesterol testing was considered non-urgent. Patient was informed and verbally consented to the use of an ambient scribe for clinic note documentation during this visit. Discussion Notes During the consultation, we extensively discussed the management of diabetes, hypertension, hypercholesterolemia, and fatty liver disease. I emphasized the importance of adherence to medication regimens and lifestyle adjustments, particularly smoking cessation and liver-friendly diet practices, to mitigate health risks. Risks and benefits of changing from Trelegy due to intolerance to using Symbicort for asthma were explained. The benign pathology of recent breast duct excision was confirmed, providing reassurance. We reviewed the implications of mild cirrhosis and discussed strategies to prevent progression. Referral for oral health issues was coordinated considering difficulty with dietary intake. Future cholesterol evaluation was deferred given recent favorable LDL results. Patient Instructions - Continue taking Jardiance and Ozempic as prescribed to manage diabetes. - Maintain current dosages of losartan and simvastatin. - Begin using Symbicort instead of Trelegy for asthma control. - Follow a low-fat diet and engage in regular physical activity to support liver health. - Cease smoking to improve overall health. - Attend a specialist referral for oral health assessment. - Schedule cholesterol testing when convenient; fasting may be necessary. - Monitor liver function regularly with physician guidance. - Use CPAP machine if sleep apnea becomes intolerable. Orders: Orders Lipid Panel Today E78.00 - Pure hypercholesterolemia, unspecified Referrals Oral Surgery Referal K08.109 - Complete loss of teeth, unspecified cause, unspecified class Medications: New budesonide-formoterol 160-4.5 mcg/actuation (Symbicort) 2 puffs inhalation BID 10.2 grams 12RF J45.909 - Unspecified asthma, uncomplicated Refilled albuterol sulfate 2.5 mg (3 mL) inhalation Q4H PRN 90 mL 0RF shortness of breath or wheezing J45.909 - Unspecified asthma, uncomplicated Discontinued hghnbtpwpss-qnsffwnim-lmxxadua 200-62.5-25 mcg (Trelegy Ellipta) Discontinued Reason: Patient Refused 1 inh inhalation DAILY 60 ea 2RF J45.909 - Unspecified asthma, uncomplicated
[2025-02-05 11:29] VITALS: BP 100/68; PULSE 61; TEMP 36.3; O2SAT 96; BMI 32.1
--- OUTSIDE RECORDS SUMMARY | 2025-02-05 12:57 | XMS_ITS | Data Portability ---
Author Organization [employer] [place] [facility] [employer] Address [address] [place] [address] Care Team Providers Care Financial Writer Name Role Phone HIM CCA OTHER Assessment Encounter Date Assessment Date Assessment LastModified by Organization Details LastModified Time 10/31/2023 10/31/2023 I provided real -time medical direction via phone for this encounter, and was available for additional phone based assistance as needed. I have reviewed and agree with the Assessment and Plan as documented by the Linux Server Administrator. Patient given the opportunity to ask questions. [...] Assessment and Plan as documented by the Linux Server Administrator. Patient given the opportunity to ask questions. [...] creams. No new soaps as well. Per target man on the scene, vital signs are stable [...] particularly fever chills lightheadedness altered mental status [place] [id number] Not available 08/08/2024 16:34:23 Plan of Treatment Reminders Order Date Submit Date Provider Last Modified By Organization Details Last Modified Time Details Appointments None recorded. Lab culture, urine 2023 024 LEONARDO [facility] (Centralized Electronic Ordering - All Locations), Patient Can Go To The Location Of Their Choice, [id number] 4 12:06:16 urinalysis , dipstick 2023 024 [facility], [address] [place] [address], [id number] 4 17:18:27 Referral None recorded. Procedures None [...] report Not Available [facility] ([facility]) [address] [facility], [place], [address], 02/29/2024 10:06:17 02/25/20 24 02/29/2024 URINE CULTU RE,CO MPREH ENSIV E result 1 COMMEN T No growt h in 36 - 48 hours . Not Available [facility] ([facility]) [address] [facility], [place], [address], 02/29/2024 10:06:17 Result Notes None recorded. Medical Equipment None Reported. Allergies Allergen ID Allergen Name Allergen Category Reaction Reaction Severity Criticality Documentation Date Start Date Code Code System Note Provider Name and Address Organization Details Recorded Time 6496 lisinopri l medicatio n Not available Not available Not available 08/08/2024 20364 RxNorm Madison Stanley MD [address] [place] [address],[address], [place], [phone], [facility] 16:32:00 6497 metformin medicatio n Not available Not available Not available 08/08/2024 6809 RxNorm Madison Stanley MD [address] [place] [address],[address], [place], [phone], [facility] 16:32:07 Medications Name Sig Start Date Stop [...] Address Organization Details Last Updated DateTime 4 26889.7 2 g 16 /min 90 /min 154.94 [...] % 76 /min 97.2 [degF] 16 /min 11338.5 36 g 146 mm[Hg] 77 mm[Hg] Not Available Pager production 11:54:56 Date Recorded Body temperature Body height Oxygen saturation Oxygen saturation in Arterial blood by Pulse oximetry Respiratory rate Heart rate Body weight Systolic blood pressure Diastolic blood pressure Provider Name and Address Organization Details Last Updated DateTime 4 98.4 [degF] 149.86 cm 98 % 98 % 18 /min 65 /min 45997.3 52 g 179 mm[Hg] 91 mm[Hg] Not Available [facility] 13:41:18 Social History None recorded. Functional Status None recorded. Mental Status None recorded. Family History Nothing Reported. Medical History No medical history recorded. Gynecological HistoryNo gynecological history recorded. 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 She has some suprapubli c pain and dysuria. Her U/A was normal. I ordered a U/C and recommende d that she follow-up with her PCP regarding the results. The patient agreed with this plan. [id number] Madison Stanley MD [facility] [address] [place] [id number] 08/08/2024 13:41:09 08/08/2024 19:32:46 Localized eruption of skin 812344150 R21 Health Concerns Section Related Observation LastModified by Organization Detai ls LastModified Time None Recorded Concern Status LastModified by Organization Details LastModified Time None Recorded Advance Directives Directive None Recorded Payers Encounter Date Sequence Insurance Name Policy Number Policy Herrera Covered Member ID Herrera Member ID Guarantor Name 10/31/2023 1 [facility] - DOS ON OR AFTER 2023 - DUAL ELIGIBLE - [facility] OPTIONS AND ONE CARE (MEDICARE REPLACEMENT/ADV ANTAGE - HMO) Rafia Treviño [id number] Rafia L Treviño 02/25/2024 1 [facility] - DOS ON OR AFTER 2023 - DUAL ELIGIBLE - [facility] OPTIONS AND ONE CARE (MEDICARE REPLACEMENT/ADV ANTAGE - HMO) Rafiaregis Treviño [id number] Rafia L Treviño 08/08/2024 [facility] AFTER 2023 - DUAL ELIGIBLE - [facility] OPTIONS AND ONE CARE (MEDICARE REPLACEMENT/ADV ANTAGE - HMO) Rafia Treviño [id number] Rafia Hugo Treviño Notes Date Note Type Note Provider [...] ...................... ...................... ...................... ...................... ...................... ...................... ......... Linux Server Administrator Note From Kevin Vieira: Pt reports 3 [...] ......... Disposition: Fulfilled Madison Stanley MD [address] [facility], [place], [address], [facility] 10/31/2023 16:23:20 02/25/2024 text/html CRC Nurse Triage Notes (Jean Santos): Chief Complaints: Abdominal Pain, Fever/Chills, UTI/Pyelonephritis PMH: Hypertension, COPD/Asthma Allergies: Unknown Comments: Technical Report Writer verified the member's name//address and phone number. [...] emergency treatment if needed -ALISHA Mcgregor MD [address] [place] [address],[address] [facility], [place], [phone], [facility] 02/25/2024 12:00:15 08/08/2024 text/html CRC Nurse Triage [...] ...................... ...................... ...................... ...................... ...................... ...................... ......... Linux Server Administrator Note From Michele Stone: Dispatched to the [...] ...................... ......... Disposition: Fulfilled Madison Stanley MD [address] [place] [address],[address], [place], [phone], [employer] [facility] 08/08/2024 16:34:36 OBGyn Episode No OBEpisode recorded.
== END 2025-02-05 12:19 | disposition home or self-care (01) ==
LOC: HO.HMCH 10:59
PROVIDERS: PCP Internal Medicine; Visit Provider Internal Medicine
DX: E11.65 Type 2 diabetes mellitus with hyperglycemia (principal); N64.52 Nipple discharge; E66.01 Morbid (severe) obesity due to excess calories; Z68.41 Body mass index [BMI] 40.0-44.9, adult; I10 Essential (primary) hypertension; E78.00 Pure hypercholesterolemia, unspecified; G47.33 Obstructive sleep apnea (adult) (pediatric); F17.210 Nicotine dependence, cigarettes, uncomplicated; K21.9 Gastro-esophageal reflux disease without esophagitis; K76.0 Fatty (change of) liver, not elsewhere classified; K08.109 Complete loss of teeth, unspecified cause, unspecified class

== ENCOUNTER → 2025-02-05 10:59 | Outpatient (BNVA) | payer OTHER, SELFPAY | PROVIDERS: PCP Internal Medicine; Visit Provider Internal Medicine | DX: N64.52 Nipple discharge (principal); E11.65 Type 2 diabetes mellitus with hyperglycemia; I10 Essential (primary) hypertension; E78.00 Pure hypercholesterolemia, unspecified; G47.33 Obstructive sleep apnea (adult) (pediatric); K21.9 Gastro-esophageal reflux disease without esophagitis; K76.0 Fatty (change of) liver, not elsewhere classified; E66.01 Morbid (severe) obesity due to excess calories; Z68.41 Body mass index [BMI] 40.0-44.9, adult; F17.210 Nicotine dependence, cigarettes, uncomplicated; Z71.3 Dietary counseling and surveillance; Z71.6 Tobacco abuse counseling | CPT/HCPCS: 99212 ==

== ENCOUNTER 2025-02-06 09:40 | Outpatient (AMB) | payer OTHER, SELFPAY ==
--- NOTE | 2025-02-06 09:40 | A.OFFVIS_ITS ---
Vital Signs 3 02/06/25 09:47 Height 4 ft 11 in Weight 160 lb BMI 32.3 BP 138/65 Blood Pressure Location Lt brachial Position Sitting Pulse 72 Intake Visit Reasons: s/p excision rt nipple duct Intake Note: Patient is seen in office for post op assessment post excision right breast lactiferous duct. Pt c/o: admits to pain and sore in the site, has some shortness of breath surgery:01/27/25 Cleat Feeder Required: No Accompanied by: Self / Same As Patient Allergies metformin Adverse Reaction (Intermediate, Verified 02/06/25 09:41) Vomiting lisinopril [From Zestril] Adverse Reaction (Mild, Verified 02/06/25 09:41) COUGH HPI Comments Details: 64-year-old female patient with a prior history of nipple discharge now returning 1 week following right nipple duct excision on 01/27/2025. Pathology revealed skin and subcutaneous tissue with dilated lactiferous ducts and stromal fibrosis, negative for malignancy. She had some pain for the 1st 2 days but now feels much improved. She does feel some hardness below the nipple she feels is just a scar tissue. [facility] Medical History Tobacco abuse Osteopenia (~2018) Nicotine dependence, cigarettes, uncomplicated Allergic rhinitis Irritable bowel syndrome Obstructive sleep apnea Obesity Restless leg syndrome Asthma Insomnia Interstitial cystitis Osteoarthritis of hip Right renal stone GERD (gastroesophageal reflux disease) Anxiety and depression Hypercholesterolemia Fatty liver Hypertension Lumbar degenerative disc disease Type 2 diabetes mellitus with hyperglycemia Surgical History History of surgery (01/27/25) History of breast lump/mass excision History of hand surgery History of foot surgery History of surgical removal of ganglion cyst History of colonoscopy History of nasal surgery History of esophagogastroduodenoscopy (EGD) History of removal of cyst History of lithotripsy History of bladder surgery History of carpal tunnel release History of tonsillectomy and adenoidectomy History of cholecystectomy History of total abdominal hysterectomy and bilateral salpingo-oophorectomy History of section Family History Father CAD (coronary artery disease) CVD (cerebrovascular disease) Lung cancer Hypertension Mother Hypertension Diabetes Cancer Daughter Breast cancer Paternal Uncle Myocardial infarction Paternal Aunt Myocardial infarction Maternal Uncle Myocardial infarction Bone cancer Other FH: mental illness Substance abuse Social History Housing: Apartment Are you a primary home day care provider to a significant other at home: No Do you presently have visiting nurse or other home services: No Alcohol intake: current Alcohol intake frequency: does not drink Patient Tobacco Use Status: Current everyday Tobacco user Tobacco use type: Cigarette Cigarette Packs Per Day: 0.5 Cigarettes Per Day: 7 Years Smoked: 40 e-Cigarette/Vaping Use: Never Used Second Hand Smoke Exposure: Yes service: No Current occupational status: disabled Cognitive needs: No Hearing needs: No Vision needs: Yes Physical Exam Const General: no acute distress Nutritional Appearance: well nourished Orientation/consciousness: patient oriented x3 Chest Chest/axillae images: 2 1. Incision in the periareolar skin upper outer quadrant. No erythema, normal postoperative changes. No discharge noted from the nipple. Resp Effort & Inspection: normal respiratory effort Skin Other: Warm, dry, no rash Neuro General: patient oriented x3 Assessment & Plan Assessment & Plan (1) Nipple discharge: Comment: right breast December 2024Excision right breast lactiferous duct Code(s): N64.52 - Nipple discharge Category: Medical Plan Patient returns 1 week following excision of a right nipple lactiferous duct. Pathology confirmed a dilated lactiferous duct without malignancy. She tolerated the procedure well and her wounds are healing nicely. I recommended follow-up examination in 1 month. Coding Level of Care Code Global (75168) Diagnoses Nipple discharge N64.52
[2025-02-06 09:47] VITALS: BP 138/65; PULSE 72; BMI 32.3
== END 2025-02-06 09:51 | disposition home or self-care (01) ==
LOC: HO.HGS 09:40
PROVIDERS: PCP Internal Medicine; Visit Provider Surgery
DX: N64.52 Nipple discharge (principal)
CPT/HCPCS: 99024

== ENCOUNTER → 2025-02-06 09:40 | Outpatient (BNVA) | payer OTHER, SELFPAY | PROVIDERS: PCP Internal Medicine; Visit Provider Surgery | DX: N64.89 Other specified disorders of breast (principal); Z48.817 Encounter for surgical aftercare following surgery on the skin and subcutaneous tissue; Z98.890 Other specified postprocedural states | CPT/HCPCS: 99212 ==

== ENCOUNTER → 2025-03-06 11:07 | Outpatient (BNVA) | payer OTHER, SELFPAY | PROVIDERS: PCP Internal Medicine; Visit Provider Surgery | DX: N64.4 Mastodynia (principal); Z09 Encounter for follow-up examination after completed treatment for conditions other than malignant neoplasm; Z98.890 Other specified postprocedural states | CPT/HCPCS: 99211 ==

== ENCOUNTER 2025-03-13 11:13 | Outpatient (AMB) | payer OTHER, SELFPAY ==
--- NOTE | 2025-03-13 11:17 | A.OFFVIS_ITS ---
Intake Visit Reasons: 6m/PVR Intake Note: Pt presents to the office today for a 6 month follow up/PVR Urology Meds- Tamsulosin Allergies to Antibiotic- No Known Allergies Blood Thinner- None PVR: 0mL Financial Operations Analyst Required: No Accompanied by: Self / Same As Patient Allergies metformin Adverse Reaction (Intermediate, Verified 03/13/25 11:28) Vomiting lisinopril [From Zestril] Adverse Reaction (Mild, Verified 03/13/25 11:28) COUGH HPI Comments Details: 03/13/25--Rafia is being followed for interstitial cystitis. 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 Patient underwent cystoscopy hydrodistention urethral dilation on 05/07/2024, findings at that time bladder capacity do post distention 850 mL glomerulations were not visualized. H/O prior lithotripsy for kidney stones, h/o sling placed in 2006. She was seen by another urologist and had the sling removed due to difficulty voiding in worsening pain with voiding. In discussion today, the patient states she is getting recurrent urinary symptoms of urinary hesitancy, and urgency, during the night she has noticed some wetting of her underwear. She denies dysuria. Denies blood in the urine. Urinalysis today is negative for signs of UTI. The patient is described Percocet PRN by her PCP, for chronic back and hip pain and degenerative disc disease. Will cont Flomax. I have discussed repeat cystoscopy hydrodistention and urethral dilation. Results: 04/18/24-- US renal - no renal calculi. 09/12/24--Rafia is being followed for interstitial cystitis. 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 She states she has been voiding better and has less pain. On a scale of 1-10 she states he r pain is about a 4. She states ibuprofen does help. I will send a prescription for naproxen 500 mg twice a day p.r.n. 06/07/24--followed for IC. s/p cystoscopy hydrodistension and urethral dilation on 05/07/24- findings, bladder capacity 850 mL, glomerulations were not visualized. Rafia states for the first 3 weeks she was doing well, now the urine seems to come out slower and she the bladder pressure/pain is returning. Whem she urinates it feels that she is not emptying completely. Bladder scan PVR 58 mL. Will start flomax. Also pyridium prn. fU in 3 months. 04/15/24--Rafia is a 63-year-old female who has here as a new the patient has a history of interstitial cystitis kidney stone, stress urinary incontinence. States that she was [facility] in the past for interstitial cystitis, she was initially treated the Elmiron which she did not tolerate and then self bladder installations which initially helped but then she developed bladder spasms and was not able to continue the treatment regimen. She has had prior lithotripsy for kidney stones. She had a sling placed in 2006. She was seen by another urologist and had the sling removed due to difficulty voiding in wor sening pain with voiding. She has some urinary leakage but states since losing weight this has improved. She complains of bladder pain and nocturia 2-3 times at night. She uses [id number] azo prn which helps. She has a long history of nicotine use 1 and half pack per day and is now down to 7-8 cigarettes daily. Comorbidity diabetes, she states since being on Ozempic she is lost about 60 lb in the last 6 months. I have discussed evaluation with cystoscopy hydrodistention. I have discussed that nicotine is a risk factor for urinary tract cancers. Will send urine for surveillance culture and urine cytology, and check a renal ultrasound. [facility] Medical History Osteopenia (~2018) Nicotine dependence, cigarettes, uncomplicated Allergic rhinitis Irritable bowel syndrome Obstructive sleep apnea Obesity Restless leg syndrome Asthma Insomnia Interstitial cystitis Osteoarthritis of hip Right renal stone GERD (gastroesophageal reflux disease) Anxiety and depression Hypercholesterolemia Fatty liver Hypertension Lumbar degenerative disc disease Type 2 diabetes mellitus with hyperglycemia Surgical History History of surgery (01/27/25) History of breast lump/mass excision History of hand surgery History of foot surgery History of surgical removal of ganglion cyst History of colonoscopy History of nasal surgery History of esophagogastroduodenoscopy (EGD) History of removal of cyst History of lithotripsy History of bladder surgery History of carpal tunnel release History of tonsillectomy and adenoidectomy History of cholecystectomy History of total abdominal hysterectomy and bilateral salpingo-oophorectomy History of section Family History Father CAD (coronary artery disease) CVD (cerebrovascular disease) Lung cancer Hypertension Mother Hypertension Diabetes Cancer Daughter Breast cancer Paternal Uncle Myocardial infarction Paternal Aunt Myocardial infarction Maternal Uncle Myocardial infarction Bone cancer Other FH: mental illness Substance abuse Social History Housing: Apartment Are you a primary home health care respiratory therapist to a significant other at home: No Do you presently have visiting nurse or other home services: No Alcohol intake: current Alcohol intake frequency: does not drink Patient Tobacco Use Status: Current everyday Tobacco user Tobacco use type: Cigarette Cigarette Packs Per Day: 0.5 Cigarettes Per Day: 7 Years Smoked: 40 e-Cigarette/Vaping Use: Never Used Second Hand Smoke Exposure: Yes service: No Current occupational status: disabled Cognitive needs: No Hearing needs: No Vision needs: Yes Review of Systems Const All systems reviewed & are unremarkable except as noted in HPI and below Reports no additional complaints Eyes Reports no additional complaints ENT Reports no additional complaints Card Reports no additional complaints Resp Reports no additional complaints GI Reports no additional complaints Reports as per HPI Musc Reports no additional complaints Skin/Breast Reports system reviewed and no additional complaints, except as documented Neuro Reports no additional complaints Psych Reports no additional complaints Endo Reports no additional complaints Juve/Lymph Reports no additional complaints Aller/Immun Reports no additional complaints Results Reviewed Results Reviewed: Date of Service: 04/18/24 US RETROPERITONEAL LIMITED (RENAL ONLY) CLINICAL INFORMATION: Calculus of kidney. COMPARISON: CT abdomen and pelvis 03/12/2023. Renal ultrasound 10/22/2018. X-ray abdomen KUB 01/28/2015. TECHNIQUE: Real-time imaging of the kidneys. Limited visualization due to bowel gas. FINDINGS: RIGHT KIDNEY: 11.6 x 4.2 x 4.0 cm (SAG x AP x TRV). No hydronephrosis. No renal calculi. Renal cortical thickness is normal. Limited visualization. LEFT KIDNEY: 10.7 x 4.8 x 4.4 cm (SAG x AP x TRV). No hydronephrosis. No renal calculi. Renal cortical thickness is normal. Limited visualization. IMPRESSION: No hydronephrosis. No renal calculi. 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 I have discussed repeat cystoscopy hydrodistention and urethral dilation. Patient Instructions: The patient had an opportunity to ask questions regarding treatment plan. The patient expressed understanding and agreement with the above treatment plan. The patient is aware they should contact our office by phone for worsening of their current condition or the appearance of new symptoms. Compliance is encouraged with any medications and followup testing that is ordered. It is a privilege to be allowed the opportunity to participate in the urologic care of your patient. If you have any questions or concerns regarding treatment for the above conditions please do not hesitate to contact me. The office telephone contact is [phone]. This note is constructed in part using voice recognition software. While every effort has been made to ensure accuracy porcelain enamel repairer errors may have been included. 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
--- OUTSIDE RECORDS SUMMARY | 2025-03-13 12:28 | XMS_ITS | Data Portability ---
Author Organization [employer] [place] [facility] [employer] Address [address] [place] [address] Care Team Providers Care Auto Heater Mechanic Name Role Phone HIM CCA OTHER Assessment Encounter Date Assessment Date Assessment LastModified by Organization Details LastModified Time 10/31/2023 10/31/2023 I provided real -time medical direction via phone for this encounter, and was available for additional phone based assistance as needed. I have reviewed and agree with the Assessment and Plan as documented by the Electrical Equipment Technician. Patient given the opportunity to ask questions. [...] Assessment and Plan as documented by the Electrical Equipment Technician. Patient given the opportunity to ask questions. [...] creams. No new soaps as well. Per bread distributor on the scene, vital signs are stable [...] particularly fever chills lightheadedness altered mental status [place] [id number] Not available 08/08/2024 16:34:23 Plan of Treatment Reminders Order Date Submit Date Provider Last Modified By Organization Details Last Modified Time Details Appointments None recorded. Lab culture, urine 2023 024 [place] [facility] (Centralized Electronic Ordering - All Locations), Patient Can Go To The Location Of Their Choice, [id number] 4 12:06:16 urinalysis , dipstick 2023 024 [facility], [address] [place] [address], [id number] 4 17:18:27 Referral None recorded. Procedures None [...] report Not Available [facility] ([facility]) [address] [facility], [place], [address], 02/29/2024 10:06:17 02/25/20 24 02/29/2024 URINE CULTU RE,CO MPREH ENSIV E result 1 COMMEN T No growt h in 36 - 48 hours . Not Available [facility] ([facility]) [address] [facility], [place], [address], 02/29/2024 10:06:17 Result Notes None recorded. Medical Equipment None Reported. Allergies Allergen ID Allergen Name Allergen Category Reaction Reaction Severity Criticality Documentation Date Start Date Code Code System Note Provider Name and Address Organization Details Recorded Time 6496 lisinopri l medicatio n Not available Not available Not available 08/08/2024 06711 RxNorm Madison Stanley MD [address] [place] [address],[address], [place], [phone], [employer] 16:32:00 6497 metformin medicatio n Not available Not available Not available 08/08/2024 6809 RxNorm Madison Stanley MD [address] [place] [address],[address], [place], [address], [facility] 16:32:07 Medications Name Sig Start Date Stop [...] Address Organization Details Last Updated DateTime 4 57104.7 2 g 16 /min 90 /min 154.94 [...] % 76 /min 97.2 [degF] 16 /min 77369.5 36 g 146 mm[Hg] 77 mm[Hg] Not Available [place] [employer] 11:54:56 Date Recorded Body temperature Body height Oxygen saturation Oxygen saturation in Arterial blood by Pulse oximetry Respiratory rate Heart rate Body weight Systolic blood pressure Diastolic blood pressure Provider Name and Address Organization Details Last Updated DateTime 4 98.4 [degF] 149.86 cm 98 % 98 % 18 /min 65 /min 87530.3 52 g 179 mm[Hg] 91 mm[Hg] Not Available [facility] 13:41:18 Social History None recorded. Functional Status None recorded. Mental Status None recorded. Family History Nothing Reported. Medical History No medical history recorded. Gynecological HistoryNo gynecological history recorded. 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 She has some suprapubli c pain and dysuria. Her U/A was normal. I ordered a U/C and recommende d that she follow-up with her PCP regarding the results. The patient agreed with this plan. [id number] Madison Stanley MD [facility] [address] [place] [phone] 08/08/2024 13:41:09 08/08/2024 19:32:46 Localized eruption of skin 865781133 R21 Health Concerns Section Related Observation LastModified by Organization Detai ls LastModified Time None Recorded Concern Status LastModified by Organization Details LastModified Time None Recorded Advance Directives Directive None Recorded Payers Insurance Date Sequence Insurance Name Policy Number Policy Herrera Covered Member ID Herrera Member ID Guarantor Name 02/25/2024 1 [facility] - DOS ON OR AFTER 2023 - DUAL ELIGIBLE - ASSISTED OPTIONS AND ONE CARE (MEDICARE REPLACEMENT/ADV ANTAGE - HMO) Rafia Treviño [id number] Rafia Treviño Notes Date Note Type Note [...] ...................... ...................... ...................... ...................... ...................... ...................... ......... Electrical Equipment Technician Note From Kevin Vieira: Pt reports 3 [...] ...................... ......... Disposition: Fulfilled Madison Stanley MD [address] [place] [address],[address], [place], [phone], [employer] 10/31/2023 16:23:20 02/25/2024 text/html CRC Nurse Triage Notes (Jean Santos): Chief Complaints: Abdominal Pain, Fever/Chills, UTI/Pyelonephritis PMH: Hypertension, COPD/Asthma Allergies: Unknown Comments: Sales Development Associate verified the member's name//address and phone number. [...] treatment if needed -ALISHA Mcgregor MD [address] [facility],[address], [place], [address], [facility] 02/25/2024 12:00:15 08/08/2024 text/html CRC Nurse Triage [...] ...................... ...................... ...................... ...................... ...................... ...................... ......... Electrical Equipment Technician Note From Michele Stone: Dispatched to the [...] ...................... ......... Disposition: Fulfilled Madison Stanley MD [address] [place] [address],[address], [place], [address], [facility] 08/08/2024 16:34:36 OBGyn Episode No OBEpisode recorded.
== END 2025-03-13 11:55 | disposition home or self-care (01) ==
LOC: HO.HUSH 11:14
PROVIDERS: PCP Internal Medicine; Visit Provider Urology
DX: N30.10 Interstitial cystitis (chronic) without hematuria (principal); N20.0 Calculus of kidney; F17.200 Nicotine dependence, unspecified, uncomplicated; Q64.31 Congenital bladder neck obstruction; R39.12 Poor urinary stream; R32 Unspecified urinary incontinence
CPT/HCPCS: 99214

== ENCOUNTER → 2025-03-13 11:13 | Outpatient (BNVA) | payer OTHER, SELFPAY | PROVIDERS: PCP Internal Medicine; Visit Provider Urology | DX: N30.10 Interstitial cystitis (chronic) without hematuria (principal); N20.0 Calculus of kidney; R39.12 Poor urinary stream; Q64.31 Congenital bladder neck obstruction; F17.210 Nicotine dependence, cigarettes, uncomplicated | CPT/HCPCS: 51798; 81003; 99212 ==

== ENCOUNTER 2025-04-15 08:00 | Day surgery (SDC) | payer OTHER, SELFPAY ==
[2025-04-04 11:06] VITALS: BMI 32.1
--- NOTE | 2025-04-07 08:42 | P.CONAN_ITS ---
Documented by User: Breana Andino NP 04/07/25 08:44 HPI - Anesthesia Eval Consult details Narrative: 64yo F for Cystoscopy Hydrodistention of Bladder,with uretho dilatation s/p duct excision 12/2024 with MAC Anesthesia Pre-Procedure Meds Is the patient on any of the following meds?: GLP1/DPP4 and SGLT2 Inhib PMFSH Active Problems Active Problems: All Active Problems Edentulism (Acute) Nipple discharge (Acute) Peripheral vascular disease (Acute) Facial dermatitis (Acute) Weak urinary stream (Acute) Urethra or bladder neck atresia or stenosis (Acute) Urinary incontinence (Acute) Kidney stone (Acute) Chronic interstitial cystitis (Acute) Hypercalcemia (Acute) Sacral pain (Acute) Alopecia (Acute) Breast cancer screening by mammogram (Acute) Type 2 diabetes mellitus with hyperglycemia (Acute) Hypertension (Acute) Hypercholesterolemia (Acute) Asthma (Acute) Obstructive sleep apnea (Acute) Nicotine dependence, cigarettes, uncomplicated (Acute) Allergic rhinitis (Acute) GERD (gastroesophageal reflux disease) (Acute) Irritable bowel syndrome (Acute) Fatty liver (Acute) Restless leg syndrome (Acute) Anxiety and depression (Acute) Insomnia (Acute) Obesity (Acute) Osteopenia (Acute ~2018) Lumbar degenerative disc disease (Acute) Osteoarthritis of hip (Acute) RUQ abdominal pain (Acute) Right renal stone (Acute) Interstitial cystitis (Acute) Shingles rash (Acute) Past Medical History Medical History Osteopenia (~2018) Nicotine dependence, cigarettes, uncomplicated Allergic rhinitis Irritable bowel syndrome Obstructive sleep apnea Obesity Restless leg syndrome Asthma Insomnia Interstitial cystitis Osteoarthritis of hip Right renal stone GERD (gastroesophageal reflux disease) Anxiety and depression Hypercholesterolemia Fatty liver Hypertension Lumbar degenerative disc disease Type 2 diabetes mellitus with hyperglycemia Family History Family History Father CAD (coronary artery disease) CVD (cerebrovascular disease) Lung cancer Hypertension Mother Hypertension Diabetes Cancer Daughter Breast cancer Paternal Uncle Myocardial infarction Paternal Aunt Myocardial infarction Maternal Uncle Myocardial infarction Bone cancer Other FH: mental illness Substance abuse Family history of problems with anesthesia: No Surgical History Surgical History History of surgery (01/27/25) History of breast lump/mass excision History of hand surgery History of foot surgery History of surgical removal of ganglion cyst History of colonoscopy History of nasal surgery History of esophagogastroduodenoscopy (EGD) History of removal of cyst History of lithotripsy History of bladder surgery History of carpal tunnel release History of tonsillectomy and adenoidectomy History of cholecystectomy History of total abdominal hysterectomy and bilateral salpingo-oophorectomy History of section History of Problems with Anesthesia: No Social History Social History Housing: Apartment Are you a primary care management specialist to a significant other at home: No Do you presently have visiting nurse or other home services: No Alcohol intake: current Alcohol intake frequency: does not drink Patient Tobacco Use Status: Current everyday Tobacco user Tobacco use type: Cigarette Cigarette Packs Per Day: 0.5 Cigarettes Per Day: 7 Years Smoked: 55 Smoked in Last 30 Days: Yes e-Cigarette/Vaping Use: Never Used Second Hand Smoke Exposure: Yes Use of substances other than those prescribed or required for medical reasons: Yes Substance Use Frequency: Occasionally Have you been hit, kicked, punched, or otherwise hurt by someone within the past year? If so, by whom?: No Are you DNR?: No Advance Directives: No Advance Directives Information Provided: No Advance Directives on File: No Patient : No : No service: No Current occupational status: disabled Cognitive needs: No Hearing needs: No Vision needs: Yes Meds Allergies Allergy/AdvReac Type Severity Reaction Status Date / Time metformin AdvReac Intermediate Vomiting Verified 04/15/25 08:14 lisinopril [From Zestril] AdvReac Mild COUGH Verified 04/15/25 08:14 Home Medications ?Medication ?Instructions ?Recorded ?Confirmed ?Last Taken ?Type amitriptyline 25 mg tablet 25 mg PO BEDTIME 09/03/20 04/15/25 11/28/22 History bupropion HCl 150 mg 24 hr tablet, 150 mg PO BEDTIME 02/17/21 04/15/25 05/07/24 04:30 History extended release fexofenadine 180 mg tablet 180 mg PO DAILY PRN Allergy 02/17/21 04/15/25 11/28/22 History (Amara Allergy) Symptoms fluoxetine 20 mg capsule 40 mg PO QAM 06/30/21 04/15/25 11/28/22 History hydroxyzine HCl 50 mg tablet 50 mg PO BID 09/12/22 04/15/25 11/28/22 History Exam Height,Weight and Vital Signs: Height 4 ft 11 in Weight 72.121 kg Pertinent Lab Results Pertinent Lab Results: Laboratory Tests 01/23/25 08:34 WBC 6.9 Hgb 14.6 Hct 43.3 Plt Count 228 Sodium 139 Potassium 4.2 Chloride 106 Carbon Dioxide 27 BUN 21 H Creatinine 0.72 Assessment and Plan Assessment Anesthesia Assessment: Chart Reviewed Final Anesthetic Review Family History of Problems with Anesthesia: No History of Problems with Anesthesia: No Documented by User: Beny Daniel MD 04/15/25 11:10 [facility] Past Medical History Medical History Osteopenia (~2018) Nicotine dependence, cigarettes, uncomplicated Allergic rhinitis Irritable bowel syndrome Obstructive sleep apnea Obesity Restless leg syndrome Asthma Insomnia Interstitial cystitis Osteoarthritis of hip Right renal stone GERD (gastroesophageal reflux disease) Anxiety and depression Hypercholesterolemia Fatty liver Hypertension Lumbar degenerative disc disease Type 2 diabetes mellitus with hyperglycemia Family History Family History Father CAD (coronary artery disease) CVD (cerebrovascular disease) Lung cancer Hypertension Mother Hypertension Diabetes Cancer Daughter Breast cancer Paternal Uncle Myocardial infarction Paternal Aunt Myocardial infarction Maternal Uncle Myocardial infarction Bone cancer Other FH: mental illness Substance abuse Surgical History Surgical History History of surgery (01/27/25) History of breast lump/mass excision History of hand surgery History of foot surgery History of surgical removal of ganglion cyst History of colonoscopy History of nasal surgery History of esophagogastroduodenoscopy (EGD) History of removal of cyst History of lithotripsy History of bladder surgery History of carpal tunnel release History of tonsillectomy and adenoidectomy History of cholecystectomy History of total abdominal hysterectomy and bilateral salpingo-oophorectomy History of section Social History Social History Housing: Apartment Are you a primary care management specialist to a significant other at home: No Do you presently have visiting nurse or other home services: No Alcohol intake: current Alcohol intake frequency: does not drink Patient Tobacco Use Status: Current everyday Tobacco user Tobacco use type: Cigarette Cigarette Packs Per Day: 0.5 Cigarettes Per Day: 7 Years Smoked: 55 Smoked in Last 30 Days: Yes e-Cigarette/Vaping Use: Never Used Second Hand Smoke Exposure: Yes Use of substances other than those prescribed or required for medical reasons: Yes Substance Use Frequency: Occasionally Have you been hit, kicked, punched, or otherwise hurt by someone within the past year? If so, by whom?: No Are you DNR?: No Advance Directives: No Advance Directives Information Provided: No Advance Directives on File: No Patient : No : No service: No Current occupational status: disabled Cognitive needs: No Hearing needs: No Vision needs: Yes Meds Allergies Allergy/AdvReac Type Severity Reaction Status Date / Time metformin AdvReac Intermediate Vomiting Verified 04/15/25 08:14 lisinopril [From Zestril] AdvReac Mild COUGH Verified 04/15/25 08:14 Home Medications ?Medication ?Instructions ?Recorded ?Confirmed ?Last Taken ?Type amitriptyline 25 mg tablet 25 mg PO BEDTIME 09/03/20 04/15/25 11/28/22 History bupropion HCl 150 mg 24 hr tablet, 150 mg PO BEDTIME 02/17/21 04/15/25 05/07/24 04:30 History extended release fexofenadine 180 mg tablet 180 mg PO DAILY PRN Allergy 02/17/21 04/15/25 11/28/22 History (Amara Allergy) Symptoms fluoxetine 20 mg capsule 40 mg PO QAM 06/30/21 04/15/25 11/28/22 History hydroxyzine HCl 50 mg tablet 50 mg PO BID 09/12/22 04/15/25 11/28/22 History Exam Airway Mallampati Class: II TM Dist: <=3cm Neck ROM: Full Denture: Upper Loose/Missing/Broken Teeth: Yes and Lower Heart: ok Lungs: ok Assessment and Plan Assessment Anesthesia Assessment: Anesthesia Plan Discussed Final Anesthetic Review NPO: Yes ASA Class: III Final Preanesthetic Review: No Changes in Pt Med Stat, Meds/Allgs Chart Reviewed, Consent Obtained/Reviewed and Anes Risks/Benef Reviewed Patient Risk: Intermediate Procedure Risk: Low Anesthetic Plan Anesthetic Plan: GA and Agree w/ Assess. and Plan Disposition: Standard PACU
[2025-04-15] VITALS (10 sets, daily range): BP systolic 123–147; BP diastolic 55–75; PULSE 70–83; RESP 10–19; TEMP 36.4–36.7; O2SAT 94–99; BMI 32.3
[2025-04-15 08:28] LABS: Glucose, Whole Blood 125 mg/dL (60-115)
[2025-04-15] MEDS: Albuterol Sulfate (0.083%) 2.5 MG/3 ML VIAL.NEB INHALE (09:00)
--- NOTE | 2025-04-15 10:42 | W.PM.OPN ---
Operative Note Operative Note Date of Service: 04/15/25 Narrative: PREOP DIAGNOSIS: Interstitial cystitis, Bladder outlet obstruction, urethral stenosis POSTOP DIAGNOSIS: Interstitial cystitis, Bladder outlet obstruction, urethral stenosis PROCEDURE: Urethral dilation, Cystoscopy hydrodistention Anethesia: General Surgeon: Dr. Michael Dejesus Details of procedure: The patient was brought into the operating room placed on the OR table in supine position. Antibiotics confirmed. General anesthesia was administered. The patient was repositioned into lithotomy position, prepped and draped in the usual sterile fashion. Time-out was done per protocol. Sixteen Solomon Islander catheter was placed transurethrally urine was drained from the bladder measuring 75 mL, urine was sent for culture. The female sounds were used to dilate the urethral meatus starting with the 16 fr and sequentially dilated up to a 26 fr. The 22 fr cystoscope was than passed transurethrally into the bladder. The right and left ureteral orifices were visualized. The entire bladder was visualized. There were no suspicious bladder lesions seen. There were moderate trabeculations noted. The bladder was filled with sterile water at 80 cm of water pressure under gravity. The bladder was distended for 2 minutes. Bladder capacity measured 600 mL. Revisualization of the bladder, no significant glomerulations or Hunner's ulcerations. The bladder was refilled with sterile water again at 80 cm of water pressure under gravity. The bladder was distended for 3 minutes. The fluid was drained from the bladder and measured 700 mL. The cystoscope was removed. 2% lidocaine urojet was passed transurethrally, Solution of (1% lidocaine plain, 15 mL, 0.5 % Marcaine 15 mL mixed with 30, 000 units of heparin concentration 5000 units per mL total of 6 mL hepaine) instilled transurethrally into the bladder. The cystoscope was removed. Belladonna rectal suppository inserted. The patient was brought out of anesthesia and taken to recovery in stable condition. Complications: None EBL: minimal (<5 mL)
--- NOTE | 2025-04-15 10:42 | MHC.SHP ---
Pre-Procedural Eval Section A - 24 Hr Update-Section A only Date of Service: 04/15/25 The patient is an INPATIENT: No The patient has been examined within 24 hours of the surgical procedure. The History & Physical has been completed within 30 days and I have reviewed it.: Yes Section B - Complete if H&P > 30 days Chief Complaint: Interstitial cystitis (chronic) without hematuria Allergies: Allergies Allergy/AdvReac Type Severity Reaction Status Date / Time metformin AdvReac Intermediate Vomiting Verified 04/15/25 08:14 lisinopril [From Zestril] AdvReac Mild COUGH Verified 04/15/25 08:14 Plan Diagnosis/Plan: Unchanged I have reviewed the history and physical and performed a pertinent physical examination on my patient. No changes have occurred unless specified. Cystoscopy hydrodistension. Discussed risks to include but not limited to, blood in the urine, burning with urination, urgency. Time Spent With Patient Time: Total time managing care of this patient today ____ minutes.
[2025-04-15] MEDS: Lactated Ringers 1,000 ML 100 ML IVCONT (11:13)
[2025-04-15] MEDS: ceFAZolin Sodium/Dextrose,Iso 2 GM/50 ML PIGGYBACK IV (11:16)
[2025-04-15] MEDS: Acetaminophen 325 MG TABLET 975 MG PO (12:11)
[2025-04-15] MEDS: Phenazopyridine HCL 200 MG TABLET PO (12:11)
[2025-04-15] MEDS: fentaNYL citrate/PF 100 MCG/2 ML VIAL 50 MCG IVPUSH (12:15)
== END 2025-04-15 12:45 | disposition home or self-care (01) ==
PROVIDERS: PCP Internal Medicine; Visit Provider Urology
PROC: 0T7B7ZZ Dilation of Bladder, Via Natural or Artificial Opening (ICD-10-PCS; CPT 52260; principal; 2025-04-15 10:00)
DX: N30.10 Interstitial cystitis (chronic) without hematuria (principal); Q64.31 Congenital bladder neck obstruction; R35.1 Nocturia; F17.210 Nicotine dependence, cigarettes, uncomplicated; Z87.442 Personal history of urinary calculi; M51.369 Other intervertebral disc degeneration, lumbar region without mention of lumbar back pain or lower extremity pain; G89.29 Other chronic pain; M54.9 Dorsalgia, unspecified; I10 Essential (primary) hypertension; E78.00 Pure hypercholesterolemia, unspecified; E11.65 Type 2 diabetes mellitus with hyperglycemia; F41.9 Anxiety disorder, unspecified; J45.909 Unspecified asthma, uncomplicated; G47.33 Obstructive sleep apnea (adult) (pediatric); Z79.899 Other long term (current) drug therapy; Z88.8 Allergy status to other drugs, medicaments and biological substances; Z90.49 Acquired absence of other specified parts of digestive tract; R39.12 Poor urinary stream
CPT/HCPCS: 52260; 82947; 87086; 94640; J0690; J1644; J2003; J2704; J2795; J3010

== ENCOUNTER → 2025-04-15 08:00 | Outpatient (BNV) | payer OTHER, SELFPAY | PROVIDERS: PCP Internal Medicine; Visit Provider Urology | DX: N30.10 Interstitial cystitis (chronic) without hematuria (principal); N35.92 Unspecified urethral stricture, female | CPT/HCPCS: 52281 ==

== ENCOUNTER → 2025-04-21 12:48 | Outpatient (BNVA) | payer OTHER, SELFPAY | PROVIDERS: PCP Internal Medicine; Visit Provider Urology | DX: N30.10 Interstitial cystitis (chronic) without hematuria (principal) | CPT/HCPCS: 51798 ==

== ENCOUNTER 2025-04-22 09:45 | Outpatient (REF) | payer OTHER, SELFPAY ==
--- NOTE | ~2025-04-22 | CT_ITS ---
EXAMINATION: CT LUNG SCREENING HISTORY: F17.210 - Nicotine dependence, cigarettes, uncomplicated TECHNIQUE: Low dose axial images were obtained from the sternal notch to upper abdomen without IV contrast per standard departmental protocol. Sagittal and coronal reformatted images were also obtained and reviewed. One or more of the following techniques was used for dose reduction: Automated exposure control, adjustment of the mA and/or kV according to patient size, use of iterative reconstruction technique. DLP: 62 mGy-cm COMPARISON: Comparison is made with the prior examination dated 03/18/2024. FINDINGS: Lung nodules: Again seen is mild scarring in the right middle lobe. No pulmonary nodules are identified. Emphysema: mild Coronary Calcification: mild Aortic Arch Calcification: mild Potentially Significant Incidentals : none Additional Chest Findings: There is no pleural or pericardial effusion. No mediastinal or axillary lymphadenopathy is identified. Visualized upper abdomen: The visualized portions of the liver, spleen, and adrenals have an unremarkable unenhanced appearance. CT/CT lung screening IMPRESSION: No suspicious pulmonary nodules are identified. LUNG-RADS ASSESSMENT: Lung-RADS 1: Negative MANAGEMENT: Continue annual screening with LDCT in 12 months Category S: N/A Electronically signed by: Mauro Phelan MD 04/22/2025 10:27 AM EDT
--- OUTSIDE RECORDS SUMMARY | 2025-04-22 10:37 | XMS_ITS | Patient Health Record ---
Author Organization [facility] Address [address] [place] [address] Care Team Providers Care Wall Covering Installer Name Role Phone Hitesh Fairchild MD Primary Care Provider Mauro Prasad [phone] Allergies Allergen (clinical drug ingredient) Drug/Non Drug Allergy documented on EMR Reaction Allergy Type Onset Date Status lisinopril zestril (uncoded) Unknown Allergy A ctive Reason For Referral No Information Medications Medication SIG (Take, Route, Frequency, Duration) Notes Start Date End Date Status FLUoxetine HCl 20 MG 1 capsule in the mo rning Orally Once a day Active rOPINIRole HCl 3 MG 1 tablet 1 to 3 hour s before bedtime Orally Once a day Active Losartan Potassium 100 MG 1 tablet Orall y Once a day Active Amitriptyline HCl 10 MG 1 tablet Orally Once a day Active Fenofibrate 160 MG 1 tablet with a meal Orally Once a day Active Loratadine 10 MG 1 tablet Orally Once a day for 30 day(s) Active clonazePAM 0.5 MG 1AM AND 2 tablet at bedtime Orally DAILY Active Simvastatin 5 MG 1 tablet in the even ing Orally Once a day Active oxyCODONE-Acetaminophen 5-325 MG 1 tablet as needed Orally every 6 hrs Active Isosorbide Mononitrate ER 30 MG 1 tablet Orally Once a day Active Dexilant 60 MG 1 capsule Orally Onc e a day Active Metoprolol Succinate ER 25 MG 1 tablet Orally Once a day Active Lyrica 75 MG 1 capsule Orally Onc e a day Active Aspirin Adult Low Dose 81 MG 1 tablet Or ally Once a day Active buPROPion HCl ER (XL) 150 MG 1 tablet in the morning Orally Once a day for 30 day(s) Active Immunizations Vaccine Route Administration Date Status Comme nts Flu vaccine no Preserv 3 and > Unknown 05/30/2015 Admin istered Influenza Unknown 09/18/2018 Administered Social History Tobacco Use: Social History Observation Description Date Details (start date - stop date) Current Smoker NA - NA Tobacco Use/Smoking Question Answer Notes Patient is a current smoker How often do you smoke cigarettes? every day How many cigarettes a day do you smoke? 6-10 How soon after you wake up d o you smoke your first cigarette? 6-30 minutes Are you interested in quitting? Thinking about q uitting Section Notes: She describes having stopped smoking 3 weeks ago, but does not use any significant amounts of alcohol Started smoking again 1/2 pp d , but does not use any significant amounts of alcohol Started smoking again 1/2 pp d , but does not use any significant amounts of alcohol Problems Problem Type SNOMED Code ICD Code Onset Dates Problem Status W/U Status Risk Notes Problem 29729253 Irritable bowel syndrome without diarrhea (K58.9) Active confirmed Problem 998532375 Blood in stool (K92.1) Active confirm ed Problem 896203852 Gastroesophageal reflux disease without esophagitis (K21.9) Active confirmed Problem 39375464 Constipation, unspecified constipation type (K59.00) Active confirmed Problem 84676430 Pharyngoesophage al dysphagia (R13.14) Active confirmed Problem 17210232 Irritable bowel syndrome with both constipation and diarrhea (K58.2) Active confirmed Plan Of Treatment Pending Test Test Name Order Date GI BIOPSY 12/24/2018 Future Test Test Name Order Date COLONOSCOPY 01/12/2016 UPPER GI ENDOSCOPY 11/07/2018 Insurance Providers Payer Name Payer Address Payer Phone Subscriber Number Group Number Insured Name Patient Relationship to Insured Coverage Start Date Coverage End Date MEDICARE OF [place] [address] [place] [id number] ZANE BRYAN Self - patient is the insured MEDICAID OF [facility] [address] [place] [address] [phone] [id number] ZANE BRYAN Self - patient is the insured Medical (General) History Medical History History ICD Code Colonoscopy 11-06-2008--screen ing colonoscopy--neg except for a hyperplastic polyp, mild diverticulosis, internal/external hemorrhoids Asthma/COPD Hypertension GERD--EGD's and in 2011 with finding of a small hiatal hernia---no significant esophagitis nor Maya's esophagus Urinary incontinence Denies NH,DM,CVA,renal disease Depression Kidney stones--ESWL Sleep apnea--has CPAP, but doesn't use i t Colonoscopy in 03/2016 was ne gative except for internal hemorrhoids and diverticulosis Arthritis--takes Lyrica IBS with diarrhea/constipation Surgical History Surgery Date(Month/Year) Cholecystectomy C- section tubal ligation JORDANA Bilateral carpal tunnel Trigger fingers Bladder suspension
== END 2025-04-22 09:46 | disposition home or self-care (01) ==
LOC: HO.CT 09:45
PROVIDERS: PCP Internal Medicine; Visit Provider Physician Assistant Medical
DX: Z12.2 Encounter for screening for malignant neoplasm of respiratory organs (principal); F17.210 Nicotine dependence, cigarettes, uncomplicated
CPT/HCPCS: 71271

== ENCOUNTER → 2025-04-22 09:48 | Outpatient (BNV) | payer OTHER, SELFPAY | PROVIDERS: PCP Internal Medicine; Visit Provider Radiology Diagnostic Radiology | DX: F17.210 Nicotine dependence, cigarettes, uncomplicated (principal) | CPT/HCPCS: 71271 ==

== ENCOUNTER 2025-05-01 15:13 | Outpatient (AMB) | payer OTHER, SELFPAY ==
--- OUTSIDE RECORDS SUMMARY | 2025-05-01 15:15 | XMS_ITS | Data Portability ---
Author Organization [employer], [facility] Address [address] [place] [address] Care Team Providers Care Rag Baler Name Role Phone HIM CCA OTHER Assessment Encounter Date Assessment Date Assessment LastModified by Organization Details LastModified Time 10/31/2023 10/31/2023 I provided real -time medical direction via phone for this encounter, and was available for additional phone based assistance as needed. I have reviewed and agree with the Assessment and Plan as documented by the Grey Percher. Patient given the opportunity to ask questions. [...] or worsening serious symptoms, particularly fever chills Not available 10/31/2023 16:23:05 08/08/2024 08/08/2024 I provided real -time medical direction via phone for this encounter and was available for additional phone-based assistance as needed. I have reviewed and agree with the Assessment and Plan as documented by the Grey Percher. Patient given the opportunity to ask questions. [...] creams. No new soaps as well. Per certified anesthesiologist assistant on the scene, vital signs are stable [...] particularly fever chills lightheadedness altered mental status Not available 08/08/2024 16:34:23 Plan of Treatment Reminders Order Date Submit Date Provider Last Modified By Organization Details Last Modified Time Details Appointments None recorded. Lab culture, urine 2023 024 [place] [facility] (Centralized Electronic Ordering - All Locations), Patient Can Go To The Location Of Their Choice, [id number] 4 12:06:16 urinalysis , dipstick 2023 024 [facility], [address] [place] [address], [id number] 4 17:18:27 Referral None recorded. Procedures None [...] culture,comp rehensive Final report Not Available [facility] ([facility]) [address] [facility], [place], [address], 02/29/2024 10:06:17 02/25/2002/29/2024 URINE CULTU RE,CO MPREH ENSIV E result 1 COMMEN T No growt h in 36 - 48 hours . Not Available [facility] ([facility]) [address] [facility], [place], [address], 02/29/2024 10:06:17 Result Notes None recorded. Medical Equipment None Reported. Allergies Allergen ID Allergen Name Allergen Category Reaction Reaction Severity Criticality Documentation Date Start Date Code Code System Note Provider Name and Address Organization Details Recorded Time 6496 lisinopri l medicatio n Not available Not available Not available 08/08/2024 06825 RxNorm Madison Stanley MD [address] [place] [address],[address], [place], [phone], MOVL 16:32:00 6497 metformin medicatio n Not available Not available Not available 08/08/2024 6809 RxNorm Madison Stanley MD [address] [place] [address],[address], [place], [address], MOVL 16:32:07 Medications Name Sig Start Date Stop [...] blood by Pulse oximetry Body temperature Systolic And Diastolic Provider Name and Address Organization Details Last Updated DateTime 4 20057.7 2 g 16 /min 90 /min 154.94 cm 97 % 97 % 98.5 [degF] 154/83 mm[Hg] Not Available [facility] - production 4 16:20:03 Date Recorded Body height Oxygen saturation Oxygen saturation in Arterial blood by Pulse oximetry Heart rate Body temperature Respiratory rate Body weight Systolic And Diastolic Provider Name and Address Organization Details Last Updated DateTime 4 149.86 cm 98 % 98 % 76 /min 97.2 [degF] 16 /min 13863.5 36 g 146/77 mm[Hg] Not Available [facility] - production 11:54:56 Date Recorded Body temperature Body height Oxygen saturation Oxygen saturation in Arterial blood by Pulse oximetry Respiratory rate Heart rate Body weight Systolic And Diastolic Provider Name and Address Organization Details Last Updated DateTime 98.4 [degF] 149.86 cm 98 % 98 % 18 /min 65 /min 19254.3 52 g 179/91 mm[Hg] Not Available [facility] - production 13:41:18 Social History None recorded. Functional Status None recorded. Mental Status None recorded. Family History Nothing Reported. Medical History No medical history recorded. Gynecological HistoryNo gynecological history recorded. Obstetrics History GPAL:G 0 P 0 0 0 0 Past Encounters Encounter ID Performer Location Encounter Start Date Encounter Closed Date Diagnosis/Indication Diagnosis SNOMED-CT Code Diagnosis ICD10 Code Diagnosis Note [id number] Madison Stanley MD [facility] [address] [place] [phone] 10/31/2023 16:20:01 11/01/2023 14:26:42 Viral upper respiratory tract infection 068714742 J06.9 [id number] Michele Reyna MD [facility] [address] [place] [phone] 02/25/2024 11:54:53 02/25/2024 17:21:50 Psychogenic dysuria 157585141 F45.8 This 63-year-ol d female with interstiti al cystitis thinks she has a UTI. She has some suprapubli c pain and dysuria. Her U/A was normal. I ordered a U/C and recommende d that she follow-up with her PCP regarding the results. The patient agreed with this plan. [id number] Madison Stanley MD [facility] [address] [place] [phone] 08/08/2024 13:41:09 08/08/2024 19:32:46 Localized eruption of skin 791683435 R21 Health Concerns Section Related Observation LastModified by Organization Detai ls LastModified Time None Recorded Concern Status LastModified by Organization Details LastModified Time None Recorded Advance Directives Directive None Recorded Payers Insurance Date Sequence Insurance Name Policy Number Policy Herrera Covered Member ID Herrera Member ID Guarantor Name 02/25/2024 1 [facility] - DOS ON OR AFTER 2023 - DUAL ELIGIBLE - SNF OPTIONS AND ONE CARE (MEDICARE REPLACEMENT/ADV ANTAGE - HMO) Rafia Treviño [id number] Rafia Treviño Notes Date Note Type Note [...] ...................... ...................... ...................... ...................... ...................... ...................... ......... Grey Percher Note From Kevin Vieira: Pt reports 3 [...] flu negative. UA not suggestive of infection. Pt s sx seem c/w COPD exacerbation for [...] ...................... ...................... ...................... ...................... ...................... ......... Disposition: Bret Stanley MD [address] [place] [address],[address], [place], [address], [employer] 10/31/2023 16:23:20 02/25/2024 text/html [facility] Nurse Triage Notes (Jean Santos): Chief Complaints: Abdominal Pain, Fever/Chills, UTI/Pyelonephritis PMH: Hypertension, COPD/Asthma Allergies: Unknown Comments: Heel Trimmer verified the member's name//address and phone number. [...] treatment if needed -ALISHA Mcgregor MD [address] [facility],[address], [place], [address], [employer] 02/25/2024 12:00:15 08/08/2024 text/html [facility] Nurse Triage [...] ...................... ...................... ...................... ...................... ...................... ...................... ......... Grey Percher Note From Michele Stone: Dispatched to the [...] ...................... ......... Disposition: Fulfilled Madison Stanley MD [address] [place] [address],[address], [place], [address], [employer] 08/08/2024 16:34:36 OBGyn Episode No OBEpisode recorded.
--- OUTSIDE RECORDS SUMMARY | 2025-05-01 15:15 | XMS_ITS | Patient Health Record ---
Author Organization [facility] Address [address] [place] [address] Care Team Providers Care Marine Diver Name Role Phone Hitesh Fairchild MD Primary Care Provider Mauro Prasad [phone] Allergies Allergen (clinical drug ingredient) Drug/Non Drug [...] Problem Status W/U Status Risk Notes Problem 44234666 Irritable bowel syndrome without diarrhea (K58.9) Active confirmed Problem 618679668 Blood in stool (K92.1) Active confirm ed Problem 825727603 Gastroesophageal reflux disease without esophagitis (K21.9) Active confirmed Problem 02057993 Constipation, unspecified constipation type (K59.00) Active confirmed Problem 81645747 Pharyngoesophage al dysphagia (R13.14) Active confirmed Problem 69310357 Irritable bowel syndrome with both constipation and diarrhea (K58.2) Active confirmed Plan Of Treatment Pending Test Test Name Order Date GI BIOPSY 12/24/2018 Future Test Test Name Order Date COLONOSCOPY 01/12/2016 UPPER GI ENDOSCOPY 11/07/2018 Insurance Providers Payer Name Payer Address Payer Phone Subscriber Number Group Number Insured Name Patient Relationship to Insured Coverage Start Date Coverage End Date MEDICARE OF [place] [address] DREAANNA HERNÁN[place]ZEZEQUIELOPAL [id number] ZANE BRYAN Self - patient is the insured MEDICAID OF [facility] [address] [place] [address] [id number] ZANE BRYAN Self - patient is the insured Medical (General) History Medical History History ICD Code Colonoscopy 11-06-2008--screen ing colonoscopy--neg except for a hyperplastic polyp, mild diverticulosis, internal/external hemorrhoids Asthma/COPD Hypertension GERD--EGD's and in 2011 with finding of a small hiatal hernia---no significant esophagitis nor Maya's esophagus Urinary incontinence Denies AL,DM,CVA,renal disease Depression Kidney stones--ESWL Sleep apnea--has CPAP, but doesn't use i t Colonoscopy in 03/2016 was ne gative except for internal hemorrhoids and diverticulosis Arthritis--takes Lyrica IBS with diarrhea/constipation Surgical History Surgery Date(Month/Year) Cholecystectomy C- section tubal ligation JORDANA Bilateral carpal tunnel Trigger fingers Bladder suspension
--- NOTE | 2025-05-01 15:23 | MHC.OFFVIS ---
Intake Visit Reasons: Hydrodistention follow up/PVR Intake Note: Pt presents to the office today for a hydrodistention follow up/PVR Urology Meds- Tamsulosin Allergies to Antibiotic- No Known Allergies Blood Thinner- None PVR:120ml Algorithm Design Engineer Required: No Accompanied by: Self / Same As Patient Allergies metformin Adverse Reaction (Intermediate, Verified 05/01/25 15:39) Vomiting lisinopril (From Zestril) Adverse Reaction (Mild, Verified 05/01/25 15:39) COUGH HPI Comments Details: 05/01/25--Rafia is a 65-year-old female who is followed for interstitial cystitis she is status post repeat cystoscopy hydrodistention with urethral dilation on 04/15/2025 cystoscopy findings bladder capacity 700 mL post distention urinalysis today is negative for blood or leukocytes. The patient is on Flomax. Bladder scan PVR is 120 mL today History of Present Illness - The patient is a 65-year-old female presenting with interstitial cystitis. - Interstitial cystitis: Managed with repeat cystoscopy and hydrodistension, bladder capacity post-distension was 700 mL. - Symptoms: Reports nocturia and incomplete bladder emptying, with frequent urination shortly after voiding. - Medication: Currently on Flomax, initially effective but now less so. - Kidney stone: History of a small stone, possibly in the right kidney. - Renal cyst: Present on the kidney, asymptomatic. Results - Urinalysis: Negative for blood or leukocytes - Bladder scan: Post-void residual volume of 120 mL Discussion Notes I discussed with the patient the current management of interstitial cystitis, including the use of Flomax and its diminishing effectiveness. We explored the option of a bladder pacemaker as a potential treatment, which involves a test to determine responsiveness. I also mentioned the possibility of pelvic floor physical therapy to manage symptoms, although the patient declined this option at present. We agreed to continue Flomax and plan a follow-up in six months. Additionally, I will order an ultrasound to evaluate the kidneys, given the history of a small stone and renal cyst, and we will review the results via telephone. Plan - Continue Flomax for interstitial cystitis management, despite reduced effectiveness. - Consider bladder pacemaker testing to assess suitability for nerve stimulation treatment. - Declined pelvic floor physical therapy referral at this time. - Order renal ultrasound to evaluate kidney stone and cyst, with results to be reviewed via telephone. - Schedule follow-up appointment in six months to reassess symptoms and treatment efficacy. 03/13/25--Rafia is being followed for interstitial cystitis. 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 Patient underwent cystoscopy hydrodistention urethral dilation on 05/07/2024, findings at that time bladder capacity do post distention 850 mL glomerulations were not visualized. H/O prior lithotripsy for kidney stones, h/o sling placed in 2006. She was seen by another urologist and had the sling removed due to difficulty voiding in worsening pain with voiding. In discussion today, the patient states she is getting recurrent urinary symptoms of urinary hesitancy, and urgency, during the night she has noticed some wetting of her underwear. She denies dysuria. Denies blood in the urine. Urinalysis today is negative for signs of UTI. The patient is described Percocet PRN by her PCP, for chronic back and hip pain and degenerative disc disease. Will cont Flomax. I have discussed repeat cystoscopy hydrodistention and urethral dilation. Results: 04/18/24-- US renal - no renal calculi. 09/12/24--Rafia is being followed for interstitial cystitis. 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 She states she has been voiding better and has less pain. On a scale of 1-10 she states her pain is about a 4. She states ibuprofen does help. I will send a prescription for naproxen 500 mg twice a day p.r.n. 06/07/24--followed for IC. s/p cystoscopy hydrodistension and urethral dilation on 05/07/24- findings, bladder capacity 850 mL, glomerulations were not visualized. Rafia states for the first 3 weeks she was doing well, now the urine seems to come out slower and she the bladder pressure/pain is returning. Whem she urinates it feels that she is not emptying completely. Bladder scan PVR 58 mL. Will start flomax. Also pyridium prn. fU in 3 months. 04/15/24--Rafia is a 63-year-old female who has here as a new the patient has a history of interstitial cystitis kidney stone, stress urinary incontinence. States that she was [facility] in the past for interstitial cystitis, she was initially treated the Elmiron which she did not tolerate and then self bladder installations which initially helped but then she developed bladder spasms and was not able to continue the treatment regimen. She has had prior lithotripsy for kidney stones. She had a sling placed in 2006. She was seen by another urologist and had the sling removed due to difficulty voiding in worsening pain with voiding. She has some urinary leakage but states since losing weight this has improved. She complains of bladder pain and nocturia 2-3 times at night. She uses [id number] azo prn which helps. She has a long history of nicotine use 1 and half pack per day and is now down to 7-8 cigarettes daily. Comorbidity diabetes, she states since being on Ozempic she is lost about 60 lb in the last 6 months. I have discussed evaluation with cystoscopy hydrodistention. I have discussed that nicotine is a risk factor for urinary tract cancers. Will send urine for surveillance culture and urine cytology, and check a renal ultrasound. [facility] Medical History Osteopenia (~2018) Nicotine dependence, cigarettes, uncomplicated Allergic rhinitis Irritable bowel syndrome Obstructive sleep apnea Obesity Restless leg syndrome Asthma Insomnia Interstitial cystitis Osteoarthritis of hip Right renal stone GERD (gastroesophageal reflux disease) Anxiety and depression Hypercholesterolemia Fatty liver Hypertension Lumbar degenerative disc disease Type 2 diabetes mellitus with hyperglycemia Surgical History History of surgery (01/27/25) History of breast lump/mass excision History of hand surgery History of foot surgery History of surgical removal of ganglion cyst History of colonoscopy History of nasal surgery History of esophagogastroduodenoscopy (EGD) History of removal of cyst History of lithotripsy History of bladder surgery History of carpal tunnel release History of tonsillectomy and adenoidectomy History of cholecystectomy History of total abdominal hysterectomy and bilateral salpingo-oophorectomy History of section Family History Father CAD (coronary artery disease) CVD (cerebrovascular disease) Lung cancer Hypertension Mother Hypertension Diabetes Cancer Daughter Breast cancer Paternal Uncle Myocardial infarction Paternal Aunt Myocardial infarction Maternal Uncle Myocardial infarction Bone cancer Other FH: mental illness Substance abuse Social History Housing: Apartment Are you a primary reservoir caretaker to a significant other at home: No Do you presently have visiting nurse or other home services: No Alcohol intake: current Alcohol intake frequency: does not drink Patient Tobacco Use Status: Current everyday Tobacco user Tobacco use type: Cigarette Cigarette Packs Per Day: 0.5 Cigarettes Per Day: 7 Years Smoked: 55 e-Cigarette/Vaping Use: Never Used Second Hand Smoke Exposure: Yes service: No Current occupational status: disabled Cognitive needs: No Hearing needs: No Vision needs: Yes Review of Systems Const All systems reviewed & are unremarkable except as noted in HPI and below Reports no additional complaints Eyes Reports no additional complaints ENT Reports no additional complaints Card Reports no additional complaints Resp Reports no additional complaints GI Reports no additional complaints Reports as per HPI Musc Reports no additional complaints Skin/Breast Reports system reviewed and no additional complaints, except as documented Neuro Reports no additional complaints Psych Reports no additional complaints Endo Reports no additional complaints Juve/Lymph Reports no additional complaints Aller/Immun Reports no additional complaints Results AMB Urinalysis, Automated UA Leukoctes 0 Juanita/uL Last Edit by Yeimi Comer on 05/01/25 16:35 UA Nitrite Negative Last Edit by Yeimi Comer on 05/01/25 16:35 UA Urobilinogen 0.2 mg/dL Last Edit by Yeimi Comer on 05/01/25 16:35 UA Protein 0 mg/dL Last Edit by Yeimi Comer on 05/01/25 16:35 UA pH 5.5 Last Edit by Yeimi Comer on 05/01/25 16:35 UA Blood 0 Walter/uL Last Edit by Yeimi Comer on 05/01/25 16:35 UA Specific [place] 1.020 Last Edit by Yeimi Comer on 05/01/25 16:35 UA Ketone Negative Last Edit by Yeimi Comer on 05/01/25 16:35 UA Bilirubin 0 mg/dL Last Edit by Yeimi Comer on 05/01/25 16:35 UA Glucose 1000 mg/dL Last Edit by Yeimi Comer on 05/01/25 16:35 Results Reviewed Results Reviewed: Date of Service: 04/18/24 US RETROPERITONEAL LIMITED (RENAL ONLY) CLINICAL INFORMATION: Calculus of kidney. COMPARISON: CT abdomen and pelvis 03/12/2023. Renal ultrasound 10/22/2018. X-ray abdomen KUB 01/28/2015. TECHNIQUE: Real-time imaging of the kidneys. Limited visualization due to bowel gas. FINDINGS: RIGHT KIDNEY: 11.6 x 4.2 x 4.0 cm (SAG x AP x TRV). No hydronephrosis. No renal calculi. Renal cortical thickness is normal. Limited visualization. LEFT KIDNEY: 10.7 x 4.8 x 4.4 cm (SAG x AP x TRV). No hydronephrosis. No renal calculi. Renal cortical thickness is normal. Limited visualization. IMPRESSION: No hydronephrosis. No renal calculi. 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 Orders: Orders AMB Urinalysis Automated Today N20.0 - Calculus of kidney, N30.10 - Interstitial cystitis (chronic) without hematuria, Q64.31 - Congenital bladder neck obstruction, R39.12 - Poor urinary stream AMB Post Void Residual by ultrasound Today N20.0 - Calculus of kidney, N30.10 - Interstitial cystitis (chronic) without hematuria, Q64.31 - Congenital bladder neck obstruction, R39.12 - Poor urinary stream Patient Instructions: The patient had an opportunity to ask questions regarding treatment plan. The patient expressed understanding and agreement with the above treatment plan. The patient is aware they should contact our office by phone for worsening of their current condition or the appearance of new symptoms. Compliance is encouraged with any medications and followup testing that is ordered. It is a privilege to be allowed the opportunity to participate in the urologic care of your patient. If you have any questions or concerns regarding treatment for the above conditions please do not hesitate to contact me. The office telephone contact is [phone]. This note is constructed in part using voice recognition software. While every effort has been made to ensure accuracy cement mason maintenance errors may have been included. Yours sincerely, Michael Dejesus MD Scribe Plan - Not visible on output: Patient was informed and verbally consented to the use of an ambient scribe for clinic note documentation during this visit. 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
== END 2025-05-01 16:13 | disposition home or self-care (01) ==
LOC: HO.HUSH 15:14
PROVIDERS: PCP Internal Medicine; Visit Provider Urology
DX: N20.0 Calculus of kidney (principal); N30.10 Interstitial cystitis (chronic) without hematuria; Q64.31 Congenital bladder neck obstruction; R39.12 Poor urinary stream

== ENCOUNTER → 2025-05-01 15:13 | Outpatient (BNVA) | payer OTHER, SELFPAY | PROVIDERS: PCP Internal Medicine; Visit Provider Urology | DX: N30.10 Interstitial cystitis (chronic) without hematuria (principal); N20.0 Calculus of kidney; F17.200 Nicotine dependence, unspecified, uncomplicated; Q64.31 Congenital bladder neck obstruction; R39.12 Poor urinary stream | CPT/HCPCS: 81003; 99212 ==

== ENCOUNTER 2025-06-05 10:43 | Outpatient (REF) | payer OTHER, SELFPAY ==
--- NOTE | ~2025-06-05 | MM_ITS ---
EXAMINATION: MM DIAGNOSTIC DIGITAL BREAST TOMOSYNTHESIS, BILATERAL CLINICAL INFORMATION: 1 year follow-up for left breast grouped calcifications upper outer quadrant and around central outer breast anterior to middle depth. COMPARISON: Mammography: Comparison is made with relevant prior exams. TECHNIQUE: Digital breast mammography with tomosynthesis is performed in both the craniocaudal and mediolateral oblique views along with computer-aided detection (CAD). FINDINGS: There are scattered areas of fibroglandular density (ACR BI-RADS breast composition Category b). Right: Postsurgical changes. Benign dystrophic calcifications are stable.. There are no significant masses, abnormal calcifications, or other abnormalities. Left: Marker clip in the upper outer breast from stereotactic benign core needle biopsy and 2014. Grouped calcifications in the upper outer quadrant posterior depth are not significantly changed from prior magnification views 1 year ago. Grouped is heterogeneous calcifications in the central outer breast anterior to middle depth are not significantly changed from magnification views 1 year ago. No suspicious masses or other abnormal findings. Results are provided to the patient at time of visit by the technologist. MM/MM tomosynthesis diagnostic BI IMPRESSION: Right: Benign. Left: Grouped ulcerations in the upper outer breast posterior depth and central outer breast anterior to middle depth are not significant changed on magnification views dating back for one year. Recommend one-year follow-up with magnification views to demonstrate 2 years of stability when the patient will be due for bilateral mammography. ASSESSMENT: BI-RADS BI-RADS 3 - Probably benign finding(s) - 12 month follow-up suggested RECOMMENDATION: 12 month diagnostic follow up This patient's information was entered into a reminder system with a target due date for their next mammogram. Electronically signed by: Chika العلي DO 06/05/2025 12:45 PM EDT
--- OUTSIDE RECORDS SUMMARY | 2025-06-05 11:23 | XMS_ITS | Patient Health Record ---
Author Organization [facility] Address [address] [place] [address] Care Team Providers Care Hot Car Operator Name Role Phone Hitesh Fairchild MD Primary Care Provider Mauro Prasad [phone] Allergies Allergen (clinical drug ingredient) Drug/Non Drug [...] Problem Status W/U Status Risk Notes Problem 46208817 Irritable bowel syndrome without diarrhea (K58.9) Active confirmed Problem 218496916 Blood in stool (K92.1) Active confirm ed Problem 285980742 Gastroesophageal reflux disease without esophagitis (K21.9) Active confirmed Problem 33621434 Constipation, unspecified constipation type (K59.00) Active confirmed Problem 91887420 Pharyngoesophage al dysphagia (R13.14) Active confirmed Problem 74191471 Irritable bowel syndrome with both constipation and diarrhea (K58.2) Active confirmed Plan Of Treatment Pending Test Test Name Order Date GI BIOPSY 12/24/2018 Future Test Test Name Order Date COLONOSCOPY 01/12/2016 UPPER GI ENDOSCOPY 11/07/2018 Insurance Providers Payer Name Payer Address Payer Phone Subscriber Number Group Number Insured Name Patient Relationship to Insured Coverage Start Date Coverage End Date [place] OF [place] [address] [place] [phone] [id number] ZANE BRYAN Self - patient is the insured MEDICAID OF [facility] [address] [place] [address] [phone] [id number] ZANE BRYAN Self - patient is the insured Medical (General) History Medical History History ICD Code Colonoscopy 11-06-2008--screen ing colonoscopy--neg except for a hyperplastic polyp, mild diverticulosis, internal/external hemorrhoids Asthma/COPD Hypertension GERD--EGD's and in 2011 with finding of a small hiatal hernia---no significant esophagitis nor Maya's esophagus Urinary incontinence Denies SD,DM,CVA,renal disease Depression Kidney stones--ESWL Sleep apnea--has CPAP, but doesn't use i t Colonoscopy in 03/2016 was ne gative except for internal hemorrhoids and diverticulosis Arthritis--takes Lyrica IBS with diarrhea/constipation Surgical History Surgery Date(Month/Year) Cholecystectomy C- section tubal ligation JORDANA Bilateral carpal tunnel Trigger fingers Bladder suspension
== END 2025-06-05 10:44 | disposition home or self-care (01) ==
LOC: HO.MAMMO 10:43
PROVIDERS: PCP Internal Medicine; Visit Provider Internal Medicine
DX: R92.1 Mammographic calcification found on diagnostic imaging of breast (principal)
CPT/HCPCS: 77062; 77066

== ENCOUNTER → 2025-06-05 11:00 | Outpatient (BNV) | payer OTHER, SELFPAY | PROVIDERS: PCP Internal Medicine; Visit Provider Internal Medicine | DX: R92.1 Mammographic calcification found on diagnostic imaging of breast (principal) | CPT/HCPCS: 77066; G0279 ==

== ENCOUNTER 2025-06-09 08:10 | Outpatient (REF) | payer OTHER, SELFPAY ==
--- OUTSIDE RECORDS SUMMARY | 2025-06-09 08:25 | XMS_ITS | Patient Health Record ---
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 Name Role Phone Hitesh Fairchild MD Primary Care Provider Mauro Prasad [phone] Allergies Allergen (clinical drug ingredient) Drug/Non Drug [...] Problem Status W/U Status Risk Notes Problem 15422581 Irritable bowel syndrome without diarrhea (K58.9) Active confirmed Problem 042990495 Blood in stool (K92.1) Active confirm ed Problem 962133288 Gastroesophageal reflux disease without esophagitis (K21.9) Active confirmed Problem 36746957 Constipation, unspecified constipation type (K59.00) Active confirmed Problem 67809477 Pharyngoesophage al dysphagia (R13.14) Active confirmed Problem 86645028 Irritable bowel syndrome with both constipation and diarrhea (K58.2) Active confirmed Plan Of Treatment Pending Test Test Name Order Date GI BIOPSY 12/24/2018 Future Test Test Name Order Date COLONOSCOPY 01/12/2016 UPPER GI ENDOSCOPY 11/07/2018 Insurance Providers Payer Name Payer Address Payer Phone Subscriber Number Group Number Insured Name Patient Relationship to Insured Coverage Start Date Coverage End Date MED[place]ARE OF [place] [address] [place] [id number] ZANE BRYAN Self - patient is the insured MEDICAID OF [facility] [address] [place] [phone] [id number] ZANE BRYAN Self - patient is the insured Medical (General) History Medical History History ICD Code Colonoscopy 11-06-2008--screen ing colonoscopy--neg except for a hyperplastic polyp, mild diverticulosis, internal/external hemorrhoids Asthma/COPD Hypertension GERD--EGD's and in 2011 with finding of a small hiatal hernia---no significant esophagitis nor Maya's esophagus Urinary incontinence Denies [place],DM,CVA,renal disease Depression Kidney stones--ESWL Sleep apnea--has CPAP, but doesn't use i t Colonoscopy in 03/2016 was ne gative except for internal hemorrhoids and diverticulosis Arthritis--takes Lyrica IBS with diarrhea/constipation Surgical History Surgery Date(Month/Year) Cholecystectomy C- section tubal ligation JORDANA Bilateral carpal tunnel Trigger fingers Bladder suspension
[2025-06-09 08:54] LABS: Appearance Urine Clear; Glucose Urine UA >=1000 mg/dL (Negative); PH 6.0 (5.0-9.0); Specific Gravity - Urine >= 1.030 (1.005-1.025); UMIC TRIGGER UACC YES
[2025-06-09 08:58] LABS: UACC Culture Trigger YES
[2025-06-09 09:14] LABS: Cholesterol 159 mg/dL (<200); HDL Cholesterol 70 mg/dL (>40); Triglycerides 76 mg/dL (<150)
== END 2025-06-09 08:11 | disposition home or self-care (01) ==
LOC: HO.LAB 08:10
PROVIDERS: PCP Internal Medicine; Visit Provider Internal Medicine
DX: E11.65 Type 2 diabetes mellitus with hyperglycemia (principal); E78.00 Pure hypercholesterolemia, unspecified
CPT/HCPCS: 36415; 80061; 81001; 82570; 87086

== ENCOUNTER 2025-06-11 11:04 | Outpatient (AMB) | payer OTHER, SELFPAY ==
--- NOTE | 2025-06-11 11:08 | A.OFFPC_ITS ---
Vital Signs 06/11/25 11:10 Height 4 ft 11 in Weight 156 lb 2 oz BMI 31.5 BP 116/70 Blood Pressure Location Lt brachial Position Sitting Pulse 63 Pulse Source Pulse Oximeter Temp 97.3 F Temp Source Temporal Artery Scan Pulse Oximetry (%) 100 Oxygen Delivery Method Room Air Intake Visit Reasons: tobacco abuse , asthma Intake Note: Patient is here to follow up on Asthma, Tobacco abuse. Green Belt Required: No Corduroy Cutting Supervisor: Not Required per policy Accompanied by: Self / Same As Patient Allergies metformin Adverse Reaction (Intermediate, Verified 06/11/25 11:09) Vomiting lisinopril (From Zestril) Adverse Reaction (Mild, Verified 06/11/25 11:09) COUGH Tobacco use date assessed: 06/11/25 Fall risk assessment: No Falls in past year Last assessed Fall Risk: 06/11/25 Dental Screening Dental Screen Date: 11/05/24 FOR[facility], [facility] Medical History Osteopenia (~2017) Nicotine dependence, cigarettes, uncomplicated Allergic rhinitis Irritable bowel syndrome Obstructive sleep apnea Obesity Restless leg syndrome Asthma Insomnia Interstitial cystitis Osteoarthritis of hip Right renal stone GERD (gastroesophageal reflux disease) Anxiety and depression Hypercholesterolemia Fatty liver Hypertension Lumbar degenerative disc disease Type 2 diabetes mellitus with hyperglycemia Surgical History History of surgery (01/27/25) History of breast lump/mass excision History of hand surgery History of foot surgery History of surgical removal of ganglion cyst History of colonoscopy History of nasal surgery History of esophagogastroduodenoscopy (EGD) History of removal of cyst History of lithotripsy History of bladder surgery History of carpal tunnel release History of tonsillectomy and adenoidectomy History of cholecystectomy History of total abdominal hysterectomy and bilateral salpingo-oophorectomy History of section Family History Father CAD (coronary artery disease) CVD (cerebrovascular disease) Lung cancer Hypertension Mother Hypertension Diabetes Cancer Daughter Breast cancer Paternal Uncle Myocardial infarction Paternal Aunt Myocardial infarction Maternal Uncle Myocardial infarction Bone cancer Other FH: mental illness Substance abuse Social History Housing: Apartment Are you a primary respiratory care instructor to a significant other at home: No Do you presently have visiting nurse or other home services: No Alcohol intake: current Alcohol intake frequency: does not drink Patient Tobacco Use Status: Current everyday Tobacco user Tobacco use type: Cigarette Cigarette Packs Per Day: 0.5 Cigarettes Per Day: 7 Years Smoked: 55 e-Cigarette/Vaping Use: Never Used Second Hand Smoke Exposure: Yes service: No Current occupational status: disabled Cognitive needs: No Hearing needs: No Vision needs: Yes Questionnaire PHQ-9 Over the last 2 weeks, how often have you been bothered by any of the following problems? 1. Little interest or pleasure in doing things: more than half the days 2. Feeling down, depressed, or hopeless: more than half the days 3. Trouble falling or staying asleep, or sleeping too much: nearly every day 4. Feeling tired or having little energy: nearly every day 5. Poor appetite or overeating: several days 6. Feeling bad about yourself - or that you are a failure or have let yourself or your family down: several days 7. Trouble concentrating on things, such as reading the newspaper or watching television: several days 8. Moving or speaking so slowly that other people could have noticed. Or the opposite - being so fidgety or restless that you have been moving around a lot more than usual: several days 9. Thoughts that you would be better off or of hurting yourself in some way: not at all Total score: 14 Depression Screening Interpretation: Positive Depression Screening Done: Yes Source: Developed by Drs. Mauro George, Mariana Medrano, James Truong and colleagues, with an educational romeo from [employer]. Thrive Questionnaire Date Thrive assessed: 11/05/24 I am a: Patient What is your living situation today?: I have a steady place to live Within the past 12 months, did the food you bought not last and you didn't have the money to get more?: Sometimes True Within the past 12 months, did you worry whether your food would run out before you got money to buy more?: Sometimes True Do you have trouble paying for medicines?: I choose not to answer this question Do you have trouble getting transportation to medical appointments?: No Do you have trouble paying your heating and electricity bill?: I choose not to answer this question Do you have trouble taking care of your child, family member or friend?: No Do you have trouble with day-to-day activities such as bathing, preparing meals, shopping, managing finances, etc.?: Yes Are you currently unemployed and looking for a job?: No Are you interested in more education?: No Please select the resources that you would like help with: Food Currently or been in a relationship where the following occur: I choose not to answer THRIVE Score: 2 AUDIT C Alcohol Use Questionnaire (AUDIT-C) 1. How often do you have a drink containing alcohol?: Never Total Score: 0 NICOLA-7 AMB Questionnaire NICOLA-7 Date NICOLA - 7 assessed: 06/11/25 Feeling nervous, anxious, or on edge: 1 = Several days Not being able to stop or control worryin = More than half the days Worrying too much about different things: 2 = More than half the days Trouble relaxin = More than half the days Being so restless that it is hard to sit still: 1 = Several days Becoming easily annoyed or irritable: 1 = Several days Feeling afraid as if something awful might happen: 1 = Several days Total NICOLA-7 score (0-4 normal; 5-9 mild; 10-14 moderate; 15-21 severe): 10 Source: Developed by Drs. Mauro George, Mariana Medrano, James Truong and colleagues, with an educational romeo from [employer]. Physical exam (Primary Care) Vital Signs: Last Vital Signs Temp 97.3 F 06/11/25 11:10 Pulse 63 06/11/25 11:10 BP 116/70 06/11/25 11:10 Pulse Ox 100 06/11/25 11:10 Oxygen Delivery Method Room Air 06/11/25 11:10 BMI result Body Mass Index 31.5 Tobacco/Smoking Status: Tobacco use Status Tobacco use date assessed 06/11/25 06/11/25 11:19 Patient Tobacco Use Status Current everyday Tobacco 06/11/25 11:19 Tobacco use type Cigarette 06/11/25 11:19 e-Cigarette/Vaping Use Never Used 06/11/25 11:19 PHQ-9: PHQ-9 Score PHQ-9: Total score 14 06/11/25 11:44 Depression Screening Interpretation: Positive Thrive Assessment: Date of Thrive Assessment Date Thrive assessed 11/05/24 06/11/25 11:19 Currently or been in a relationship where the following occur: I choose not to answer Const General: alert; No acute distress Eyes Conjunctivae: conjunctivae normal Resp Auscultation: clear to auscultation bilaterally Cardio Rate: regular rate Rhythm: regular rhythm GI Inspection: Yes normal to inspection Extrem General: Yes normal to inspection and No edema Results AMB Hemoglobin A1c AMB Hemoglobin A1c 5.5 % Last Edit by SANDRO Ojeda on 06/11/25 11:24 Results Reviewed Results Reviewed: Laboratory Last Values Hgb A1c (Clinic) 5.5 % (4.0-6.0) 06/11/25 11:08 Coding Level of Care Code Est Pt Level 4 (47689) Complex EM visit Add On G2211 Diagnoses Type 2 diabetes mellitus with hyperglycemia, without long-term current use of insulin E11.65 Diabetes mellitus care home insulin use: without care home use Class 3 severe obesity due to excess calories with serious comorbidity and body mass index (BMI) of 40.0 to 44.9 in adult E66.01; Z68.41 Body mass index: BMI 40.0-44.9 Obesity classification: adult class 3 (BMI >= 40) Obesity type: due to excess calories Serious obesity comorbidity presence: with serious comorbidity Hypercholesterolemia E78.00 Essential hypertension I10 Hypertension type: essential hypertension Gastroesophageal reflux disease without esophagitis K21.9 Esophagitis presence: without esophagitis Fatty liver K76.0 Interstitial cystitis N30.10 Nipple discharge N64.52 Lumbar degenerative disc disease M51.36 Asthma J45.909 Nicotine dependence, cigarettes, uncomplicated F17.210 Assessment & Plan Assessment & Plan (1) Type 2 diabetes mellitus with hyperglycemia: Comment: Dr. 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 Hemoglobin A1c goal of less than 7.0. Patient is on Jardiance 25 mg once a day Ozempic 0.5 mg once a week (2) Obesity: Code(s): E66.9 - Obesity, unspecified Category: Medical Qualifiers: Body mass index: BMI 40.0-44.9 Obesity classification: adult class 3 (BMI >= 40) Obesity type: due to excess calories Serious obesity comorbidity presence: with serious comorbidity Qualified Code(s): E66.01 - Morbid (severe) obesity due to excess calories; Z68.41 - Body mass index [BMI]40.0-44.9, adult Plan: Diet and exercise (3) Hypercholesterolemia: Code(s): E78.00 - Pure hypercholesterolemia, unspecified Category: Medical Plan: Avoid fried foods, chicken skin, eggs, butter margarine, pastries and meat. Be it pork or beef they have a lot of cholesterol December 2024 last blood work LDL goal of less than 100. Patient is on simvastatin 10 mg once a day (4) Hypertension: Code(s): I10 - Essential (primary) hypertension Category: Medical Qualifiers: Hypertension type: essential hypertension Qualified Code(s): I10 - Essential (primary) hypertension Plan: Continue with blood pressure medication. Decrease salt intake and exercise p atient on metoprolol 25 mg once a day losartan 100 mg once a day isosorbide mononitrate (5) GERD (gastroesophageal reflux disease): Comment: EGD Dr. Baez November 2018 Code(s): K21.9 - Gastro-esophageal reflux disease without esophagitis Category: Medical Qualifiers: Esophagitis presence: without esophagitis Qualified Code(s): K21.9 - Gastro-esophageal reflux disease without esophagitis Plan: Avoid the foods that causes that usually spicy foods, tomato products, juices, coffee, soda and foods that your sensitive to. After eating do not lie down, allow 3-4 hours before in lie down. And keep the head of bed above 30 degrees to avoid the acid from going up. (6) Fatty liver: Code(s): K76.0 - Fatty (change of) liver, not elsewhere classified Category: Medical Plan: Low-fat diet and exercise (7) Interstitial cystitis: Code(s): N30.10 - Interstitial cystitis (chronic) without hematuria Category: Medical Plan: Patient follows up with urology and just had hydrodistention in March. Continuing with tamsulosin (8) Nipple discharge: Comment: right breast December 2024Excision right breast lactiferous duct Code(s): N64.52 - Nipple discharge Category: Medical Plan: Benign excision of the lactiferous duct (9) Lumbar degenerative disc disease: Code(s): M51.36 - Other intervertebral disc degeneration, lumbar region Category: Medical Plan: Narcotic pain meds: Is being prescribed with the understanding that these medications are potentially addictive and should be used only when absolutely necessary and must always be secured. Any remaining pills should be safely disposed off appropriately. Patient is advised that narcotics can impaired judgment and one should not drive or operate heavy machinery while taking these medications. Never share these medications with anybody and do not leave them unattended. They will not be replaced under any circumstances. (10) Asthma: Comment: (PFTs consistent with Bronchial Asthma) CONTINUE SYMBICORT 160-4.52 PUFFS B.I.D. AND USE PROAIR 2 PUFFS Q 4-6 HOURS ONLY P.R.N.. DOES NOT HAVE TO USE THE NEBULIZER AT THIS TIME Code(s): J45.909 - Unspecified asthma, uncomplicated Category: Medical Plan: Patient is strongly advised to stop smoking (11) Nicotine dependence, cigarettes, uncomplicated: Comment: (current smoker, onset 13yo, 1ppd x 49yrs, now 1/2ppd - 40pyh) CT February 2025 Code(s): F17.210 - Nicotine dependence, cigarettes, uncomplicated Category: Medical Plan: Patient is enrolled in the lung cancer screening program. Stop smoking! Plan History of Present Illness The patient is a 65-year-old female presenting for a follow-up visit to manage multiple chronic conditions and preventative care. The patient has a history of interstitial cystitis, which has been managed with hydrodistension and tamsulosin, although she reports persistent pain during urination. She declined pelvic floor physical therapy and is considering alternative pain management options. She has lumbar degenerative disc disease and experiences significant back pain, particularly in the middle back. The patient inquired about using a back brace for support and pain relief, and gabapentin was discussed as a potential treatment for nerve pain and restless legs syndrome. The patient has generalized anxiety disorder and reports worsening restless legs syndrome, which is impacting her quality of life. She is currently on medication for restless legs syndrome but is considering additional treatment options. The patient has a history of osteopenia, with the last bone density test conducted in August 2023. She also has hepatic steatosis, with elevated liver enzymes noted in recent tests. The patient has obstructive sleep apnea but is unable to tolerate CPAP therapy. She also has mild emphysema, likely related to her smoking history, and is enrolled in a lung cancer screening program. The patient has hypercholesterolemia, with recent cholesterol tests showing an LDL of 74 mg/dL, which is within the target range. She is on simvastatin for cholesterol management. The patient has diabetes mellitus, with her hemoglobin A1c under control. She is on Jardiance and Ozempic for diabetes management, with a goal to maintain her A1c below 7.0%. The patient has hypertension, managed with metoprolol, losartan, and isosorbide mononitrate. She also has peripheral vascular disease, which is part of her chronic condition management. Health Maintenance - Lung cancer screening program enrollment due to smoking history - Mammogram up to date as of May 2025 - Last colonoscopy performed in 2015 - Bone density test conducted in August 2023 - Cholesterol management with LDL goal of less than 100 mg/dL - Diabetes management with hemoglobin A1c goal of less than 7.0% - Smoking cessation strongly advised Social History - Smoking: Patient is a smoker and has been advised to quit due to health risks. Review of Systems - General: Reports weight loss of 3 pounds. - Respiratory: Reports difficulty tolerating CPAP for obstructive sleep apnea. Reports mild emphysema. - Gastrointestinal: Reports gastroesophageal reflux disease. - Genitourinary: Reports persistent pain during urination due to interstitial cystitis. - Musculoskeletal: Reports significant back pain, particularly in the middle back. Reports worsening restless legs syndrome. - Neurological: Reports generalized anxiety disorder. Physical Exam Results - Labs: Cholesterol test in May with LDL of 74 mg/dL. - Labs: Normal blood count in December. - Labs: Elevated liver enzymes noted due to hepatic steatosis. - Imaging: CT scan in March 2025 showed no suspicious nodules. - Imaging: Lung cancer screening CT scan revealed mild emphysema. - Urine: No microalbumin or proteinuria in December 2024. Plan The patient will continue with her current medication regimen for diabetes, including Jardiance and Ozempic, aiming to maintain her hemoglobin A1c below 7.0%. For hypercholesterolemia, she will remain on simvastatin with a target LDL of less than 100 mg/dL. The patient is advised to quit smoking to reduce the risk of further respiratory complications and is enrolled in a lung cancer screening program. For her interstitial cystitis, she will continue with tamsulosin and explore alternative pain management options, as hydrodistension has not been effective. Gabapentin will be initiated to address both her restless legs syndrome and nerve pain associated with lumbar degenerative disc disease. A back brace will be provided to help alleviate her back pain. The patient is encouraged to adhere to a low-fat diet and exercise regimen to manage her gastroesophageal reflux disease and overall health. Regular follow- ups with her healthcare providers are recommended to monitor her chronic co nditions and adjust treatment plans as necessary. Patient was informed and verbally consented to the use of an ambient scribe for clinic note documentation during this visit. Discussion Notes During the visit, I discussed with the patient the importance of maintaining her current diabetes and cholesterol management plans, emphasizing the goal of keeping her hemoglobin A1c below 7.0% and LDL below 100 mg/dL. We reviewed the risks associated with smoking, particularly in relation to her mild emphysema and the benefits of quitting smoking, including enrollment in a lung cancer screening program. I explained the potential benefits of gabapentin for her restless legs syndrome and back pain, and the use of a back brace for additional support. We also discussed alternative pain management strategies for her interstitial cystitis, as current treatments have been insufficient. Patient Instructions - Continue taking Jardiance and Ozempic as prescribed to manage diabetes. - Take simvastatin daily to maintain cholesterol levels. - Quit smoking to improve lung health and reduce the risk of complications. - Use gabapentin as directed for restless legs syndrome and back pain. - Wear the back brace as needed for support and pain relief. - Follow a low-fat diet and exercise regularly to manage GERD and overall health. - Schedule regular follow-ups with healthcare providers to monitor chronic conditions. Orders: Orders AMB Hemoglobin A1c Today E11.65 - Type 2 diabetes mellitus with hyperglycemia Medications: New [BACK BRACE] As directed 1 ea 0RF M51.36 - Other intervertebral disc degeneration, lumbar region gabapentin 100 mg PO BEDTIME 30 caps 3RF M51.36 - Other intervertebral disc degeneration, lumbar region umeclidinium-vilanterol 62.5-25 mcg/actuation (Anoro Ellipta) 1 inh inhalation DAILY 60 ea 9RF J45.909 - Unspecified asthma, uncomplicated Discontinued budesonide-formoterol 160-4.5 mcg/actuation (Symbicort) Discontinued Reason: Patient Refused 2 puffs inhalation BID 10.2 grams 12 J45.909 - Unspecified asthma, uncomplicated
[2025-06-11 11:10] VITALS: BP 116/70; PULSE 63; TEMP 36.3; O2SAT 100; BMI 31.5
--- OUTSIDE RECORDS SUMMARY | 2025-06-11 12:04 | XMS_ITS | Patient Health Record ---
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 Name Role Phone Hitesh Fairchild MD Primary Care Provider Mauro Prasad [phone] Allergies Allergen (clinical drug ingredient) Drug/Non Drug [...] Problem Status W/U Status Risk Notes Problem [id number] Irritable bowel syndrome without diarrhea (K58.9) Active confirmed Problem 196221277 Blood in stool (K92.1) Active confirm ed Problem [id number] Gastroesophageal reflux disease without esophagitis (K21.9) Active confirmed Problem 50854579 Constipation, unspecified constipation type (K59.00) Active confirmed Problem 01454827 Pharyngoesophage al dysphagia (R13.14) Active confirmed Problem 67008787 Irritable bowel syndrome with both constipation and diarrhea (K58.2) Active confirmed Plan Of Treatment Pending Test Test Name Order Date GI BIOPSY 12/24/2018 Future Test Test Name Order Date COLONOSCOPY 01/12/2016 UPPER GI ENDOSCOPY 11/07/2018 Insurance Providers Payer Name Payer Address Payer Phone Subscriber Number Group Number Insured Name Patient Relationship to Insured Coverage Start Date Coverage End Date [place] OF [place] [address] [place] [address] [id number] ZANE BRYAN Self - patient is the insured MEDICAID OF [facility] [address] [place] [address] [id number] ZANE BRYAN Self - patient is the insured Medical (General) History Medical History History ICD Code Colonoscopy 11-06-2008--screen ing colonoscopy--neg except for a hyperplastic polyp, mild diverticulosis, internal/external hemorrhoids Asthma/COPD Hypertension GERD--EGD's and in 2011 with finding of a small hiatal hernia---no significant esophagitis nor Maya's esophagus Urinary incontinence Denies MN,DM,CVA,renal disease Depression Kidney stones--[facility] Sleep apnea--has CPAP, but doesn't use i t Colonoscopy in 03/2016 was ne gative except for internal hemorrhoids and diverticulosis Arthritis--takes Lyrica IBS with diarrhea/constipation Surgical History Surgery Date(Month/Year) Cholecystectomy C- section tubal ligation JORDANA Bilateral carpal tunnel Trigger fingers Bladder suspension
== END 2025-06-11 12:14 | disposition home or self-care (01) ==
LOC: HO.HMCH 11:05
PROVIDERS: PCP Internal Medicine; Visit Provider Internal Medicine
DX: E11.65 Type 2 diabetes mellitus with hyperglycemia (principal); E66.01 Morbid (severe) obesity due to excess calories; Z68.41 Body mass index [BMI] 40.0-44.9, adult; E78.00 Pure hypercholesterolemia, unspecified; I10 Essential (primary) hypertension; K21.9 Gastro-esophageal reflux disease without esophagitis; K76.0 Fatty (change of) liver, not elsewhere classified; N30.10 Interstitial cystitis (chronic) without hematuria; N64.52 Nipple discharge; M51.369 Other intervertebral disc degeneration, lumbar region without mention of lumbar back pain or lower extremity pain; J45.909 Unspecified asthma, uncomplicated; F17.210 Nicotine dependence, cigarettes, uncomplicated

== ENCOUNTER → 2025-06-11 11:04 | Outpatient (BNVA) | payer OTHER, SELFPAY | PROVIDERS: PCP Internal Medicine; Visit Provider Internal Medicine | DX: G25.81 Restless legs syndrome (principal); E11.65 Type 2 diabetes mellitus with hyperglycemia; J45.909 Unspecified asthma, uncomplicated; E66.01 Morbid (severe) obesity due to excess calories; E78.00 Pure hypercholesterolemia, unspecified; I10 Essential (primary) hypertension; K21.9 Gastro-esophageal reflux disease without esophagitis; K76.0 Fatty (change of) liver, not elsewhere classified; N30.10 Interstitial cystitis (chronic) without hematuria; N64.52 Nipple discharge; M51.369 Other intervertebral disc degeneration, lumbar region without mention of lumbar back pain or lower extremity pain; Z68.41 Body mass index [BMI] 40.0-44.9, adult; F17.210 Nicotine dependence, cigarettes, uncomplicated | CPT/HCPCS: 83036; 96127; 99212 ==

== ENCOUNTER 2025-07-18 05:46 | Emergency (ER) | payer OTHER, SELFPAY ==
--- NOTE | ~2025-07-18 | XR_ITS ---
EXAMINATION: XR CHEST 2 VIEWS HISTORY: cough COMPARISON: Comparison is made with the prior examination dated 10/30/2023. FINDINGS: PA and lateral views of the chest are submitted. The lungs are expanded and clear. There is no pleural effusion, pneumothorax, or pulmonary vascular congestion. The heart is normal in size. There is mild degenerative disc disease of the spine. XR/XR chest 2V IMPRESSION: No acute cardiopulmonary abnormality. Electronically signed by: Mauro Phelan MD 07/18/2025 08:12 AM EDT
[2025-07-18 05:58] VITALS: BP 175/79; PULSE 76; RESP 18; TEMP 36.7; O2SAT 99; BMI 31.8
[2025-07-18 06:31] LABS: COVID-19 Test Negative (Negative); IDNOW Serial# 55D5AD1C; IDNOW Serial# 58CA691E; Influenza B2 Negative (Negative)
--- NOTE | 2025-07-18 07:02 | ED.GENADULT ---
HPI - General Adult General Chief complaint: Upper Respiratory Symptoms Stated complaint: rep symptoms Time Seen by Provider: 07/18/25 06:59 Source: patient, RN notes reviewed and old records reviewed Mode of arrival: ambulatory Limitations: no limitations History of Present Illness ED Provider: Adilson HPI narrative: Patient is a 65-year-old female current smoker with history of T2 DM, HTN, anxiety and depression, GERD, asthma, IBS presenting to the emergency department with complaint of nonproductive cough for the past 2-3 days, subjective fevers, upper back pain and chest tightness. Also complains of wheezing and shortness of breath, headaches. Denies visual changes. Denies sudden onset headache or worst headache of life. States that several family members are sick with similar symptoms. MD complaint: cough Onset (ago): day(s) Related Data Home Medications ?Medication ?Instructions ?Recorded ?Confirmed amitriptyline 25 mg tablet 25 mg PO BEDTIME 09/03/20 04/15/25 bupropion HCl 150 mg 24 hr tablet, 150 mg PO BEDTIME 02/17/21 04/15/25 extended release fexofenadine 180 mg tablet 180 mg PO DAILY PRN Allergy 02/17/21 04/15/25 (Amara Allergy) Symptoms fluoxetine 20 mg capsule 40 mg PO QAM 06/30/21 04/15/25 hydroxyzine HCl 50 mg tablet 50 mg PO BID 09/12/22 04/15/25 Previous Rx's ?Medication ?Instructions ?Recorded nebulizers (AeroEclipse II #1 ea 02/08/21 Nebulizer) blood-glucose meter (FreeStyle #1 ea 03/09/22 Lite Meter kit) lancets 28 gauge (FreeStyle #300 boxes 03/09/22 Lancets) pen needle, diabetic 32 gauge x #100 ea 12/07/22 (BD Purnima 2nd Gen Pen Needle) blood sugar diagnostic (FreeStyle #300 ea 02/15/23 Lite Strips) lactulose 10 gram/15 mL (15 mL) 20 g (30 mL) PO DAILY 30 days #900 08/15/23 oral solution mL albuterol sulfate 90 mcg/actuation 2 puff PO Q6H PRN shortness of 07/15/24 aerosol inhaler breath or wheezing #8.5 ea joey.stocking,knee,reg,smal #12 ea 07/15/24 fenofibrate 160 mg tablet 160 mg PO DAILY #90 tabs 08/07/24 isosorbide mononitrate 30 mg 30 mg PO DAILY #90 tabs 08/07/24 tablet,extended release 24 hr naproxen 500 mg tablet 500 mg PO BID PRN pain #60 tabs 09/12/24 tamsulosin 0.4 mg capsule (Flomax) 0.4 mg PO BEDTIME #90 caps 09/12/24 simvastatin 10 mg tablet 10 mg PO BEDTIME 30 days #90 tabs 09/16/24 metoprolol succinate 25 mg 25 mg PO DAILY #90 tabs 09/27/24 tablet,extended release 24 hr ropinirole 3 mg tablet 3 mg PO BID 30 days #180 tabs 12/13/24 losartan 100 mg tablet (Cozaar) 100 mg PO DAILY 90 days #90 tabs 12/15/24 empagliflozin 25 mg tablet 25 mg PO DAILY 30 days #90 tabs 12/31/24 albuterol sulfate 2.5 mg/3 mL 2.5 mg (3 mL) inhalation Q4H PRN 02/05/25 (0.083 %) solution for nebulization shortness of breath or wheezing #90 mL walker (Ultra-Light Rollator misc) #1 ea 02/10/25 omeprazole 40 mg capsule,delayed 40 mg PO DAILY #90 caps 03/13/25 release fluticasone propionate 50 2 spray intranasal DAILY #3 ea 03/28/25 mcg/actuation nasal spray,suspension (Allergy Relief (fluticasone)) phenazopyridine 99.5 mg tablet 99.5 mg PO BID Pain with urination 04/15/25 (Azo Urinary Pain Relief) 5 days #10 tabs BACK BRACE #1 ea 06/11/25 gabapentin 100 mg capsule 100 mg PO BEDTIME #30 caps 06/11/25 umeclidinium 62.5 mcg-vilanterol 1 inh inhalation DAILY #60 ea 06/11/25 25 mcg/actuation powdr for inhalation (Anoro Ellipta) oxycodone-acetaminophen 5 mg-325 1 tab PO TID PRN pain 28 days #84 07/10/25 mg tablet tabs semaglutide 0.25 mg or 0.5 mg (2 0.5 mg (0.736 mL) subcut QWEEK 30 07/13/25 mg/3 mL) subcutaneous pen injector days #3.68 mL (Ozempic) azithromycin 250 mg tablet See Rx Instructions PO .COMPLEX #6 07/18/25 tabs benzonatate 100 mg capsule 100 mg PO TID PRN cough #20 caps 07/18/25 prednisone 20 mg tablet 20 mg PO DAILY #5 tabs 07/18/25 Allergies Allergy/AdvReac Type Severity Reaction Status Date / Time metformin AdvReac Intermediate Vomiting Verified 07/18/25 05:59 lisinopril (From Zestril) AdvReac Mild COUGH Verified 07/18/25 05:59 Review of Systems Review of Systems: As per HPI Yes all other systems are reviewed and are negative Constitutional: Constitutional: Reports as per HPI [facility] Past Medical History Medical History Osteopenia (~2018) Nicotine dependence, cigarettes, uncomplicated Allergic rhinitis Irritable bowel syndrome Obstructive sleep apnea Obesity Restless leg syndrome Asthma Insomnia Interstitial cystitis Osteoarthritis of hip Right renal stone GERD (gastroesophageal reflux disease) Anxiety and depression Hypercholesterolemia Fatty liver Hypertension Lumbar degenerative disc disease Type 2 diabetes mellitus with hyperglycemia Surgical History History of surgery (01/27/25) History of breast lump/mass excision History of hand surgery History of foot surgery History of surgical removal of ganglion cyst History of colonoscopy History of nasal surgery History of esophagogastroduodenoscopy (EGD) History of removal of cyst History of lithotripsy History of bladder surgery History of carpal tunnel release History of tonsillectomy and adenoidectomy History of cholecystectomy History of total abdominal hysterectomy and bilateral salpingo-oophorectomy History of section Family History Family History Father CAD (coronary artery disease) CVD (cerebrovascular disease) Lung cancer Hypertension Mother Hypertension Diabetes Cancer Daughter Breast cancer Paternal Uncle Myocardial infarction Paternal Aunt Myocardial infarction Maternal Uncle Myocardial infarction Bone cancer Other FH: mental illness Substance abuse Social History Social History Housing: Apartment Are you a primary dog daycare provider to a significant other at home: No Do you presently have visiting nurse or other home services: No Alcohol intake: current Alcohol intake frequency: does not drink Patient Tobacco Use Status: Current everyday Tobacco user Tobacco use type: Cigarette Cigarette Packs Per Day: 0.5 Cigarettes Per Day: 7 Years Smoked: 55 e-Cigarette/Vaping Use: Never Used Second Hand Smoke Exposure: Yes Advance Directives: Yes Advance Directives Information Provided: Yes Advance Directives on File: No service: No Current occupational status: disabled Cognitive needs: No Hearing needs: No Vision needs: Yes Physical Exam ED Vital Signs: Vital Signs - 24 hr 07/18/25 05:58 07/18/25 07:34 Temperature 98.0 F Pulse Rate 76 59 Respiratory Rate 18 23 H Blood Pressure 175/79 H Pulse Oximetry 99 Oxygen Delivery Method Room Air BMI result Body Mass Index 31.8 Vital signs have been reviewed and appear to be correct. Blood pressure elevated. Heart rate normal. Respiratory rate normal. Temperature normal. Oxygen saturation normal. Const General: cooperative, healthy appearing and no acute distress Orientation/consciousness: oriented to person, oriented to place, oriented to time and patient oriented x3 Limitations: no limitations HENMT Head: Yes normocephalic and Yes atraumatic Ears: external ears normal General nose exam: Normal external nose present Face and sinus: Yes face symmetric Mouth: oropharynx normal and moist mucous membranes Throat: Yes uvula midline Eyes Pupils: Equal, round and reactive pupils present Neck Neck: Yes normal visual inspection and Yes supple Resp Effort & Inspection: normal respiratory effort and able to speak in complete sentences Auscultation: wheezes scattered wheezes Cardio Rate: regular rate Rhythm: regular rhythm Heart sounds: S1 normal heart sound present and S2 normal heart sound present GI Palpation (GI): Soft to palpation and nontender Auscultation: normoactive bowel sounds General: Yes no CVA tenderness Back/Spine/Pelvis Back: no CVA tenderness Skin General skin exam: elasticity normal and turgor normal Neuro General: oriented to person, oriented to place, oriented to time, patient oriented x3, moves all extremities, no focal motor deficits and CN's II-XI intact bilaterally Cranial nerves: Yes Equal, round and reactive pupils present Cognition (Neuro): normal cognition Extrem General: Yes full ROM, Yes no pedal edema and Yes no calf tenderness Psych Mental Status: mental status grossly normal Affect: normal affect Thought process: Normal thought process present Medications Administered Discontinued Medications Generic Name Dose Route Start Last Admin Trade Name Orlandoq PRN Reason Stop Dose Admin Albuterol Sulfate 2.5 mg/ 0 mg 07/18/25 07:33 07/18/25 07:37 Albuterol/Ipratropium 3 ml INHALE 07/18/25 07:34 5 dose ONCE ONE Administration Prednisone 20 mg 07/18/25 07:59 07/18/25 08:14 Prednisone 20 Mg Tablet PO 07/18/25 08:00 20 mg ONCE ONE Administration Medical Decision Making Medical Decision Making [facility] Narrative: Patient is a 65-year-old female current smoker with history of T2 DM, HTN, anxiety and depression, GERD, asthma, IBS presenting to the emergency department with complaint of nonproductive cough for the past 2-3 days, subjective fevers, upper back pain and chest tightness. On exam patient is awake, A+Ox3, BP elevated, VS otherwise WNL, afebrile, normal neurological exam without focal deficits, physical exam findings as above. Given reported symptoms and physical exam findings, initial differential includes but is not limited to viral illness, covid, flu, bronchitis, pneumonia. Viral serology negative. X-ray chest notable for no evidence of pneumonia. My interpretation is in agreement with the radiologist's interpretation. Improvement with breathing treatment. No history of renal impairment. Will treat for bronchitis with course of azithromycin, prednisone, benzonatate. Return precautions discussed. Patient verbalized understanding of and agreement with plan. Differential Diagnosis Differential Diagnoses: The differential diagnosis associated with the presentation includes as per the [facility] Admission/Observation Consideration of admission/observation: Escalation of care including admission/observation considered Patient would have been admitted to the hospital had their clinical presentation warranted hospital admission. Lab Data [facility] Lab Attestation statement: I reviewed the patient's lab results. as per the [facility] Labs: Lab Results 07/18/25 Range/Units 06:10 COVID-19 ([facility]) Negative (Negative) COVID-19 Clin Com See Note Influenza Type A ([facility]) Negative (Negative) Influenza Type B ([facility]) Negative (Negative) Influenza A & B Note See Note Independent Interpretation I performed an independent interpretation of an: Plain X-Ray Interpretation: No evidence of pneumonia on chest x-ray Radiology Impression Discussion of test interpretation with radiology: I have reviewed the radiologist's reading. Radiologist Impression: EXAMINATION: XR CHEST 2 VIEWS HISTORY: cough COMPARISON: Comparison is made with the prior examination dated 10/30/2023. FINDINGS: PA and lateral views of the chest are submitted. The lungs are expanded and clear. There is no pleural effusion, pneumothorax, or pulmonary vascular congestion. The heart is normal in size. There is mild degenerative disc disease of the spine. XR/XR chest 2V IMPRESSION: No acute cardiopulmonary abnormality. External Record Review External record reviewed: Inpatient record, Office record and Outpatient record Prescription Management I considered prescription management with: Antibiotic and Other Discharge Plan Discharge Clinical Impression: Bronchitis Patient Disposition: Home, Self-Care Instructions: Acute Bronchitis (ED) Additional Instructions: You were evaluated in the emergency department today for cough and shortness of breath. You are being treated for bronchitis with an antibiotic, please complete the full course as prescribed. You are also being prescribed a short course of steroids to decrease inflammation. You are being prescribed benzonatate which is a cough medication you can take every 8 hours as needed-KEEP THIS MEDICATION OUT OF THE REACH OF CHILDREN. Please follow-up with your primary care provider this week. Return to the emergency department if you develop worsening shortness of breath, difficulty breathing, chest pain, fever not improved with Tylenol or ibuprofen, or any other concerning symptoms. Prescriptions: New azithromycin 250 mg tablet See Rx Instructions .ROUTE .COMPLEX Qty: 6 0RF Rx Instructions: For 250 mg dose pack: take 500 mg today (day 1), then 250 mg for 4 days (days 2-5) prednisone 20 mg tablet 20 mg PO DAILY Qty: 5 0RF benzonatate 100 mg capsule 100 mg PO TID PRN (Reason: cough) Qty: 20 0RF No Action (DME) blood-glucose meter [FreeStyle Lite Meter] Kit See Rx Instructions .Route Qty: 1 0RF Rx Instructions: As directed (DME) lancets [FreeStyle Lancets] 28 gauge misc See Rx Instructions .ROUTE .MEDSUPPLY Qty: 300 3RF Rx Instructions: As directed check BS TID (DME) pen needle, diabetic [BD Purnima 2nd Gen Pen Needle] 32 gauge x 5/32 needle See Rx Instructions .Route Qty: 100 2RF Rx Instructions: As directed (DME) FreeStyle Lite Strips Strip See Rx Instructions .ROUTE .MEDSUPPLY Qty: 300 3RF Rx Instructions: As directed check the BS TID isosorbide mononitrate 30 mg tablet extended release 24 hr 30 mg PO DAILY Qty: 90 3RF fenofibrate 160 mg tablet 160 mg PO DAILY Qty: 90 3RF simvastatin 10 mg tablet 10 mg PO BEDTIME 30 Days Qty: 90 3RF metoprolol succinate 25 mg tablet extended release 24 hr 25 mg PO DAILY Qty: 90 3RF ropinirole 3 mg tablet 3 mg PO BID 30 Days Qty: 180 3RF losartan [Cozaar] 100 mg tablet 100 mg PO DAILY 90 Days Qty: 90 2RF empagliflozin 25 mg tablet 25 mg PO DAILY 30 Days Qty: 90 3RF (DME) Ultra-Light Rollator [facility] See Rx Instructions .Route Qty: 1 0RF Rx Instructions: As directed omeprazole 40 mg capsule,delayed release(DR/EC) 40 mg PO DAILY Qty: 90 3RF fluticasone propionate [Allergy Relief (fluticasone)] 50 mcg/actuation spray,suspension 2 spray intranasal DAILY Qty: 3 3RF Rx Instructions: administer into each nostril oxycodone-acetaminophen 5-325 mg tablet 1 tab PO TID PRN (Reason: pain) 28 Days Qty: 84 0RF Ozempic 0.25 mg or 0.5 mg (2 mg/3 mL) pen injector 0.5 mg subcut QWEEK 30 Days Qty: 3.68 1RF Rx Instructions: 0.5 mg Q week (DME) nebulizers [AeroEclipse II Nebulizer] [facility] See Rx Instructions .ROUTE .MEDSUPPLY Qty: 1 0RF Rx Instructions: As directed Azo Urinary Pain Relief 99.5 mg tablet 99.5 mg PO BID 5 Days Qty: 10 0RF Rx Instructions: Drink 8 oz of water with each dose, administer with a meal amitriptyline 25 mg tablet 25 mg PO BEDTIME fexofenadine [Amara Allergy] 180 mg tablet 180 mg PO DAILY PRN (Reason: Allergy Symptoms) hydroxyzine HCl 50 mg tablet 50 mg PO BID lactulose 10 gram/15 mL (15 mL) solution 20 g PO DAILY 30 Days Qty: 900 5RF fluoxetine 20 mg capsule 40 mg PO QAM bupropion HCl 150 mg tablet extended release 24 hr 150 mg PO BEDTIME naproxen 500 mg tablet 500 mg PO BID PRN (Reason: pain) Qty: 60 1RF tamsulosin [Flomax] 0.4 mg capsule 0.4 mg PO BEDTIME Qty: 90 3RF albuterol sulfate 2.5 mg /3 mL (0.083 %) solution for nebulization 2.5 mg inhalation Q4H PRN (Reason: shortness of breath or wheezing) Qty: 90 0RF gabapentin 100 mg capsule 100 mg PO BEDTIME Qty: 30 3RF (DME) BACK BRACE See Rx Instructions .Route .MEDSUPPLY Qty: 1 0RF Rx Instructions: As directed umeclidinium-vilanterol [Anoro Ellipta] 62.5-25 mcg/actuation blister with device 1 inh inhalation DAILY Qty: 60 9RF albuterol sulfate 90 mcg/actuation HFA aerosol inhaler 2 puff PO Q6H PRN (Reason: shortness of breath or wheezing) Qty: 8.5 3RF (DME) joey.stocking,knee,reg,smal Misc See Rx Instructions .Route Qty: 12 0RF Rx Instructions: As directed 20-30 mm HG Print Language: Japanese
--- NOTE | 2025-07-18 07:30 | PC.NURSE ---
Pt states feeling generally unwell. Ambulated to room well without assist. VSS on arrival. NAD. SR on monitor.
[2025-07-18 07:34] VITALS: PULSE 59; RESP 23; O2SAT 99
[2025-07-18] MEDS: Albuterol Sulfate 2.5 MG, Albuterol/Iprat 2.5/0.5MG 3 ML 3 ML INHALE (07:37)
[2025-07-18 09:09] VITALS: BP 146/68; PULSE 69; RESP 12; TEMP 36.7; O2SAT 100
== END 2025-07-18 09:10 | disposition home or self-care (01) ==
PROVIDERS: Emergency Provider Emergency Medicine; PCP Internal Medicine
DX: J40 Bronchitis, not specified as acute or chronic (principal); R05.9 Cough, unspecified; E11.9 Type 2 diabetes mellitus without complications; R51.9 Headache, unspecified; F17.210 Nicotine dependence, cigarettes, uncomplicated; R50.9 Fever, unspecified; R06.02 Shortness of breath; Z79.899 Other long term (current) drug therapy; Z11.52 Encounter for screening for COVID-19
CPT/HCPCS: 71046; 87502; 87635; 94640; 99284

== ENCOUNTER → 2025-07-18 06:05 | Outpatient (BNV) | payer OTHER, SELFPAY | PROVIDERS: Emergency Provider Emergency Medicine; PCP Internal Medicine; Visit Provider Radiology Diagnostic Radiology | DX: R05.9 Cough, unspecified (principal) | CPT/HCPCS: 71046 ==

== ENCOUNTER 2025-07-21 08:48 | Outpatient (REF) | payer OTHER, SELFPAY ==
--- OUTSIDE RECORDS SUMMARY | 2025-07-21 10:10 | XMS_ITS | Patient Health Record ---
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 Name Role Phone Hitesh Fairchild MD Primary Care Provider Mauro Prasad [phone] Allergies Allergen (clinical drug ingredient) Drug/Non Drug [...] Problem Status W/U Status Risk Notes Problem 57068814 Irritable bowel syndrome without diarrhea (K58.9) Active confirmed Problem 852777090 Blood in stool (K92.1) Active confirm ed Problem 540671795 Gastroesophageal reflux disease without esophagitis (K21.9) Active confirmed Problem 04698346 Constipation, unspecified constipation type (K59.00) Active confirmed Problem 41805365 Pharyngoesophage al dysphagia (R13.14) Active confirmed Problem 83275881 Irritable bowel syndrome with both constipation and diarrhea (K58.2) Active confirmed Plan Of Treatment Pending Test Test Name Order Date GI BIOPSY 12/24/2018 Future Test Test Name Order Date COLONOSCOPY 01/12/2016 UPPER GI ENDOSCOPY 11/07/2018 Insurance Providers Payer Name Payer Address Payer Phone Subscriber Number Group Number Insured Name Patient Relationship to Insured Coverage Start Date Coverage End Date [place] [address] [place] H[place]OPAL [id number] ZANE BRYAN Self - patient is the insured MEDICAID OF [facility] [address] [place] [address] [id number] ZANE BRYAN Self - patient is the insured Medical (General) History Medical History History ICD Code Colonoscopy 11-06-2008--screen ing colonoscopy--neg except for a hyperplastic polyp, mild diverticulosis, internal/external hemorrhoids Asthma/COPD Hypertension GERD--EGD's and in 2011 with finding of a small hiatal hernia---no significant esophagitis nor Maya's esophagus Urinary incontinence Denies [place],DM,CVA,renal disease Depression Kidney stones--ESWL Sleep apnea--has CPAP, but doesn't use i t Colonoscopy in 03/2016 was ne gative except for internal hemorrhoids and diverticulosis Arthritis--takes Lyrica IBS with diarrhea/constipation Surgical History Surgery Date(Month/Year) Cholecystectomy C- section tubal ligation JORDANA Bilateral carpal tunnel Trigger fingers Bladder suspension
== END 2025-07-21 08:49 | disposition home or self-care (01) ==
LOC: HO.US 08:48
PROVIDERS: PCP Internal Medicine; Visit Provider Urology
DX: N20.0 Calculus of kidney (principal); N30.10 Interstitial cystitis (chronic) without hematuria; R32 Unspecified urinary incontinence
CPT/HCPCS: 76775

== ENCOUNTER → 2025-07-21 08:49 | Outpatient (BNV) | payer OTHER, SELFPAY | PROVIDERS: PCP Internal Medicine; Visit Provider Family Medicine | DX: N20.0 Calculus of kidney (principal) | CPT/HCPCS: 76775 ==

== ENCOUNTER 2025-07-23 09:16 | Outpatient (AMB) | payer OTHER, SELFPAY ==
--- NOTE | 2025-07-23 09:19 | A.OFFPC_ITS ---
Vital Signs 07/23/25 09:20 Height 4 ft 11 in Weight 157 lb 8 oz BMI 31.8 BP 118/56 L Blood Pressure Location Lt brachial Position Sitting Respiration 18 Pulse 68 Pulse Source Pulse Oximeter Temp 97.1 F Temp Source Temporal Artery Scan Pulse Oximetry (%) 98 Oxygen Delivery Method Room Air Intake Visit Reasons: Upper respiratory infection Automatic Toe Laster Required: No Accompanied by: Self / Same As Patient Allergies metformin Adverse Reaction (Intermediate, Verified 07/23/25 09:37) Vomiting lisinopril (From Zestril) Adverse Reaction (Mild, Verified 07/23/25 09:37) COUGH Medication List - Last Reconciled 07/23/25 by JIMMY Odell albuterol sulfate 90 mcg/actuation 2 puffs PO Q6H PRN albuterol sulfate 2.5 mg (3 mL) inhalation Q4H PRN amitriptyline 25 mg PO BEDTIME [BACK BRACE As directed] blood sugar diagnostic (FreeStyle Lite Strips) As directed check the BS TID blood-glucose meter (FreeStyle Lite Meter kit) As directed bupropion HCl XL 150 mg PO BEDTIME [email or web address],reg,smal As directed 20-30 mm HG empagliflozin 25 mg PO DAILY 30 days fenofibrate 160 mg PO DAILY fluoxetine 40 mg PO QAM fluticasone propionate 50 mcg/actuation (Allergy Relief (fluticasone)) 2 sprays intranasal DAILY gabapentin 100 mg PO BEDTIME hydroxyzine HCl 50 mg PO BID isosorbide mononitrate ER 30 mg PO DAILY lactulose 20 grams (30 mL) PO DAILY 30 days lancets (FreeStyle Lancets) As directed check BS TID losartan (Cozaar) 100 mg PO DAILY 90 days metoprolol succinate ER 25 mg PO DAILY naproxen 500 mg PO BID PRN nebulizers (AeroEclipse II Nebulizer) As directed omeprazole 40 mg PO DAILY oxycodone-acetaminophen 5-325 mg 1 tab PO TID PRN 28 days pen needle, diabetic (BD Purnima 2nd Gen Pen Needle) As directed phenazopyridine (Azo Urinary Pain Relief) 99.5 mg PO BID 5 days ropinirole 3 mg PO BID 30 days semaglutide (Ozempic) 0.5 mg (0.736 mL) subcut QWEEK 30 days simvastatin 10 mg PO BEDTIME 30 days tamsulosin (Flomax) 0.4 mg PO BEDTIME umeclidinium-vilanterol 62.5-25 mcg/actuation (Anoro Ellipta) 1 inh inhalation DAILY walker (Ultra-Light Rollator misc) As directed Tobacco use date assessed: 07/23/25 Fall risk assessment: No Falls in past year Last assessed Fall Risk: 07/23/25 Dental Screening Dental Screen Date: 07/23/25 Did you have a dental visit in the last 12 months?: No Did you have a dental problem in the last 6 months where you did not have access to dental care?: No Was dental information given to patient?: No HPI Upper respiratory infection HPI Details The patient is a 65-year-old female presenting with respiratory symptoms and a rash. The patient reports experiencing cold symptoms for approximately a week and a half, having visited the ER on the . She completed a course of azithromycin and prednisone but continues to experience tightness in the chest and wheezing. Her symptoms include ear pain and a headache, and she suspects a viral cause due to exposure to family members with rhinovirus. The patient has a history of Chronic Obstructive Pulmonary Disease (COPD) and mild emphysema, which may contribute to her respiratory symptoms. She uses a nebulizer for management and reports low-grade fevers and night sweats. Additionally, the patient reports a rash to her buttocks area, which is itchy and bothersome. She is allergic to Metformin and Lisinopril. [facility] Medical History Osteopenia (~2018) Nicotine dependence, cigarettes, uncomplicated Allergic rhinitis Irritable bowel syndrome Obstructive sleep apnea Obesity Restless leg syndrome Asthma Insomnia Interstitial cystitis Osteoarthritis of hip Right renal stone GERD (gastroesophageal reflux disease) Anxiety and depression Hypercholesterolemia Fatty liver Hypertension Lumbar degenerative disc disease Type 2 diabetes mellitus with hyperglycemia Surgical History History of surgery (01/27/25) History of breast lump/mass excision History of hand surgery History of foot surgery History of surgical removal of ganglion cyst History of colonoscopy History of nasal surgery History of esophagogastroduodenoscopy (EGD) History of removal of cyst History of lithotripsy History of bladder surgery History of carpal tunnel release History of tonsillectomy and adenoidectomy History of cholecystectomy History of total abdominal hysterectomy and bilateral salpingo-oophorectomy History of section Family History Father CAD (coronary artery disease) CVD (cerebrovascular disease) Lung cancer Hypertension Mother Hypertension Diabetes Cancer Daughter Breast cancer Paternal Uncle Myocardial infarction Paternal Aunt Myocardial infarction Maternal Uncle Myocardial infarction Bone cancer Other FH: mental illness Substance abuse Social History Housing: Apartment Are you a primary customer care voice consultant to a significant other at home: No Do you presently have visiting nurse or other home services: No Alcohol intake: current Alcohol intake frequency: does not drink Patient Tobacco Use Status: Current everyday Tobacco user Tobacco use type: Cigarette Cigarette Packs Per Day: 0.5 Cigarettes Per Day: 7 Years Smoked: 55 e-Cigarette/Vaping Use: Never Used Second Hand Smoke Exposure: Yes service: No Current occupational status: disabled Cognitive needs: No Hearing needs: No Vision needs: Yes Questionnaire Thrive Questionnaire Date Thrive assessed: 06/11/25 I am a: Patient What is your living situation today?: I have a steady place to live Within the past 12 months, did the food you bought not last and you didn't have the money to get more?: Sometimes True Within the past 12 months, did you worry whether your food would run out before you got money to buy more?: Sometimes True Do you have trouble paying for medicines?: I choose not to answer this question Do you have trouble getting transportation to medical appointments?: No Do you have trouble paying your heating and electricity bill?: I choose not to answer this question Do you have trouble taking care of your child, family member or friend?: No Do you have trouble with day-to-day activities such as bathing, preparing meals, shopping, managing finances, etc.?: Yes Are you currently unemployed and looking for a job?: No Are you interested in more education?: No Please select the resources that you would like help with: Food Currently or been in a relationship where the following occur: I choose not to answer THRIVE Score: 2 AUDIT C Alcohol Use Questionnaire (AUDIT-C) 3. How often do you have six or more drinks on one occasion?: Never Total Score: 0 NICOLA-7 AMB Questionnaire NICOLA-7 Date NICOLA - 7 assessed: 06/11/25 Source: Developed by Drs. Mauro George, Mariana Medrano, James Truong and colleagues, with an educational romeo from [employer]. Review of Systems Const Denies body aches, Denies chills, Denies fever(s), Denies headache(s) and Denies poor appetite Eyes Reports no additional complaints ENT Denies dysphagia, Denies dizziness, Reports otalgia (Right-mild), Denies headache(s), Reports nasal congestion, Denies odynophagia and Reports sinus pressure Card Denies chest pain, Denies syncope, Denies edema, Denies irregular heart rhythm, Denies lightheadedness and Reports dyspnea Resp Reports cough (Productive with yellowish sputum) and Reports dyspnea GI Denies abdominal pain, Denies constipation, Denies dysphagia, Denies diarrhea, Denies nausea, Denies odynophagia and Denies vomiting Reports no additional complaints Musc Reports no additional complaints and Denies abnormal gait Skin/Breast Reports system reviewed and no additional complaints, except as documented Neuro Denies abnormal gait, Denies dizziness, Denies syncope and Denies headache(s) Psych Reports no additional complaints Physical exam (Primary Care) Vital Signs: Last Vital Signs Temp 97.1 F 07/23/25 09:20 Pulse 68 07/23/25 09:20 Resp 18 07/23/25 09:20 BP 118/56 L 07/23/25 09:20 Pulse Ox 98 07/23/25 09:20 Oxygen Delivery Method Room Air 07/23/25 09:20 BMI result Body Mass Index 31.8 Tobacco/Smoking Status: Tobacco use Status Tobacco use date assessed 07/23/25 07/23/25 09:32 Patient Tobacco Use Status Current everyday Tobacco 07/23/25 09:32 Tobacco use type Cigarette 07/23/25 09:32 e-Cigarette/Vaping Use Never Used 07/23/25 09:32 Thrive Assessment: Date of Thrive Assessment Date Thrive assessed 06/11/25 07/23/25 09:32 Currently or been in a relationship where the following occur: I choose not to answer Const General: cooperative, healthy appearing, comfortable and no acute distress Orientation/consciousness: patient oriented x3 HENMT Head: Yes normocephalic Ears: TM's normal bilaterally General nose exam: Abnormal mucous membranes and turbinates present boggy bilateral and erythematous bilateral Face and sinus: Yes Facial tenderness on exam of face and sinuses (Frontal and maxillary sinuses) Eyes General: appearance normal, both eyes and all related structures Conjunctivae: conjunctivae normal Neck Neck: Yes full ROM and Yes no lymphadenopathy Resp Effort & Inspection: audible wheezes and Actively coughing (productive of yellow sputum) Auscultation: no crackles, no rales, no rhonchi and wheezes (coughs with each attempt to breath out) inspiratory wheezes and scattered wheezes Cardio Rate: regular rate Rhythm: regular rhythm Skin Rashes: rashes noted (raise, erythamatous rash consistent with fungal) Neuro General: patient oriented x3 Gait exam (Neuro): Normal gait present Extrem General: Yes normal to inspection, Yes full ROM and No edema Psych Affect: normal affect Attitude: cooperative Insight: Good insight present (Psych) Judgement: Good judgement present (Psych) Coding Level of Care Code Est Pt Level 3 (20951) Diagnoses Upper respiratory tract infection, unspecified type J06.9 URI type: unspecified URI Rhinosinusitis J32.9 Dyspnea, unspecified type R06.00 Dyspnea type: unspecified Wheezing R06.2 Tinea corporis B35.4 Time Spent (min) 34 Assessment & Plan Assessment & Plan (1) Upper respiratory infection: Code(s): J06.9 - Acute upper respiratory infection, unspecified Category: Medical Qualifiers: URI type: unspecified URI Qualified Code(s): J06.9 - Acute upper respiratory infection, unspecified Plan: Patient had a sick contact of the rhinovirus. Symptoms been going on for a week and half and she went to the ER and was treated with azithromycin and prednisone. Patient is in office with wheezing throughout the lung field, dyspnea and a productive cough of yellowish sputum. Patient was started on Augmentin 875-25 mg b.i.d. times 7 days and she was also placed on a prednisone tapered. She is encouraged to continue her inhalers due to her chronic condition of COPD and asthma. Encouraged the patient to contact the office if her symptoms are not improving or worsening. (2) Rhinosinusitis: Code(s): J32.9 - Chronic sinusitis, unspecified Category: Medical Plan: Limit exposure to allergens Air purifiers and dust filters Air conditioner in house, especially where sleeping Continue Flonase nasal spray 2 sprays intranasally daily (3) Dyspnea: Code(s): R06.00 - Dyspnea, unspecified Category: Medical Qualifiers: Dyspnea type: unspecified Qualified Code(s): R06.00 - Dyspnea, unspecified Plan: Continue breathing treatments as needed, take rest periods and make sure that you are well hydrated. Contact office if the symptoms are not improving, go to the emergency room if symptoms significantly worsens. (4) Wheezing: Code(s): R06.2 - Wheezing Category: Medical Plan: Continue albuterol sulfate 2.5 mg via neb q.4 p.r.n., albuterol sulfate 90 mcg/actuation 2 puffs q.6 H p.r.n., umeclidinium-vilanterol 62.5-25 mcg/actuation (Anoro Ellipta) 1 inh inhalation daily (5) Tinea corporis: Code(s): B35.4 - Tinea corporis Category: Medical Plan: Fungal appearing area to buttocks, the patient complains of itchiness as well to area. Clotrimazole-betamethasone 1-0.05% 1 appl topical b.i.d. ordered. Medications: New amoxicillin-pot clavulanate 875-125 mg 1 tab PO BID 14 tabs 0RF 7 days prednisone see taper instructions take 4 tabs x2 days, then 3 tabs x 2 days, then 2 tabs x 2 days, then 1 tab x 2 days =20 tabs for 8 days 10 mg PO DIRECTED 20 tabs 0RF clotrimazole-betamethasone 1-0.05 % 1 appl topical BID 15 grams 1RF
[2025-07-23 09:20] VITALS: BP 118/56; PULSE 68; RESP 18; TEMP 36.2; O2SAT 98; BMI 31.8
--- OUTSIDE RECORDS SUMMARY | 2025-07-23 10:53 | XMS_ITS | Patient Health Record ---
Author Organization [facility] Address [address] [place] [address] Care Team Providers [employer] Consultant Name Role Phone Hitesh Fairchild MD Primary Care Provider Mauro Prasad [phone] Allergies Allergen (clinical drug ingredient) Drug/Non Drug [...] Problem Status W/U Status Risk Notes Problem 48449144 Irritable bowel syndrome without diarrhea (K58.9) Active confirmed Problem 402423912 Blood in stool (K92.1) Active confirm ed Problem 491094551 Gastroesophageal reflux disease without esophagitis (K21.9) Active confirmed Problem 97969955 Constipation, unspecified constipation type (K59.00) Active confirmed Problem 69309558 Pharyngoesophage al dysphagia (R13.14) Active confirmed Problem 62595195 Irritable bowel syndrome with both constipation and diarrhea (K58.2) Active confirmed Plan Of Treatment Pending Test Test Name Order Date GI BIOPSY 12/24/2018 Future Test Test Name Order Date COLONOSCOPY 01/12/2016 UPPER GI ENDOSCOPY 11/07/2018 Insurance Providers Payer Name Payer Address Payer Phone Subscriber Number Group Number Insured Name Patient Relationship to Insured Coverage Start Date Coverage End Date [place] [address] [place] [id number] [phone] [id number] ZANE BRYAN Self - patient is the insured MEDICAID OF [facility] [address] [place] [address] [id number] ZANE BRYAN Self - patient is the insured Medical (General) History Medical History History ICD Code Colonoscopy 11-06-2008--screen ing colonoscopy--neg except for a hyperplastic polyp, mild diverticulosis, internal/external hemorrhoids Asthma/COPD Hypertension GERD--EGD's and in 2011 with finding of a small hiatal hernia---no significant esophagitis nor Maya's esophagus Urinary incontinence Denies ID,DM,CVA,renal disease Depression Kidney stones--ESWL Sleep apnea--has CPAP, but doesn't use i t Colonoscopy in 03/2016 was ne gative except for internal hemorrhoids and diverticulosis Arthritis--takes Lyrica IBS with diarrhea/constipation Surgical History Surgery Date(Month/Year) Cholecystectomy C- section tubal ligation JORDANA Bilateral carpal tunnel Trigger fingers Bladder suspension
== END 2025-07-23 09:59 | disposition home or self-care (01) ==
LOC: HO.HMCH 09:17
PROVIDERS: PCP Internal Medicine
DX: J06.9 Acute upper respiratory infection, unspecified (principal); J32.9 Chronic sinusitis, unspecified; R06.00 Dyspnea, unspecified; R06.2 Wheezing; B35.4 Tinea corporis

== ENCOUNTER → 2025-07-23 09:16 | Outpatient (BNVA) | payer OTHER, SELFPAY | PROVIDERS: PCP Internal Medicine | DX: R21 Rash and other nonspecific skin eruption (principal); J43.9 Emphysema, unspecified; J06.9 Acute upper respiratory infection, unspecified; J32.9 Chronic sinusitis, unspecified; B35.4 Tinea corporis; Z79.899 Other long term (current) drug therapy | CPT/HCPCS: 99212 ==

== ENCOUNTER 2025-07-31 07:25 | Outpatient (AMB) | payer OTHER, SELFPAY ==
--- NOTE | 2025-07-31 07:27 | MHC.OFFVIS ---
Intake Visit Reasons: 10w/US Intake Note: Pt presents to the office today for a 10 wk follow up Telehealth Urology Meds- Tamsulosin Allergies to Antibiotic- No Known Allergies Blood Thinner- None Imaging: Renal Ultrasound 07/21/25 LAST PVR:120ml Supervisor Plastic Sheets Required: No Accompanied by: Self / Same As Patient Allergies metformin Adverse Reaction (Intermediate, Verified 07/31/25 07:28) Vomiting lisinopril (From Zestril) Adverse Reaction (Mild, Verified 07/31/25 07:28) COUGH Medication List - Last Reconciled 07/31/25 by Michael Dejesus MD albuterol sulfate 90 mcg/actuation 2 puffs PO Q6H PRN albuterol sulfate 2.5 mg (3 mL) inhalation Q4H PRN amitriptyline 25 mg PO BEDTIME amoxicillin-pot clavulanate 875-125 mg 1 tab PO BID 7 days [BACK BRACE As directed] blood sugar diagnostic (FreeStyle Lite Strips) As directed check the BS TID blood-glucose meter (FreeStyle Lite Meter kit) As directed bupropion HCl XL 150 mg PO BEDTIME clotrimazole-betamethasone 1-0.05 % 1 appl topical BID joey.stocking,knee,reg,smal As directed 20-30 mm HG empagliflozin 25 mg PO DAILY 30 days fenofibrate 160 mg PO DAILY fluoxetine 40 mg PO QAM fluticasone propionate 50 mcg/actuation (Allergy Relief (fluticasone)) 2 sprays intranasal DAILY gabapentin 100 mg PO BEDTIME hydroxyzine HCl 50 mg PO BID isosorbide mononitrate ER 30 mg PO DAILY lactulose 20 grams (30 mL) PO DAILY 30 days lancets (FreeStyle Lancets) As directed check BS TID losartan (Cozaar) 100 mg PO DAILY 90 days metoprolol succinate ER 25 mg PO DAILY naproxen 500 mg PO BID PRN nebulizers (AeroEclipse II Nebulizer) As directed omeprazole 40 mg PO DAILY oxycodone-acetaminophen 5-325 mg 1 tab PO TID PRN 28 days pen needle, diabetic (BD Purnima 2nd Gen Pen Needle) As directed phenazopyridine (Azo Urinary Pain Relief) 99.5 mg PO BID 5 days prednisone 10 mg PO DIRECTED ropinirole 3 mg PO BID 30 days semaglutide (Ozempic) 0.5 mg (0.736 mL) subcut QWEEK 30 days simvastatin 10 mg PO BEDTIME 30 days tamsulosin (Flomax) 0.4 mg PO BEDTIME umeclidinium-vilanterol 62.5-25 mcg/actuation (Anoro Ellipta) 1 inh inhalation DAILY walker (Ultra-Light Rollator misc) As directed HPI Comments Details: 07/31/25--Rafia is a 65-year-old female who is followed for chronic interstitial cystitis and history of kidney stones presents as a telehealth follow-up she had a renal ultrasound done on 07/21/2025- kidneys are normal no recurrent kidney stones. History of Present Illness The patient is a 65-year-old female presenting with a follow-up for chronic interstitial cystitis and history of kidney stones. Chronic interstitial cystitis has been a persistent issue for the patient, with symptoms fluctuating over time. The patient reports that sometimes the condition improves, while at other times it worsens, but she manages to cope with it. The patient has a history of kidney stones, but recent renal ultrasound results indicate no recurrent stones and normal kidney function. The renal ultrasound was conducted on 07/21/25, confirming the absence of new stones. The patient is currently on tamsulosin, which aids in urinary flow and alleviates some discomfort associated with her condition. She occasionally experiences pain during urination, but the medication has been beneficial. Results - Renal ultrasound on 07/21/25: Normal kidneys, no recurrent kidney stones Plan 1. Chronic Interstitial Cystitis - Continue tamsulosin for urinary flow improvement and discomfort relief. - Use Tylenol as needed for discomfort. - Monitor symptoms and follow-up as needed. 2. History Of Kidney Stones - Renal ultrasound shows no recurrent stones; continue monitoring. 05/01/25--Rafia is a 65-year-old female who is followed for interstitial cystitis she is status post repeat cystoscopy hydrodistention with urethral dilation on 04/15/2025 cystoscopy findings bladder capacity 700 mL post distention urinalysis today is negative for blood or leukocytes. The patient is on Flomax. Bladder scan PVR is 120 mL today History of Present Illness - The patient is a 65-year-old female presenting with interstitial cystitis. - Interstitial cystitis: Managed with repeat cystoscopy and hydrodistension, bladder capacity post-distension was 700 mL. - Symptoms: Reports nocturia and incomplete bladder emptying, with frequent urination shortly after voiding. - Medication: Currently on Flomax - h/o kidney stones, will continue to monitor Results - Urinalysis: Negative for blood or leukocytes - Bladder scan: Post-void residual volume of 120 mL 03/13/25--Rafia is being followed for interstitial cystitis. 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 Patient underwent cystoscopy hydrodistention urethral dilation on 05/07/2024, findings at that time bladder capacity do post distention 850 mL glomerulations were not visualized. H/O prior lithotripsy for kidney stones, h/o sling placed in 2006. She was seen by another urologist and had the sling removed due to difficulty voiding in worsening pain with voiding. In discussion today, the patient states she is getting recurrent urinary symptoms of urinary hesitancy, and urgency, during the night she has noticed some wetting of her underwear. She denies dysuria. Denies blood in the urine. Urinalysis today is negative for signs of UTI. The patient is described Percocet PRN by her PCP, for chronic back and hip pain and degenerative disc disease. Will cont Flomax. I have discussed repeat cystoscopy hydrodistention and urethral dilation. Results: 04/18/24-- US renal - no renal calculi. 09/12/24--Rafia is being followed for interstitial cystitis. 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 She states she has been voiding better and has less pain. On a scale of 1-10 she states her pain is about a 4. She states ibuprofen does help. I will send a prescription for naproxen 500 mg twice a day p.r.n. 06/07/24--followed for IC. s/p cystoscopy hydrodistension and urethral dilation on 05/07/24- findings, bladder capacity 850 mL, glomerulations were not visualized. Rafia states for the first 3 weeks she was doing well, now the urine seems to come out slower and she the bladder pressure/pain is returning. Whem she urinates it feels that she is not emptying completely. Bladder scan PVR 58 mL. Will start flomax. Also pyridium prn. fU in 3 months. 04/15/24--Rafia is a 63-year-old female who has here as a new the patient has a history of interstitial cystitis kidney stone, stress urinary incontinence. States that she was [facility] in the past for interstitial cystitis, she was initially treated the Elmiron which she did not tolerate and then self bladder installations which initially helped but then she developed bladder spasms and was not able to continue the treatment regimen. She has had prior lithotripsy for kidney stones. She had a sling placed in 2006. She was seen by another urologist and had the sling removed due to difficulty voiding in worsening pain with voiding. She has some urinary leakage but states since losing weight this has improved. She complains of bladder pain and nocturia 2-3 times at night. She uses [id number]-fvv-gtnitby azo prn which helps. She has a long history of nicotine use 1 and half pack per day and is now down to 7-8 cigarettes daily. Comorbidity diabetes, she states since being on Ozempic she is lost about 60 lb in the last 6 months. I have discussed evaluation with cystoscopy hydrodistention. I have discussed that nicotine is a risk factor for urinary tract cancers. Will send urine for surveillance culture and urine cytology, and check a renal ultrasound. [facility] Medical History Osteopenia (~2018) Nicotine dependence, cigarettes, uncomplicated Allergic rhinitis Irritable bowel syndrome Obstructive sleep apnea Obesity Restless leg syndrome Asthma Insomnia Interstitial cystitis Osteoarthritis of hip Right renal stone GERD (gastroesophageal reflux disease) Anxiety and depression Hypercholesterolemia Fatty liver Hypertension Lumbar degenerative disc disease Type 2 diabetes mellitus with hyperglycemia Surgical History History of surgery (01/27/25) History of breast lump/mass excision History of hand surgery History of foot surgery History of surgical removal of ganglion cyst History of colonoscopy History of nasal surgery History of esophagogastroduodenoscopy (EGD) History of removal of cyst History of lithotripsy History of bladder surgery History of carpal tunnel release History of tonsillectomy and adenoidectomy History of cholecystectomy History of total abdominal hysterectomy and bilateral salpingo-oophorectomy History of section Family History Father CAD (coronary artery disease) CVD (cerebrovascular disease) Lung cancer Hypertension Mother Hypertension Diabetes Cancer Daughter Breast cancer Paternal Uncle Myocardial infarction Paternal Aunt Myocardial infarction Maternal Uncle Myocardial infarction Bone cancer Other FH: mental illness Substance abuse Social History Housing: Apartment Are you a primary care advocate to a significant other at home: No Do you presently have visiting nurse or other home services: No Alcohol intake: current Alcohol intake frequency: does not drink Patient Tobacco Use Status: Current everyday Tobacco user Tobacco use type: Cigarette Cigarette Packs Per Day: 0.5 Cigarettes Per Day: 7 Years Smoked: 55 e-Cigarette/Vaping Use: Never Used Second Hand Smoke Exposure: Yes service: No Current occupational status: disabled Cognitive needs: No Hearing needs: No Vision needs: Yes Telehealth Telehealth Telehealth Platform: Dr [employer] Location of provider rendering services: practice address Location of patient: address on file Patient Identification confirmed using: Name, : Yes Telehealth method: video Patient verbally consented to treatment: Yes Patient verbally consented to billing insurance company: Yes Patient informed of any privacy concerns related to visit: Yes Assessment & Plan Assessment & Plan (1) Chronic interstitial cystitis: Code(s): N30.10 - Interstitial cystitis (chronic) without hematuria Category: Medical (2) Kidney stone: Code(s): N20.0 - Calculus of kidney Category: Medical (3) Nicotine dependence: Code(s): F17.200 - Nicotine dependence, unspecified, uncomplicated Category: Medical (4) 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 Chronic Interstitial Cystitis - Continue tamsulosin for urinary flow improvement and discomfort relief. - Use Tylenol as needed for discomfort. - Monitor symptoms and follow-up as needed. 2. History Of Kidney Stones - Renal ultrasound shows no recurrent stones; continue monitoring. Patient Instructions: The patient had an opportunity to ask questions regarding treatment plan. The patient expressed understanding and agreement with the above treatment plan. The patient is aware they should contact our office by phone for worsening of their current condition or the appearance of new symptoms. Compliance is encouraged with any medications and followup testing that is ordered. It is a privilege to be allowed the opportunity to participate in the urologic care of your patient. If you have any questions or concerns regarding treatment for the above conditions please do not hesitate to contact me. The office telephone contact is [phone]. This note is constructed in part using voice recognition software. While every effort has been made to ensure accuracy director of flight operations errors may have been included. Yours sincerely, Michael Dejesus MD Scribe Plan - Not visible on output: Patient was informed and verbally consented to the use of an ambient scribe for clinic note documentation during this visit. 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
--- OUTSIDE RECORDS SUMMARY | 2025-07-31 07:29 | XMS_ITS | Patient Health Record ---
Author Organization [facility] Address [address] [place] [address] Care Team Providers Care Dot Compliance Manager Name Role Phone Hitesh Fairchild MD Primary Care Provider Mauro Prasad [phone] Allergies Allergen (clinical drug ingredient) Drug/Non Drug [...] Problem Status W/U Status Risk Notes Problem 48079425 Irritable bowel syndrome without diarrhea (K58.9) Active confirmed Problem 069474580 Blood in stool (K92.1) Active confirm ed Problem 139902668 Gastroesophageal reflux disease without esophagitis (K21.9) Active confirmed Problem 68648758 Constipation, unspecified constipation type (K59.00) Active confirmed Problem 33891027 Pharyngoesophage al dysphagia (R13.14) Active confirmed Problem 93286181 Irritable bowel syndrome with both constipation and diarrhea (K58.2) Active confirmed Plan Of Treatment Pending Test Test Name Order Date GI BIOPSY 12/24/2018 Future Test Test Name Order Date COLONOSCOPY 01/12/2016 UPPER GI ENDOSCOPY 11/07/2018 Insurance Providers Payer Name Payer Address Payer Phone Subscriber Number Group Number Insured Name Patient Relationship to Insured Coverage Start Date Coverage End Date MEDICARE OF [place] [address] [place] [address] [id number] ZANE BRYAN Self - patient is the insured MEDICAID OF [facility] [address] [place] [phone] [id number] ZANE BRYAN Self - patient is the insured Medical (General) History Medical History History ICD Code Colonoscopy 11-06-2008--screen ing colonoscopy--neg except for a hyperplastic polyp, mild diverticulosis, internal/external hemorrhoids Asthma/COPD Hypertension GERD--EGD's and in 2011 with finding of a small hiatal hernia---no significant esophagitis nor Maya's esophagus Urinary incontinence Denies OR,DM,CVA,renal disease Depression Kidney stones--ESWL Sleep apnea--has CPAP, but doesn't use i t Colonoscopy in 03/2016 was ne gative except for internal hemorrhoids and diverticulosis Arthritis--takes Lyrica IBS with diarrhea/constipation Surgical History Surgery Date(Month/Year) Cholecystectomy C- section tubal ligation JORDANA Bilateral carpal tunnel Trigger fingers Bladder suspension
== END 2025-07-31 10:32 | disposition home or self-care (01) ==
LOC: HO.HUSH 07:25
PROVIDERS: PCP Internal Medicine; Visit Provider Urology
DX: N30.10 Interstitial cystitis (chronic) without hematuria (principal); N20.0 Calculus of kidney; F17.200 Nicotine dependence, unspecified, uncomplicated; Q64.31 Congenital bladder neck obstruction; R39.12 Poor urinary stream
CPT/HCPCS: 99213; G2211

== ENCOUNTER 2025-08-05 15:02 | Outpatient (AMB) | payer OTHER, SELFPAY ==
[2025-08-05 15:12] VITALS: BP 118/68; PULSE 75; TEMP 36.3; O2SAT 96; BMI 32.4
--- NOTE | 2025-08-05 15:12 | MHC.PC.OV ---
Vital Signs 08/05/25 15:12 Height 4 ft 11 in Weight 160 lb 8 oz BMI 32.4 BP 118/68 Blood Pressure Location Lt brachial Position Sitting Pulse 75 Pulse Source Pulse Oximeter Temp 97.3 F Temp Source Temporal Artery Scan Pulse Oximetry (%) 96 Oxygen Delivery Method Room Air Intake Visit Reasons: GI Referral - Dysphagia Allergies metformin Adverse Reaction (Intermediate, Verified 08/05/25 15:14) Vomiting lisinopril (From Zestril) Adverse Reaction (Mild, Verified 08/05/25 15:14) COUGH Tobacco use date assessed: 08/05/25 Fall risk assessment: No Falls in past year Last assessed Fall Risk: 08/05/25 Dental Screening Dental Screen Date: 08/05/25 Did you have a dental visit in the last 12 months?: No Did you have a dental problem in the last 6 months where you did not have access to dental care?: No Was dental information given to patient?: Patient has dentist HPI GI Referral - Dysphagia HPI Details patient still coughing and 6 weeks 2 courses of prednisone and antibiotic- she is still smoking though, cough, no real fves, chills, chest tightnness [facility] Medical History Osteopenia (~2018) Nicotine dependence, cigarettes, uncomplicated Allergic rhinitis Irritable bowel syndrome Obstructive sleep apnea Obesity Restless leg syndrome Asthma Insomnia Interstitial cystitis Osteoarthritis of hip Right renal stone GERD (gastroesophageal reflux disease) Anxiety and depression Hypercholesterolemia Fatty liver Hypertension Lumbar degenerative disc disease Type 2 diabetes mellitus with hyperglycemia Surgical History History of surgery (01/27/25) History of breast lump/mass excision History of hand surgery History of foot surgery History of surgical removal of ganglion cyst History of colonoscopy History of nasal surgery History of esophagogastroduodenoscopy (EGD) History of removal of cyst History of lithotripsy History of bladder surgery History of carpal tunnel release History of tonsillectomy and adenoidectomy History of cholecystectomy History of total abdominal hysterectomy and bilateral salpingo-oophorectomy History of section Family History Father CAD (coronary artery disease) CVD (cerebrovascular disease) Lung cancer Hypertension Mother Hypertension Diabetes Cancer Daughter Breast cancer Paternal Uncle Myocardial infarction Paternal Aunt Myocardial infarction Maternal Uncle Myocardial infarction Bone cancer Other FH: mental illness Substance abuse Social History Housing: Apartment Are you a primary chiropractic care to a significant other at home: No Do you presently have visiting nurse or other home services: No Alcohol intake: current Alcohol intake frequency: does not drink Patient Tobacco Use Status: Current everyday Tobacco user Tobacco use type: Cigarette Cigarette Packs Per Day: 0.5 Cigarettes Per Day: 3 Years Smoked: 55 e-Cigarette/Vaping Use: Never Used Second Hand Smoke Exposure: Yes service: No Current occupational status: disabled Cognitive needs: No Hearing needs: No Vision needs: Yes Questionnaire PHQ-9 Over the last 2 weeks, how often have you been bothered by any of the following problems? 1. Little interest or pleasure in doing things: more than half the days 2. Feeling down, depressed, or hopeless: more than half the days 3. Trouble falling or staying asleep, or sleeping too much: nearly every day 4. Feeling tired or having little energy: nearly every day 5. Poor appetite or overeating: several days 6. Feeling bad about yourself - or that you are a failure or have let yourself or your family down: several days 7. Trouble concentrating on things, such as reading the newspaper or watching television: several days 8. Moving or speaking so slowly that other people could have noticed. Or the opposite - being so fidgety or restless that you have been moving around a lot more than usual: several days 9. Thoughts that you would be better off or of hurting yourself in some way: not at all Total score: 14 Depression Screening Interpretation: Positive Depression Screening Done: Yes Source: Developed by Drs. Mauro George, Mariana Medrano, James Truong and colleagues, with an educational romeo from [facility]. Thrive Questionnaire Date Thrive assessed: 06/11/25 I am a: Patient What is your living situation today?: I have a steady place to live Within the past 12 months, did the food you bought not last and you didn't have the money to get more?: Sometimes True Within the past 12 months, did you worry whether your food would run out before you got money to buy more?: Sometimes True Do you have trouble paying for medicines?: I choose not to answer this question Do you have trouble getting transportation to medical appointments?: No Do you have trouble paying your heating and electricity bill?: I choose not to answer this question Do you have trouble taking care of your child, family member or friend?: No Do you have trouble with day-to-day activities such as bathing, preparing meals, shopping, managing finances, etc.?: Yes Are you currently unemployed and looking for a job?: No Are you interested in more education?: No Please select the resources that you would like help with: Food Currently or been in a relationship where the following occur: I choose not to answer THRIVE Score: 2 AUDIT C Alcohol Use Questionnaire (AUDIT-C) 1. How often do you have a drink containing alcohol?: Never 3. How often do you have six or more drinks on one occasion?: Never Total Score: 0 NICOLA-7 AMB Questionnaire NICOLA-7 Date NICOLA - 7 assessed: 06/11/25 Feeling nervous, anxious, or on edge: 1 = Several days Not being able to stop or control worryin = More than half the days Worrying too much about different things: 2 = More than half the days Trouble relaxin = More than half the days Being so restless that it is hard to sit still: 1 = Several days Becoming easily annoyed or irritable: 1 = Several days Feeling afraid as if something awful might happen: 1 = Several days Total NICOLA-7 score (0-4 normal; 5-9 mild; 10-14 moderate; 15-21 severe): 10 Source: Developed by Drs. Mauro George, Mariana Medrano, James Truong and colleagues, with an educational romeo from [facility]. Physical exam (Primary Care) Vital Signs: Last Vital Signs Temp 97.3 F 08/05/25 15:12 Pulse 75 08/05/25 15:12 BP 118/68 08/05/25 15:12 Pulse Ox 96 08/05/25 15:12 Oxygen Delivery Method Room Air 08/05/25 15:12 BMI result Body Mass Index 32.4 Tobacco/Smoking Status: Tobacco use Status Tobacco use date assessed 08/05/25 08/05/25 15:17 Patient Tobacco Use Status Current everyday Tobacco 08/05/25 15:17 Tobacco use type Cigarette 08/05/25 15:17 e-Cigarette/Vaping Use Never Used 08/05/25 15:17 PHQ-9: PHQ-9 Score PHQ-9: Total score 14 08/05/25 15:17 Depression Screening Interpretation: Positive Thrive Assessment: Date of Thrive Assessment Date Thrive assessed 06/11/25 08/05/25 15:17 Currently or been in a relationship where the following occur: I choose not to answer Const General: alert; No acute distress Eyes Conjunctivae: conjunctivae normal Resp Other: wheezing and crackles bialteral Cardio Rate: regular rate Rhythm: regular rhythm GI Inspection: Yes normal to inspection Extrem General: Yes normal to inspection and No edema Coding Level of Care Code Est Pt Level 4 (57104) Complex EM visit Add On G2211 Diagnoses Type 2 diabetes mellitus with hyperglycemia, without long-term current use of insulin E11.65 Diabetes mellitus assisted insulin use: 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 Hemoglobin A1c goal of less than 7.0. Patient on Jardiance 25 mg once a day Ozempic at 0.5 mg once a week (2) Hypercholesterolemia: Code(s): E78.00 - Pure hypercholesterolemia, unspecified Category: Medical Plan: Avoid fried foods, chicken skin, eggs, butter margarine, pastries and meat. Be it pork or beef they have a lot of cholesterol LDL goal of less than 100 and triglyceride of less than 150 on fenofibrate 160 mg once a day simvastatin 10 mg at bedtime (3) Hypertension: Code(s): I10 - Essential (primary) hypertension Category: Medical Qualifiers: Hypertension type: essential hypertension Qualified Code(s): I10 - Essential (primary) hypertension Plan: Continue with blood pressure medication. Decrease salt intake and exercise metoprolol 25 mg once a day losartan 100 mg once a day isosorbide mononitrate (4) Osteopenia: Onset Date: Comment: (Bone Dexa Femoral T-Score: -1.1 on 04/13/18), August 2023 Code(s): M85.80 - Other specified disorders of bone density and structure, unspecified site Category: Medical Plan: Continue monitoring bone density calcium vitamin-D (5) GERD (gastroesophageal reflux disease): Comment: EGD Dr. Baez November 2018 Code(s): K21.9 - Gastro-esophageal reflux disease without esophagitis Category: Medical Qualifiers: Esophagitis presence: without esophagitis Qualified Code(s): K21.9 - Gastro-esophageal reflux disease without esophagitis Plan: Avoid the foods that causes that usually spicy foods, tomato products, juices, coffee, soda and foods that your sensitive to. After eating do not lie down, allow 3-4 hours before in lie down. And keep the head of bed above 30 degrees to avoid the acid from going up. (6) Fatty liver: Code(s): K76.0 - Fatty (change of) liver, not elsewhere classified Category: Medical Plan: Low-fat diet and exercise (7) Interstitial cystitis: Code(s): N30.10 - Interstitial cystitis (chronic) without hematuria Category: Medical Plan: Continue to follow-up with urology on tamsulosin (8) Lumbar degenerative disc disease: Code(s): M51.36 - Other intervertebral disc degeneration, lumbar region Category: Medical Plan: Narcotic pain meds: Is being prescribed with the understanding that these medications are potentially addictive and should be used only when absolutely necessary and must always be secured. Any remaining pills should be safely disposed off appropriately. Patient is advised that narcotics can impaired judgment and one should not drive or operate heavy machinery while taking these medications. Never share these medications with anybody and do not leave them unattended. They will not be replaced under any circumstances. (9) Asthma: Comment: (PFTs consistent with Bronchial Asthma) CONTINUE SYMBICORT 160-4.52 PUFFS B.I.D. AND USE PROAIR 2 PUFFS Q 4-6 HOURS ONLY P.R.N.. DOES NOT HAVE TO USE THE NEBULIZER AT THIS TIME Code(s): J45.909 - Unspecified asthma, uncomplicated Category: Medical Plan: Continue with Anoro albuterol inhaler (10) Asthma with impaired gas exchange: Code(s): J45.909 - Unspecified asthma, uncomplicated Category: Medical (11) Dysphagia: Code(s): R13.10 - Dysphagia, unspecified Category: Medical Plan History of Present Illness The patient is a 65-year-old female presenting for a follow-up visit after being last seen in May 2025. The patient has a history of interstitial cystitis and follows up with urology for management. She is on tamsulosin for this condition. She has a history of nephrolithiasis, with a recent ultrasound showing no recurrent stones. The patient has lumbar degenerative disc disease and osteopenia, with the last bone density test conducted in August 2023. She reports a history of sinusitis and hepatic steatosis. Additionally, she has gastroesophageal reflux disease (GERD) and is advised to follow a no-fat diet and exercise regimen. The patient is a smoker and has been advised to quit smoking due to its negative impact on her health. She has obstructive sleep apnea but cannot tolerate CPAP therapy. The patient has asthma and has been experiencing exacerbations, leading to multiple courses of antibiotics and steroids. She reports wheezing and tightness in her chest, and a chest x-ray was negative for any acute findings. She has hypercholesterolemia, with the last LDL cholesterol level recorded at 74 mg/dL in May 2025. Her cholesterol management includes simvastatin and fenofibrate. The patient has diabetes mellitus with a goal hemoglobin A1c of less than 7.0%. She is on Jardiance and Ozempic for diabetes management. She has hypertension and is on a regimen including metoprolol and losartan. The patient has peripheral vascular disease and reports lymphedema, which is exacerbated by steroid use. She was recently treated for an upper respiratory tract infection with Augmentin and steroids. Despite treatment, she continues to experience symptoms of bronchitis, including cough and dyspnea. The patient reports dysphagia, with a history of esophageal dilation performed by Dr. Baez. Health Maintenance - Bone density monitoring: Last test in August 2023 - Cholesterol management: LDL goal of less than 100 mg/dL - Diabetes management: Hemoglobin A1c goal of less than 7.0% - Smoking cessation advised - Gastroesophageal reflux disease management: Advised no-fat diet and exercise Social History - Tobacco use: Patient is a smoker and has been advised to quit. Review of Systems - Respiratory: Reports wheezing and dyspnea. Denies fever. - Gastrointestinal: Reports dysphagia with sensation of food getting stuck. - Musculoskeletal: Reports leg swelling, particularly with steroid use. Physical Exam - Oral examination: Dry mouth observed - Respiratory examination: Wheezing noted Results - Imaging: Chest x-ray negative for acute findings - Labs: LDL cholesterol level of 74 mg/dL in May 2025 Plan Patient was informed and verbally consented to the use of an ambient scribe for clinic note documentation during this visit. 1. Asthma The patient has asthma with recent exacerbations, leading to multiple courses of antibiotics and steroids. A chest x-ray was performed and was negative for acute findings. The plan includes a referral to pulmonology and continuation of albuterol inhaler use. 2. Diabetes Mellitus The patient has diabetes mellitus with a goal hemoglobin A1c of less than 7.0%. Current management includes Jardiance and Ozempic. 3. Hypercholesterolemia The patient has hypercholesterolemia with an LDL goal of less than 100 mg/dL. Current medications include simvastatin and fenofibrate. 4. Hypertension The patient has hypertension managed with metoprolol and losartan. 5. Obstructive Sleep Apnea The patient has obstructive sleep apnea but cannot tolerate CPAP therapy. 6. Dysphagia The patient reports dysphagia with a history of esophageal dilation performed by Dr. Baez. A referral to gastroenterology is planned for further evaluation. 7. Upper Respiratory Tract Infection The patient was recently treated for an upper respiratory tract infection with Augmentin and steroids. Despite treatment, she continues to experience symptoms of bronchitis, including cough and dyspnea. Discussion Notes During the visit, I discussed with the patient the management of her asthma, emphasizing the importance of quitting smoking to improve her respiratory health. We reviewed her current medications, including the use of albuterol inhaler and the need for a pulmonology referral. I also addressed her dysphagia, recommending a gastroenterology referral for further evaluation. The patient was advised to continue her current diabetes and cholesterol management plans, with specific goals for hemoglobin A1c and LDL levels. Patient Instructions - Quit smoking to improve respiratory health. - Continue using albuterol inhaler as prescribed. - Follow up with pulmonology and gastroenterology as scheduled. - Maintain current diabetes and cholesterol management plans. - Take steroids with food and taper as instructed. Orders: Orders XR chest 2V Today J45.909 - Unspecified asthma, uncomplicated Referrals Pulmonology Referral J45.909 - Unspecified asthma, uncomplicated Gastroenterology Referral R13.10 - Dysphagia, unspecified Medications: New prednisone see taper instructions and taper slowly 40 mg (4 x 10 mg) PO DAILY 100 tabs 0RF J45.909 - Unspecified asthma, uncomplicated fluconazole 150 mg PO Q3D 2 tabs 0RF 2 doses J45.909 - Unspecified asthma, uncomplicated
--- OUTSIDE RECORDS SUMMARY | 2025-08-05 18:18 | XMS_ITS | Patient Health Record ---
Author Organization [facility] Address [address] [place] [address] Care Team Providers Care Clinical Psychiatrist Name Role Phone Hitesh Fairchild MD Primary Care Provider Mauro Prasad [phone] Allergies Allergen (clinical drug ingredient) Drug/Non Drug [...] Problem Status W/U Status Risk Notes Problem [id number] Irritable bowel syndrome without diarrhea (K58.9) Active confirmed Problem [id number] Blood in stool (K92.1) Active confirm ed Problem [id number] Gastroesophageal reflux disease without esophagitis (K21.9) Active confirmed Problem 88563565 Constipation, unspecified constipation type (K59.00) Active confirmed Problem 47910252 Pharyngoesophage al dysphagia (R13.14) Active confirmed Problem 30541282 Irritable bowel syndrome with both constipation and diarrhea (K58.2) Active confirmed Plan Of Treatment Pending Test Test Name Order Date GI BIOPSY 12/24/2018 Future Test Test Name Order Date COLONOSCOPY 01/12/2016 UPPER GI ENDOSCOPY 11/07/2018 Insurance Providers Payer Name Payer Address Payer Phone Subscriber Number Group Number Insured Name Patient Relationship to Insured Coverage Start Date Coverage End Date MEDICARE OF [place] [address] [place] [address] [id number] ZANE BRYAN Self - patient is the insured MEDICAID OF [facility] [address] [place] [address] [id number] ZANE BRYAN Self - patient is the insured Medical (General) History Medical History History ICD Code Colonoscopy 11-06-2008--screen ing colonoscopy--neg except for a hyperplastic polyp, mild diverticulosis, internal/external hemorrhoids Asthma/COPD Hypertension GERD--EGD's and in 2011 with finding of a small hiatal hernia---no significant esophagitis nor Maya's esophagus Urinary incontinence Denies GA,DM,CVA,renal disease Depression Kidney stones--ESWL Sleep apnea--has CPAP, but doesn't use i t Colonoscopy in 03/2016 was ne gative except for internal hemorrhoids and diverticulosis Arthritis--takes Lyrica IBS with diarrhea/constipation Surgical History Surgery Date(Month/Year) Cholecystectomy C- section tubal ligation JORDANA Bilateral carpal tunnel Trigger fingers Bladder suspension
== END 2025-08-05 16:05 | disposition home or self-care (01) ==
LOC: HO.HMCH 15:02
PROVIDERS: PCP Internal Medicine; Visit Provider Internal Medicine
DX: E11.65 Type 2 diabetes mellitus with hyperglycemia (principal); E78.00 Pure hypercholesterolemia, unspecified; I10 Essential (primary) hypertension; M85.80 Other specified disorders of bone density and structure, unspecified site; K21.9 Gastro-esophageal reflux disease without esophagitis; K76.0 Fatty (change of) liver, not elsewhere classified; N30.10 Interstitial cystitis (chronic) without hematuria; M51.369 Other intervertebral disc degeneration, lumbar region without mention of lumbar back pain or lower extremity pain; J45.909 Unspecified asthma, uncomplicated; R13.10 Dysphagia, unspecified

== ENCOUNTER → 2025-08-05 15:02 | Outpatient (BNVA) | payer OTHER, SELFPAY | PROVIDERS: PCP Internal Medicine; Visit Provider Internal Medicine | DX: E11.65 Type 2 diabetes mellitus with hyperglycemia (principal); E78.00 Pure hypercholesterolemia, unspecified; I10 Essential (primary) hypertension; K21.9 Gastro-esophageal reflux disease without esophagitis; K76.0 Fatty (change of) liver, not elsewhere classified; N30.10 Interstitial cystitis (chronic) without hematuria; M51.369 Other intervertebral disc degeneration, lumbar region without mention of lumbar back pain or lower extremity pain; J45.909 Unspecified asthma, uncomplicated; R13.10 Dysphagia, unspecified; M85.80 Other specified disorders of bone density and structure, unspecified site; G47.33 Obstructive sleep apnea (adult) (pediatric); E11.51 Type 2 diabetes mellitus with diabetic peripheral angiopathy without gangrene; I89.0 Lymphedema, not elsewhere classified | CPT/HCPCS: 99212 ==

== ENCOUNTER 2025-08-07 11:51 | Outpatient (REF) | payer OTHER, SELFPAY ==
--- NOTE | ~2025-08-07 | XR_ITS ---
EXAMINATION: XR CHEST CLINICAL INFORMATION: J45.909 - Unspecified asthma, uncomplicated COMPARISON: 07/18/2025. TECHNIQUE: 2 views of the chest were obtained. FINDINGS: The cardiac, hilar, and mediastinal contours are normal. There is a prominent epicardial fat pad present. The lungs are mildly hyperaerated, however clear bilaterally. There is no pneumothorax or pleural effusion. There is no focal osseous or soft tissue abnormality. There are cholecystectomy clips present. There are mild degenerative changes of the spine. XR/XR chest 2V IMPRESSION: No active pulmonary disease. Electronically signed by: Brennen Coffman MD 08/07/2025 12:33 PM EDT
== END 2025-08-07 11:52 | disposition home or self-care (01) ==
LOC: HO.XRAY 11:51
PROVIDERS: PCP Internal Medicine; Visit Provider Internal Medicine
DX: J45.909 Unspecified asthma, uncomplicated (principal)
CPT/HCPCS: 71046

== ENCOUNTER → 2025-08-07 11:55 | Outpatient (BNV) | payer OTHER, SELFPAY | PROVIDERS: PCP Internal Medicine; Visit Provider Radiology Diagnostic Radiology | DX: J45.909 Unspecified asthma, uncomplicated (principal) | CPT/HCPCS: 71046 ==

== ENCOUNTER 2025-08-27 13:07 | Emergency (ER) | payer OTHER, SELFPAY ==
--- NOTE | ~2025-08-27 | US_ITS ---
EXAMINATION: US TRIPLEX LOWER EXTREMITY, RIGHT CLINICAL INFORMATION: Pain and swelling. DVT rule out. COMPARISON: None available. TECHNIQUE: Color-flow triplex imaging with spectral analysis and compression Doppler were performed on the right lower extremity. FINDINGS: Respiratory variation, normal compression and augmented flow are noted throughout the right lower extremity. The visualized common femoral vein, greater saphenous vein, femoral vein, profunda femoral vein, popliteal vein and midcalf peroneal and posterior tibial venous segments show no evidence of deep venous thrombosis. Contralateral left common femoral vein is patent and with normal respiration variation. Irregular shaped fluid collection in the right posterior/medial knee measures approximately 5.1 x 1.3 x 1.2 cm. US/US venous duplex LE RT IMPRESSION: 1. No evidence of deep venous thrombosis involving the right lower extremity. 2. Irregular shaped fluid collection in the right posterior/medial knee measures up to 5.1 cm. Electronically signed by: Jonh Gan MD 08/27/2025 03:32 PM EDT
[2025-08-27 13:29] VITALS: BP 133/63; PULSE 74; RESP 18; TEMP 36.5; O2SAT 97; BMI 32.8
--- NOTE | 2025-08-27 13:30 | ED.GENADULT ---
HPI - General Adult General Chief complaint: Extremity Problem Stated complaint: R knee pain Time Seen by Provider: 08/27/25 16:06 Source: patient Mode of arrival: ambulatory Limitations: no limitations History of Present Illness ED Provider: Dr. Frankel HPI narrative: This is a 67-year-old female history of hypertension hyperlipidemia diabetes presented hospital today for right leg swelling. This has been going on for a week now. No history of blood clot in the past no shortness of breath no chest pain. No traumatic injuries. Related Data Home Medications ?Medication ?Instructions ?Recorded ?Confirmed amitriptyline 25 mg tablet 25 mg PO BEDTIME 09/03/20 07/31/25 bupropion HCl 150 mg 24 hr tablet, 150 mg PO BEDTIME 02/17/21 07/31/25 extended release fluoxetine 20 mg capsule 40 mg PO QAM 06/30/21 07/31/25 hydroxyzine HCl 50 mg tablet 50 mg PO BID 09/12/22 07/31/25 Previous Rx's ?Medication ?Instructions ?Recorded nebulizers (AeroEclipse II #1 ea 02/08/21 Nebulizer) lancets 28 gauge (FreeStyle #300 boxes 03/09/22 Lancets) pen needle, diabetic 32 gauge x #100 ea 12/07/22 5/32 (BD Purnima 2nd Gen Pen Needle) blood sugar diagnostic (FreeStyle #300 ea 02/15/23 Lite Strips) lactulose 10 gram/15 mL (15 mL) 20 g (30 mL) PO DAILY 30 days #900 08/15/23 oral solution mL albuterol sulfate 90 mcg/actuation 2 puff PO Q6H PRN shortness of 07/15/24 aerosol inhaler breath or wheezing #8.5 ea joey.stocking,knee,reg,smal #12 ea 07/15/24 fenofibrate 160 mg tablet 160 mg PO DAILY #90 tabs 08/07/24 isosorbide mononitrate 30 mg 30 mg PO DAILY #90 tabs 08/07/24 tablet,extended release 24 hr naproxen 500 mg tablet 500 mg PO BID PRN pain #60 tabs 09/12/24 tamsulosin 0.4 mg capsule (Flomax) 0.4 mg PO BEDTIME #90 caps 09/12/24 simvastatin 10 mg tablet 10 mg PO BEDTIME 30 days #90 tabs 09/16/24 metoprolol succinate 25 mg 25 mg PO DAILY #90 tabs 09/27/24 tablet,extended release 24 hr ropinirole 3 mg tablet 3 mg PO BID 30 days #180 tabs 12/13/24 losartan 100 mg tablet (Cozaar) 100 mg PO DAILY 90 days #90 tabs 12/15/24 empagliflozin 25 mg tablet 25 mg PO DAILY 30 days #90 tabs 12/31/24 walker (Ultra-Light Rollator misc) #1 ea 02/10/25 omeprazole 40 mg capsule,delayed 40 mg PO DAILY #90 caps 03/13/25 release fluticasone propionate 50 2 spray intranasal DAILY #3 ea 03/28/25 mcg/actuation nasal spray,suspension (Allergy Relief (fluticasone)) phenazopyridine 99.5 mg tablet 99.5 mg PO BID Pain with urination 04/15/25 (Azo Urinary Pain Relief) 5 days #10 tabs BACK BRACE #1 ea 06/11/25 gabapentin 100 mg capsule 100 mg PO BEDTIME #30 caps 06/11/25 umeclidinium 62.5 mcg-vilanterol 1 inh inhalation DAILY #60 ea 06/11/25 25 mcg/actuation powdr for inhalation (Anoro Ellipta) semaglutide 0.25 mg or 0.5 mg (2 0.5 mg (0.736 mL) subcut QWEEK 30 07/13/25 mg/3 mL) subcutaneous pen injector days #3.68 mL (Ozempic) clotrimazole-betamethasone 1 1 appl topical BID #15 grams 07/23/25 %-0.05 % topical cream albuterol sulfate 2.5 mg/3 mL 2.5 mg (3 mL) inhalation Q4H PRN 07/24/25 (0.083 %) solution for nebulization shortness of breath or wheezing #90 mL blood-glucose meter (FreeStyle #1 ea 07/24/25 Lite Meter kit) fluconazole 150 mg tablet 150 mg PO Q3D 2 doses #2 tabs 08/05/25 prednisone 10 mg tablet 40 mg (4 x 10 mg) PO DAILY #100 08/05/25 tabs oxycodone-acetaminophen 5 mg-325 1 tab PO TID PRN pain 28 days #84 10/14/25 mg tablet tabs acetaminophen 500 mg tablet 1,000 mg (2 x 500 mg) PO Q8H 10 08/27/25 (Tylenol Extra Strength) days #60 tabs ibuprofen 400 mg tablet 400 mg PO Q8H PRN pain #30 tabs 08/27/25 prednisone 20 mg tablet 20 mg PO DAILY 7 days #7 tabs 08/27/25 Allergies Allergy/AdvReac Type Severity Reaction Status Date / Time metformin AdvReac Intermediate Vomiting Verified 08/27/25 13:31 lisinopril (From Zestril) AdvReac Mild COUGH Verified 08/27/25 13:31 Review of Systems Review of Systems: Pertinent review of systems as mentioned in HPI. All other system otherwise negative. [facility] Past Medical History [facility] Narrative: Medical history as mentioned in HPI Medical History Osteopenia (~2018) Nicotine dependence, cigarettes, uncomplicated Allergic rhinitis Irritable bowel syndrome Obstructive sleep apnea Obesity Restless leg syndrome Asthma Insomnia Interstitial cystitis Osteoarthritis of hip Right renal stone GERD (gastroesophageal reflux disease) Anxiety and depression Hypercholesterolemia Fatty liver Hypertension Lumbar degenerative disc disease Type 2 diabetes mellitus with hyperglycemia Surgical History History of surgery (01/27/25) History of breast lump/mass excision History of hand surgery History of foot surgery History of surgical removal of ganglion cyst History of colonoscopy History of nasal surgery History of esophagogastroduodenoscopy (EGD) History of removal of cyst History of lithotripsy History of bladder surgery History of carpal tunnel release History of tonsillectomy and adenoidectomy History of cholecystectomy History of total abdominal hysterectomy and bilateral salpingo-oophorectomy History of section Family History Family History Father CAD (coronary artery disease) CVD (cerebrovascular disease) Lung cancer Hypertension Mother Hypertension Diabetes Cancer Daughter Breast cancer Paternal Uncle Myocardial infarction Paternal Aunt Myocardial infarction Maternal Uncle Myocardial infarction Bone cancer Other FH: mental illness Substance abuse Social History Social History Housing: Apartment Are you a primary neonatal intensive care nurse to a significant other at home: No Do you presently have visiting nurse or other home services: No Alcohol intake: current Alcohol intake frequency: does not drink Patient Tobacco Use Status: Current everyday Tobacco user Tobacco use type: Cigarette Cigarette Packs Per Day: 0.5 Cigarettes Per Day: 3 Years Smoked: 55 e-Cigarette/Vaping Use: Never Used Second Hand Smoke Exposure: Yes Advance Directives: No Advance Directives Information Provided: No service: No Current occupational status: disabled Cognitive needs: No Hearing needs: No Vision needs: Yes Physical Exam ED Exam Exam: General: Pleasant, no distress, interacting appropriately Head: Normacephalic, atraumatic ENT: oral mucosa moist, neck supple, no tracheal deviation Extremities: Patient does have right calf edema compared to the left side. No Ornelas cyst on exam. No sign of redness or erythema. No fluctuant mass palpated. CMS intact Neurological: Awake and alert, no facial droop noted Skin: Warm and dry Psychiatric: Appropriate mood and thoughts Vital Signs: Vital Signs - 24 hr 08/27/25 13:29 08/27/25 16:20 Temperature 97.7 F 97.7 F Pulse Rate 74 74 Respiratory Rate 18 18 Blood Pressure 133/63 133/63 Pulse Oximetry 97 97 Oxygen Delivery Method Room Air Room Air BMI result Body Mass Index 32.8 Course Course Course Narrative: This is a 65 yo F hx of HTN, HLD, DM presented to ED for atraumatic right knee pain and swelling in the right leg. Ultrasound ordered for DVT rule out. Rapid medical screening exam was performed. Patient stable at time of evaluation. Agnieszka Frankel DO 08/27/25 1331 Medical Decision Making Medical Decision Making MDM Narrative: This is a 65-year-old female presents to ER today for evaluation swelling of the right leg. Patient stated that she is having some swelling of the right lateral calf. She is having increasing pain. No traumatic injury. No blood clot. Ultrasound was ordered. I did review patient's ultrasound results. Patient does have a fluid collection in her right lower extremity. However there was no signs of DVT. No sign of erythematous I did not think this is an abscess. I do not think this is cellulitis. Patient may have underlying inflammation and a muscle versus myositis that is causing the collection of fluid. This fluid is deep. Does not appear to be superficial. I do not think this is safe to drain here in the ER. I do not suspect this is infectious in nature. We will plan to discharge patient with NSAIDs and steroids. Referral to orthopedic will be given to the patient. Differential Diagnosis Differential Diagnoses: The differential diagnosis associated with the presentation includes Myositis, edema, DVT, osteoarthritis Independent Interpretation I performed an independent interpretation of an: Ultrasound Radiology Impression Discussion of test interpretation with radiology: I have reviewed the radiologist's reading. Discharge Plan Discharge Clinical Impression: Myositis Qualifiers: Myositis type: unspecified type Myositis location: lower leg Laterality: right Qualified Code(s): M60.861 - Other myositis, right lower leg Edema Qualifiers: Edema type: unspecified Qualified Code(s): R60.9 - Edema, unspecified Patient Disposition: Home, Self-Care Additional Instructions: You have a fluid collection. in your right leg. There is no signs of a blood clot or DVT. Follow up with the orthopedic clinic Prescriptions: New prednisone 20 mg tablet 20 mg PO DAILY 7 Days Qty: 7 0RF ibuprofen 400 mg tablet 400 mg PO Q8H PRN (Reason: pain) Qty: 30 0RF acetaminophen [Tylenol Extra Strength] 500 mg tablet 1,000 mg PO Q8H 10 Days Qty: 60 0RF No Action (DME) lancets [FreeStyle Lancets] 28 gauge misc See Rx Instructions .ROUTE .MEDSUPPLY Qty: 300 3RF Rx Instructions: As directed check BS TID (DME) pen needle, diabetic [BD Purnima 2nd Gen Pen Needle] 32 gauge x 5/32 needle See Rx Instructions .Route Qty: 100 2RF Rx Instructions: As directed (DME) FreeStyle Lite Strips Strip See Rx Instructions .ROUTE .MEDSUPPLY Qty: 300 3RF Rx Instructions: As directed check the BS TID isosorbide mononitrate 30 mg tablet extended release 24 hr 30 mg PO DAILY Qty: 90 3RF fenofibrate 160 mg tablet 160 mg PO DAILY Qty: 90 3RF simvastatin 10 mg tablet 10 mg PO BEDTIME 30 Days Qty: 90 3RF metoprolol succinate 25 mg tablet extended release 24 hr 25 mg PO DAILY Qty: 90 3RF ropinirole 3 mg tablet 3 mg PO BID 30 Days Qty: 180 3RF losartan [Cozaar] 100 mg tablet 100 mg PO DAILY 90 Days Qty: 90 2RF empagliflozin 25 mg tablet 25 mg PO DAILY 30 Days Qty: 90 3RF (DME) Ultra-Light Rollator Misc See Rx Instructions .Route Qty: 1 0RF Rx Instructions: As directed omeprazole 40 mg capsule,delayed release(DR/EC) 40 mg PO DAILY Qty: 90 3RF fluticasone propionate [Allergy Relief (fluticasone)] 50 mcg/actuation spray,suspension 2 spray intranasal DAILY Qty: 3 3RF Rx Instructions: administer into each nostril Ozempic 0.25 mg or 0.5 mg (2 mg/3 mL) pen injector 0.5 mg subcut QWEEK 30 Days Qty: 3.68 1RF Rx Instructions: 0.5 mg Q week albuterol sulfate 2.5 mg /3 mL (0.083 %) solution for nebulization 2.5 mg inhalation Q4H PRN (Reason: shortness of breath or wheezing) Qty: 90 0RF (DME) blood-glucose meter [FreeStyle Lite Meter] Kit See Rx Instructions .Route Qty: 1 0RF Rx Instructions: As directed oxycodone-acetaminophen 5-325 mg tablet 1 tab PO TID PRN (Reason: pain) 28 Days Qty: 84 0RF (DME) nebulizers [AeroEclipse II Nebulizer] [facility] See Rx Instructions .ROUTE .MEDSUPPLY Qty: 1 0RF Rx Instructions: As directed Azo Urinary Pain Relief 99.5 mg tablet 99.5 mg PO BID 5 Days Qty: 10 0RF Rx Instructions: Drink 8 oz of water with each dose, administer with a meal amitriptyline 25 mg tablet 25 mg PO BEDTIME hydroxyzine HCl 50 mg tablet 50 mg PO BID lactulose 10 gram/15 mL (15 mL) solution 20 g PO DAILY 30 Days Qty: 900 5RF fluoxetine 20 mg capsule 40 mg PO QAM bupropion HCl 150 mg tablet extended release 24 hr 150 mg PO BEDTIME naproxen 500 mg tablet 500 mg PO BID PRN (Reason: pain) Qty: 60 1RF tamsulosin [Flomax] 0.4 mg capsule 0.4 mg PO BEDTIME Qty: 90 3RF gabapentin 100 mg capsule 100 mg PO BEDTIME Qty: 30 3RF (DME) BACK BRACE See Rx Instructions .Route .MEDSUPPLY Qty: 1 0RF Rx Instructions: As directed umeclidinium-vilanterol [Anoro Ellipta] 62.5-25 mcg/actuation blister with device 1 inh inhalation DAILY Qty: 60 9RF prednisone 10 mg tablet 40 mg PO DAILY Qty: 100 0RF Rx Instructions: see taper instructions and taper slowly fluconazole 150 mg tablet 150 mg PO Q3D Qty: 2 0RF albuterol sulfate 90 mcg/actuation HFA aerosol inhaler 2 puff PO Q6H PRN (Reason: shortness of breath or wheezing) Qty: 8.5 3RF (DME) joey.stocking,knee,reg,smal Misc See Rx Instructions .Route Qty: 12 0RF Rx Instructions: As directed 20-30 mm HG clotrimazole-betamethasone 1-0.05 % cream 1 appl topical BID Qty: 15 1RF [place] [facility] [place] [facility] [place]Provider Group] Interventions: ED Discharge Assessment Last Done: 08/27/25 16:20 Discharge Date/Time: 08/27/25 16:20 Print Language: Irish
[2025-08-27 16:20] VITALS: BP 133/63; PULSE 74; RESP 18; TEMP 36.5; O2SAT 97
--- OUTSIDE RECORDS SUMMARY | 2025-08-27 20:02 | XMS_ITS | Patient Health Record ---
Author Organization [facility] Address [address] [place] [address] Care Team Providers Care Interior Plant Caretaker Name Role Phone Hitesh Fairchild MD Primary Care Provider Mauro Prasad [phone] Allergies Allergen (clinical drug ingredient) Drug/Non Drug [...] 10 MG 1 tablet Orally Once a day; Duration: 30 day(s) Active clonazePAM 0.5 MG 1AM [...] tablet in the morning Orally Once a day; Duration: 30 day(s) Active Immunizations Vaccine Route Administration [...] Problem Status W/U Status Risk Notes Problem Irritable bowel syndrome (13136390) Irritable bowel syndrome without diarrhea (K58.9) Active confirmed Problem Blood in stool (547889746) Blood in stool (K92.1) Active confirmed Problem Gastroesophageal reflux disease without esophagitis (868270569) Gastroesophageal reflux disease without esophagitis (K21.9) Active confirmed Problem Constipation (83714946) Constipation, unspecified constipation type (K59.00) Active confirmed Problem Dysphagia (61764498) Pharyngoesophageal dysphagia (R13.14) Active confirmed Problem Irritable bowel syndrome (79690705) Irritable bowel syndrome with both constipation and diarrhea (K58.2) Active confirmed Plan Of Treatment Pending Test Test Name Order Date GI BIOPSY 12/24/2018 Future Test Test Name Order Date COLONOSCOPY 01/12/2016 UPPER GI ENDOSCOPY 11/07/2018 Next Appt Details Provider Name:Mauro Carrie Baez , 12/02/2025 10:50:00 AM, [address], [address], [place], [address], Insurance Providers Payer Name Payer Address Payer Phone Subscriber Number Group Number Insured Name Patient Relationship to Insured Coverage Start Date Coverage End Date [facility] [address] Attn Claims CHERELLE Barnett [id number] ZANE BRYAN Self - patient is the insured MEDICAID OF [place] [facility] [address] [place] [id number] ZANE BRYAN Self - patient is the insured Medical (General) History Medical History History ICD Code Colonoscopy 11-06-2008--screen ing colonoscopy--neg except for a hyperplastic polyp, mild diverticulosis, internal/external hemorrhoids Asthma/COPD Hypertension GERD--EGD's and in 2011 with finding of a small hiatal hernia---no significant esophagitis nor Maya's esophagus Urinary incontinence Denies [place],DM,CVA,renal disease Depression Kidney stones--ESWL Sleep apnea--has CPAP, but doesn't use i t Colonoscopy in 03/2016 was ne gative except for internal hemorrhoids and diverticulosis Arthritis--takes Lyrica IBS with diarrhea/constipation Surgical History Surgery Date(Month/Year) Cholecystectomy C- section tubal ligation JORDANA Bilateral carpal tunnel Trigger fingers Bladder suspension
--- OUTSIDE RECORDS SUMMARY | 2025-08-27 20:02 | XMS_ITS | Data Portability ---
Author Organization [facility] Address [address] [place] [address] Care Team Providers Care Campus President Name Role Phone HIM CCA OTHER Assessment Encounter Date Assessment Date Assessment LastModified by Organization Details LastModified Time 10/31/2023 10/31/2023 I provided real -time medical direction via phone for this encounter, and was available for additional phone based assistance as needed. I have reviewed and agree with the Assessment and Plan as documented by the Coagulant Dipper. Patient given the opportunity to ask questions. [...] Assessment and Plan as documented by the Coagulant Dipper. Patient given the opportunity to ask questions. [...] creams. No new soaps as well. Per apprentice pattern maker on the scene, vital signs are stable [...] None recorded. Lab culture, urine 2023 024 SELAH [facility] (Centralized Electronic Ordering - All Locations), Patient Can Go To The Location Of Their Choice, [id number] 4 12:06:16 urinalysis , dipstick 2023 024 [facility], [address] [place] [address], [phone] 4 17:18:27 Referral None recorded. Procedures None [...] culture,comp rehensive Final report Not Available [facility] ([facility]) [address] [facility], [place], [address], 02/29/2024 10:06:17 02/25/2002/29/2024 URINE CULTU RE,CO MPREH ENSIV E result 1 COMMEN T No growt h in 36 - 48 hours . Not Available [facility] ([facility]) [address] [facility], [place], [address], 02/29/2024 10:06:17 Result Notes None recorded. Medical Equipment None Reported. Allergies Allergen ID Allergen Name Allergen Category Reaction Reaction Severity Criticality Documentation Date Start Date Code Code System Note Provider Name and Address Organization Details Recorded Time 6496 lisinopri l medicatio n Not available Not available Not available 08/08/2024 66130 RxNorm Madison Stanley MD [address] [place] [address],[address], [place], [address], [employer] 16:32:00 6497 metformin medicatio n Not available Not available Not available 08/08/2024 6809 RxNorm Madison Stanley MD [address] [place] [address],[address], [place], [address], [employer] 16:32:07 Medications Name Sig Start Date Stop [...] Address Organization Details Last Updated DateTime 4 97801.7 2 g 16 /min 90 /min 154.94 [...] % 76 /min 97.2 [degF] 16 /min 25882.5 36 g 146/77 mm[Hg] Not Available [facility] 11:54:56 Date Recorded Body temperature Body height Oxygen saturation Oxygen saturation in Arterial blood by Pulse oximetry Respiratory rate Heart rate Body weight Systolic And Diastolic Provider Name and Address Organization Details Last Updated DateTime 98.4 [degF] 149.86 cm 98 % 98 % 18 /min 65 /min 72765.3 52 g 179/91 mm[Hg] Not Available [facility] 13:41:18 Social History None recorded. Functional Status None recorded. Mental Status None recorded. Family History Nothing Reported. Medical History No medical history recorded. Gynecological HistoryNo gynecological history recorded. 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 She has some suprapubli c pain and dysuria. Her U/A was normal. I ordered a U/C and recommende d that she follow-up with her PCP regarding the results. The patient agreed with this plan. [id number] Madison Stanley MD [facility] [address] [place] [phone] 08/08/2024 13:41:09 08/08/2024 19:32:46 Localized eruption of skin [id number] R21 Health Concerns Section Related Observation LastModified by Organization Detai ls LastModified Time None Recorded Concern Status LastModified by Organization Details LastModified Time None Recorded Advance Directives Directive None Recorded Payers Insurance Date Sequence Insurance Name Policy Number Policy Herrera Covered Member ID Herrera Member ID Guarantor Name 02/25/2024 1 [facility] - DOS ON OR AFTER 2023 - DUAL ELIGIBLE - SNF OPTIONS AND ONE CARE (MEDICARE REPLACEMENT/ADV ANTAGE - HMO) Rafia Hudson [id number] Rafia Hugo Hudson Notes Date Note Type Note Provider Name [...] ...................... ...................... ...................... ...................... ...................... ...................... ......... Coagulant Dipper Note From Kevin Vieira: Pt reports 3 [...] ...................... ......... Disposition: Fulfilled Madison Stanley MD [address] [place] [address],[address], [place], [phone], [facility] 10/31/2023 16:23:20 02/25/2024 text/html ROS as noted in the [facility] CRC Nurse Triage Notes (Jean Santos): Chief Complaints: Abdominal Pain, Fever/Chills, UTI/Pyelonephritis PMH: Hypertension, COPD/Asthma Allergies: Unknown Comments: Rotating Field Assembler verified the member's name//address and phone number. [...] treatment if needed -ALISHA Mcgregor MD [address] [facility],[address], [place], [address], [email or web address] 02/25/2024 12:00:15 08/08/2024 text/html CRC Nurse Triage [...] ...................... ...................... ...................... ...................... ...................... ...................... ......... Coagulant Dipper Note From Michele Stone: Dispatched to the [...] ...................... ......... Disposition: Fulfilled Madison Stanley MD [address] [place] [address],[address] [facility], [place], [phone], [email or web address] 08/08/2024 16:34:36 OBGyn Episode No OBEpisode recorded.
== END 2025-08-27 16:20 | disposition home or self-care (01) ==
PROVIDERS: Emergency Provider Student in an Organized Health Care Education/Training Program; PCP Internal Medicine
DX: M60.861 Other myositis, right lower leg (principal); R60.9 Edema, unspecified; M79.604 Pain in right leg; M79.89 Other specified soft tissue disorders; Z79.899 Other long term (current) drug therapy
CPT/HCPCS: 93971; 99282; 99284

== ENCOUNTER → 2025-08-27 13:32 | Outpatient (BNV) | payer OTHER, SELFPAY | PROVIDERS: PCP Internal Medicine; Visit Provider Radiology Body Imaging | DX: M79.89 Other specified soft tissue disorders (principal); M79.661 Pain in right lower leg | CPT/HCPCS: 93971 ==

== ENCOUNTER 2025-10-14 13:28 | Outpatient (AMB) | payer OTHER, SELFPAY ==
--- NOTE | 2025-10-14 13:49 | A.OFFPC_ITS ---
Vital Signs 10/14/25 13:50 Height 4 ft 11 in Weight 158 lb 8 oz BMI 32.0 BP 122/70 Blood Pressure Location Lt brachial Position Sitting Pulse 70 Pulse Source Pulse Oximeter Temp 97.3 F Temp Source Temporal Artery Scan Pulse Oximetry (%) 96 Oxygen Delivery Method Room Air Intake Visit Reasons: requesting orthopedic referral Intake Note: Patient is here to follow up on Requesting ortho referral. Ingredient Specialist Required: No Pantograph Operator: Not Required per policy Accompanied by: Self / Same As Patient Allergies metformin Adverse Reaction (Intermediate, Verified 10/14/25 13:50) Vomiting lisinopril (From Zestril) Adverse Reaction (Mild, Verified 10/14/25 13:50) COUGH Tobacco use date assessed: 10/14/25 Fall risk assessment: No Falls in past year Last assessed Fall Risk: 10/14/25 Dental Screening Dental Screen Date: 08/05/25 HPI HPI Comments History of Present Illness Details History of Present Illness The patient is a 65-year-old obese female presenting for a follow-up visit. She has a past medical history of diabetes mellitus, nephrolithiasis, lumbar degenerative disc disease for which she takes narcotic pain medication, osteopenia, generalized anxiety disorder, GERD, tobacco use, obstructive sleep apnea which is untreated as she cannot tolerate CPAP, hypertension, hypercholesterolemia, and asthma. The patient recently presented to the ER on August 27, 2025, for chest pain and right leg swelling. An ultrasound of the right lower extremity was performed, which was negative for DVT but showed a fluid collection, and she was prescribed prednisone. She reports the pain in her right leg was severe, making it difficult to walk, though it is slightly better now. She denies any fall or injury preceding the swelling. She also reports that her left leg has started to swell slightly. The patient reports pain and a bony prominence on both feet, with the left foot being more painful. For her diabetes, she takes Jardiance 25 mg daily and Ozempic 0.5 mg weekly. Her last hemoglobin A1c was normal in September 2025. The patient reports significant fatigue and difficulty sleeping, stating she has been awake since 10 p.m. the previous night. She is currently taking amitriptyline, which is not helping with her sleep. A prescription for Zaleplon was recently filled but she has not yet tried it. Health Maintenance The patient received an influenza vaccine during the visit. Referrals for orthopedics and podiatry will be made upon checkout. Social History - Substance Use: The patient is a curren t smoker. Results - Labs: - Hemoglobin A1c was normal as of [facility] 2024. - Hemoglobin A1c level is 5.2. - LDL cholesterol was 74 mg/dL in May 2025. - Imaging: - Ultrasound of the right lower extremit y on August 27, 2025 showed a posteromedial fluid collection and no DVT. - Last bone density scan in August showed osteopenia. [facility] Medical History Osteopenia (~2018) Nicotine dependence, cigarettes, uncomplicated Allergic rhinitis Irritable bowel syndrome Obstructive sleep apnea Obesity Restless leg syndrome Asthma Insomnia Interstitial cystitis Osteoarthritis of hip Right renal stone GERD (gastroesophageal reflux disease) Anxiety and depression Hypercholesterolemia Fatty liver Hypertension Lumbar degenerative disc disease Type 2 diabetes mellitus with hyperglycemia Surgical History History of surgery (01/27/25) History of breast lump/mass excision History of hand surgery History of foot surgery History of surgical removal of ganglion cyst History of colonoscopy History of nasal surgery History of esophagogastroduodenoscopy (EGD) History of removal of cyst History of lithotripsy History of bladder surgery History of carpal tunnel release History of tonsillectomy and adenoidectomy History of cholecystectomy History of total abdominal hysterectomy and bilateral salpingo-oophorectomy History of section Family History Father CAD (coronary artery disease) CVD (cerebrovascular disease) Lung cancer Hypertension Mother Hypertension Diabetes Cancer Daughter Breast cancer Paternal Uncle Myocardial infarction Paternal Aunt Myocardial infarction Maternal Uncle Myocardial infarction Bone cancer Other FH: mental illness Substance abuse Social History (Updated 10/14/25 @ 13:58 by SANDRO Ojeda) Housing: Apartment Are you a primary managed care specialist to a significant other at home: No Do you presently have visiting nurse or other home services: No Alcohol intake: current Alcohol intake frequency: does not drink Patient Tobacco Use Status: Current everyday Tobacco user Tobacco use type: Cigarette Cigarette Packs Per Day: 0.5 Cigarettes Per Day: 5 Years Smoked: 55 Packs Per Year: 28 Packs per year/per ci.75 e-Cigarette/Vaping Use: Never Used Second Hand Smoke Exposure: Yes service: No Current occupational status: disabled Cognitive needs: No Hearing needs: No Vision needs: Yes Questionnaire Thrive Questionnaire Date Thrive assessed: 06/11/25 I am a: Patient What is your living situation today?: I have a steady place to live Within the past 12 months, did the food you bought not last and you didn't have the money to get more?: Sometimes True Within the past 12 months, did you worry whether your food would run out before you got money to buy more?: Sometimes True Do you have trouble paying for medicines?: I choose not to answer this question Do you have trouble getting transportation to medical appointments?: No Do you have trouble paying your heating and electricity bill?: I choose not to answer this question Do you have trouble taking care of your child, family member or friend?: No Do you have trouble with day-to-day activities such as bathing, preparing meals, shopping, managing finances, etc.?: Yes Are you currently unemployed and looking for a job?: No Are you interested in more education?: No Please select the resources that you would like help with: Food Currently or been in a relationship where the following occur: I choose not to answer THRIVE Score: 2 NICOLA-7 AMB Questionnaire NICOLA-7 Date NICOLA - 7 assessed: 06/11/25 Source: Developed by Drs. Mauro George, Mariana Medrano, James Truong and colleagues, with an educational romeo from [employer]. Review of Systems Narrative Review of Systems - General: Reports fatigue. - Neurological: Reports insomnia. - Cardiovascular: Reports a history of chest pain that prompted a recent ER visit. - Musculoskeletal: Reports right leg swelling, right knee pain, and recent onset of slight left leg swelling. Reports pain in her muscles. Reports pain and a bony prominence on both feet, worse on the left. Physical exam (Primary Care) Vital Signs: Last Vital Signs Temp 97.3 F 10/14/25 13:50 Pulse 70 10/14/25 13:50 BP 122/70 10/14/25 13:50 Pulse Ox 96 10/14/25 13:50 Oxygen Delivery Method Room Air 10/14/25 13:50 BMI result Body Mass Index 32.0 Tobacco/Smoking Status: Tobacco use Status Tobacco use date assessed 10/14/25 10/14/25 13:59 Patient Tobacco Use Status Current everyday Tobacco 10/14/25 13:59 Tobacco use type Cigarette 10/14/25 13:59 e-Cigarette/Vaping Use Never Used 10/14/25 13:59 Thrive Assessment: Date of Thrive Assessment Date Thrive assessed 06/11/25 10/14/25 13:59 Currently or been in a relationship where the following occur: I choose not to answer Narrative Physical Exam - Constitutional: The patient is an obese female. Const General: alert; No acute distress Eyes Conjunctivae: conjunctivae normal Resp Auscultation: clear to auscultation bilaterally Cardio Rate: regular rate Rhythm: regular rhythm GI Inspection: Yes normal to inspection Extrem General: Yes normal to inspection and No edema Office Procedures Flu Questionnaire Does the patient have a severe egg allergy?: No Does the patient have severe life threatening allergies?: No Does the patient have a fever or illness today?: No Has the patient ever had Guillain-Lorane Syndrome?: No Has the patient ever had any past reaction to a flu shot?: No Results AMB Hemoglobin A1c AMB Hemoglobin A1c 5.2 % Last Edit by SANDRO Ojeda on 10/14/25 14:10 Immunizations Fluarix [id number] (PF) 45 mcg (15 mcg x 3)/0.5 mL IM syringe Performing Provider: Hitesh Fairchild MD [facility] Administered by: Hilaria Good LPN on 10/14/25 14:43 Dose Route Admin Location Dispensed Lot Number Expiration Date [facility] [employer] 0.5 mL IM Left Deltoid 0.5 mL [id number] 04/28/26 [id number] [employer] VIS Given Date VIS Provided VIS Publication Date 10/14/25 Single Vaccine 24 Eligibility Eligibility Date Funding Source Not [facility] Eligible 10/14/25 Private Results Reviewed Results Reviewed: Laboratory Last Values Hgb A1c (Clinic) 5.2 % (4.0-6.0) 10/14/25 13:48 Coding Level of Care Code Est Pt Level 4 (62055) Diagnoses Type 2 diabetes mellitus with hyperglycemia, without long-term current use of insulin E11.65 Diabetes mellitus mcfp insulin use: without mcfp use Essential hypertension I10 Hypertension type: essential hypertension Foot pain M79.673 Swelling of calf M79.89 Insomnia G47.00 Assessment & Plan Assessment & Plan (1) Type 2 diabetes mellitus with hyperglycemia: Comment: Dr. Rayray joyce and [facility] Code(s): E11.65 - Type 2 diabetes mellitus with hyperglycemia Category: Medical Qualifiers: Diabetes mellitus mcfp insulin use: without mcfp use Qualified Code(s): E11.65 - Type 2 diabetes mellitus with hyperglycemia Plan: Decrease the amount of carbohydrate intake, pasta, bread, rice and potatoes are all sugar and that is aside from all the sweet stuff, remember that fruits are good but they are Sweet also. Hemoglobin A1c goal of less than 7.0 on Jardiance 25 mg once a day Ozempic 0.5 mg once a week (2) Hypertension: Code(s): I10 - Essential (primary) hypertension Category: Medical Qualifiers: Hypertension type: essential hypertension Qualified Code(s): I10 - Essential (primary) hypertension Plan: Continue with blood pressure medication. Decrease salt intake and exercise (3) Foot pain: Comment: bilateral L > R Code(s): M79.673 - Pain in unspecified foot Category: Medical Plan: Referral to podiatry done (4) Swelling of calf: Comment: R calf posteromedial ultrasound August 27 2025 Code(s): M79.89 - Other specified soft tissue disorders Category: Medical Plan: Referral for ortho (5) Insomnia: Code(s): G47.00 - Insomnia, unspecified Category: Medical Plan: Patient was seen to have zaleplon prescription in the pharmacy prescribed this September 2025 Plan Plan Patient was informed and verbally consented to the use of an ambient scribe for clinic note documentation during this visit. 1. Right Knee Swelling With Fluid Collection The patient has a right posteromedial knee fluid collection identified on a recent ultrasound. A referral will be made to orthopedics for evaluation, though it is noted that the issue may be muscular and could be redirected to rheumatology or general surgery. 2. Bilateral Foot Pain The patient reports pain and a bony protrusion on both feet. A referral to podiatry has been placed. 3. Insomnia The patient reports difficulty sleeping, for which her current amitriptyline is not effective. She has an existing prescription for Zaleplon that she has not yet tried. She will be instructed to try the Zaleplon. A plan to prescribe Zolpidem (Ambien) was initiated but then cancelled upon discovering the existing Zaleplon prescription. 4. Diabetes Mellitus The patient's diabetes is well-controlled, with a recent hemoglobin A1c of 5.2, which is at goal. She will continue her current regimen of Jardiance and Ozempic. 5. Tobacco Use The patient will see Dr. Perales on November 04 for smoking cessation counseling. Discussion Notes I discussed the patient's right knee fluid collection, noting that while I am referring her to orthopedics, the problem seems to be in the muscle, and the specialist may determine it is not within their field, possibly referring her to a general surgeon or weatherization and housing inspector instead. We discussed her sleep issues and I initially intended to prescribe Ambien, but after discovering she had an unfilled prescription for Zaleplon from another provider, I instructed her to try that medication first, explaining that taking both is not an option. I reassured her that her recent hemoglobin A1c of 5.2 is a very good number and her diabetes is well-controlled. I informed her that referrals for the foot doctor and orthopedics would be made when she checks out. Patient Instructions - You have a recent prescription for a sleep medication called Zaleplon that you have not started yet. Please try taking this medication for your trouble sleepi ng. Do not take it with other sleeping pills. - Your diabetes is very well-controlled with an A1c of 5.2. Continue taking your current diabetes medications as prescribed. - We are referring you to an orthopedic (bone) specialist for the fluid collection in your right knee and a share holder (foot doctor) for your foot pain. The office will make these referrals when you check out today. - Keep your appointment with Dr. Perales on November 04 to discuss quitting smoking. Orders: Orders AMB Hemoglobin A1c Today E11.65 - Type 2 diabetes mellitus with hyperglycemia Influenza [id number] Immunization Today Z23 - Encounter for immunization Referrals Podiatry Referral M79.043 - Pain in unspecified foot Orthopedics Referral M79.89 - Other specified soft tissue disorders Medications: Refilled oxycodone-acetaminophen 5-325 mg 1 tab PO TID PRN 84 tabs 0RF pain 28 days M51.36 - Other intervertebral disc degeneration, lumbar region
[2025-10-14 13:50] VITALS: BP 122/70; PULSE 70; TEMP 36.3; O2SAT 96; BMI 32.0
--- OUTSIDE RECORDS SUMMARY | 2025-10-14 17:35 | XMS_ITS | Patient Health Record ---
Author Organization [facility] Address [address] [place] [address] Care Team Providers Care Community Product Specialist Name Role Phone Hitesh Fairchild MD Primary Care Provider Mauro Prasad [phone] Allergies Allergen (clinical drug ingredient) Drug/Non Drug Allergy documented on EMR Reaction Allergy Type Onset Date Status lisinopril zestril (uncoded) Unknown Allergy A ctive Reason For Referral No Information Medications Medication SIG (Take, Route, Frequency, Duration) Notes Start Date End Date Status FLUoxetine HCl 20 MG Capsule 1 capsule i n the morning Orally Once a day Active rOPINIRole HCl 3 MG Tablet 1 tablet 1 to 3 hours before bedtime Orally Once a day Active Losartan Potassium 100 MG Tablet 1 tablet Orally Once a day Active Amitriptyline HCl 10 MG Tablet 1 tablet Orally Once a day Active Fenofibrate 160 MG Tablet 1 tablet with a meal Orally Once a day Active Loratadine 10 MG Tablet 1 tablet Orally Once a day; Duration: 30 day(s) Active clonazePAM 0.5 MG Tablet 1AM AND 2 table t at bedtime Orally DAILY Active Simvastatin 5 MG Tablet 1 tablet in the evening Orally Once a day Active oxyCODONE-Acetaminophen 5-325 MG Tablet 1 tablet as needed Orally every 6 hrs Active Isosorbide Mononitrate ER 30 MG Tablet Extended Release 24 Hour 1 tablet Orally Once a day Active Dexilant 60 MG Capsule Delayed Release 1 capsule Orally Once a day Active Metoprolol Succinate ER 25 MG Tablet Extended Release 24 Hour 1 tablet Orally Once a day Active Lyrica 75 MG Capsule 1 capsule Orally On ce a day Active Aspirin Adult Low Dose 81 MG Tablet Delayed Release 1 tablet Orally Once a day Active buPROPion HCl ER (XL) 150 MG Tablet Extended Release 24 Hour 1 tablet in the morning Orally Once a day; Duration: 30 day(s) Active Immunizations Vaccine Route Administration Date Status Comme nts Flu vaccine no Preserv 3 and > Unknown 05/30/2015 Admin istered Influenza Unknown 09/18/2018 Administered Social History Tobacco Use: Social History Observation Description Date Details (start date - stop date) Current Smoker NA - NA Social History Tobacco Use: Social Info Question Answer Notes Tobacco Use/Smoking Patient is a current smoker How often do you smoke cigarettes? every day How many cigarettes a day do you smoke? 6-10 How soon after you wake up do you smoke your first cigarette? 6-30 minutes Are you interested in quitting? Thinking about quitting Additional Details Category Social Info Options Details Miscellaneous: Marital status: Occupation: disablity Section Notes: She describes having stopped smoking [...] Status Risk Notes Problem Irritable bowel syndrome (19787840) Irritable bowel syndrome without diarrhea (K58.9) Active confirmed Problem Blood in stool (245155694) Blood in stool (K92.1) Active confirmed Problem Gastroesophageal reflux disease without esophagitis (351262917) Gastroesophageal reflux disease without esophagitis (K21.9) Active confirmed Problem Constipation (32657822) Constipation, unspecified constipation type (K59.00) Active confirmed Problem Dysphagia (22714429) Pharyngoesophageal dysphagia (R13.14) Active confirmed Problem Irritable bowel syndrome (89043298) Irritable bowel syndrome with both constipation and diarrhea (K58.2) Active confirmed Plan Of Treatment Pending Test Test Name Order Date GI BIOPSY 12/24/2018 Future Test Test Name Order Date COLONOSCOPY 01/12/2016 UPPER GI ENDOSCOPY 11/07/2018 Next Appt Details Provider Name:Mauro Baez , 12/02/2025 10:50:00 AM, [address] [place] [address] Drive, [address], [place], [address], Insurance Providers Payer Name Payer Address Payer Phone Subscriber Number Group Number Insured Name Patient Relationship to Insured Coverage Start Date Coverage End Date [facility] [address] Attn Claims CHERELLE Barnett [id number] [phone] [id number] ZANE BRYAN Self - patient is the insured MEDICAID OF [place] [address] [place] [phone] [id number] ZANE BRYAN Self - patient is the insured Medical (General) History Medical History History ICD Code Colonoscopy 11-06-2008--screen ing colonoscopy--neg except for a hyperplastic polyp, mild diverticulosis, internal/external hemorrhoids Asthma/COPD Hypertension GERD--EGD's and in 2011 with finding of a small hiatal hernia---no significant esophagitis nor Maya's esophagus Urinary incontinence Denies IA,DM,CVA,renal disease Depression Kidney stones--ESWL Sleep apnea--has CPAP, but doesn't use i t Colonoscopy in 03/2016 was ne gative except for internal hemorrhoids and diverticulosis Arthritis--takes Lyrica IBS with diarrhea/constipation Surgical History Surgery Date(Month/Year) Cholecystectomy C- section tubal ligation JORDANA Bilateral carpal tunnel Trigger fingers Bladder suspension
--- OUTSIDE RECORDS SUMMARY | 2025-10-14 17:35 | XMS_ITS | Data Portability ---
Author Organization [facility] Address [address] [place] [address] Care Team Providers Care Furnace Cleaner Name Role Phone HIM CCA OTHER Assessment Encounter Date Assessment Date Assessment LastModified by Organization Details LastModified Time 10/31/2023 10/31/2023 I provided real -time medical direction via phone for this encounter, and was available for additional phone based assistance as needed. I have reviewed and agree with the Assessment and Plan as documented by the Advertising Analyst. Patient given the opportunity to ask questions. [...] Assessment and Plan as documented by the Advertising Analyst. Patient given the opportunity to ask questions. [...] creams. No new soaps as well. Per review analyst on the scene, vital signs are stable [...] None recorded. Lab culture, urine 2023 024 [facility] (Centralized Electronic Ordering - All Locations), Patient Can Go To The Location Of Their Choice, [id number] 4 12:06:16 urinalysis , dipstick 2023 024 [facility], [address] [place] [address], [phone] 4 17:18:27 Referral None recorded. Procedures None [...] rehensive Final report Not Available [facility] ([facility]) [address] [facility] [address], [place], [address], 02/29/2024 10:06:17 02/25/2002/29/2024 URINE CULTU RE,CO MPREH ENSIV E result 1 COMMEN T No growt h in 36 - 48 hours . Not Available [facility] ([facility]) [address] [facility] [address], [place], [address], 02/29/2024 10:06:17 Result Notes None recorded. Medical Equipment None Reported. Allergies Allergen ID Allergen Name Allergen Category Reaction Reaction Severity Criticality Documentation Date Start Date Code Code System Note Provider Name and Address Organization Details Recorded Time 6496 lisinopri l medicatio n Not available Not available Not available 08/08/2024 94221 RxNorm Madison Stanley MD [address] [place] [address],[address], [place], [phone], [facility] 16:32:00 6497 metformin medicatio n Not available Not available Not available 08/08/2024 6809 RxNorm Madison Stanley MD [address] [place] [address],[address], [place], [phone], [facility] 16:32:07 Medications Name Sig Start Date Stop [...] rate Heart rate Body height Oxygen saturation Body temperature Systolic And Diastolic Provider Name and Address Organization Details Last Updated DateTime 4 24832.7 2 g 16 /min 90 /min 154.94 cm 97 % 98.5 [degF] 154/83 mm[Hg] Not Available [facility] - production 4 16:20:03 Date Recorded Body height Oxygen saturation Heart rate Body temperature Respiratory rate Body weight Systolic And Diastolic Provider Name and Address Organization Details Last Updated DateTime 4 149.86 cm 98 % 76 /min 97.2 [degF] 16 /min 75266.5 36 g 146/77 mm[Hg] Not Available [facility] 11:54:56 Date Recorded Body temperature Body height Oxygen saturation Respiratory rate Heart rate Body weight Systolic And Diastolic Provider Name and Address Organization Details Last Updated DateTime 98.4 [degF] 149.86 cm 98 % 18 /min 65 /min 76297.3 52 g 179/91 mm[Hg] Not Available [facility] [...] ICD10 Code Diagnosis IMO Codes Diagnosis Note 11079 Madison Stanley MD [facility] [address] [place] [phone] 10/31/2023 16:20:01 11/01/2023 14:26:42 Viral upper respiratory tract infection 194817507 J06.9 47476 Michele Reyna MD [facility] [address] [place] [phone] 02/25/2024 11:54:53 02/25/2024 17:21:50 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 She has some suprapubli c pain and dysuria. Her U/A was normal. I ordered a U/C and recommende d that she follow-up with her PCP regarding the results. The patient agreed with this plan. 84261 Madison Stanley MD [facility] [address] [place] [phone] 08/08/2024 13:41:09 08/08/2024 19:32:46 Localized eruption of skin [id number] R21 Health Concerns Section Related Observation LastModified by Organization Detai ls LastModified Time None Recorded Concern Status LastModified by Organization Details LastModified Time None Recorded Advance Directives Directive None Recorded Payers Insurance Date Sequence Insurance Name Policy Number Policy Herrera Covered Member ID Herrera Member ID Guarantor Name 02/25/2024 1 [facility] - DOS ON OR AFTER 2023 - DUAL ELIGIBLE - [employer] OPTIONS AND ONE CARE (MEDICARE REPLACEMENT/ADV ANTAGE - HMO) Rafia Treviño [id number] Rafia Treviño Notes Date Note Type Note [...] ...................... ...................... ...................... ...................... ...................... ...................... ......... Advertising Analyst Note From Kevin Vieira: Pt reports 3 [...] ...................... ......... Disposition: Fulfilled Madison Stanley MD [address] [place] [address],[address], [place], [phone], [facility] 10/31/2023 16:23:20 02/25/2024 text/html ROS as noted in the HPI [facility] Nurse Triage Notes (Jean Santos): Chief Complaints: Abdominal Pain, Fever/Chills, UTI/Pyelonephritis PMH: Hypertension, COPD/Asthma Allergies: Unknown Comments: Sports Attorney verified the member's name//address and phone number. [...] treatment if needed -ALISHA Mcgregor MD [address] [facility],[address], [place], [address], [facility] 02/25/2024 12:00:15 08/08/2024 text/html CRC Nurse Triage [...] ...................... ...................... ...................... ...................... ...................... ...................... ......... Advertising Analyst Note From Michele Stone: Dispatched to the [...] ...................... ......... Disposition: Fulfilled Madison Stanley MD [address] [place] [address],[address] [facility], [place], [phone], [facility] 08/08/2024 16:34:36 OBGyn Episode No OBEpisode recorded.
== END 2025-10-14 14:42 | disposition home or self-care (01) ==
LOC: HO.HMCH 13:29
PROVIDERS: PCP Internal Medicine; Visit Provider Internal Medicine
DX: E11.65 Type 2 diabetes mellitus with hyperglycemia (principal); I10 Essential (primary) hypertension; M79.673 Pain in unspecified foot; M79.89 Other specified soft tissue disorders; G47.00 Insomnia, unspecified; Z23 Encounter for immunization

== ENCOUNTER → 2025-10-14 13:28 | Outpatient (BNVA) | payer OTHER, SELFPAY | PROVIDERS: PCP Internal Medicine; Visit Provider Internal Medicine | DX: Z23 Encounter for immunization (principal); E11.65 Type 2 diabetes mellitus with hyperglycemia; I10 Essential (primary) hypertension; M79.673 Pain in unspecified foot; M79.89 Other specified soft tissue disorders; G47.00 Insomnia, unspecified | CPT/HCPCS: 83036; 90471; 90656; 99212 ==